=== PATIENT | male | born 1950 | race Caucasian/White ===

== ENCOUNTER 2019-05-26 14:31 | Observation (INO) | payer MEDICARE, OTHER, SELFPAY ==
[2019-05-08 08:48] VITALS: BMI 27.1
[2019-05-25] VITALS (11 sets, daily range): BP systolic 126–150; BP diastolic 78–89; PULSE 62–72; RESP 8–18; TEMP 36.2–37.3; O2SAT 96–99; BMI 25.6
--- NOTE | 2019-05-25 07:52 | DI.RAD.S_ITS ---
PROCEDURE: XR KNEE RT 1TO2V INDICATIONS: RIGHT POST OPERATIVE KNEE TECHNIQUE: 2 view(s) of the knee acquired. COMPARISON: [facility], , KNEE 3V RIGHT, 02/17/2016, 16:38. FINDINGS: Bones: Patient is status post right knee joint arthroplasty. Hardware components are in expected positions. Visualized bony structures are intact. Soft tissues: Overlying postoperative changes are noted. IMPRESSION: Satisfactory appearance of the right total knee arthroplasty. Dictated by: Bossman Sky M.D. on 05/25/2019 at 13:10 Approved by: Bossman Sky M.D. on 05/25/2019 at 13:11
[2019-05-25] MEDS: LACTATED RINGERS 1,000 ML 42 ML IV ×2 (09:00→11:31)
[2019-05-25] MEDS: CELECOXIB 200 MG CAPSULE PO (09:27)
[2019-05-25] MEDS: PREGABALIN 75 MG CAPSULE PO (09:27)
[2019-05-25] MEDS: ACETAMINOPHEN 325 MG TABLET 975 MG PO (09:27)
--- NOTE | 2019-05-25 10:08 | PM.PREOP ---
Pre-operative Note Interval Note History & Physical reviewed/Exam performed by Physician: Yes Changes to H&P: No
--- NOTE | 2019-05-25 10:25 | PM.OP.1 ---
Operative Date/Time/Diagnoses Date of procedure: 05/25/19 Time of procedure: 12:10 Pre-op diagnosis: Right knee osteoarthritis and gout Post-op diagnosis: same Procedure & Clinicians Procedure: Right total knee replacement Same procedure as scheduled: Yes Indications: The patient has had progressively worsening right knee pain with radiographic changes consistent with arthritis. He also has had prior severe attacks of gout. Non-operative management has failed and the patient has requested total knee replacement. The risks, benefits and alternatives to surgery were discussed with the patient prior to proceeding. Risks discussed included, but were not limited to, failure to relieve pain, stiffness, infection, nerve damage, deep venous thrombosis, pulmonary embolism, stroke, coma, heart attack, permanent paralysis and , as well as the potential need for eventual revision of the prosthetic. Surgeon: Dennis Gerard Resource Technician: Sacha Werner Click Yes if Unassisted: No Anesthesia Type: General and Local Operative Notes Findings: Severe medial and patellofemoral osteoarthritis with some evidence for crystal formation consistent with gout. Closure Type: primary Specimen(s): none sent Prosthetic devices, grafts, tissues, transplants, or devices: Implants used in this procedure were manufactured by the [employer] and included the BCS II Journey total knee replacement with a size 7 Oxinium femur, size 7 non porous tibial base plate, 9 mm cross-linked polyethylene tibial insert and a 35 mm oval Lucia II patella. Applied: implant(s) Estimated Blood Loss (mL): 50 Blood products transfused: none Tourniquet time (min): 58 Procedure in detail: The patient was seen in the pre-operative area, where the patient identified the right knee as the operative site and this was marked with my initials. The patient received pre-operative antibiotics, and was taken to the operating room and placed on the operative table in the supine position. After satisfactory anesthesia, a time stamp assembler out was performed. The right leg was encircled with a tourniquet about the proximal thigh, and the leg was prepared from the toes to the tourniquet with ChloroPrep in the usual fashion and draped through sterile drapes. The leg was elevated and exsanguinated with Eschmark bandage and the tourniquet inflated to 250 mmHg pressure. The knee was approached through an approximately 18 cm incision centered over the patella and carried into the knee through a medial parapatellar arthrotomy. The anterior osteophytes and soft tissues were removed. The rotational landmarks of [place]'s line and the transepicondylar axis were marked on the femur with electrocautery, and intramedullary guide holes for the femur and tibia were created. The distal femoral cut was made in 6 degrees of valgus using the intramedullary guide at the primary cut setting. The proximal tibial cut was then made using the intramedullary guide, taking 9 mm of bone off the less involved side. The extension gap was checked and the rotation of the femoral component confirmed with the gap balancing system. The anterior, posterior and chamfer cuts were then made. The posterior osteophytes and soft tissues were then removed. The posterior capsule was injected with part of a mixture of 60 ml 0.25% Marcaine mixed with 20 ml Exparel and 4 mg of morphine for post-operative pain control. The remainder of this mixture was injected into the capsule and subcutaneous tissues during cement curing. The tibia was prepared with the rotation set by an extra medullary guide. Trial tibial and femoral components were then placed and the intercondylar notch cut through the femoral trial. Range of motion was 0-140 degrees, with good stability throughout the range. The patella was then cut to accommodate the patellar prosthetic. There was no need for a lateral release. The trials were then removed, and the femoral hole plugged with a bone plug. The bone was prepared with pulsatile lavage, and dried with a sponge. Cement was applied and the final prosthetics placed. Excess cement was removed during and after cement curing. After confirming there was no extruded cement posteriorly, the final tibial insert was placed. The knee was copiously irrigated and the tourniquet deflated. Hemostasis was obtained. The capsule was closed with interrupted # 2 polyester suture. The subcutaneous layer was closed with 3-0 Vicryl, and the skin with a running 3-0 V-Lock suture and SteriStrips. An Aquacel Ag dressing was applied and the patient was taken to recovery having tolerated the procedure well. Complications: none Post-operative Condition: stable Disposition: PACU Plan for aftercare: The patient will be maintained on a standard total knee replacement protocol with weight bearing as tolerated. The patient will receive aspirin and sequential compression devices for DVT prophylaxis. The patient will be discharged home when safe for the home environment.
[2019-05-25] MEDS: CEFAZOLIN 2 GM/100 ML FROZ.PIGGY IV (10:33)
--- NOTE | 2019-05-25 10:41 | SUR.OPER ---
Supine on padded OR bed. Pillow under head, arms secured on padded armboards <90 degree abduction. Safety belt across torso. Non-operative leg secured with tape over blanket over lower leg. Operative leg secured in DeMayo/Corey positioner. Foam padded brace at thigh of operative leg.
[2019-05-25] MEDS: TRANEXAMIC ACID 1,000 MG VIAL 1000 MG INJ ×2 (10:52→12:01)
[2019-05-25] MEDS: BUPIVACAINE LIPOSOME 266 MG/20 ML VIAL INJ (11:04)
[2019-05-25] MEDS: BUPIVACAINE 0.25% W/ EPI 30 ML VIAL 60 ML INJ (11:05)
[2019-05-25] MEDS: MORPHINE 4 MG/ML INJ INJ (11:05)
--- NOTE | 2019-05-25 13:23 | SUR.PHASEI ---
Assumed care from zack mccain rn. pt sleeping, resp unlabored; skin warm and dry. scd's on, vs and cardiac rhythm monitored.
--- NOTE | 2019-05-25 13:37 | SUR.PHASEI ---
1983 informed that his room is ready. preparing to transfer. clothing bag, glasses, and backpack to room with the patient.
--- NOTE | 2019-05-25 13:52 | SUR.PHASEI ---
1341 to room 208, bed down and locked, call light within reach, scd's on. pt awake, talking appropriately, denied pain. no questions from staff or patient.
[2019-05-25] MEDS: LACTATED RINGERS 1,000 ML 125 ML IV (13:56)
[2019-05-25] MEDS: ACETAMINOPHEN 325 MG TABLET 650 MG PO ×2 (14:53→20:22)
[2019-05-25] MEDS: OXYCODONE IR 5 MG TABLET PO (15:28)
[2019-05-25] MEDS: IBUPROFEN 400 MG TABLET PO (15:28)
--- NOTE | 2019-05-25 17:19 | PT-IP ANOTE ---
Attempted to initiate PT evaluation ~1400 but pt not ready yet. Will see pt morning of 05/26.
[2019-05-25] MEDS: LITHIUM 300 MG IR CAPSULE PO ×2 (17:37→20:23)
[2019-05-25] MEDS: LATANOPROST 0.005% OPHTH 2.5 ML 1 DROPS EYE-BOTH (20:04)
[2019-05-25] MEDS: BRIMONIDINE 0.2% OPHTH 5 ML 1 DROPS EYE-LEFT (20:04)
[2019-05-25] MEDS: OXYCODONE IR 10 MG TABLET PO (20:21)
[2019-05-25] MEDS: TAMSULOSIN 0.4 MG CAPSULE PO (20:23)
[2019-05-25] MEDS: ROSUVASTATIN 10 MG TABLET 20 MG PO (20:23)
[2019-05-25] MEDS: DOCUSATE 100 MG CAPSULE PO (20:23)
[2019-05-25] MEDS: ASPIRIN EC 81 MG TABLET PO (20:23)
--- NOTE | 2019-05-26 00:46 | PC.NURSE ---
Addendum entered by Fanta Landrum R.N. 05/26/19 04:25: 30 minutes ago stated pain had improved to 4/10 but now states pain up to 7/10 so medicated with Flexeril. Describes pain still as dull but more constant. Addendum entered by Fanta Landrum R.N. 05/26/19 02:57: Patient states pain starting to get worse and is at 5/10; medicated with Oxycodone 10mg as requested. Original Note: Patient is alert and oriented. Breath sounds CTA with RA sat of 91-93%. HRR with BP of 141/85 which is consistent with previous readings. Denies nausea. BT present but denies flatus as yet. Voiding per urinal without dysuria. Aquacel dressing + xiomara wrap to right knee is CDI. States pain currently 1/10 at rest and 4/10 with movement but declines offer of pain medication; ice pack applied. Numbness in right leg is resolved and CMS is intact. Is not able to lift right LE off bed as yet. Is able to turn himself in bed. Gait not assessed as has not yet had PT. Wearing bilateral calf SCD's. Fall risk score is moderate; bed alarm is activated.
[2019-05-26 00:47] VITALS: BP 141/85; PULSE 81; RESP 16; TEMP 36.7; O2SAT 91
[2019-05-26] MEDS: OXYCODONE IR 10 MG TABLET PO ×5 (02:54→20:55)
[2019-05-26 04:15] VITALS: BP 149/95; PULSE 80; RESP 16; TEMP 37; O2SAT 98
[2019-05-26] MEDS: CYCLOBENZAPRINE 10 MG TABLET PO (04:22)
[2019-05-26 05:31] LABS: Hematocrit 38.7 % (41-53); Hemoglobin 12.3 g/dL (13.5-17.5)
--- NOTE | 2019-05-26 06:24 | PM.DS.1 ---
History of Present Illness History of Present Illness Date Patient Seen: 05/26/19 Time Patient Seen: 06:24 Chief complaint: [id number] Right Total Shoulder Arthroplasty Narrative: The history and physical is contained in the chart in a previously completed note. Please refer to that note for this information. Discharge Providers Provider Date of admission: 05/25/19 08:46 Discharge Date: 05/26/19 Primary care physician: Juhi Mitchell MD Consults: 05/25/19 13:49 Consult to Discharge Planning Routine Comment: Consult to Physical Therapy Evaluate & Treat Comment: Physician Instructions: postop TKA protocol Discharge provider: Dennis Gerard MD Summary Hospital Course Discharge Diagnosis: 1. 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 She underwent a left total shoulder replacement without complication. She was stable postoperatively and on the morning of postoperative day 1 it was felt she would be ready for discharge later in the day. Status at Discharge Cognitive/behavioral status at discharge: oriented Functional status at discharge: independent ambulation Overall status at discharge: patient is progressing back to baseline Time Spent with Patient Time spent: Less than 30 minutes Exam Vital Signs (past 8 hours): - 05/26/19 00:47 05/26/19 04:15 Temperature 98.0 F 98.6 F Pulse Rate 81 80 Respiratory Rate 16 16 Blood Pressure 141/85 H 149/95 H Pulse Oximetry 91 98 Oxygen Delivery Method Room Air Oxygen Flow Rate 0 Narrative Exam Narrative: Left shoulder wound is dressed with no drainage on the bandage. Light touch is intact in the radial, ulnar, median, muscular cutaneous and axillary nerve distributions. She can extend her thumb, abduct her thumb, abduct her fingers and can fire her biceps and deltoid. Objective Labs Result Diagrams: 05/26/19 05:20 Labs: Laboratory Results - last 24 hr 05/26/19 05:20 Hgb 12.3 L Hct 38.7 L Discharge Plan Discharge Plan Patient Disposition: Home Discharge orders & Medications Prescriptions: New acetaminophen 325 mg Tablet 650 mg PO TID 30 Days Qty: 180 RF: 0 aspirin 81 mg Tablet,Delayed Release (Dr/Ec) 81 mg PO BID 42 Days Qty: 84 RF: 0 oxycodone 5 mg Tablet 5 mg PO Q4HR Qty: 40 RF: 0 Continued lithium carbonate 150 mg capsule 300 mg PO DIRECTED Qty: 0 RF: 0 allopurinol 100 MG tablet 100 mg PO QDAY Qty: 30 RF: 0 triazolam 0.125 MG tablet 0.125 mg PO DAILY PRN (Reason: Anxiety) Qty: 0 RF: 0 cyclobenzaprine 10 MG tablet 10 mg PO TIDP PRN (Reason: Muscle Spasm) Qty: 0 RF: 0 latanoprost 0.005 % drops 1 drp EYE-BOTH HS Qty: 2.5 RF: 0 timolol maleate 0.5 % drops 1 drp EYE-BOTH QAM Qty: 5 RF: 0 rosuvastatin 20 mg Tablet 20 mg PO BEDTIME RF: 0 sildenafil 100 mg Tablet 100 mg PO DAILY PRN (Reason: Sexual Activity) RF: 0 brimonidine 0.2 % Drops 1 drp EYE-LEFT BID RF: 0 ibuprofen 200 mg Tablet 400 mg PO Q4H PRN (Reason: Pain) RF: 0 Sleep Aid (doxylamine) 25 mg Tablet 25 mg PO BEDTIME PRN (Reason: Sleep) RF: 0 tamsulosin 0.4 mg Capsule 0.4 mg PO BEDTIME RF: 0 paroxetine HCl 20 mg Tablet 20 mg PO DAILY RF: 0 diazepam 10 mg Tablet 10 mg PO DAILY RF: 0 Discontinued acetaminophen [Tylenol Extra Strength] 500 mg Tablet 1,000 mg PO Q4H PRN (Reason: Pain) RF: 0 Follow up/Referrals: Juhi Mitchell MD [Primary Care Provider] - Dennis Gerard MD [Physician] - 3-5 Days Discharge Health Status Multidrug resistant organism: No MDRO Diet/Activity/Treatments Diet: Diet as Tolerated and Regular Activity: You may bear weight on your right knee as tolerated. Cold/Heat Therapy: Apply ice to the right knee for 15 minutes every hour as needed for pain. Skin/Wound/Dressing Care Report to your healthcare provider any signs of infection, such as:: chills, fever, night sweats, increased pain, unusual drainage and unusual redness Dressing: Remove the Loyd wrap 3 days after surgery. Leave the deeper dressing in place. After removal of the Loyd wrap you may shower normally. Please call the office if the center strip of the deeper dressing becomes saturated with either water or blood. Visit Report/Discharge Packet Instructions: DI for Knee Replacement, DI for Prescription Opioid Use Stand Alone Forms: Surgery Discharge Discharge Data Primary Care Provider: Juhi Mitchell
--- NOTE | 2019-05-26 06:29 | P.DS_ITS ---
History of Present Illness History of Present Illness Date Patient Seen: 05/26/19 Time Patient Seen: 06:29 Chief complaint: [id number] Right Total Knee Arthroplasty Narrative: The history and physical is contained in the chart in a previously completed note. Please refer to that note for this information. Discharge Providers Provider Date of admission: 05/25/19 08:46 Discharge Date: 05/26/19 Primary care physician: Juhi Mitchell MD Consults: 05/25/19 13:49 Consult to Discharge Planning Routine Comment: Consult to Physical Therapy Evaluate & Treat Comment: Physician Instructions: postop TKA protocol Discharge provider: Dennis Gerard MD Summary Hospital Course Discharge Diagnosis: 1. Right knee osteoarthritis 2. Post hemorrhagic anemia Hospital Course: Patient was admitted the hospital and taken directly to the o perating room on May 25, 2019. He underwent a right total knee replacement without complication. On postoperative day 1 he is medically stable and is anxious to go home as long as he can pass physical therapy requirements today. Status at Discharge Cognitive/behavioral status at discharge: oriented Functional status at discharge: uses cane/walker Overall status at discharge: patient is progressing back to baseline Time Spent with Patient Time spent: Less than 30 minutes Exam Vital Signs (past 8 hours): - 05/26/19 00:47 05/26/19 04:15 Temperature 98.0 F 98.6 F Pulse Rate 81 80 Respiratory Rate 16 16 Blood Pressure 141/85 H 149/95 H Pulse Oximetry 91 98 Oxygen Delivery Method Room Air Oxygen Flow Rate 0 Narrative Exam Narrative: Right knee wound is dressed with no drainage on the bandage. Calf is soft. Light touch and motion are intact in the right lower extremity. Objective Labs Result Diagrams: 05/26/19 05:20 Labs: Laboratory Results - last 24 hr 05/26/19 05:20 Hgb 12.3 L Hct 38.7 L Discharge Plan Discharge Plan Patient Disposition: Home Discharge orders & Medications Prescriptions: New acetaminophen 325 mg Tablet 650 mg PO TID 30 Days Qty: 180 RF: 0 aspirin 81 mg Tablet,Delayed Release (Dr/Ec) 81 mg PO BID 42 Days Qty: 84 RF: 0 oxycodone 5 mg Tablet 5 mg PO Q4HR Qty: 40 RF: 0 Continued lithium carbonate 150 mg capsule 300 mg PO DIRECTED Qty: 0 RF: 0 allopurinol 100 MG tablet 100 mg PO QDAY Qty: 30 RF: 0 triazolam 0.125 MG tablet 0.125 mg PO DAILY PRN (Reason: Anxiety) Qty: 0 RF: 0 cyclobenzaprine 10 MG tablet 10 mg PO TIDP PRN (Reason: Muscle Spasm) Qty: 0 RF: 0 latanoprost 0.005 % drops 1 drp EYE-BOTH HS Qty: 2.5 RF: 0 timolol maleate 0.5 % drops 1 drp EYE-BOTH QAM Qty: 5 RF: 0 rosuvastatin 20 mg Tablet 20 mg PO BEDTIME RF: 0 sildenafil 100 mg Tablet 100 mg PO DAILY PRN (Reason: Sexual Activity) RF: 0 brimonidine 0.2 % Drops 1 drp EYE-LEFT BID RF: 0 ibuprofen 200 mg Tablet 400 mg PO Q4H PRN (Reason: Pain) RF: 0 Sleep Aid (doxylamine) 25 mg Tablet 25 mg PO BEDTIME PRN (Reason: Sleep) RF: 0 tamsulosin 0.4 mg Capsule 0.4 mg PO BEDTIME RF: 0 paroxetine HCl 20 mg Tablet 20 mg PO DAILY RF: 0 diazepam 10 mg Tablet 10 mg PO DAILY RF: 0 Discontinued acetaminophen [Tylenol Extra Strength] 500 mg Tablet 1,000 mg PO Q4H PRN (Reason: Pain) RF: 0 Follow up/Referrals: Juhi Mitchell MD [Primary Care Provider] - Dennis Gerard MD [Physician] - 3-5 Days Discharge Health Status Multidrug resistant organism: No MDRO Diet/Activity/Treatments Diet: Diet as Tolerated and Regular Activity: You may bear weight on your right knee as tolerated. Cold/Heat Therapy: Apply ice to the right knee for 15 minutes every hour as needed for pain. Skin/Wound/Dressing Care Report to your healthcare provider any signs of infection, such as:: chills, f ever, night sweats, increased pain, unusual drainage and unusual redness Dressing: Remove the Loyd wrap 3 days after surgery. Leave the deeper dressing in place. After removal of the Loyd wrap you may shower normally. Please call the office if the center strip of the deeper dressing becomes saturated with either water or blood. Visit Report/Discharge Packet Instructions: DI for Knee Replacement, DI for Prescription Opioid Use Stand Alone Forms: Surgery Discharge Discharge Data Primary Care Provider: Juhi Mitchell
--- NOTE | 2019-05-26 08:02 | CM.DANOTE ---
Addendum entered by Olive Ramirez LPN 05/26/19 14:34: Met now with Dai, at bedside. Pt lying in bed, snoring softly. She is updated re the admission status/SDC and lack of ability know to have pt go to snf setting. She notes great confusion re admission status specifics. ANIBAL Tsang if updated and agrees to follow up with her. He also confirms admission status as OBS: as of 05/26. Dai is process of looking at ferry schedule in prep for the d/c to home setting tomorrow. She is planning on the [address] to [place]. Priority Board will be needed, PLASTIC PANEL INSTALLER will assist tomorrow to fax this in to appropriate ferry contact. PT will see pt in morning for another session. Dai notes she does anticipate the d/c to home will be challenging but she also will be glad to get pt back on all his routine medications as he does not do very well when the medication schedule is interrupted or changed, especially the ones for his mental health problems. Dai is planning to see if the neighbor's son can help get him out of the car and into the house. DCP team to follow up tomorrow prn. P: at this point: home tomorrow: 1440 ferry. Addendum entered by Olive Ramirez LPN 05/26/19 11:54: Update: admission status: per UR ISABEL Tsang: confirmed: SDC (Outpt with Bed). Have spoken with PT Martha. Pt did well in first session. She has set up caregiver training with Dai for 1230. She notes pt will likely be ready for d/c to home setting tomorrow. Met with pt again. He agrees that going home seems to be a good plan at this point. He said their may be someone who can help him in addition to his but it's not set up yet. He says he thinks she will be able to get into the back seat of their car although it is clear from prior discussion that pt's will need someone to help her get him safely out of the car. PT will also work on stairs with pt and his . Will follow up this afternoon after the caregiver training. Addendum entered by Olive Ramirez LPN 05/26/19 08:53: Discussed surgical report with UR ISABEL Tsang...he reports he will follow up. He will also need to review for appropriate admission status: Admit status: no longer confirmed INPT: is IN REVIEW. Addendum entered by Olive Ramirez LPN 05/26/19 08:41: Spoke with pt's Dai (who is staying in a hotel in [place]). Per discussion with her and a deeper look at the documentation including DC summary # 3 and op report it is clear that the initial information on the face sheet is incorrect: Admitting reason is for TKA NOT TSA. Dai reports that her had a lesser knee procedure in past and went to [facility] for a month. She would like his name on the pending list but only if he has the Medicare qualifying stay. She also notes that she is concerned about how to get him home if he does have to d/c to that setting. My car is very small. We have practiced but not been successful getting him into it Discussed option of a pvt pay transport service...... Dai will be in later today and will meet again with her and pt at that time. [facility] Tyrese: states she thinks their are beds and will check further with her rehabilitation center manager. ([facility] was previously known as [facility]). Addendum entered by Olive Ramirez LPN 05/26/19 08:16: Met with pt and introduced self and role. Pt said he was aware that Dr. Gerard had a d/c order in place but that he told him that all would depend on how he did with PT. (ISABEL Munroe, caring for pt today, confirms same). Pt said he was aware that his thought he would need a snf rehab stay before home. Pt confirms his 's name is Dai [place]: [phone]. It is noted that pt and his life in [place] on [facility]. P: check in later today as more is known re d/c options. Original Note: Discharge Planning/Care Management DCP: assessment: case received, EMR reviewed. Pt is a 69 year old male who admitted yesterday for a planned R TSA. Payer: Medicare and [employer] Admission status: INPT: confirmed by UR ISABEL Tsang. A d/c order and d/c summary are noted from Dr. Gerard early this morning. PT has not yet worked with pt. A review of the pre-op plan that pt discussed with ISABEL KNIGHT on 05/08: see below template: states that pt's wants him to go to snf setting. Will check in with pt this morning and discuss with therapists once the eval has been completed. Advanced directive, confirm from FAMILY Start: 05/25/19 15:02 Freq: Q24H Status: Active Protocol: Document 05/25/19 16:00 LDV (Rec: 05/25/19 18:56 LDV [id number]) Advance Directive, confirm on record Time 16:00 Person contacted pt Copy received No CM Discharge Assessment Start: 05/26/19 08:00 Freq: Status: Active Protocol: Document 05/26/19 08:00 ITV (Rec: 05/26/19 08:01 ITV [id number]) Discharge Planning Assessment Advance Directives? Yes History Provided By Medical Record Prior Living Arrangements House Household Members spouse Document 05/26/19 08:01 ITV (Rec: 05/26/19 08:02 ITV [id number]) Discharge Planning Assessment Advance Directives? Yes History Provided By Medical Record Prior Living Arrangements House Household Members spouse Is patient alert and oriented? Yes Review Status In Process Pre-Anesthesia Assessment Start: 05/08/19 08:48 Freq: Status: Complete Protocol: Document 05/08/19 08:48 CAB (Rec: 05/08/19 09:51 CAB [id number]) Pre-Anesthesia Assessment Preferred Name Candelario Patient Information Reviewed Via Phone Assessment Assessment Completed With Patient Diagnostic Results BMP/CMP,CBC,EKG,Urinalysis Comment Outside labs/EKG scanned to record Primary Care Provider Juhi Mitchell Seen Specialist in Last 12 Months Yes Specialist Seen Oral surgeon,Orthopedist Primary Language Estonian Pneumatic Drum Sander Required No Height 182.88 cm Weight 90.718 kg Body Mass Index (BMI) 27.1 Hearing Ability Normal Visual Assist Glasses Dentition Type Teeth, Missing,Partial- Lower Barriers to Learning Memory Other Aids No Comment Does not wear lower partial Hx Anesthesia Reactions No Hx Family Anesthesia Reaction No Hx Malignant Hyperthermia No Hx Blood Transfusions No: Pt unsure Anesthesia Review Requested No Skinner Pelts Yes: wants DC to SNF alcohol intake former Alcohol Intake Frequency Other: Quit 04/2019 Smoking Status Never smoker Substance Use Type does not use Pain Present Pain Reported Musculoskeletal Symptoms Back Pain,Difficulty Walking, Joint Pain History of Falling (Recent or History of No ) Patient is completely paralyzed or No completely immobile Mental Status Oriented to own ability Comment Appears confused at times with assess Is patient on oxygen? No Does patient have KIRBY/SOB No Hx Sleep Apnea No Currently Taking a Beta Félix No Can You Climb a Flight of Stairs Without Yes SOB Hx Chest Pain No Hx SOB No Hx Syncope or Dizziness No Anti-Coagulant Therapy No Has a Director Of Slot Operations No Cardiac Testing No Hx Pacemaker/ICD No Pacemaker Rep Required? No Cardiac Clearance Received Not Applicable Diet Type At Home Regular dysphagia No Genitourinary Symptoms Dribbling Bladder Pattern Nocturia Urinary Catheter Present No Hx Urinary Self Catheterization No Diabetes No HgbA1C 5.5 Date 04/28/19 Hx Drug Resistant Organism No Presence of External or Internal Medical Yes: Hardware rt ankle Devices Have you traveled outside the [facility] in the last 30 days? Marital Status Lives With spouse Prior Living Arrangements House Number of Floors (Floors) Two Floors Support System Spouse Does the Patient Have Assistance After Yes Surgery Patient Discharge Plan Description Return Home,Longterm Facility/Rehab Comment Pt advised a few days length of stay per surgeon. wants DC to snf Feels Safe in Current Environment Yes Been Physically Hurt or Threatened By a No Person in Current Environment Do you have thoughts of harming yourself None or others? Are you currently considering suicide? No Do you have a plan to hurt yourself or No Plan others? Do You Have Any Spiritual Beliefs That No May Affect Your HC Choices? Do You Have Any Cultural Practices That No May Affect Your HC Choices? Who Can We Speak to About Patient's Care Family, friends Identifying Code for Release of Patient Declines to issue Information Health Care Proxy/Next of Kin Dai () Health Care Proxy or [phone] Emergency Contact Name Dai () Emergency Contact or [phone] Advance Directives? No Power of Cake Puncher Yes: Working on updating PAC Instructions Durable medical equipment, Medications to take/avoid, Nasal antibiotic,No ETOH/ petroleum product on skin DOS, NPO,Post-op transportation,Pre -surgical wash,Sturdy shoes/ comfortable clothes,Do not bring valuables and remove jewelry
[2019-05-26] MEDS: ACETAMINOPHEN 325 MG TABLET 650 MG PO ×3 (08:14→20:56)
[2019-05-26] MEDS: ASPIRIN EC 81 MG TABLET PO ×2 (08:14→20:55)
[2019-05-26] MEDS: IBUPROFEN 400 MG TABLET PO ×2 (08:15→20:57)
[2019-05-26] MEDS: DOCUSATE 100 MG CAPSULE PO ×2 (08:15→20:55)
[2019-05-26] MEDS: ALLOPURINOL 100 MG TABLET PO (08:16)
[2019-05-26] MEDS: LITHIUM 300 MG IR CAPSULE 600 MG PO (08:16)
[2019-05-26] MEDS: PARoxetine 20 MG TABLET PO (08:17)
[2019-05-26] MEDS: TIMOLOL 0.5% OPHTH 1 DROPS EYE-BOTH (08:18)
[2019-05-26] MEDS: SODIUM CHLORIDE 0.9% FLUSH 10 ML IV ×2 (08:18→20:57)
[2019-05-26] MEDS: BRIMONIDINE 0.2% OPHTH 5 ML 1 DROPS EYE-LEFT ×2 (08:19→20:56)
[2019-05-26 08:54] VITALS: BP 144/88; PULSE 91; RESP 17; TEMP 37.7; O2SAT 94
--- NOTE | 2019-05-26 09:35 | PC.NURSE ---
Addendum entered by Shaneka Gill R.N. 05/26/19 14:55: Called Dr. Trejo's cell at 1455, after 2X11 min on hold attempts with office answering service. Made aware that pt and his would like pt to stay one more night. Discharge order cancelled, pt will likely discharge home tomorrow. Addendum entered by Shaneka Gill R.N. 05/26/19 13:32: PM PT session, pt had up to 7/10 pain with movement, 1-2/10 with rest after settled back into bed with PT assist. Pt's present for PM PT session. Would prefer pt to stay one more night, has concerns for getting pt in/out of car, pain management, ferry ride. Pt's has lifting mobility restrictions as well. Original Note: Day Shift- Pt A&OX4, able to make needs known using call light. High fall risk precautions in place, bed alarm on, call light within reach. Pre-medicated with prn Oxycodone and Ibuprofen and scheduled Tylenol prio rto AM PT session. Pain 2/10 with rest. Pt OOB with PT ambulating in hallway, around 0920, settled into recliner chair at 0935 by PT. Spoke with Demi, pt's via phone at 0930 for update. Per PT pt will have caregiver training this afternoon and will call Demi to participate.
--- NOTE | 2019-05-26 10:35 | PT.IIE ---
Current Diagnoses Unilateral primary osteoarthritis, right knee (05/25/19) Personal history of other diseases of the musculoskeletal system and connective tissue (05/25/19) Surgery Performed Operation Date: 05/25/19 10:45 Actual Procedures p Total Knee Arthroplasty(Right) - Dennis Gerard MD Surgical History (Last Updated 05/08/19 @ 09:32 by Dora Gallo RN) History of ankle surgery (Acute) Hx of appendectomy (Acute) Hx of arthroscopy of right knee (Acute 03/03/16) Hx of oral surgery (Acute 05/05/19) Hx of thumb surgery (Acute ~05/2017) Medical History (Last Updated 05/25/19 @ 09:15 by Katja Deng RN) Anxiety (Acute) De Quervain's tenosynovitis (Acute) Depression (Acute) DJD (degenerative joint disease) (Acute) Herniated disc (Acute) HLD (hyperlipidemia) (Acute) Neuropathy (Acute) Occasional tremors (Acute) Septic arthritis (Acute ~03/2016) Tinnitus (Acute) Physical Therapy Inpatient Evaluation/Re-Eval M1 PT/OT-IP Prior Functional Status Start: 05/26/19 07:59 Freq: NEEDED Status: Active Protocol: Document 05/26/19 10:10 AW (Rec: 05/26/19 10:35 AW [id number]) Medical Review Prior Functional Status Medical History Reviewed Yes Diet/Fluid Consistency Regular Communication WFL. Pt with bipolar disorder and anxiety at baseline. Mobility and Gait Slow but independent without assistive device. Activities of Daily Living and IADL's Independent. Prior Functional Level (Other details) Pt had a gout flare up treated with I&D in 2015 involving the right knee. He was discharged to SNF following that procedure. Social History Household Members spouse Living Arrangements House Number of Floors (Floors) Two Floors Number of Stairs To Enter/Railing? 2 HUSSEIN without railing. There are 16 steps up to the second floor, but pt has set up the freelance data entry so that he can stay there until strong enough to manage the stairs. Home Environment Standard Height Toilet,Walk in Shower,Tub/Shower Home Equipment Front Wheel Walker,Straight Cane,Bedside Commode,Shower Seat without Backrest,Hand Held Shower Additional Social History Comment Pt lives with his , Dai, in [place]. Per phone conversation with Dai, she states she has cervical and lumbar stenosis which limit her ability to provide physical assist. She is concerned about her ability to get Candelario into her [place] since Candelario is tall and has had difficulty with this transfer in the past. M2 PT-IP Current Condition Start: 05/26/19 07:59 Freq: NEEDED Status: Active Protocol: Document 05/26/19 10:10 AW (Rec: 05/26/19 10:35 AW [id number]) Physical Therapy Current Condition Current Condition Evaluation Date 05/26/19 Treatment Diagnosis s/p R TKA Onset Date 05/25/19 Weight Bearing Status Weight Bearing Status Weight Bear as Tolerated M3 PT-IP Subjective Start: 05/26/19 07:59 Freq: NEEDED Status: Active Protocol: Document 05/26/19 10:10 AW (Rec: 05/26/19 10:35 AW [id number]) Subjective Physical Therapy Visit Type Type Initial Evaluation Visit Start Time 08:54 Visit Stop Time 09:30 Total Visit Minutes 36 Number of MEDICAL FIELD REPRESENTATIVE Visits 0 Physical Therapy Visit Comments Patient Comments Pt willing to mobilize with PT Patient Goals Pt concerned he may need SNF rehab but would like to be able to go home. Therapy Pain Assessment Pain When Pain Assessed During Mobility Pain Present Pain Present Pain Reported Location Right Knee Intensity 7 Scale Used 2/10 at rest; 7/10 with mobility Pain Management Techniques Apply Cold,Elevation,Re- positioning,Timing of Activity with Medications M4 PT-IP Mobility and Gait Start: 05/26/19 07:59 Freq: NEEDED Status: Active Protocol: Document 05/26/19 10:10 AW (Rec: 05/26/19 10:35 AW [id number]) PT-Bed Mobility Assessment Supine to Sit Supine to Sit Standby Assistance Scooting Scooting to Edge of Bed Standby Assistance PT-Transfer Assessment Sit to and From Stand Sit to and from Stand Contact Guard Assistance Equipment Transfer Assistive Device Gait Belt,Front Wheeled Walker Orthotic/Prosthetic Devices or Brace: No Transfers Transfer Destination Chair Transfer Technique pt ambulated with FWW Transfer Ability Level of Assist Contact Guard Assistance Comments Mobility Comments Pt used the L LE to lift the R LE out of bed SBA. Sit to stand and transfer to chair required verbal cues for sequencing and CGA. Pt denied nausea or lightheadedness with mobility. Gait Assessment Gait Gait Assistance Required: Standby Assistance,Contact Guard Assist Distance (Feet) 80 Able to Maintain Weight Bearing Status Yes During Gait Assistive Devices Assistive Device Gait Belt,Front Wheeled Walker Orthotic/Prosthetic Devices or Brace: No Gait Deviations General Gait Pattern Antalgic,Decreased Stride Length,Decreased Feet Clearance,Flexed Trunk,Step-to Gait Factors Limiting Gait Function Factors Limiting Gait Function Decreased Activity Tolerance, Decreased Strength,Limited Range of Motion,Pain Comments Gait Comments Pt ambulated 40 feet in the halls with FWW CGA and another 40 feet with FWW SBA. Gait was notable for short shuffling steps with minimal foot clearance, step-to patterning, and slow gait speed but pt demonstrated good safety with the FWW, keeping it an appropriate distance from his trunk and using it properly to off-weight the R LE as needed. Stair Climbing Assessment Evaluation Level of Assist On Stairs Contact Guard Assistance,1 Person Assistance Devices Stair Climbing Assistive Devices Left Railing,Right Railing Technique/Endurance Stair Climbing Direction Ascend and Descend Stair Climbing Technique Step to Step Number of Steps Climbed 3 Query Text: Stair Climbing Set # Repetitions (reps) 1 Comments Stair Climbing Comments Pt has no railings at home entry, but did not feel confident attempting stairs with EDGE TRIMMING MACHINE OPERATOR. He used bilateral rails to ascend/descend with CGA. PT-Balance Assessment Sitting Balance and Reactions Static Sitting Balance Ability Good Dynamic Sitting Balance Ability Good Standing Balance and Reactions Static Standing Balance Ability Good Dynamic Standing Balance Ability Good Device Used FWW M5 PT-IP Objective Assessments Start: 05/26/19 07:59 Freq: NEEDED Status: Active Protocol: Document 05/26/19 10:10 AW (Rec: 05/26/19 10:35 AW [id number]) Orientation Orientation/Cognition Level of Alertness Confusional State Orientation Name,Birthday,Day of Week, Place,Situation Safety Awareness Understands Safety Issues Memory Description Short Term Impaired Comments Pt repeated the story of his previous knee surgery 3 times, seemingly having forgotten each time that he already conveyed this information. He is oriented but presents as confused and drowsy. Gross Range of Motion Upper Extremity ROM Assessment Within Functional Limits Lower Extremity ROM Assessment Right Impaired Strength Upper Extremity Strength Assessment Within Functional Limits Lower Extremity Strength Assessment Right Impaired Coordination Assessment Gross Coordination Gross Coordination WNL Sensation Assessment Sensation Gross Sensation WNL M6 PT-IP Treatment Start: 05/26/19 07:59 Freq: NEEDED Status: Active Protocol: Document 05/26/19 10:10 AW (Rec: 05/26/19 10:35 AW [email or web address]) Physical Therapy Treatment Exercises Exercises Ankle Pumps,Quad Sets,Heel Slides,Passive Knee Extension Hang Education Education Provided Precautions,Weight Bearing Status,Post-Op Packet,Safety Other Treatments Other Treatment Performed Provided education on PT plan of care, post-op exercises, weightbearing status, and safe use of FWW. M7 PT-IP Assessment and Plan Start: 05/26/19 07:59 Freq: NEEDED Status: Active Protocol: Document 05/26/19 10:10 AW (Rec: 05/26/19 10:35 AW [email or web address]) PT Summary Assessment and Plan Potential Rehabilitation Potential Good Status of Condition at Evaluation Stable Summary Impairments Pain,ROM,Strength,Cognition, Transfers,Gait Assessment Summary Candelario is a 69 yo man with history of right knee I&D requirng SNF rehab. He was seen for PT evaluation on POD1 following R TKA. At baseline, he was independent in all regards but slow with mobility due to pain. On evaluation, pt presents as confused, drowsy, and with short-term memory deficits. He required SBA for bed mobility and CGA for ambulation with FWW and stairs. He did demonstrate good safety awareness with FWW but required cues for sequencing transfers and stairs. He requires further acute PT to address safe transfers, to progress ambulation, and to provide caregiver training which is arranged for this afternoon at 1230. Depending on progress, pt will likely be safe to discharge home with spouse assist and outpatient PT today or tomorrow. Will continue to assess. Goals Bed Mobility Goal Independent Transfer Goal Standby Assistance,Front Wheeled Walker Gait Goal Standby Assistance,Front Wheel Walker Gait Distance 150 Other Goals - up/down 2 steps with EDGE TRIMMING MACHINE OPERATOR/CGA and appropriate patterning Days to Meet Goals 2 Frequency of Treatment Frequency Of Treatment Twice a Day Treatment Plan Physical Therapy Treatment Plan Bed Mobility Training,Transfer Training,Gait Training, Therapeutic Exercise,Balance Retraining,Post Op Education, Discharge Planning,Hot or Cold Pack Other Recommendations and Next Treatment caregiver training, stairs Focus without railings depending on which entry pt plans to use Recommendations To Nursing Amount of Assist Needed 1 Person Assist Discharge Recommendations PT Discharge Recommendations Home with Assistance, Outpatient PT Other Discharge Recommendations Will continue to assess
--- NOTE | 2019-05-26 12:36 | PT.IPTN ---
Current Diagnoses Unilateral primary osteoarthritis, right knee (05/25/19) Personal history of other diseases of the musculoskeletal system and connective tissue (05/25/19) Surgery Performed Operation Date: 05/25/19 10:45 Actual Procedures p Total Knee Arthroplasty(Right) - Dennis Gerard MD Physical Therapy Treatment Note M2 PT-IP Current Condition Start: 05/26/19 07:59 Freq: NEEDED Status: Active Protocol: Document 05/26/19 10:10 AW (Rec: 05/26/19 10:35 AW [id number]) Physical Therapy Current Condition Current Condition Evaluation Date 05/26/19 Treatment Diagnosis s/p R TKA Onset Date 05/25/19 Weight Bearing Status Weight Bearing Status Weight Bear as Tolerated M3 PT-IP Subjective Start: 05/26/19 07:59 Freq: NEEDED Status: Active Protocol: Document 05/26/19 12:36 CLB (Rec: 05/26/19 13:53 CLB [id number]) Subjective Physical Therapy Visit Type Type Treatment Note Visit Start Time 12:36 Visit Stop Time 13:20 Total Visit Minutes 44 Notes present for CG training. Number of RAILROAD FIRER/FIREMAN Visits 1 Physical Therapy Visit Comments Patient Comments Pt willing to mobilize with PT Patient Goals Pt wants to go home Therapy Pain Assessment Pain When Pain Assessed During Mobility Pain Present Pain Present Pain Reported Location Right Knee Intensity 6 Scale Used 1/10 at rest; 6/10 with mobility Pain Management Techniques Apply Cold,Elevation,Re- positioning,Timing of Activity with Medications M4 PT-IP Mobility and Gait Start: 05/26/19 07:59 Freq: NEEDED Status: Active Protocol: Document 05/26/19 12:36 CLB (Rec: 05/26/19 13:53 CLB [id number]) PT-Bed Mobility Assessment Sit to Supine Sit to Supine Standby Assistance Scooting Scooting Up and Down in Bed Standby Assistance PT-Transfer Assessment Sit to and From Stand Sit to and from Stand Contact Guard Assistance,Use of Upper Extremities Equipment Transfer Assistive Device Gait Belt,Front Wheeled Walker Orthotic/Prosthetic Devices or Brace: No Transfers Transfer Destination Bed,Chair Transfer Technique pt ambulated with FWW Transfer Ability Level of Assist Contact Guard Assistance Comments Mobility Comments Pt used L LE to lift R LE onto window seat as well as into bed. Pt required Min A during sit-stand from chair but after ambulation pt sat on window bench to simulate getting into care and required CGA to stand from bench. Gait Assessment Gait Gait Assistance Required: Standby Assistance,Contact Guard Assist Distance (Feet) 120 Able to Maintain Weight Bearing Status Yes During Gait Assistive Devices Assistive Device Gait Belt,Front Wheeled Walker Orthotic/Prosthetic Devices or Brace: No Gait Deviations General Gait Pattern Antalgic,Decreased Stride Length,Decreased Feet Clearance,Flexed Trunk,Step-to Gait Factors Limiting Gait Function Factors Limiting Gait Function Decreased Activity Tolerance, Decreased Strength,Limited Range of Motion,Pain Comments Gait Comments Pt ambulated ~60ft to stairs, performed stair training and then ambulated back to room. Pt with slow steady step to gait pattern and good safety awareness. Stair Climbing Assessment Evaluation Level of Assist On Stairs Contact Guard Assistance,1 Person Assistance Devices Stair Climbing Assistive Devices Front Wheel Walker,Left Railing,Right Railing Technique/Endurance Stair Climbing Direction Ascend and Descend Stair Climbing Technique Step to Step Number of Steps Climbed 4 Stair Climbing Set # Repetitions (reps) 2 Comments Stair Climbing Comments Pt states pt can go into house through garage with one step and is able to use FWW. Pt able to climb one platform step with FWW and three standard step with rails. PT-Balance Assessment Sitting Balance and Reactions Static Sitting Balance Ability Good Dynamic Sitting Balance Ability Good Standing Balance and Reactions Static Standing Balance Ability Good Dynamic Standing Balance Ability Good Device Used FWW M5 PT-IP Objective Assessments Start: 05/26/19 07:59 Freq: NEEDED Status: Active Protocol: Document 05/26/19 10:10 AW (Rec: 05/26/19 10:35 AW [id number]) Orientation Orientation/Cognition Level of Alertness Confusional State Orientation Name,Birthday,Day of Week, Place,Situation Safety Awareness Understands Safety Issues Memory Description Short Term Impaired Comments Pt repeated the story of his previous knee surgery 3 times, seemingly having forgotten each time that he already conveyed this information. He is oriented but presents as confused and drowsy. Gross Range of Motion Upper Extremity ROM Assessment Within Functional Limits Lower Extremity ROM Assessment Right Impaired Strength Upper Extremity Strength Assessment Within Functional Limits Lower Extremity Strength Assessment Right Impaired Coordination Assessment Gross Coordination Gross Coordination WNL Sensation Assessment Sensation Gross Sensation WNL M6 PT-IP Treatment Start: 05/26/19 07:59 Freq: NEEDED Status: Active Protocol: Document 05/26/19 12:36 CLB (Rec: 05/26/19 13:53 CLB [id number]) Physical Therapy Treatment Exercises Exercises Quad Sets,Heel Slides,Straight Leg Raises,Short Arc Quads, Seated Knee Flexion/Extension Education Education Provided Precautions,Weight Bearing Status,Post-Op Packet,Safety M7 PT-IP Assessment and Plan Start: 05/26/19 07:59 Freq: NEEDED Status: Active Protocol: Document 05/26/19 12:36 CLB (Rec: 05/26/19 13:53 CLB [id number]) PT Summary Assessment and Plan Potential Rehabilitation Potential Good Status of Condition at Evaluation Stable Summary Impairments Pain,ROM,Strength,Cognition, Transfers,Gait Assessment Summary Pt is SBA-CGA for all mobility except getting up from low chair. Pt is able to use L LE to assist R LE into bed. Pt able to climb platform step with FWW/CGA as states he can go into home through garage. Pt able to increase ambulation to ~120ft using slow step-to gait pattern with steady gait and good safety awareness. Pt's is extremely concerned about getting pt into her car and having him in the car for the long ferry ride to [facility]. Pt would like to d/c home today but would prefer to have pt d/c tomorrow . Goals Bed Mobility Goal Independent Transfer Goal Standby Assistance,Front Wheeled Walker Gait Goal Standby Assistance,Front Wheel Walker Gait Distance 150 Other Goals - up/down 2 steps with FOUNDRY FINISHER/CGA and appropriate patterning Days to Meet Goals 2 Frequency of Treatment Frequency Of Treatment Twice a Day Treatment Plan Physical Therapy Treatment Plan Bed Mobility Training,Transfer Training,Gait Training, Therapeutic Exercise,Balance Retraining,Post Op Education, Discharge Planning,Hot or Cold Pack Other Recommendations and Next Treatment caregiver training, stairs Focus without railings depending on which entry pt plans to use, If pt goes through garage there is only one step into garage and pt can use FWW. Recommendations To Nursing Amount of Assist Needed 1 Person Assist Discharge Recommendations PT Discharge Recommendations Home with Assistance, Outpatient PT
[2019-05-26] MEDS: OXYCODONE IR 5 MG TABLET PO (15:32)
[2019-05-26 15:55] VITALS: BP 137/83; PULSE 84; RESP 17; TEMP 37.4; O2SAT 93
[2019-05-26 18:51] VITALS: BP 131/78; PULSE 86; RESP 18; TEMP 36.8; O2SAT 93
[2019-05-26] MEDS: TAMSULOSIN 0.4 MG CAPSULE PO (20:55)
[2019-05-26] MEDS: LITHIUM 300 MG IR CAPSULE PO (20:55)
[2019-05-26] MEDS: LATANOPROST 0.005% OPHTH 2.5 ML 1 DROPS EYE-BOTH (20:56)
[2019-05-26] MEDS: ROSUVASTATIN 10 MG TABLET 20 MG PO (20:56)
[2019-05-27] VITALS: BP 142/79; PULSE 81; RESP 16; TEMP 36.9; O2SAT 93
[2019-05-27] MEDS: OXYCODONE IR 10 MG TABLET PO ×2 (03:01→12:50)
[2019-05-27 05:00] VITALS: BP 152/92; PULSE 87; RESP 17; TEMP 36.8; O2SAT 96
[2019-05-27] MEDS: IBUPROFEN 400 MG TABLET PO ×2 (06:46→13:40)
[2019-05-27 07:40] VITALS: BP 134/89; PULSE 86; RESP 16; TEMP 37.1; O2SAT 93
[2019-05-27] MEDS: LITHIUM 300 MG IR CAPSULE 600 MG PO (08:11)
[2019-05-27] MEDS: DOCUSATE 100 MG CAPSULE PO (08:11)
[2019-05-27] MEDS: SODIUM CHLORIDE 0.9% FLUSH 10 ML IV (08:12)
[2019-05-27] MEDS: ACETAMINOPHEN 325 MG TABLET 650 MG PO (08:12)
[2019-05-27] MEDS: ASPIRIN EC 81 MG TABLET PO (08:12)
[2019-05-27] MEDS: OXYCODONE IR 5 MG TABLET PO (08:12)
[2019-05-27] MEDS: BRIMONIDINE 0.2% OPHTH 5 ML 1 DROPS EYE-LEFT (08:13)
[2019-05-27] MEDS: ALLOPURINOL 100 MG TABLET PO (08:13)
[2019-05-27] MEDS: TIMOLOL 0.5% OPHTH 1 DROPS EYE-BOTH (08:14)
--- NOTE | 2019-05-27 10:21 | PC.NURSE ---
Addendum entered by Jenny Bishop R.N. 05/27/19 14:23: DC - cleared by phys therapy, after lunch given 10mg po oxycodone and then prior to transport home given 400mg ibuprofen, SL dc'd, when spouse arrived, reviewed dc instructions, paperwork provided, including ferry priority board copy, belongings gathered, glasses, eye gtt, cell phone, per spouse she had locker room attendant, dressed and tsf to , hot wort settler escorted to car. Original Note: AM NOTE - pt is awake, anxious about dc today, spouse will be coming over on ferry and pt insists that we call I shouldn't have to be involved, pt does have cell phone and did speak to spouse earlier, when called at home, spouse not available, she did call back later and spoke to pt and we are arranging for [address] [place] , Dr. Valles in and pt will dc home, per pt, pain medications were filled prior to hospitalization, pain this am is 5-6 on scale 0/10, given 5mg po oxycodone and the scheduled tylenol with breakfast, discussed laxatives and narcotics, did agree to stool softener, declines miralax this am due to discharge later and states they do have several laxatives at home, aquacell w/xiomara wrap over cdi, hr reg 90 with murmur, later hot wort settler in and pt showered,.
[2019-05-27] MEDS: PARoxetine 20 MG TABLET PO (10:28)
--- NOTE | 2019-05-27 12:12 | PT.IPTN ---
Current Diagnoses Unilateral primary osteoarthritis, right knee (05/25/19) Personal history of other diseases of the musculoskeletal system and connective tissue (05/25/19) Surgery Performed Operation Date: 05/25/19 10:45 Actual Procedures p Total Knee Arthroplasty(Right) - Dennis Gerard MD Physical Therapy Treatment Note M2 PT-IP Current Condition Start: 05/26/19 07:59 Freq: NEEDED Status: Active Protocol: Document 05/26/19 10:10 AW (Rec: 05/26/19 10:35 AW [id number]) Physical Therapy Current Condition Current Condition Evaluation Date 05/26/19 Treatment Diagnosis s/p R TKA Onset Date 05/25/19 Weight Bearing Status Weight Bearing Status Weight Bear as Tolerated M3 PT-IP Subjective Start: 05/26/19 07:59 Freq: NEEDED Status: Active Protocol: Document 05/27/19 11:16 SP (Rec: 05/27/19 13:38 SP [id number]) Subjective Physical Therapy Visit Type Type Treatment Note Visit Start Time 11:16 Visit Stop Time 12:12 Total Visit Minutes 56 Number of DIGITAL COMMENTATOR Visits 2 Physical Therapy Visit Comments Patient Comments Pt willing to work with PT. Patient Goals Pt stated ready to go home. Therapy Pain Assessment Pain When Pain Assessed During Mobility Pain Present Pain Present Pain Reported Location Right Knee Intensity 4 Pain Management Techniques Apply Cold,Re-positioning, Timing of Activity with Medications M4 PT-IP Mobility and Gait Start: 05/26/19 07:59 Freq: NEEDED Status: Active Protocol: Document 05/27/19 11:16 SP (Rec: 05/27/19 13:38 SP [id number]) PT-Bed Mobility Assessment Supine to Sit Supine to Sit Standby Assistance Sit to Supine Sit to Supine Standby Assistance Scooting Scooting to Edge of Bed Standby Assistance PT-Transfer Assessment Sit to and From Stand Sit to and from Stand Standby Assistance,Use of Upper Extremities Equipment Transfer Assistive Device Gait Belt,Front Wheeled Walker Orthotic/Prosthetic Devices or Brace: No Transfers Transfer Destination Bed,Chair Transfer Technique pt ambulated with FWW Transfer Ability Level of Assist Standby Assistance,Use of Upper Extremities Comments Mobility Comments Pt was sitting at EOB with nurse in room when arrived. Pt willing to work with PT. Pt was able to complete sit to stand using BUE to push up from bed using FWW for support in standing, SBA. DIGITAL COMMENTATOR cued for awareness of R knee extension and even weight distribution BLE before mobilizing for safety. Pt was able to step pivot to chair and bench near window sBA with occasional cuing for keeping FWW with him while backing up, feeling bench behind knees before safely sitting. Pt was able complete supine <> sitting using gait belt around R foot (post instruction) for self mobilizing into/out of bed himself SBA, HOB flat to assimulate home. Pt discussed still unsure how will get in/ out of car. So demonstrated for him backing up to room's bench to assimulate gettinig into backseat of car and usign gait belt on RLE while scooting backwards into back seat of car using LUE and LLE to retro scoot, patient was ableto demonstrate instruction and felt comfortable will be successful. Pt was up in chair with call light and all needs in reach when left. Gait Assessment Gait Gait Assistance Required: Standby Assistance Distance (Feet) 212 Able to Maintain Weight Bearing Status Yes During Gait Assistive Devices Assistive Device Gait Belt,Front Wheeled Walker Orthotic/Prosthetic Devices or Brace: No Gait Deviations General Gait Pattern Antalgic,Decreased Stride Length,Decreased Feet Clearance,Flexed Trunk,Step-to Gait Factors Limiting Gait Function Factors Limiting Gait Function Decreased Activity Tolerance, Decreased Strength,Limited Range of Motion,Pain Comments Gait Comments Pt was able to increase distance during gait with slow safe pacing usign FWW SBA EOB to stairs and back with no rest break required. Cued for quality stance phases R knee flexion during swing phase and heel toe to assist work toward normal gait. Pt improved step to gait initially to step over step gait post education in stance phase quality. Stair Climbing Assessment Evaluation Level of Assist On Stairs Contact Guard Assistance,1 Person Assistance Devices Stair Climbing Assistive Devices Front Wheel Walker Technique/Endurance Stair Climbing Direction Ascend and Descend Stair Climbing Technique Step to Step Number of Steps Climbed 1 Stair Climbing Set # Repetitions (reps) 2 Comments Stair Climbing Comments Pt was able to complete 1 platform step mgt x2 reps using FWW CGA with good step to patterning, stable. No cues required, no LOB to assimulate entering house 1 step. PT-Balance Assessment Sitting Balance and Reactions Static Sitting Balance Ability Good Dynamic Sitting Balance Ability Good Standing Balance and Reactions Static Standing Balance Ability Good Dynamic Standing Balance Ability Good Device Used FWW M5 PT-IP Objective Assessments Start: 05/26/19 07:59 Freq: NEEDED Status: Active Protocol: Document 05/26/19 10:10 AW (Rec: 05/26/19 10:35 AW [id number]) Orientation Orientation/Cognition Level of Alertness Confusional State Orientation Name,Birthday,Day of Week, Place,Situation Safety Awareness Understands Safety Issues Memory Description Short Term Impaired Comments Pt repeated the story of his previous knee surgery 3 times, seemingly having forgotten each time that he already conveyed this information. He is oriented but presents as confused and drowsy. Gross Range of Motion Upper Extremity ROM Assessment Within Functional Limits Lower Extremity ROM Assessment Right Impaired Strength Upper Extremity Strength Assessment Within Functional Limits Lower Extremity Strength Assessment Right Impaired Coordination Assessment Gross Coordination Gross Coordination WNL Sensation Assessment Sensation Gross Sensation WNL M6 PT-IP Treatment Start: 05/26/19 07:59 Freq: NEEDED Status: Active Protocol: Document 05/27/19 11:16 SP (Rec: 05/27/19 13:38 SP [id number]) Physical Therapy Treatment Exercises Exercises Ankle Pumps,Gluteal Sets,Quad Sets,Heel Slides,Straight Leg Raises,Short Arc Quads,Seated Knee Flexion/Extension Education Education Provided Precautions,Weight Bearing Status,Post-Op Packet,Safety Other Treatments Other Treatment Performed Pt required increased time review HEP seated, supine for recall, added cuing notes on his handouts with reminders to get up and walk, do some exercises every hour to allow for progress ROM and improve circulation to prevent risk for DVT with verbal understanding. M7 PT-IP Assessment and Plan Start: 05/26/19 07:59 Freq: NEEDED Status: Active Protocol: Document 05/27/19 11:16 SP (Rec: 05/27/19 13:38 SP [id number]) PT Summary Assessment and Plan Potential Rehabilitation Potential Good Status of Condition at Evaluation Stable Summary Impairments Pain,ROM,Strength,Cognition, Transfers,Gait Assessment Summary Pt is SBA for all mobility. Pt is able to use L LE to assist R LE and use of gait belt on R foot to self mobility into/ out of bed. Pt able to climb platform step with FWW CGA states he can go into home through garage. Pt able to increase ambulation to ~212ft using slow step over step pattern with steady gait and good safety awareness. Pt reported and demonstrated confidence transfer into/out back seat car after assimulation in room using bench for ferry ride to [facility]. Recommend DC home with and outpatient PT when medically stable. Pt had call light seated in chair and all needs in reach when left. Goals Bed Mobility Goal Independent Transfer Goal Standby Assistance,Front Wheeled Walker Gait Goal Standby Assistance,Front Wheel Walker Gait Distance 150 Other Goals - up/down 2 steps with DISTRESSER/CGA and appropriate patterning Days to Meet Goals 2 Frequency of Treatment Frequency Of Treatment Twice a Day Treatment Plan Physical Therapy Treatment Plan Bed Mobility Training,Transfer Training,Gait Training, Therapeutic Exercise,Balance Retraining,Post Op Education, Discharge Planning,Hot or Cold Pack Other Recommendations and Next Treatment Pt's was unavailble Focus durign late am treatment for further caregiver training but was able to complete 1 step mgt usign FWW with therapist stable. Recommendations To Nursing Amount of Assist Needed Standby Assistance Discharge Recommendations PT Discharge Recommendations Home with Assistance, Outpatient PT
--- NOTE | 2019-05-27 12:38 | CM.DPC ---
DCP continued: EMR reviewed: CM met with patient at the bedside and patient plans on D/C home today with his to Saturday. Patient and would like to catch the [id number] ferry. INSTRUMENTATION MANAGER called and arranged for priority boarding on [place] to Saturday. No other D/c planning needs noted. CM department will follow until D/c incase any D/C planning need arise. Silvia Harp RN
== END 2019-05-27 14:00 | disposition home or self-care (01) ==
LOC: AC 05-27 11:47 → OR 05-28 08:56 → AC 05-28 09:02
PROVIDERS: Admitting Provider Orthopaedic Surgery; PCP Family Medicine Geriatric Medicine; Visit Provider Orthopaedic Surgery
PROC: 0SRC0JZ Replacement of Right Knee Joint with Synthetic Substitute, Open Approach (ICD-10-PCS; CPT 27447; principal; 2019-05-25 10:45)
DX: M17.11 Unilateral primary osteoarthritis, right knee (principal); M10.9 Gout, unspecified; D50.0 Iron deficiency anemia secondary to blood loss (chronic)
CPT/HCPCS: 27447; 36415; 73560; 85014; 85018; 97110; 97116; 97161; 97530; C1776; G0378; C9290; J0690; J2250; J2270; J2704; J3010

== ENCOUNTER → 2019-09-24 09:45 | Outpatient (CLI) | payer MEDICARE, OTHER, SELFPAY ==
[2019-05-25 13:50] VITALS: BMI 25.6
--- NOTE | 2019-09-24 | DI.US.S_ITS ---
PROCEDURE: US EXTREMITY NONVASC LOWER LT INDICATIONS: PAIN IN LEFT HIP AND THIGH TECHNIQUE: Real-time scanning was performed of the left groin, with image documentation. COMPARISON: None. FINDINGS: No mass or hernia is identified in the left groin. No enlarged internal lymph nodes. IMPRESSION: Normal exam. No findings to explain left hip pain. Dictated by: Kvng Maurice M.D. on 09/24/2019 at 13:51 Approved by: Kvng Maurice M.D. on 09/24/2019 at 13:52
== END ==
PROVIDERS: PCP Family Medicine Geriatric Medicine; Referring Provider Family Medicine; Visit Provider Family Medicine
DX: M79.652 Pain in left thigh (principal); M25.552 Pain in left hip
CPT/HCPCS: 76882

== ENCOUNTER → 2023-11-04 16:53 | Outpatient (CLI) | payer MEDICARE, OTHER, SELFPAY ==
[2019-05-25 13:50] VITALS: BMI 25.6
--- NOTE | 2023-11-04 16:55 | DI.MRI.S_ITS ---
PROCEDURE: MR LUMBAR SPINE WO CON INDICATIONS: Spinal stenosis TECHNIQUE: Noncontrast sagittal T1 spin echo and T2 fast echo, sagittal STIR, and T2 fast spin echo through the lumbar spine. In cases with scoliosis, additional coronal T2 fast spin echo may be performed. COMPARISON: [facility], CR, XR LUMBAR SPINE WITH OBLIQUES, 05/02/2023, 16:11. [facility], MR, L-SPINE WITHOUT CONTRAST, 10/01/2016, 10:08. FINDINGS: Image quality: Excellent. Alignment and Curvature: Moderate dextro curvature centered at L2-L3. Trace anterolisthesis of L5 on S1. Bone Marrow: Marrow is of normal overall signal. No acute vertebral body compression fractures. Spinal Cord: Conus medullaris terminates at the L1-L2 level. Visualized cord demonstrates normal signal and size. Paraspinous Soft Tissues: No paravertebral masses. T12-L1: No canal stenosis or foraminal stenosis. L1-L2: Interval increase in disc height loss, severe. Posterior disc post osteophyte. Mild facet hypertrophy. No significant canal stenosis. Mild right foraminal stenosis. L2-L3: Progressive severe disc height loss. Posterior disc post osteophyte. Facet and ligament hypertrophy. Borderline canal stenosis. No significant foraminal stenosis. L3-L4: Slight increase in severe disc height loss. Posterior disc post osteophyte. Facet hypertrophy. Epidural lipomatosis. Borderline canal stenosis. Mild bilateral foraminal stenosis. L4-L5: Disc bulge. Facet hypertrophy. No significant canal stenosis. Moderate right foraminal stenosis. L5-S1: Disc bulge. Somewhat prominent facet hypertrophy. Moderate to severe right foraminal narrowing with a mild degree of right foraminal L5 nerve root impingement. Moderate left foraminal narrowing with flattening deformity on the exiting left L5 nerve root. Foraminal narrowing is stable. IMPRESSION: 1. Diffuse underlying facet arthropathy as well as underlying moderate dextrocurvature. 2. Borderline canal stenosis at L2-L3 and L3-L4. 3. Multilevel foraminal narrowing as described above. Findings include moderate to severe right foraminal narrowing at L5-S1. 4. Multilevel progression of degenerative disc space loss. Dictated by: Yobany Valentine M.D. on 11/05/2023 at 8:01 Approved by: Yobany Vlaentine M.D. on 11/05/2023 at 8:08
== END ==
PROVIDERS: PCP Family Medicine; Referring Provider Orthopaedic Surgery; Visit Provider Orthopaedic Surgery
DX: M48.07 Spinal stenosis, lumbosacral region; M48.061 Spinal stenosis, lumbar region without neurogenic claudication; M47.816 Spondylosis without myelopathy or radiculopathy, lumbar region; M47.817 Spondylosis without myelopathy or radiculopathy, lumbosacral region
CPT/HCPCS: 72148

== ENCOUNTER 2024-05-12 17:05 | Inpatient (IN) | payer MEDICARE, OTHER, SELFPAY ==
[2019-05-25 13:50] VITALS: BMI 25.6
[2024-04-15 13:44] VITALS: BMI 24.4
[2024-05-12] VITALS (10 sets, daily range): BP systolic 128–158; BP diastolic 80–95; PULSE 67–78; RESP 10–18; TEMP 36.2–37.3; O2SAT 95–99; BMI 24.0
--- NOTE | 2024-05-12 | DI.RAD.S_ITS ---
PROCEDURE: XR HIP W PEL IF DONE RT 2V INDICATIONS: RIGHT FARIDA TECHNIQUE: 2 view(s) of the hip acquired. COMPARISON: None. FINDINGS: Intraoperative right hip arthroplasty. Hardware is intact with good anatomic alignment. Arthritic changes are present within the left hip. IMPRESSION: Intraoperative right hip arthroplasty. Dictated by: Ebony Fatima M.D. on 05/12/2024 at 16:01 Approved by: Ebony Fatima M.D. on 05/12/2024 at 16:02
--- NOTE | 2024-05-12 06:00 | DI.RAD.S_ITS ---
PROCEDURE: XR HIP W PEL IF DONE RT 2V INDICATIONS: FARIDA TECHNIQUE: 2 view(s) of the hip acquired. COMPARISON: [facility], CR, XR HIP W PEL IF DONE RT 2V, 05/12/2024, 14:53. FINDINGS: Bones: Patient is status post right hip arthroplasty, with hardware components in expected positions. The hip joint appears congruent. The visualized bony structures appear intact. Severe degenerative changes are present at the left hip including joint space narrowing, subchondral cystic change and osteophytosis. Soft tissues: Overlying postoperative changes are noted. No suspicious soft tissue densities. IMPRESSION: Expected post-operative appearance of a hip arthroplasty. Severe left hip osteoarthritis. Dictated by: Debra Solorio M.D. on 05/12/2024 at 16:46 Approved by: Debra Solorio M.D. on 05/12/2024 at 16:46
[2024-05-12] MEDS: ACETAMINOPHEN 325 MG TABLET 975 MG PO (12:28)
[2024-05-12] MEDS: CELECOXIB 200 MG CAPSULE PO (12:30)
[2024-05-12] MEDS: VANCOMYCIN 1,000 MG/200 ML PIGGYBACK 200 MG IV (12:42)
--- NOTE | 2024-05-12 13:06 | SUR.OPER ---
Lateral on padded OR bed. Gel axillary roll. Arms secured on padded armboard with pillow supporting top arm. Padded hip positioner braces x4 - anterior and posterior chest and pelvis. Additional gel pad used anterior pelvis. Gel pad under bottom leg from knee to foot and secured with tape over sheet.
--- NOTE | 2024-05-12 13:27 | P.HP_ITS ---
History of Present Illness History of Present Illness Date Patient Seen: 05/12/24 Time Patient Seen: 13:27 Chief complaint: Right FARIDA anterior *OPB* Narrative: He comes in today for right total hip arthroplasty. Since I saw him last he has had severe worsening of his right hip pain. He has known bilateral hip osteoarthritis. He has multiple medical problems and severely impaired mobility. Has a history of a total knee arthroplasty on the right. Has a histo ry of bipolar disorder. He also has impaired renal function. He has multiple joint involvement and severely limited mobility. He would like to proceed with a right total hip arthroplasty but we will need additional rehab and monitoring because of his multiple medical problems and significant orthopedic problems. I anticipate a several night hospital stay. COUNT INCLUDES THE [facility] Medical History Occasional tremors Tinnitus Depression Anxiety Neuropathy De Quervain's tenosynovitis DJD (degenerative joint disease) HLD (hyperlipidemia) Septic arthritis (~03/2016) Herniated disc Surgical History History of total right knee replacement (05/25/19) Hx of appendectomy Hx of oral surgery (05/05/19) Hx of thumb surgery (~05/2017) History of ankle surgery Hx of arthroscopy of right knee (03/03/16) Social History household members: spouse Smoking Status: Never smoker alcohol intake: current Meds Home Medications and Allergies Home Medications Medication Instructions Recorded Confirmed Type lithium carbonate 150 mg capsule 300 mg PO TID ##0 02/17/16 05/12/24 History allopurinol 100 mg tablet 300 mg PO QDAY #30 tabs 03/02/16 05/12/24 History cyclobenzaprine 10 mg tablet 10 mg PO TIDP PRN Muscle Spasm ##0 03/02/16 04/15/24 History timolol maleate 0.5 % eye drops 1 drp EYE-BOTH QAM #5 mL 03/06/16 05/12/24 History brimonidine 0.2 % eye drops 1 drp EYE-LEFT BID 05/08/19 05/12/24 History rosuvastatin 20 mg tablet 20 mg PO BEDTIME 05/08/19 05/12/24 History diazepam 10 mg tablet 10 mg PO DAILY 05/25/19 05/12/24 History acetaminophen 500 mg tablet 1,000 mg PO Q8H PRN knee pain 04/15/24 04/15/24 History (Tylenol Extra Strength) trazodone 50 mg tablet 25 mg PO ONCE PM PRN Sleep 04/15/24 05/12/24 History camphor 3.1 %-methyl salicylate 15 ea topical BID PRN Pain (Scale 05/12/24 History %-menthol 10 % topical gel Score 1-3) (Salonpas Deep Relieving) Allergies Allergy/AdvReac Type Severity Reaction Status Date / Time No Known Drug Allergies Allergy Verified 05/12/24 11:51 Review of Systems Review of Systems Narrative: No recent episodes of gout, increased pain after stopping anti-inflammatories due to a recent repeat impaired renal function, multiple medical problems requiring significant assistance Exam Vital Signs (past 8 hours): - 05/12/24 12:19 Temperature 99.1 F Pulse Rate 69 Respiratory Rate 18 Blood Pressure 142/88 H Pulse Oximetry 99 Narrative Exam Narrative: Using assistance for mobilization. Right greater than left hip pain. Pain in the low back with pain radiating into bilateral hips. Recent rash on the abdomen, alert and oriented HEENT is benign lungs are clear cor regular rate and rhythm moderate pain with hip flexion, abdomen rash on the anterior aspect of the abdomen, no significant swelling over the right thigh, some pain with maximum internal rotation, tenderness over the trochanter, calves soft distally Assessment & Plan Assessment and plan (1) Osteoarthritis, hip, bilateral: Status: Acute (2) Bipolar 1 disorder: Status: Acute (3) Gout: Status: Acute (4) Renal impairment: Status: Acute Plan Then recommended a right total hip arthroplasty from an anterior approach. He has bilateral disease he has severe impairment due to his hip as well as hip arthritis on the other side an ongoing significant symptoms. Has a history of bipolar disorder. He needs assistance at home and I have recommended hospital stay as he will need additional physical therapy potential monitoring of his renal function postoperatively. He would like a short stay in rehab if possible in order to regain mobility and be able to safely go home. He is being admitted for right total hip arthroplasty through an anterior approach. The procedure options risks benefits and complications were discussed in detail. Time-Based Coding :: [TOTAL MINUTES] spent with patient and on the chart (including review of chart, obtaining history, exam, reviewing outside data, placing orders, documenting exam and treatment plan, and counseling patient) on [DATE].
--- NOTE | 2024-05-12 13:38 | PM.OP.1 ---
Operative Date/Time/Diagnoses Date of procedure: 05/12/24 Time of procedure: 14:00 Pre-op diagnosis: right hip OA Post-op diagnosis: same Procedure & Clinicians Procedure: Right total hip arthroplasty anterior approach Same procedure as scheduled: Yes Indications: The patient has had progressively worsening right hip pain with radiographic changes consistent with arthritis. Non-operative management has failed and the patient has requested total hip replacement. The risks, benefits and alternatives to surgery were discussed with the patient prior to proceeding. Risks discussed included, but were not limited to, failure to relieve pain, leg length discrepancy, dislocation, stiffness, infection, nerve damage, deep venous thrombosis, pulmonary embolism, stroke, coma, heart attack, permanent paralysis and , as well as the potential need for eventual revision of the prosthetic. Surgeon: Carmen Harp Business Services Analyst: Eddie Medina Anesthesia Type: General Operative Notes Findings: Severe right hip OA, adequate bone, adequate stability Closure Type: primary Specimen(s): none sent Prosthetic devices, grafts, tissues, transplants, or devices: Harp and nephew R3, 54, neutral poly liner,one 6.5 mm screw, size 1 collared polar stem lateralized, 36 x +4 cobalt chrome head Estimated Blood Loss (mL): 250 Blood products transfused: none Procedure in detail: The patient was brought to the operating room. Patient was carefully positioned in the supine position. Time-out was performed and antibiotics were given. Anesthesia was induced. He was positioned in the on the table in order to allow hyperextension of the hip. The right lower extremity was prepped and draped in a standard sterile fashion. An anterior right hip incision was made 1 fingerbreadth lateral to the anterior superior iliac spine and extended distally towards the greater trochanter. Dissection was carried out through skin and subcutaneous tissues. Superficial hemostasis was achieved. The fascia over the tensor fascia shavonne was defined and incised with a knife. Two Allis clamps were used to grasp the fascia. Tensor fascia shavonne was retracted laterally. A gelpi retractor was placed. Dissection was carried out down along the neck. The circumflex vessels were carefully identified and cauterized with the Aqua Mantis. A PA was used during the procedure and was essential for intraoperative retraction and safe implantation of the components. There was good visualization of the femoral neck. A Cobra was placed superior to the neck and the gluteus fibers were carefully stripped from that superior aspect of the capsule. A 2nd retractor was placed along the inferior aspect of the neck. The rectus insertion along the capsule was partially released. A 3rd retractor that was then gently placed over the rim of the acetabulum under the rectus. Capsule was carefully incised and released from the intertrochanteric line circumferentially superior to the mid sagittal line and inferiorly to the mid sagittal line until the lesser trochanter was palpable. A tag stitch was placed both in the superior and inferior limb of the capsular insertion. Along the acetabulum capsule was also released up to the mid sagittal 12:00 position. A portion of the labrum was resected. A saw was used to perform an osteotomy at the level of the intertrochanteric line and the junction of the superior femoral neck leaving approximately 1 finger breath of residual inferior neck above the lesser trochanter. A 2nd cut was made along the femoral neck at the base of the head and a napkin ring of neck was removed. Corkscrew was placed in the femoral head and the head was removed without difficulty. Retractors were then repositioned around the acetabulum. Residual labrum was resected and additional osteophytes were removed. A reamer that was 4 mm below the templated size was placed by hand in the acetabulum and it was reamed to centralize the acetabulum. It was then reamed up to 2 under the templated size and fluoroscopy was brought in to confirm the position of the reaming and depth of reaming. I reamed 1 under the anticipated size. A trial cup was placed and noted that it was appropriately sized and fluoroscopy confirmed position and depth. The component was open and inserted without difficulty fluoroscopic imaging was used to confirm that the cup had been adequately seated and was well positioned. It was further stabilized with a single screw. Neutral poly liner was placed. The cup was tested and noted to be stable. Attention was then directed to the femur. The femur was gently hyperextended additional capsular release was performed as needed in order to allow adequate visualization of the proximal femur with elevation of the femur. Patient was placed in a hyperextended slightly adducted position with maximum external rotation. Box osteotome was used to check for any residual neck as well as sclerotic bone along the trochanter. [place] pepper was placed in the femur. Additional broaching was performed. Canal finder was used to determine the alignment of the canal and position. Size 1 broach was placed. The canal was then appropriately broached up to the templated size as long as there was adequate stability of the broach and serial advancement of the broach without excessive impingement. Specific attention was directed at avoiding varus attempting to direct the distal aspect of the broach more anteriorly and avoiding excessive anteversion. Trial reduction showed acceptable range of motion, good stability, no posterior impingement, episcopalian of leg length and appropriate lateral shuck. I also hyperflexed the hip and checked that there was no impingement anteriorly and there was good stability with flexion, adduction and internal rotation. Marcaine and Exparel 266 mg were injected. The stem was placed without difficulty. Repeat trial reduction and x-ray showed acceptable overall position, length, and no evidence of the femoral fracture. Final head was placed. Wound was meticulously irrigated with normal saline. The hip was reduced and additional Exparel and Marcaine were injected. The capsule was closed with interrupted nonabsorbable sutures. The fascia of the tensor was closed with interrupted and running Vicryl. No drain was placed. Any tensor fascia shavonne muscle that appeared to be contused or injured which was a minimal amount was carefully resected. Capsule around the tensor was injected with Exparel and Marcaine. The skin was closed with barbed stitches for the subcutaneous tissue and skin. We also used surgical glue. The wound was dressed sterilely. Brief Betadine soak was also used and was meticulously irrigated with normal saline. Patient was transferred to recovery room in satisfactory condition. Complications: none Post-operative Condition: stable Disposition: Acute Care Plan for aftercare: The patient will be maintained on a standard total hip replacement protocol with weight bearing as tolerated and anterior hip precautions. The patient will receive Aspirin and sequential compression devices for DVT prophylaxis. The patient will be discharged home when safe for the home environment.
[2024-05-12] MEDS: CEFAZOLIN 2 GM/100 ML PREMIX 100 ML IV ×2 (14:00→22:01)
[2024-05-12] MEDS: TRANEXAMIC ACID 1,000 MG VIAL 1000 MG INJ ×2 (14:02→16:14)
[2024-05-12] MEDS: BUPIVACAINE 0.25% (PF) 60 ML, EPINEPHrine 0.3 MG INJ (14:12)
[2024-05-12] MEDS: BUPIVACAINE LIPOSOME 266 MG/20 ML VIAL INJ (14:12)
[2024-05-12] MEDS: OXYCODONE IR 10 MG TABLET PO (17:47)
[2024-05-12] MEDS: LACTATED RINGERS 1,000 ML 100 ML IV (17:49)
--- NOTE | 2024-05-12 19:23 | PC.NURSE ---
Patient arrived from PACU at 1700. VSS, afebrile on RA. Slightly hypertensive. Reports pain 8/10, well controlled with PRN oxycodone 10 mg po. He tolerates 50 % of dinner, states he prefers liquid textures. Patient is oriented to room, admission assessment completed with and patient. Patient appears forgetful. Continuous monitoring. Due to void at 2300.
[2024-05-12] MEDS: ATORVASTATIN 20 MG TABLET 40 MG PO (20:35)
[2024-05-12] MEDS: LITHIUM 150 MG IR CAPSULE 300 MG PO (20:35)
[2024-05-12] MEDS: DOCUSATE 100 MG CAPSULE PO (20:35)
[2024-05-12] MEDS: BRIMONIDINE 0.2% OPHTH 5 ML 1 DROPS EYE-LEFT (20:35)
[2024-05-12] MEDS: ASPIRIN EC 81 MG TABLET PO (20:35)
[2024-05-12] MEDS: OXYCODONE IR 5 MG TABLET PO (22:04)
[2024-05-12 22:38] LABS: Blood Urea Nitrogen 57 mg/dL (9-20); Calcium 9.9 mg/dL (8.4-10.2); Carbon Dioxide 20 mmol/L (22-32); Chloride 113 mmol/L (98-107); Estimated Glomerular Filt Rate 24 mL/min (>60); Glucose 212 mg/dL (80-110); HEMOLYSIS < 15 (0-50); Potassium 4.4 mmol/L (3.4-5.1); Sodium 141 mmol/L (137-145)
[2024-05-13] VITALS: BP 131/77; PULSE 75; RESP 18; TEMP 36.2; O2SAT 96
[2024-05-13 01:39] LABS: Hematocrit 38.6 % (41-53); Hemoglobin 12.3 g/dL (13.5-17.5)
[2024-05-13] MEDS: OXYCODONE IR 5 MG TABLET PO ×4 (02:05→17:00)
[2024-05-13] MEDS: ACETAMINOPHEN 325 MG TABLET 650 MG PO ×2 (02:05→09:56)
[2024-05-13] MEDS: CYCLOBENZAPRINE 10 MG TABLET PO (02:06)
[2024-05-13] MEDS: TRAZODONE 50 MG TABLET 25 MG PO (04:43)
[2024-05-13] MEDS: CEFAZOLIN 2 GM/100 ML PREMIX 100 ML IV (06:14)
[2024-05-13] MEDS: OXYCODONE IR 10 MG TABLET PO ×2 (06:29→21:35)
[2024-05-13 08:00] VITALS: BP 126/87; PULSE 81; RESP 18; TEMP 36.3; O2SAT 98
--- NOTE | 2024-05-13 08:02 | PM.PNPO.1 ---
Subjective Subjective Interval history: Clay Palomino is a 74 year old male who is POD#1 s/p Right total hip arthroplasty anterior approach by Dr. Harp. Has a history of bipolar disorder. He also has impaired renal function. He lives at home with but feels that SNF would be the best d/c plan for himself at this time d/t his limited mobility even prior to sx. He reports he is doing well this morning, pain is mild at rest but increases w/ activity or movement. His biggest complaint is difficulty sleeping d/t multiple interruptions by people while resting. Denies fever, chills, chest pain, SOB, nausea, vomiting. Exam Vital Signs (past 8 hours): Oxygen Delivery Method Room Air Oxygen Flow Rate 0 Narrative Exam Narrative: Patient lying comfortably in bed during our interview today. No acute distress. 5/5 strength with DF, PF, EHL bilaterally. Gross sensation intact throughout bilateral lower extremities. Calves soft and non-tender bilaterally. SCDs are on and functioning. Brisk capillary refill, pulses intact. Post-surgical Aquacel dressing clean, dry and intact over the right anterior hip without drainage. Objective Labs 05/12/24 22:00 05/12/24 22:00 Labs: Laboratory Results - last 24 hr 05/12/24 22:00 Hgb 12.3 L Hct 38.6 L Sodium 141 Potassium 4.4 Chloride 113 H Carbon Dioxide 20 L BUN 57 H Creatinine 2.72 H Estimated GFR 24 L BUN/Creatinine Ratio 21.0 Glucose 212 H Calcium 9.9 PFSH Medical History Occasional tremors Tinnitus Depression Anxiety Neuropathy De Quervain's tenosynovitis DJD (degenerative joint disease) HLD (hyperlipidemia) Septic arthritis (~03/2016) Herniated disc Surgical History History of total right knee replacement (05/25/19) Hx of appendectomy Hx of oral surgery (05/05/19) Hx of thumb surgery (~05/2017) History of ankle surgery Hx of arthroscopy of right knee (03/03/16) Social History household members: spouse and significant other Smoking Status: Never smoker alcohol intake: current Assessment & Plan Post-op Postoperative Procedures: Procedures Operation Date: 05/12/24 13:45 Actual Procedure Side Surgeon p Total Hip Arthroplasty/Anterior Approach Right Carmen Harp MD Postoperative plan narrative: 1) Plan to discharge to SNF once approved by insurance- likely 05/15/24. 2) Continue multimodal pain management with ice to the hip for additional pain control. 3) ASA b.i.d. for DVT prophylaxis. 4) Start outpatient physical therapy to work on range of motion and mobility 5) Keep dressing intact, clean, dry until 2 week postop appointment. No soaking the incision site in pools or tubs. No topical ointments or creams to the incision site. 6) Follow up at [facility] orthopedics in 2 weeks for a postop appointment and wound check. All patient's questions were answered, they demonstrates understanding and are in agreement with the plan. Call our office if any questions or concerns arise.
[2024-05-13] MEDS: ASPIRIN EC 81 MG TABLET PO ×2 (09:01→21:35)
[2024-05-13] MEDS: diazePAM 5 MG TABLET 10 MG PO (09:01)
[2024-05-13] MEDS: DOCUSATE 100 MG CAPSULE PO ×2 (09:01→21:35)
[2024-05-13] MEDS: allopurinoL 100 MG TABLET 300 MG PO (09:02)
[2024-05-13] MEDS: LITHIUM 150 MG IR CAPSULE 300 MG PO ×3 (09:02→21:35)
[2024-05-13] MEDS: BRIMONIDINE 0.2% OPHTH 5 ML 1 DROPS EYE-LEFT ×2 (09:05→21:47)
[2024-05-13] MEDS: TIMOLOL 0.5% OPHTH 1 DROPS EYE-BOTH (09:07)
--- NOTE | 2024-05-13 10:14 | OT.IP.EVAL ---
Current Diagnoses Bipolar disorder, unspecified (05/12/24) Gout, unspecified (05/12/24) Bilateral primary osteoarthritis of hip (05/12/24) Unilateral primary osteoarthritis, right hip (05/12/24) Disorder of kidney and ureter, unspecified (05/12/24) Surgery Performed Operation Date: 05/12/24 13:45 Actual Procedures p Total Hip Arthroplasty/Anterior Approach(Right) - Carmen Harp MD Past Medical History (Last Reviewed 05/12/24 @ 13:30 by Carmen Harp MD) Anxiety De Quervain's tenosynovitis Depression DJD (degenerative joint disease) Herniated disc HLD (hyperlipidemia) Neuropathy Occasional tremors Septic arthritis (~03/2016) Tinnitus Surgical History (Last Reviewed 05/12/24 @ 13:30 by Carmen Harp MD) History of ankle surgery History of total right knee replacement (05/25/19) Hx of appendectomy Hx of arthroscopy of right knee (03/03/16) Hx of oral surgery (05/05/19) Hx of thumb surgery (~05/2017) Occupational Therapy Inpatient Evaluation/Re-Eval M1 PT/OT-IP Prior Functional Status Start: 05/13/24 08:31 Freq: NEEDED Status: Active Protocol: Document 05/13/24 10:15 [facility] (Rec: 05/13/24 10:29 [facility] [id number]) Medical Review Prior Functional Status Communication I Mobility and Gait Pt states used a SPC most of the time. Activities of Daily Living and IADL's Pt's having to assist with his socks and shoes. 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 Social History Household Members spouse Living Arrangements House Number of Floors (Floors) Two Floors Number of Stairs To Enter/Railing? 1 step from the side of the house and another step to the kitchen and flight of step to the bedroom and bathroom pt uses to shower. Home Environment Standard Height Toilet,High Toilet,Walk in Shower Home Equipment Front Wheel Walker,Straight Cane,Hand Held Shower,Grab Bars In Shower M2 OT-IP Current Condition Start: 05/13/24 08:31 Freq: Status: Active Protocol: Document 05/13/24 10:15 [facility] (Rec: 05/13/24 10:29 [facility] [id number]) Occupational Therapy Current Condition Current Condition Evaluation Date 05/13/24 Treatment Diagnosis S/P R FARIDA anterior approach Diagnosis Onset Date 05/12/24 Post Operative Precautions Other Precautions NO Right hip hyperextension and excessive external rotation M3 OT- IP Subjective and Pain Start: 05/13/24 08:31 Freq: Status: Active Protocol: Document 05/13/24 10:15 [facility] (Rec: 05/13/24 10:29 [facility] [id number]) OT- Subjective Occupational Therapy Visit Type Type Initial Evaluation Visit Start Time 09:20 Visit Stop Time 10:04 Occupational Therapy Visit Comments Patient Comments Pt agreed to get up. Patient/Caregiver Goals TO go to skilled rehab. OT Pain Assessment Pain When Pain Assessed During Mobility Pain Present Pain Present Pain Reported Location Right Hip Intensity 5 Scale Used Numeric (0 - 10) M4 OT- IP ADL's Start: 05/13/24 08:31 Freq: Status: Active Protocol: Document 05/13/24 10:15 [facility] (Rec: 05/13/24 10:29 [facility] [id number]) OT [id number] Comments OT Self-Feeding Comments Pt has lots of pocketing of food in his mouth, nursing notified. Educated pt to alternate between solids and liquids. Pt states history of dry mouth in which he takes pills for. OT ADL-Grooming General Evaluation Grooming Ability Standby Assistance Areas Needing Assistance Retrieving/Set-up of Grooming Items Comments OT Grooming Comments While seated. OT ADL-Oral Care General Eval Oral Care Ability Standby Assistance Comments Oral Care Comments Increased time to rinse and brush his mouth out due to excess food in his mouth that gets stuck in his teeth. OT ADL-Dressing General Eval Lower Body Dressing Ability Maximum Assistance Comments OT Dressing Comments Able to show pt LB dressing equipment in which can be helpful to the pt. OT ADL-Toileting General Evaluation Toileting Ability Total Assistance Areas Needing Assistance Empty Catheter or Colostomy Comments OT Toileting Comments Pt has an external catheter on at this time. OT ADL-Bathing Comments OT Bathing Comments Sponge bath more appropriate at this time due to decreased balance. M5 OT- IP IADL's Start: 05/13/24 08:31 Freq: Status: Active Protocol: Document 05/13/24 10:15 [facility] (Rec: 05/13/24 10:29 [facility] [id number]) OT-Instrumental Activities of Daily Living Home Safety Awareness Home Safety Comments Pt still groggy and a bit slow to think and respond to directions. Meal Preparation Meal Preparation Caregiver Provides Assist Corporate Communications Manager Corporate Communications Manager Caregiver Provides Assist M6 OT- IP Functional Cognition Start: 05/13/24 08:31 Freq: Status: Active Protocol: Document 05/13/24 10:15 [facility] (Rec: 05/13/24 10:29 [facility] [id number]) Cognitive Factors Limiting Selfcare Function Cognitive Ability Level of Alertness Alert,Confusional State Patient Orientation Name,Place,Situation Attention Span Ability Capable of Focused Attention, Unable to Sustain Attention Ability to Follow Commands Able to Follow One Step Commands with Increased Time, Able to Follow One Step Commands with Repetition Memory Description Short Term Impaired Safety Awareness Underestimates Need for Assistance Cognitive Comments Cognitive Assessment Comments Pt needing vc to safety awareness and FWW use. Pt needing concrete commands to follow and increased time to process. OT- Vision and Hearing OT- Hearing Assessment OT- Hearing Assessment WFL OT- Vision Assessment Visual Acuity Glasses All The Time Vision Assessment Comments Pt wears glasses for distance. M7 OT- IP Mobility and Balance Start: 05/13/24 08:31 Freq: Status: Active Protocol: Document 05/13/24 10:15 [facility] (Rec: 05/13/24 10:29 [facility] [id number]) OT- Bed Mobility Assessment Supine to Sit Supine to Sit Assist Maximum Assistance,1 Person Assistance Scooting Scooting to Edge of Bed Minimal Assistance OT-Transfer Assessment Sit to and From Stand Sit to and from Stand Moderate Assistance,2 Person Assistance Transfers Transfer Ability Moderate Assistance,Maximum Assistance,2 Person Assistance Technique Transfer Destination Bed,Chair Transfer Technique Stand Step Pivot Devices Transfer Assistive Devices Gait Belt,Front Wheeled Walker Comments Mobility Comments Pt MAXA x1 to get his trunk forwards and assist to get his RLE to the edge of the bed. Pt tends to lean posteriorly and to the right at this time while seated. CGA to balance while seated. BP 112/85 with HOB up. MAX AX 1 to stand to the FWW and heavily leans to the right and right knee buckling. MODA/MAXA x2 to stand with FWW and to help manage the FWW, keep the RLE from buckling and MAX vc for safety. CAll light given to pt and chair alarm placed on pt. OT- Balance Assessment Sitting Balance and Reactions Static Sitting Balance Ability Fair Dynamic Sitting Balance Ability Poor Standing Balance and Reactions Static Standing Balance Ability Poor Dynamic Standing Balance Ability Poor M8 OT- IP Objective Assessments Start: 05/13/24 08:31 Freq: Status: Active Protocol: Document 05/13/24 10:15 [facility] (Rec: 05/13/24 10:29 [facility] [id number]) OT Gross Range of Motion Upper Extremity Range of Motion ROM Impairments grossly WFL OT Strength Comments Strength Comments WFL for needs. M9 OT- IP Assessment and Plan Start: 05/13/24 08:31 Freq: Status: Active Protocol: Document 05/13/24 10:15 [facility] (Rec: 05/13/24 10:29 [facility] [id number]) OT Summary Assessment and Plan Potential Rehabilitation Potential Good Analytic Complexity at Evaluation Low Summary OT Impairments Pain,Strength,Balance, Functional Cognition, Functional Mobility,Grooming, Dressing,Toileting,Bathing, Toilet Transfers,Shower Transfers,Activity Tolerance Progress Towards Goals Slow Progress due to Pain,Slow Progress due to Medical Issues,Slow Progress due to Activity Tolerance,Slow Progress due to Cognition Assessment Summary Pt LOW complexity and main barriers are pain, slow to process and follow commands, now needing extensive two person assist for transfers. Pt will greatly benefit from skilled rehab when medically stable. To practice LB dressing equipment with pt tomorrow. Goals Dressing Goal Minimal Assistance,Primary Substance Abuse Counselor, Sock Aid Toileting Goal Independent Bathing Goal Standby Assistance Toilet Transfer Goal Independent Shower Transfer Goal Standby Assistance Days to Meet Goals 20 Frequency of Treatment Other frequency 5x/week Treatment Plan OT Treatment Plan ADL Training,Functional Mobility,Patient/Family Education,Discharge Planning Discharge Recommendations OT Discharge Recommendations SNF Rehab Transportation Needs at Discharge Wheelchair/Cabulance
--- NOTE | 2024-05-13 10:15 | PT.IIE ---
Current Diagnoses Bipolar disorder, unspecified (05/12/24) Gout, unspecified (05/12/24) Bilateral primary osteoarthritis of hip (05/12/24) Unilateral primary osteoarthritis, right hip (05/12/24) Disorder of kidney and ureter, unspecified (05/12/24) Surgery Performed Operation Date: 05/12/24 13:45 Actual Procedures p Total Hip Arthroplasty/Anterior Approach(Right) - Carmen Harp MD Surgical History (Last Reviewed 05/12/24 @ 13:30 by Carmen Harp MD) History of ankle surgery History of total right knee replacement (05/25/19) Hx of appendectomy Hx of arthroscopy of right knee (03/03/16) Hx of oral surgery (05/05/19) Hx of thumb surgery (~05/2017) Medical History (Last Reviewed 05/12/24 @ 13:30 by Carmen Harp MD) Anxiety De Quervain's tenosynovitis Depression DJD (degenerative joint disease) Herniated disc HLD (hyperlipidemia) Neuropathy Occasional tremors Septic arthritis (~03/2016) Tinnitus Physical Therapy Inpatient Evaluation/Re-Eval M1 PT/OT-IP Prior Functional Status Start: 05/13/24 12:22 Freq: NEEDED Status: Active Protocol: Document 05/13/24 10:15 AB (Rec: 05/13/24 12:40 AB [id number]) Medical Review Prior Functional Status Medical History Reviewed Yes Communication able to make needs known; has decrease memory and difficulty follow directions Mobility and Gait pt stated that he was modified independent with all mobilities and ambulation without AD but has been using a SPC for the last 2 weeks due to hip pain Activities of Daily Living and IADL's per OT note: Pt's having to asisst with his socks and shoes. Social History Household Members spouse Living Arrangements House Number of Floors (Floors) Two Floors Number of Stairs To Enter/Railing? pt plans to stay on the main level of the house but bathroom is on 2nd level of the house with 16 steps 1 step from the garage to get to main living area of the house Home Environment Standard Height Toilet,Walk in Shower Home Equipment Front Wheel Walker,Straight Cane,Bedside Commode,Shower Seat without Backrest,Hand Held Shower,Grab Bars In Shower M2 PT-IP Current Condition Start: 05/13/24 12:22 Freq: NEEDED Status: Active Protocol: Document 05/13/24 10:15 AB (Rec: 05/13/24 12:40 AB [id number]) Physical Therapy Current Condition Current Condition Evaluation Date 05/13/24 Treatment Diagnosis s/p R FARIDA anterior; difficulty in walking Onset Date 05/12/24 M3 PT-IP Subjective Start: 05/13/24 12:22 Freq: NEEDED Status: Active Protocol: Document 05/13/24 10:15 AB (Rec: 05/13/24 12:40 AB [id number]) Subjective Physical Therapy Visit Type Type Initial Evaluation Visit Start Time 10:15 Visit Stop Time 11:05 Number of STAFF SERVICES MANAGER Visits 0 Physical Therapy Visit Comments Patient Comments agreeable to do PT Therapy Pain Assessment Pain When Pain Assessed At Rest Pain Present Pain Present Pain Reported Location Right Hip Intensity 3 Scale Used Numeric (0 - 10) Pain Behaviors Guarding,Holding Area Pain Management Techniques Apply Cold,Distraction, Modification of Treatment,Re- positioning,Timing of Activity with Medications M4 PT-IP Mobility and Gait Start: 05/13/24 12:22 Freq: NEEDED Status: Active Protocol: Document 05/13/24 10:15 AB (Rec: 05/13/24 12:40 AB [id number]) PT-Bed Mobility Assessment Supine to Sit Supine to Sit Maximum Assistance,1 Person Assistance Sit to Supine Sit to Supine Standby Assistance PT-Transfer Assessment Sit to and From Stand Sit to and from Stand Maximum Assistance,1 Person Assistance,2 Person Assistance ,Use of Upper Extremities Equipment Transfer Assistive Device Gait Belt,Front Wheeled Walker Transfers Transfer Destination Bed,Chair Transfer Technique Stand Step Pivot Transfer Ability Level of Assist Maximum Assistance,1 Person Assistance,2 Person Assistance ,Use of Upper Extremities Comments Mobility Comments pt sitting on the chair and agreed to do PT. obtained PLOF and home set up. pt has difficulty answering questions and easily gets distracted. educated on anterior hip precautions. pt completed sit to stand from chair max A x 1 -2 and max cues. increase posterior LOB and with stooped posture and B knee flexion. instructed pt to sit back down . educated pt on posture, steadiness and how to use FWW for support. completed sit to stand again max A x 1-2 and max cues. step transfer to EOB max A x 1-2 and max cues. completed sit to supine max A for LE elevation to bed. completed supine to sit SBA. pt agreed to ambulate. completed sit to stand from EOB max A x 1-2 and max cues and ambulated ~ 8 ft using fWW max A x 1-2 and max cues and with chair follow. positioned pt on the chair. call light and table placed within reach. Gait Assessment Gait Gait Assistance Required: Maximum Assistance,1 Person Assist,2 Person Assist Distance (Feet) 8 Able to Maintain Weight Bearing Status Yes During Gait Assistive Devices Assistive Device Gait Belt,Front Wheeled Walker Orthotic/Prosthetic Devices or Brace: No Gait Deviations General Gait Pattern Antalgic,Decreased Stride Length,Decreased Feet Clearance Factors Limiting Gait Function Factors Limiting Gait Function Decreased Activity Tolerance, Decreased Strength,Difficulty Following Directions,Limited Range of Motion,Pain,Poor Balance,Poor Safety Awareness PT-Balance Assessment Sitting Balance and Reactions Static Sitting Balance Ability Good Dynamic Sitting Balance Ability Good Standing Balance and Reactions Static Standing Balance Ability Poor Dynamic Standing Balance Ability Poor Device Used FWW M5 PT-IP Objective Assessments Start: 05/13/24 12:22 Freq: NEEDED Status: Active Protocol: Document 05/13/24 10:15 AB (Rec: 05/13/24 12:40 AB [id number]) Orientation Orientation/Cognition Level of Alertness Alert Safety Awareness Decreased Safety Awareness Memory Description Short Term Impaired,Medical Radiation Dosimetrist Impaired Gross Range of Motion Lower Extremity ROM Assessment Within Functional Limits Strength Lower Extremity Strength Assessment Right Impaired Hip 3-/5 Knee 4-/5 Muscle Tone Muscle Tone WNL Yes M6 PT-IP Treatment Start: 05/13/24 12:22 Freq: NEEDED Status: Active Protocol: Document 05/13/24 10:15 AB (Rec: 05/13/24 12:40 AB [id number]) Physical Therapy Treatment Education Education Provided Precautions,Weight Bearing Status,Post-Op Packet,Safety M7 PT-IP Assessment and Plan Start: 05/13/24 12:22 Freq: NEEDED Status: Active Protocol: Document 05/13/24 10:15 AB (Rec: 05/13/24 12:40 AB [id number]) PT Summary Assessment and Plan Potential Rehabilitation Potential Fair Status of Condition at Evaluation Evolving Summary Impairments Pain,ROM,Strength,Balance, Coordination,Sensation,Tone, Cognition,Bed Mobility, Transfers,Gait,Activity Tolerance Assessment Summary pt is a 74 y/o M s/p R FARIDA anterior POD 1. pt has R anterior hip precautions and is WBAT. pt requiring max Ax 1-2 with mobility using FWW and max cues with all tasks. pt will require SNF rehab to improve overall strength and independence. Goals Bed Mobility Goal Standby Assistance Transfer Goal Standby Assistance,Front Wheeled Walker Gait Goal Standby Assistance,Front Wheel Walker Gait Distance 50 Other Goals improve bed mobiltiy, transfers, ambulation using FWW mod I ~ 200 ft up/down 1 step using FWW SBA Days to Meet Goals 10 Frequency of Treatment Frequency Of Treatment Twice a Day Treatment Plan Physical Therapy Treatment Plan Bed Mobility Training,Transfer Training,Gait Training, Therapeutic Exercise,Balance Retraining,Post Op Education, Discharge Planning,Hot or Cold Pack,Neuromuscular Re-ed, Coordination Retraining,Manual Therapy Precautions Anterior Hip Precautions No Hip Extension,No Hip External Rotation Weight Bearing Status Weight Bearing Status Weight Bear as Tolerated Allowed Weight Bearing Amount (enter % RLE WBAT or #) (%) Recommendations To Nursing Amount of Assist Needed 2 Person Assist Discharge Recommendations PT Discharge Recommendations SNF Rehab Transportation Needs at Discharge Wheelchair/Cabulance
--- NOTE | 2024-05-13 12:26 | CM.DANOTE ---
Initial DCP Assessment Visit Note Reviewed EMR and team rounds for pt's medical status and updates. Met with pt and spouse at bedside to introduce self and role, pt was found to be alert/oriented, sitting up in the recliner and eating his lunch. He was able to discuss the plan for SNF rehab at d/c, due to his very limited mobility at baseline and multiple comorbidities. Pt lives modified independently in his own home with spouse in Saturday. His plans to go back home until such time that he is discharged from rehab. Payor: Medicare Attending: Dr. Harp Pt is a 74 year-old M post-op day 1 from a R-total hip arthroplasty surgery. He has a hx of bilateral, worsening hip pain that radiates down his back and severely impacts his ability to perform daily ADL's, he depends on his spouse for most household and IADL needs. Per his preference, this [employer]FFECT[employer] SPECIALIST faxed a referral to [facility], they did confirm that they can likely take him after his 3-midnights, which would be this coming Saturday, 05/15. DCP will continue to monitor for any further evolving needs, and will also see pt through the transition to rehab. Discharge Planning/Care Management Advanced directive, confirm from FAMILY Start: 05/12/24 19:03 Freq: Q24H Status: Active Protocol: Document 05/12/24 19:03 MS (Rec: 05/12/24 21:47 MS [id number]) Advance Directive, confirm on record Time 21:46 Person contacted Patient Copy received No CM Discharge Assessment Start: 05/13/24 12:20 Freq: Status: Active Protocol: Document 05/13/24 12:21 DPL (Rec: 05/13/24 12:25 DPL [id number]) Discharge Planning Assessment Assigned Vegetable Sorter AMRITA Naylor Advance Directives? Yes Advance Directives on File No History Provided By Patient,Significant Other, Medical Record Has Patient been admitted in last 30 No days? Prior Living Arrangements House Household Members spouse,significant other Type of transporation used prior to Relies on Others admit Independent with ADL's No: modified independent Is patient alert and oriented? Yes Needs Assistance With Home Chores / Shopping Caregiver for Another No DME Already Rented / Owned Elevated Toilet Seat,FWW / Walker,Cane Patient/Family Preference Detention Facility Barriers to Discharge No Discharge Plan Detention Facility Community Services Physical Therapy,Occupational Therapy Transportation Arrangement Facility Referrals Initiated Detention If patient plan is SNF: Has PASSR been Yes completed? Medicare Choice List Provided Yes Medicare choice list reviewed on patient,family electronic tablet with SNF/HH Preference [facility] Has Agency SNF been contacted Yes Whiteboard Updated in Patient Room with Yes name and ext. # of Vegetable Sorter Review Status In Process Please Provide Date Initial DC 05/13/24 Assessment Was Performed Pre-Anesthesia Assessment Start: 04/15/24 13:44 Freq: Status: Active Protocol: Document 04/15/24 13:44 LB (Rec: 04/15/24 14:42 LB [id number]) Pre-Anesthesia Assessment PAC Comment 04/15/24 Phone assessment. Preferred Name [facility] Patient Information Reviewed Via Phone Assessment Assessment Completed With Patient,Spouse Diagnostic Results BMP/CMP,CBC,EKG,Urinalysis Comment 03/05/24 outside results. BUN 48, Cr 2.1 Primary Care Provider Joo Wilson Medical Clearance Received Yes Seen Specialist in Last 12 Months Yes Specialist Seen Orthopedist Primary Language Occitan Preferred Language Occitan Support Services Manager Required No Height 185.42 cm Weight 83.915 kg Body Mass Index (BMI) 24.4 Hearing Ability Normal Visual Assist Glasses Dentition Type Teeth, Natural Present,Dental Implants Barriers to Learning Memory Other Aids No Comment denies CVA. Hx Anesthesia Reactions Yes: felt like he was awake during colonoscopy and dental implants Hx Family Anesthesia Reaction No Hx Malignant Hyperthermia No Hx Blood Transfusions No Anesthesia Review Requested No Alligator Trapper Yes: wants DC to SNF alcohol intake current alcohol intake frequency a few times a week Smoking Status Never smoker Substance Use Type does not use Pain Present Pain Reported Comment Left hip. Musculoskeletal Symptoms Back Pain,Difficulty Walking, Joint Pain History of Falling (Recent or History of No ) Patient is completely paralyzed or No completely immobile Prosthesis or Orthotic Device Cane,Front Wheel Walker Mental Status Forgets limitations Comment Will bring walker. Is patient on oxygen? No Does patient have KIRBY/SOB No Hx Sleep Apnea No Currently Taking a Beta Félix No Can You Climb a Flight of Stairs Without Yes SOB Hx Chest Pain No Hx SOB No Hx Syncope or Dizziness No Anti-Coagulant Therapy No Has a Reeling Machine Operator No Cardiac Testing No Hx Pacemaker/ICD No Dysphagia No Bladder Pattern Frequency,Nocturia Hx Urinary Self Catheterization No Diabetes No HgbA1C 5.6 Date 03/05/24 Hx Drug Resistant Organism No Presence of External or Internal Medical Yes: Right tibia, right knee. Devices Have you had any close contact with No someone diagnosed with COVID-19? Are you experiencing any of these No symptoms symptoms? Comment Denies covid last 2 months. Marital Status Lives With spouse Current Living Arrangements House Number of Floors (Floors) Two Floors Number of Stairs To Enter/Railing? 3 stairs without railing to enter, stairs with railing to go to bedroom. Support System Spouse Does the Patient Have Assistance After No: has neck and back Surgery stenosis. Comment wants pt to go to SNF. Do You Have Any Spiritual Beliefs That No May Affect Your HC Choices? Do You Have Any Cultural Practices That No May Affect Your HC Choices? Emergency Contact Name Dai Guajardo - Emergency Contact or [phone] Advance Directives? Yes Advance Directives on File No Requested Patient Bring Advanced Yes Directives DOS Power of Blade Bender Furnace Tender Yes: Working on updating Power of Blade Bender Furnace Tender Name Dai Guajardo Power of Blade Bender Furnace Tender or [phone] PAC Instructions Assistance for 24 hours post- op,Durable medical equipment, Medications to take/avoid, Nasal antibiotic,No ETOH/ petroleum product on skin DOS, NPO,Pre-surgical wash,Sensory aids,Sturdy shoes/comfortable clothes,Do not bring valuables and remove jewelry
--- NOTE | 2024-05-13 12:35 | PT.IPTN ---
Current Diagnoses Bipolar disorder, unspecified (05/12/24) Gout, unspecified (05/12/24) Bilateral primary osteoarthritis of hip (05/12/24) Unilateral primary osteoarthritis, right hip (05/12/24) Disorder of kidney and ureter, unspecified (05/12/24) Surgery Performed Operation Date: 05/12/24 13:45 Actual Procedures p Total Hip Arthroplasty/Anterior Approach(Right) - Carmen Harp MD Physical Therapy Treatment Note M2 PT-IP Current Condition Start: 05/13/24 12:22 Freq: NEEDED Status: Active Protocol: Document 05/13/24 10:15 AB (Rec: 05/13/24 12:40 AB [id number]) Physical Therapy Current Condition Current Condition Evaluation Date 05/13/24 Treatment Diagnosis s/p R FARIDA anterior; difficulty in walking Onset Date 05/12/24 M3 PT-IP Subjective Start: 05/13/24 12:22 Freq: NEEDED Status: Active Protocol: Document 05/13/24 13:01 TS (Rec: 05/13/24 13:08 TS [id number]) Subjective Physical Therapy Visit Type Type Treatment Note Visit Start Time 12:35 Visit Stop Time 13:00 Number of CAUSTICS LOADER Visits 1 Physical Therapy Visit Comments Patient Comments Pt found resting in the chair, he would like to get back to bed, pt is agreeable to PT. Therapy Pain Assessment Pain When Pain Assessed At Rest Pain Present Pain Present Pain Reported M4 PT-IP Mobility and Gait Start: 05/13/24 12:22 Freq: NEEDED Status: Active Protocol: Document 05/13/24 13:01 TS (Rec: 05/13/24 13:08 TS [id number]) PT-Bed Mobility Assessment Sit to Supine Sit to Supine Moderate Assistance,1 Person Assistance PT-Transfer Assessment Sit to and From Stand Sit to and from Stand Maximum Assistance,1 Person Assistance,Use of Upper Extremities Equipment Transfer Assistive Device Gait Belt,Front Wheeled Walker Orthotic/Prosthetic Devices or Brace: No Transfers Transfer Destination Bed Transfer Technique Stand Step Pivot Transfer Ability Level of Assist Maximum Assistance,1 Person Assistance,Use of Upper Extremities Comments Mobility Comments Pt performs heel slides and ankle pumps prior to mobility. STS with FWW MaxA. Stand step pivot to the bed MaxA, pt has x1 posterior LOB. Stand to sit pt requires cues for reaching back with UEs. Sit to supine into bed ModA for RLE. Pt was left in bed, all needs met. Gait Assessment Gait Gait Assistance Required: Maximum Assistance,1 Person Assist Distance (Feet) 3 Able to Maintain Weight Bearing Status Yes During Gait Assistive Devices Assistive Device Gait Belt,Front Wheeled Walker Orthotic/Prosthetic Devices or Brace: No Gait Deviations General Gait Pattern Antalgic,Decreased Stride Length,Decreased Feet Clearance Factors Limiting Gait Function Factors Limiting Gait Function Decreased Activity Tolerance, Decreased Strength,Difficulty Following Directions,Limited Range of Motion,Pain,Poor Balance,Poor Safety Awareness PT-Balance Assessment Sitting Balance and Reactions Static Sitting Balance Ability Good Dynamic Sitting Balance Ability Good Standing Balance and Reactions Static Standing Balance Ability Poor Dynamic Standing Balance Ability Poor Device Used FWW M5 PT-IP Objective Assessments Start: 05/13/24 12:22 Freq: NEEDED Status: Active Protocol: Document 05/13/24 10:15 AB (Rec: 05/13/24 12:40 AB [id number]) Orientation Orientation/Cognition Level of Alertness Alert Safety Awareness Decreased Safety Awareness Memory Description Short Term Impaired,Assisted Impaired Gross Range of Motion Lower Extremity ROM Assessment Within Functional Limits Strength Lower Extremity Strength Assessment Right Impaired Hip 3-/5 Knee 4-/5 Muscle Tone Muscle Tone WNL Yes M6 PT-IP Treatment Start: 05/13/24 12:22 Freq: NEEDED Status: Active Protocol: Document 05/13/24 13:01 TS (Rec: 05/13/24 13:08 [id number]) Physical Therapy Treatment Education Education Provided Precautions,Weight Bearing Status,Post-Op Packet,Safety M7 PT-IP Assessment and Plan Start: 05/13/24 12:22 Freq: NEEDED Status: Active Protocol: Document 05/13/24 13:01 TS (Rec: 05/13/24 13:08 [id number]) PT Summary Assessment and Plan Potential Rehabilitation Potential Fair Summary Impairments Pain,ROM,Strength,Balance, Coordination,Sensation,Tone, Cognition,Bed Mobility, Transfers,Gait,Activity Tolerance Progress Towards Goals Slow Progress - Other Assessment Summary Pt is making slow progress with his mobility. He requires MaxA to stand from the chair. He performs transfer back to bed MaxA with use of FWW. Pt has x1 posterior LOB when stepping back towards bed. He lacks good safety awareness with his mobility. He follows instructions. PT continues to recommend SNF. Goals Bed Mobility Goal Standby Assistance Transfer Goal Standby Assistance,Front Wheeled Walker Gait Goal Standby Assistance,Front Wheel Walker Gait Distance 50 Other Goals improve bed mobiltiy, transfers, ambulation using FWW mod I ~ 200 ft up/down 1 step using FWW SBA Days to Meet Goals 10 Frequency of Treatment Frequency Of Treatment Twice a Day Treatment Plan Physical Therapy Treatment Plan Bed Mobility Training,Transfer Training,Gait Training, Therapeutic Exercise,Balance Retraining,Post Op Education, Discharge Planning,Hot or Cold Pack,Neuromuscular Re-ed, Coordination Retraining,Manual Therapy Precautions Anterior Hip Precautions No Hip Extension,No Hip External Rotation Weight Bearing Status Weight Bearing Status Weight Bear as Tolerated Allowed Weight Bearing Amount (enter % RLE WBAT or #) (%) Recommendations To Nursing Amount of Assist Needed 2 Person Assist Discharge Recommendations PT Discharge Recommendations SNF Rehab Transportation Needs at Discharge Wheelchair/Cabulance
[2024-05-13 20:15] VITALS: BP 123/87; PULSE 80; RESP 18; TEMP 36.8; O2SAT 96
[2024-05-13] MEDS: TRAZODONE 50 MG TABLET PO (21:35)
[2024-05-13] MEDS: ATORVASTATIN 20 MG TABLET 40 MG PO (21:35)
[2024-05-14] MEDS: CYCLOBENZAPRINE 10 MG TABLET PO (02:39)
[2024-05-14] MEDS: OXYCODONE IR 5 MG TABLET PO ×2 (02:39→09:39)
[2024-05-14] MEDS: ACETAMINOPHEN 325 MG TABLET 650 MG PO ×2 (02:39→20:11)
--- NOTE | 2024-05-14 07:57 | P.PN_ITS ---
Subjective Subjective Interval history: Clay Palomino is a 74 year old male who is POD#2 s/p Right total hip arthroplasty anterior approach by Dr. Harp. Has a history of bipolar disorder. He also has impaired renal function. He lives at home with but feels that SNF would be the best d/c plan for himself at this time d/t his limited mobility even prior to sx. He reports he is doing well this morning, pain is mild at rest but increases w/ activity or movement. His biggest complaint is difficulty sleeping d/t multiple interruptions by people while resting. Denies fever, chills, chest pain, SOB, nausea, vomiting. Exam Vital Signs (past 8 hours): Oxygen Delivery Method Room Air Oxygen Flow Rate 0 Narrative Exam Narrative: Patient lying comfortably in bed during our interview today. No acute distress. 5/5 strength with DF, PF, EHL bilaterally. Gross sensation intact throughout bilateral lower extremities. Calves soft and non-tender bilaterally. SCDs are on and functioning. Brisk capillary refill, pulses intact. Post-surgical Aquacel dressing clean, dry and intact over the right anterior hip without drainage. Objective Labs 05/12/24 22:00 05/12/24 22:00 REPLACED BY [facility] Medical History Occasional tremors Tinnitus Depression Anxiety Neuropathy De Quervain's tenosynovitis DJD (degenerative joint disease) HLD (hyperlipidemia) Septic arthritis (~03/2016) Herniated disc Surgical History History of total right knee replacement (05/25/19) Hx of appendectomy Hx of oral surgery (05/05/19) Hx of thumb surgery (~05/2017) History of ankle surgery Hx of arthroscopy of right knee (03/03/16) Social History household members: spouse and significant other Smoking Status: Never smoker alcohol intake: current Assessment & Plan Post-op Postoperative Procedures: Procedures Operation Date: 05/12/24 13:45 Actual Procedure Side Surgeon p Total Hip Arthroplasty/Anterior Approach Right Carmen Harp MD Postoperative plan narrative: 1) Plan to discharge to SNF once approved by insurance- likely 05/15/24. 2) Continue multimodal pain management with ice to the hip for additional pain control. 3) ASA b.i.d. for DVT prophylaxis. 4) Start outpatient physical therapy to work on range of motion and mobility 5) Keep dressing intact, clean, dry until 2 week postop appointment. No soaking the incision site in pools or tubs. No topical ointments or creams to the incision site. 6) Follow up at [facility] in 2 weeks for a postop appointment and wound check. All patient's questions were answered, they demonstrates understanding and are in agreement with the plan. Call our office if any questions or concerns arise.
[2024-05-14 08:00] VITALS: BP 132/82; PULSE 85; RESP 18; TEMP 36.8; O2SAT 97
--- NOTE | 2024-05-14 09:00 | PT.IPTN ---
Current Diagnoses Bipolar disorder, unspecified (05/12/24) Gout, unspecified (05/12/24) Bilateral primary osteoarthritis of hip (05/12/24) Unilateral primary osteoarthritis, right hip (05/12/24) Disorder of kidney and ureter, unspecified (05/12/24) Surgery Performed Operation Date: 05/12/24 13:45 Actual Procedures p Total Hip Arthroplasty/Anterior Approach(Right) - Carmen Harp MD Physical Therapy Treatment Note M2 PT-IP Current Condition Start: 05/13/24 12:22 Freq: NEEDED Status: Active Protocol: Document 05/13/24 10:15 AB (Rec: 05/13/24 12:40 AB [id number]) Physical Therapy Current Condition Current Condition Evaluation Date 05/13/24 Treatment Diagnosis s/p R FARIDA anterior; difficulty in walking Onset Date 05/12/24 M3 PT-IP Subjective Start: 05/13/24 12:22 Freq: NEEDED Status: Active Protocol: Document 05/14/24 09:32 TS (Rec: 05/14/24 09:45 TS [id number]) Subjective Physical Therapy Visit Type Type Treatment Note Visit Start Time 09:00 Visit Stop Time 09:30 Physical Therapy Visit Comments Patient Comments Pt found resting in bed, he is agreeable to PT. Therapy Pain Assessment Pain When Pain Assessed At Rest Pain Present Pain Present Pain Reported M4 PT-IP Mobility and Gait Start: 05/13/24 12:22 Freq: NEEDED Status: Active Protocol: Document 05/14/24 09:32 TS (Rec: 05/14/24 09:45 TS [id number]) PT-Bed Mobility Assessment Supine to Sit Supine to Sit Moderate Assistance,1 Person Assistance Scooting Scooting to Edge of Bed Standby Assistance PT-Transfer Assessment Sit to and From Stand Sit to and from Stand Maximum Assistance,1 Person Assistance,Use of Upper Extremities Equipment Transfer Assistive Device Gait Belt,Front Wheeled Walker Orthotic/Prosthetic Devices or Brace: No Transfers Transfer Destination Chair Transfer Technique Stand Step Pivot Transfer Ability Level of Assist Maximum Assistance,1 Person Assistance,Use of Upper Extremities Comments Mobility Comments Supine to sit ModA with REPAIR SPECIALIST for uprighting trunk. STS with FWW MaxA x1, pt has a heavy posterior lean. Stand step pivot to commode MaxA x1. STS from the commode MaxA. He ambulates ~15' in the room ModA with FWW and slow stpe to gait. Pt was left in the chair, all needs met. Gait Assessment Gait Gait Assistance Required: Moderate Assistance,1 Person Assist Distance (Feet) 15 Able to Maintain Weight Bearing Status Yes During Gait Assistive Devices Assistive Device Gait Belt,Front Wheeled Walker Orthotic/Prosthetic Devices or Brace: No Gait Deviations General Gait Pattern Antalgic,Decreased Stride Length,Decreased Feet Clearance Factors Limiting Gait Function Factors Limiting Gait Function Decreased Activity Tolerance, Decreased Strength,Difficulty Following Directions,Limited Range of Motion,Pain,Poor Balance,Poor Safety Awareness PT-Balance Assessment Sitting Balance and Reactions Static Sitting Balance Ability Good Dynamic Sitting Balance Ability Good Standing Balance and Reactions Static Standing Balance Ability Poor Dynamic Standing Balance Ability Poor Device Used FWW M5 PT-IP Objective Assessments Start: 05/13/24 12:22 Freq: NEEDED Status: Active Protocol: Document 05/13/24 10:15 AB (Rec: 05/13/24 12:40 AB [id number]) Orientation Orientation/Cognition Level of Alertness Alert Safety Awareness Decreased Safety Awareness Memory Description Short Term Impaired,Correction Impaired Gross Range of Motion Lower Extremity ROM Assessment Within Functional Limits Strength Lower Extremity Strength Assessment Right Impaired Hip 3-/5 Knee 4-/5 Muscle Tone Muscle Tone WNL Yes M6 PT-IP Treatment Start: 05/13/24 12:22 Freq: NEEDED Status: Active Protocol: Document 05/14/24 09:32 TS (Rec: 05/14/24 09:45 TS [id number]) Physical Therapy Treatment Education Education Provided Precautions,Weight Bearing Status,Post-Op Packet,Safety M7 PT-IP Assessment and Plan Start: 05/13/24 12:22 Freq: NEEDED Status: Active Protocol: Document 05/14/24 09:32 TS (Rec: 05/14/24 09:45 TS [id number]) PT Summary Assessment and Plan Potential Rehabilitation Potential Fair Summary Impairments Pain,ROM,Strength,Balance, Coordination,Sensation,Tone, Cognition,Bed Mobility, Transfers,Gait,Activity Tolerance Progress Towards Goals Slow Progress - Other Assessment Summary Pt made some progress with his mobility this session but continues to be limited. He requires MaxA for STS with FWW . He progressed his gait to ~ 15' with a slow step to gait. Pt lacks good safety awareness with his mobility. PT continues to recommend SNF. Goals Bed Mobility Goal Standby Assistance Transfer Goal Standby Assistance,Front Wheeled Walker Gait Goal Standby Assistance,Front Wheel Walker Gait Distance 50 Other Goals improve bed mobiltiy, transfers, ambulation using FWW mod I ~ 200 ft up/down 1 step using FWW SBA Days to Meet Goals 10 Frequency of Treatment Frequency Of Treatment Twice a Day Treatment Plan Physical Therapy Treatment Plan Bed Mobility Training,Transfer Training,Gait Training, Therapeutic Exercise,Balance Retraining,Post Op Education, Discharge Planning,Hot or Cold Pack,Neuromuscular Re-ed, Coordination Retraining,Manual Therapy Precautions Anterior Hip Precautions No Hip Extension,No Hip External Rotation Weight Bearing Status Weight Bearing Status Weight Bear as Tolerated Allowed Weight Bearing Amount (enter % RLE WBAT or #) (%) Recommendations To Nursing Amount of Assist Needed 1 Person Assist Discharge Recommendations PT Discharge Recommendations SNF Rehab Transportation Needs at Discharge Wheelchair/Cabulance
[2024-05-14] MEDS: TIMOLOL 0.5% OPHTH 1 DROPS EYE-BOTH (09:37)
[2024-05-14] MEDS: polyethylene glycoL 3350 17 GM POWD.PACK PO (09:37)
[2024-05-14] MEDS: BRIMONIDINE 0.2% OPHTH 5 ML 1 DROPS EYE-LEFT ×2 (09:37→20:15)
[2024-05-14] MEDS: diazePAM 5 MG TABLET 10 MG PO (09:38)
[2024-05-14] MEDS: allopurinoL 100 MG TABLET 150 MG PO (09:38)
[2024-05-14] MEDS: LITHIUM 150 MG IR CAPSULE 300 MG PO ×3 (09:38→20:11)
[2024-05-14] MEDS: DOCUSATE 100 MG CAPSULE PO ×2 (09:38→20:11)
[2024-05-14] MEDS: ASPIRIN EC 81 MG TABLET PO ×2 (09:38→20:11)
--- NOTE | 2024-05-14 10:11 | PM.DS.1 ---
History of Present Illness History of Present Illness Chief complaint: Right FARIDA anterior *OPB* Narrative: Clay Palomino is a 74 year old male who is POD#2 s/p Right total hip arthroplasty anterior approach by Dr. Harp. Has a history of bipolar disorder. He also has impaired renal function. He lives at home with but feels that SNF would be the best d/c plan for himself at this time d/t his limited mobility even prior to sx. He reports he is doing well this morning, pain is mild at rest but increases w/ activity or movement. His biggest complaint is difficulty getting up to pee but reports he has been able to urinate in the bedside urinal without issue. Denies fever, chills, chest pain, SOB, nausea, vomiting. Operative Date/Time/Diagnoses Date of procedure: 05/12/24 Time of procedure: 14:00 Pre-op diagnosis: right hip OA Post-op diagnosis: same Procedure & Clinicians Procedure: Right total hip arthroplasty anterior approach Same procedure as scheduled: Yes Indications: The patient has had progressively worsening right hip pain with radiographic changes consistent with arthritis. Non-operative management has failed and the patient has requested total hip replacement. The risks, benefits and alternatives to surgery were discussed with the patient prior to proceeding. Risks discussed included, but were not limited to, failure to relieve pain, leg length discrepancy, dislocation, stiffness, infection, nerve damage, deep venous thrombosis, pulmonary embolism, stroke, coma, heart attack, permanent paralysis and , as well as the potential need for eventual revision of the prosthetic. Surgeon: Carmen Harp Integrated Program Teacher: Eddie Medina Anesthesia Type: General Discharge Providers Provider Date of admission: 05/12/24 17:05 Primary care physician: Joo Wilson DO Consults: 05/12/24 06:00 Consult to Anesthesiology Routine Comment: Consulting Provider: Anesthesiologist Reason for consultation: Regional block for post operative pain control 05/12/24 12:50 Consult to READING INTERVENTIONIST - Research Program Manager Routine Comment: Research Program Manager Consult needed for:: No caregiver at home Comment: Patient and spouse would like patient to go to SNF after surgery 05/12/24 17:05 Consult to Discharge Planning Routine Comment: Consult to Occupational Therapy Evaluate & Treat Comment: Physician Instructions: Evaluate and treat Consult to Physical Therapy Evaluate & Treat Comment: Physician Instructions: post op FARIDA protocol Discharge provider: Manda Fatima PA-C Exam Vital Signs (past 8 hours): - 05/14/24 08:00 Temperature 98.3 F Pulse Rate 85 Respiratory Rate 18 Blood Pressure 132/82 Pulse Oximetry 97 Oxygen Flow Rate 0 Oxygen Delivery Method Room Air Oxygen Flow Rate 0 Objective Labs 05/12/24 22:00 05/12/24 22:00 [facility] Medical History Occasional tremors Tinnitus Depression Anxiety Neuropathy De Quervain's tenosynovitis DJD (degenerative joint disease) HLD (hyperlipidemia) Septic arthritis (~03/2016) Herniated disc Surgical History History of total right knee replacement (05/25/19) Hx of appendectomy Hx of oral surgery (05/05/19) Hx of thumb surgery (~05/2017) History of ankle surgery Hx of arthroscopy of right knee (03/03/16) Social History household members: spouse and significant other Smoking Status: Never smoker alcohol intake: current Discharge Plan Discharge Plan Patient Disposition: SNF Discharge orders & Medications Prescriptions: New aspirin 81 mg Tablet,Delayed Release (Dr/Ec) 81 mg PO BID Qty: 90 0RF docusate sodium 100 mg Capsule 100 mg PO BID Qty: 30 0RF ondansetron 4 mg Tablet,Disintegrating 4 mg PO Q4-8H PRN (Reason: Nausea) Qty: 10 0RF oxycodone 5 mg Tablet 5 mg PO Q4-6H PRN (Reason: Pain, Moderate (4-6)) Qty: 30 0RF Continued lithium carbonate 150 mg capsule 300 mg PO TID Qty: 0 allopurinol 100 MG tablet 300 mg PO QDAY Qty: 30 cyclobenzaprine 10 MG tablet 10 mg PO TIDP PRN (Reason: Muscle Spasm) Qty: 0 Patient Comments: states that he takes one every 3 days timolol maleate 0.5 % drops 1 drp EYE-BOTH QAM Qty: 5 rosuvastatin 20 mg Tablet 20 mg PO BEDTIME brimonidine 0.2 % Drops 1 drp EYE-LEFT BID diazepam 10 mg Tablet 10 mg PO DAILY Patient Comments: States that he takes it a couple times/month trazodone 50 mg tablet 25 mg PO ONCE PM PRN (Reason: Sleep) acetaminophen [Tylenol Extra Strength] 500 mg Tablet 1,000 mg PO Q8H PRN (Reason: knee pain) Salonpas Deep Relieving 3.1-15-10 % Gel 1 ea TOPICAL BID PRN (Reason: Pain (Scale Score 1-3)) Follow up/Referrals: Joo Wilson DO [Primary Care Provider] - Carmen Harp MD [Physician] - (Follow up at [facility] as scheduled in 2 weeks. ) Diet/Activity/Treatments Diet: Diet as Tolerated Activity: Weight bearing as tolerated, maintain anterior hip precautions. Cold/Heat Therapy: Ice to the hip for additional pain control. Skin/Wound/Dressing Care Report to your healthcare provider any signs of infection, such as:: chills, fever, night sweats, unusual drainage and unusual redness Special Rehabilitation Services Reason for rehabilitation: Post-operative therapy Rehab type: Physical therapy Visit Report/Discharge Packet Instructions: DI for Hip Replacement, DI for Prescription Opioid Use Stand Alone Forms: Patient Portal/API Discharge Data Primary Care Provider: Joo Wilson
--- NOTE | 2024-05-14 11:11 | P.PN_ITS ---
Subjective Subjective Interval history: Clay Palomino is a 74 year old male who is POD#2 s/p Right total hip arthroplasty anterior approach by Dr. Harp. Has a history of bipolar disorder. He also has impaired renal function. He lives at home with but feels that SNF would be the best d/c plan for himself at this time d/t his limited mobility even prior to sx. He reports he is doing well this morning, pain is mild at rest but increases w/ activity or movement. His biggest complaint is difficulty getting up to pee but reports he has been able to urinate in the bedside urinal without issue. Denies fever, chills, chest pain, SOB, nausea, vomiting. Operative Date/Time/Diagnoses Date of procedure: 05/12/24 Time of procedure: 14:00 Pre-op diagnosis: right hip OA Post-op diagnosis: same Procedure & Clinicians Procedure: Right total hip arthroplasty anterior approach Same procedure as scheduled: Yes Indications: The patient has had progressively worsening right hip pain with radiographic changes consistent with arthritis. Non-operative management has failed and the patient has requested total hip replacement. The risks, benefits and alternatives to surgery were discussed with the patient prior to proceeding. Risks discussed included, but were not limited to, failure to relieve pain, leg length discrepancy, dislocation, stiffness, infection, nerve damage, deep venous thrombosis, pulmonary embolism, stroke, coma, heart attack, permanent paralysis and , as well as the potential need for eventual revision of the prosthetic. Surgeon: Carmen Harp Wet Wheeler: Eddie Medina Anesthesia Type: General Exam Vital Signs (past 8 hours): - 05/14/24 08:00 Temperature 98.3 F Pulse Rate 85 Respiratory Rate 18 Blood Pressure 132/82 Pulse Oximetry 97 Oxygen Flow Rate 0 Oxygen Delivery Method Room Air Oxygen Flow Rate 0 Narrative Exam Narrative: Patient sitting comfortably in bedside chair during our interview today. No acute distress. 5/5 strength with DF, PF, EHL bilaterally. Gross sensation intact throughout bilateral lower extremities. Calves soft and non-tender bilaterally. SCDs are on and functioning. Brisk capillary refill, pulses intact. Post-surgical Aquacel dressing clean, dry and intact over the right anterior hip without drainage. Objective Labs 05/12/24 22:00 05/12/24 22:00 [facility] Medical History Occasional tremors Tinnitus Depression Anxiety Neuropathy De Quervain's tenosynovitis DJD (degenerative joint disease) HLD (hyperlipidemia) Septic arthritis (~03/2016) Herniated disc Surgical History History of total right knee replacement (05/25/19) Hx of appendectomy Hx of oral surgery (05/05/19) Hx of thumb surgery (~05/2017) History of ankle surgery Hx of arthroscopy of right knee (03/03/16) Social History household members: spouse and significant other Smoking Status: Never smoker alcohol intake: current Assessment & Plan Post-op Postoperative Procedures: Procedures Operation Date: 05/12/24 13:45 Actual Procedure Side Surgeon p Total Hip Arthroplasty/Anterior Approach Right Carmen Harp MD Postoperative plan narrative: 1) Plan to discharge to SNF once approved by insurance- likely 05/15/24. 2) Continue multimodal pain management with ice to the hip for additional pain control. 3) ASA b.i.d. for DVT prophylaxis. 4) Start outpatient physical therapy to work on range of motion and mobility 5) Keep dressing intact, clean, dry until 2 week postop appointment. No soaking the incision site in pools or tubs. No topical ointments or creams to the incision site. 6) Follow up at [facility] in 2 weeks for a postop appointment and wound check. All patient's questions were answered, they demonstrates understanding and are in agreement with the plan. Call our office if any questions or concerns arise.
--- NOTE | 2024-05-14 12:03 | OT.IP.TRT ---
Current Diagnoses Bipolar disorder, unspecified (05/12/24) Gout, unspecified (05/12/24) Bilateral primary osteoarthritis of hip (05/12/24) Unilateral primary osteoarthritis, right hip (05/12/24) Disorder of kidney and ureter, unspecified (05/12/24) Surgery Performed Operation Date: 05/12/24 13:45 Actual Procedures p Total Hip Arthroplasty/Anterior Approach(Right) - Carmen Harp MD Occupational Therapy Treatment Note M2 OT-IP Current Condition Start: 05/13/24 08:31 Freq: Status: Active Protocol: Document 05/13/24 10:15 [facility] (Rec: 05/13/24 10:29 [facility] [id number]) Occupational Therapy Current Condition Current Condition Evaluation Date 05/13/24 Treatment Diagnosis S/P R FARIDA anterior approach Diagnosis Onset Date 05/12/24 Post Operative Precautions Other Precautions NO hyperextension and excessive external rotation M3 OT- IP Subjective and Pain Start: 05/13/24 08:31 Freq: Status: Active Protocol: Document 05/14/24 12:10 [facility] (Rec: 05/14/24 12:18 [facility] [id number]) OT- Subjective Occupational Therapy Visit Type Type Treatment Note Visit Start Time 11:14 Visit Stop Time 12:03 Occupational Therapy Visit Comments Patient Comments Pt agreed to get up for oral care needs. Patient/Caregiver Goals TO get better. OT Pain Assessment Pain When Pain Assessed During Mobility Pain Present Pain Present Pain Reported Location Right Hip Pain Behaviors Facial Grimacing,Holding Area M4 OT- IP ADL's Start: 05/13/24 08:31 Freq: Status: Active Protocol: Document 05/14/24 12:10 [facility] (Rec: 05/14/24 12:18 [facility] [id number]) OT [id number] Comments OT Self-Feeding Comments Pt still having some residual food particles from breakfast when brushing his teeth but much better from yesterday. OT ADL-Grooming General Evaluation Grooming Ability Standby Assistance Areas Needing Assistance Retrieving/Set-up of Grooming Items Comments OT Grooming Comments While seated. OT ADL-Oral Care General Eval Oral Care Ability Standby Assistance OT ADL-Dressing General Eval Lower Body Dressing Ability Maximum Assistance Areas Needing Assistance Underpants/Brief,Socks OT ADL-Toileting General Evaluation Toileting Ability Maximum Assistance Areas Needing Assistance Manage Clothing Comments OT Toileting Comments Pt able to use the urinal with assist for set-up and to hold the urinal in place while pt sitting on the edge of the recliner due to urgency,MAX AX 2 to stand to FWW so able to assist to pull his brief up over his hips. OT ADL-Bathing Comments OT Bathing Comments Sponge bath more appropriate at this time. M5 OT- IP IADL's Start: 05/13/24 08:31 Freq: Status: Active Protocol: Document 05/13/24 10:15 [facility] (Rec: 05/13/24 10:29 [facility] [id number]) OT-Instrumental Activities of Daily Living Home Safety Awareness Home Safety Comments Pt still groggy and a bit slow to think and respond to directions. Meal Preparation Meal Preparation Caregiver Provides Assist Lobsterman Lobsterman Caregiver Provides Assist M6 OT- IP Functional Cognition Start: 05/13/24 08:31 Freq: Status: Active Protocol: Document 05/14/24 12:10 [facility] (Rec: 05/14/24 12:18 [facility] [id number]) Cognitive Factors Limiting Selfcare Function Cognitive Ability Level of Alertness Drowsy Attention Span Ability Capable of Focused Attention, Unable to Sustain Attention Ability to Follow Commands Able to Follow One Step Commands with Increased Time, Able to Follow One Step Commands with Repetition Cognitive Comments Cognitive Assessment Comments Pt very drowsy and having difficulty to follow commands and needing simple concrete cues, to follow. M7 OT- IP Mobility and Balance Start: 05/13/24 08:31 Freq: Status: Active Protocol: Document 05/14/24 12:10 [facility] (Rec: 05/14/24 12:18 [facility] [id number]) OT-Transfer Assessment Sit to and From Stand Sit to and from Stand Moderate Assistance,Maximum Assistance,1 Person Assistance ,2 Person Assistance Comments Mobility Comments MAX AX 1 to stand and then MAX AX 2 to stand to the FWW while trying to pull up his brief. Pt very unsteady on his feet today and very drowsy. OT- Balance Assessment Sitting Balance and Reactions Static Sitting Balance Ability Fair Dynamic Sitting Balance Ability Poor Standing Balance and Reactions Static Standing Balance Ability Poor Dynamic Standing Balance Ability Poor M8 OT- IP Objective Assessments Start: 05/13/24 08:31 Freq: Status: Active Protocol: Document 05/13/24 10:15 [facility] (Rec: 05/13/24 10:29 [facility] [id number]) OT Gross Range of Motion Upper Extremity Range of Motion ROM Impairments grossly WFL OT Strength Comments Strength Comments WFL for needs. M9 OT- IP Assessment and Plan Start: 05/13/24 08:31 Freq: Status: Active Protocol: Document 05/14/24 12:10 [facility] (Rec: 05/14/24 12:18 [facility] [id number]) OT Summary Assessment and Plan Potential Rehabilitation Potential Good Analytic Complexity at Evaluation Low Summary OT Impairments Pain,Strength,Balance, Functional Cognition, Functional Mobility,Grooming, Dressing,Toileting,Bathing, Toilet Transfers,Shower Transfers,Activity Tolerance Progress Towards Goals Slow Progress due to Pain,Slow Progress due to Medical Issues,Slow Progress due to Activity Tolerance,Slow Progress due to Cognition Assessment Summary Pt very drowsy and still needing MOD/MAX AX 2 to stand to the FWW at this time. Pt looking to go to skilled rehab when medically stable. Goals Dressing Goal Minimal Assistance,Acid Cleaner, Sock Aid Toileting Goal Independent Bathing Goal Standby Assistance Toilet Transfer Goal Independent Shower Transfer Goal Standby Assistance Days to Meet Goals 25 Frequency of Treatment Other frequency 5x/week Treatment Plan OT Treatment Plan ADL Training,Functional Mobility,Patient/Family Education,Discharge Planning Discharge Recommendations OT Discharge Recommendations SNF Rehab Transportation Needs at Discharge Wheelchair/Cabulance
--- NOTE | 2024-05-14 14:43 | PT.IPTN ---
Current Diagnoses Bipolar disorder, unspecified (05/12/24) Gout, unspecified (05/12/24) Bilateral primary osteoarthritis of hip (05/12/24) Unilateral primary osteoarthritis, right hip (05/12/24) Disorder of kidney and ureter, unspecified (05/12/24) Surgery Performed Operation Date: 05/12/24 13:45 Actual Procedures p Total Hip Arthroplasty/Anterior Approach(Right) - Carmen Harp MD Physical Therapy Treatment Note M2 PT-IP Current Condition Start: 05/13/24 12:22 Freq: NEEDED Status: Active Protocol: Document 05/13/24 10:15 AB (Rec: 05/13/24 12:40 AB [id number]) Physical Therapy Current Condition Current Condition Evaluation Date 05/13/24 Treatment Diagnosis s/p R FARIDA anterior; difficulty in walking Onset Date 05/12/24 M3 PT-IP Subjective Start: 05/13/24 12:22 Freq: NEEDED Status: Active Protocol: Document 05/14/24 15:07 TS (Rec: 05/14/24 15:21 TS [id number]) Subjective Physical Therapy Visit Type Type Treatment Note Visit Start Time 14:43 Visit Stop Time 15:06 Number of SEWING MACHINE OPERATOR ZIPPER Visits 3 Physical Therapy Visit Comments Patient Comments Pt found resting in the chair, he would like to get back to bed, pt is agreeable to PT. Therapy Pain Assessment Pain When Pain Assessed At Rest Pain Present Pain Present Pain Reported M4 PT-IP Mobility and Gait Start: 05/13/24 12:22 Freq: NEEDED Status: Active Protocol: Document 05/14/24 15:07 TS (Rec: 05/14/24 15:21 TS [id number]) PT-Bed Mobility Assessment Sit to Supine Sit to Supine Moderate Assistance,1 Person Assistance PT-Transfer Assessment Sit to and From Stand Sit to and from Stand Maximum Assistance,1 Person Assistance Equipment Transfer Assistive Device Gait Belt,Front Wheeled Walker Orthotic/Prosthetic Devices or Brace: No Transfers Transfer Destination Bed Transfer Technique Stand Step Pivot Transfer Ability Level of Assist Maximum Assistance,1 Person Assistance,Use of Upper Extremities Comments Mobility Comments STS with FWW MaxA, pt is very drowsy and requires cues for sequencing. Stand step pivot to the bed MaxA with cues for sidesteps and FWW management. Sit to supine into bed ModA for RLE. Pt was left in bed, all needs met, nursing notified. Gait Assessment Assistive Devices Assistive Device Gait Belt,Front Wheeled Walker Orthotic/Prosthetic Devices or Brace: No Gait Deviations General Gait Pattern Antalgic,Decreased Stride Length,Decreased Feet Clearance Factors Limiting Gait Function Factors Limiting Gait Function Decreased Activity Tolerance, Decreased Strength,Difficulty Following Directions,Limited Range of Motion,Pain,Poor Balance,Poor Safety Awareness PT-Balance Assessment Sitting Balance and Reactions Static Sitting Balance Ability Good Dynamic Sitting Balance Ability Fair Standing Balance and Reactions Static Standing Balance Ability Poor Dynamic Standing Balance Ability Poor Device Used FWW M5 PT-IP Objective Assessments Start: 05/13/24 12:22 Freq: NEEDED Status: Active Protocol: Document 05/13/24 10:15 AB (Rec: 05/13/24 12:40 AB [id number]) Orientation Orientation/Cognition Level of Alertness Alert Safety Awareness Decreased Safety Awareness Memory Description Short Term Impaired,Refrigeration Plant Cork Insulator Impaired Gross Range of Motion Lower Extremity ROM Assessment Within Functional Limits Strength Lower Extremity Strength Assessment Right Impaired Hip 3-/5 Knee 4-/5 Muscle Tone Muscle Tone WNL Yes M6 PT-IP Treatment Start: 05/13/24 12:22 Freq: NEEDED Status: Active Protocol: Document 05/14/24 15:07 TS (Rec: 05/14/24 15:21 TS [id number]) Physical Therapy Treatment Education Education Provided Precautions,Weight Bearing Status,Post-Op Packet,Safety M7 PT-IP Assessment and Plan Start: 05/13/24 12:22 Freq: NEEDED Status: Active Protocol: Document 05/14/24 15:07 TS (Rec: 05/14/24 15:21 TS [id number]) PT Summary Assessment and Plan Potential Rehabilitation Potential Fair Summary Impairments Pain,ROM,Strength,Balance, Coordination,Sensation,Tone, Cognition,Bed Mobility, Transfers,Gait,Activity Tolerance Progress Towards Goals Slow Progress - Other Assessment Summary Candelario continues to make slow progress with his mobility. He continues to require MaxA for STS and for ambulation/ transfers. Pt was very drowsy and did not progress gait this session. PT is recommending SNF. Goals Bed Mobility Goal Standby Assistance Transfer Goal Standby Assistance,Front Wheeled Walker Gait Goal Standby Assistance,Front Wheel Walker Gait Distance 50 Other Goals improve bed mobiltiy, transfers, ambulation using FWW mod I ~ 200 ft up/down 1 step using FWW SBA Days to Meet Goals 10 Frequency of Treatment Frequency Of Treatment Twice a Day Treatment Plan Physical Therapy Treatment Plan Bed Mobility Training,Transfer Training,Gait Training, Therapeutic Exercise,Balance Retraining,Post Op Education, Discharge Planning,Hot or Cold Pack,Neuromuscular Re-ed, Coordination Retraining,Manual Therapy Precautions Anterior Hip Precautions No Hip Extension,No Hip External Rotation Weight Bearing Status Weight Bearing Status Weight Bear as Tolerated Allowed Weight Bearing Amount (enter % RLE WBAT or #) (%) Recommendations To Nursing Amount of Assist Needed 1 Person Assist Discharge Recommendations PT Discharge Recommendations SNF Rehab Transportation Needs at Discharge Wheelchair/Cabulance
--- NOTE | 2024-05-14 18:55 | PC.NURSE ---
shift note: pt a&o but very sleepy, vss stable. Charge nurse found home sleep aids on bedside table - sent to pharmacy. pt requests to stand to urinate with urinal at bedside and does not want use a condom cath or urinal in bed. 2 assist with fww for transfers and ambulation. would like the PA to consult with speech therapy and automotive parts manager regarding weight loss and lack of appetite- she is concerned that he is having swallowing difficulties. Call light and personal belongings in reach, bed alarm on. care continued.
[2024-05-14] MEDS: ATORVASTATIN 20 MG TABLET 40 MG PO (20:11)
[2024-05-14] MEDS: TRAZODONE 50 MG TABLET PO (20:11)
[2024-05-14 20:35] VITALS: BP 108/78; PULSE 101; RESP 18; TEMP 37; O2SAT 96
[2024-05-15] MEDS: CYCLOBENZAPRINE 10 MG TABLET PO (03:51)
--- NOTE | 2024-05-15 07:38 | CM.DPC ---
DCP Cont. Reviewed EMR. Plan [facility] for [facility] 11-12:00[facility]. PASSAR and clinicals will be faxed prior. No further DCP needs indicated at this time.
--- NOTE | 2024-05-15 07:39 | PM.DS.1 ---
History of Present Illness History of Present Illness Date Patient Seen: 05/15/24 Time Patient Seen: 07:39 Chief complaint: Right FARIDA anterior *OPB* Narrative: Operative Date/Time/Diagnoses Date of procedure: 05/12/24 Time of procedure: 14:00 Pre-op diagnosis: right hip OA Post-op diagnosis: same Procedure & Clinicians Procedure: Right total hip arthroplasty anterior approach Same procedure as scheduled: Yes Indications: The patient has had progressively worsening right hip pain with radiographic changes consistent with arthritis. Non-operative management has failed and the patient has requested total hip replacement. The risks, benefits and alternatives to surgery were discussed with the patient prior to proceeding. Risks discussed included, but were not limited to, failure to relieve pain, leg length discrepancy, dislocation, stiffness, infection, nerve damage, deep venous thrombosis, pulmonary embolism, stroke, coma, heart attack, permanent paralysis and , as well as the potential need for eventual revision of the prosthetic. Surgeon: Carmen Harp Medical Research Assistant: Eddie Medina Anesthesia Type: General Operative Notes Findings: Severe right hip OA, adequate bone, adequate stability Closure Type: primary Specimen(s): none sent Prosthetic devices, grafts, tissues, transplants, or devices: Harp and nephew R3, 54, neutral poly liner,one 6.5 mm screw, size 1 collared polar stem lateralized, 36 x +4 cobalt chrome head Estimated Blood Loss (mL): 250 Blood products transfused: none Discharge Providers Provider Date of admission: 05/12/24 17:05 Discharge Date: 05/15/24 Primary care physician: Joo Wilson DO Consults: 05/12/24 06:00 Consult to Anesthesiology Routine Comment: Consulting Provider: Anesthesiologist Reason for consultation: Regional block for post operative pain control 05/12/24 12:50 Consult to REPAIRER SWITCHGEAR - Electrocardiograph Operator Routine Comment: Electrocardiograph Operator Consult needed for:: No caregiver at home Comment: Patient and spouse would like patient to go to SNF after surgery 05/12/24 17:05 Consult to Discharge Planning Routine Comment: Consult to Occupational Therapy Evaluate & Treat Comment: Physician Instructions: Evaluate and treat Consult to Physical Therapy Evaluate & Treat Comment: Physician Instructions: post op FARIDA protocol Discharge provider: Zandra Anderson PA-C Summary Hospital Course Discharge Diagnosis: Right hip osteoarthritis, ,s/p right total hip arthroplasty Hospital Course: Mr Garcia's hospital course was unremarkable. He was evaluated by PT throughout his stay and they recommended further rehab at a SNF prior to going home. On the morning of POD# 3, he was feeling well. He was eating and voiding without difficulty and his pain was well-controlled with oral medications. His only complaint was inability to sleep because he kept drinking liquids and then had to urinate throughout the night. Exam Vital Signs (past 8 hours): Oxygen Delivery Method Room Air Oxygen Flow Rate 0 Narrative Exam Narrative: 4/5 strength in hip flexors, quadriceps, hamstrings; 5/5 PF, DF, EHL on right. Sensation to light touch intact throughout RLE, calf soft and compressible. Aquacel dressing CDI. Objective Labs 05/12/24 22:00 05/12/24 22:00 PFSH Medical History Occasional tremors Tinnitus Depression Anxiety Neuropathy De Quervain's tenosynovitis DJD (degenerative joint disease) HLD (hyperlipidemia) Septic arthritis (~03/2016) Herniated disc Surgical History History of total right knee replacement (05/25/19) Hx of appendectomy Hx of oral surgery (05/05/19) Hx of thumb surgery (~05/2017) History of ankle surgery Hx of arthroscopy of right knee (03/03/16) Social History household members: spouse and significant other Smoking Status: Never smoker alcohol intake: current Discharge Assessment & Plan Assessment and Plan Assessment: Right hip osteoarthritis, ,s/p right total hip arthroplasty Plan of Treatment: D/c to SNF, multimodal pain control, ASA 81mg BID x 6 weekf for VTE prophylaxis, f/u in office in 2 weeks as scheduled. Discharge Plan Discharge Plan Patient Disposition: SNF Transfer to: [facility] Discharge orders & Medications Prescriptions: New aspirin 81 mg Tablet,Delayed Release (Dr/Ec) 81 mg PO BID Qty: 90 0RF docusate sodium 100 mg Capsule 100 mg PO BID Qty: 30 0RF ondansetron 4 mg Tablet,Disintegrating 4 mg PO Q4-8H PRN (Reason: Nausea) Qty: 10 0RF oxycodone 5 mg Tablet 5 mg PO Q4-6H PRN (Reason: Pain, Moderate (4-6)) Qty: 30 0RF trazodone 50 mg tablet 50 mg PO BEDTIME PRN (Reason: insomnia) Qty: 14 0RF Continued lithium carbonate 150 mg capsule 300 mg PO TID Qty: 0 allopurinol 100 MG tablet 300 mg PO QDAY Qty: 30 cyclobenzaprine 10 MG tablet 10 mg PO TIDP PRN (Reason: Muscle Spasm) Qty: 0 Patient Comments: states that he takes one every 3 days timolol maleate 0.5 % drops 1 drp EYE-BOTH QAM Qty: 5 rosuvastatin 20 mg Tablet 20 mg PO BEDTIME brimonidine 0.2 % Drops 1 drp EYE-LEFT BID diazepam 10 mg Tablet 10 mg PO DAILY Patient Comments: States that he takes it a couple times/month trazodone 50 mg tablet 25 mg PO ONCE PM PRN (Reason: Sleep) acetaminophen [Tylenol Extra Strength] 500 mg Tablet 1,000 mg PO Q8H PRN (Reason: knee pain) Salonpas Deep Relieving 3.1-15-10 % Gel 1 ea TOPICAL BID PRN (Reason: Pain (Scale Score 1-3)) Follow up/Referrals: Joo Wilson DO [Primary Care Provider] - Carmen Harp MD [Physician] - (Follow up at [facility] as scheduled in 2 weeks. ) Diet/Activity/Treatments Diet: Diet as Tolerated Activity: Weight bearing as tolerated, maintain anterior hip precautions. Cold/Heat Therapy: Ice to the hip for additional pain control. Skin/Wound/Dressing Care Report to your healthcare provider any signs of infection, such as:: chills, fever, night sweats, unusual drainage and unusual redness Dressing: May shower. Leave dressing in place until follow up in office. No bathing or otherwise soaking incision. Do not apply any creams, lotions, or ointments to incision. Call the office if the dressing becomes saturated inside. [facility] Reason for rehabilitation: Post-operative therapy Rehab type: Physical therapy and Occupational therapy Visit Report/Discharge Packet Instructions: DI for Hip Replacement, DI for Prescription Opioid Use Stand Alone Forms: Patient Portal/API, Surgery Discharge Discharge Data Primary Care Provider: Joo Wilson
[2024-05-15 08:00] VITALS: BP 127/84; PULSE 84; RESP 18; TEMP 36.7; O2SAT 99
[2024-05-15] MEDS: diazePAM 5 MG TABLET 10 MG PO (08:28)
[2024-05-15] MEDS: ASPIRIN EC 81 MG TABLET PO (08:28)
[2024-05-15] MEDS: ACETAMINOPHEN 325 MG TABLET 650 MG PO (08:28)
[2024-05-15] MEDS: polyethylene glycoL 3350 17 GM POWD.PACK PO (08:28)
[2024-05-15] MEDS: LITHIUM 150 MG IR CAPSULE 300 MG PO (08:28)
[2024-05-15] MEDS: DOCUSATE 100 MG CAPSULE PO (08:28)
[2024-05-15] MEDS: allopurinoL 100 MG TABLET 150 MG PO (08:28)
[2024-05-15] MEDS: BRIMONIDINE 0.2% OPHTH 5 ML 1 DROPS EYE-LEFT (08:29)
[2024-05-15] MEDS: TIMOLOL 0.5% OPHTH 1 DROPS EYE-BOTH (08:29)
--- NOTE | 2024-05-15 09:10 | PT.IPTN ---
Current Diagnoses Bipolar disorder, unspecified (05/12/24) Gout, unspecified (05/12/24) Bilateral primary osteoarthritis of hip (05/12/24) Unilateral primary osteoarthritis, right hip (05/12/24) Disorder of kidney and ureter, unspecified (05/12/24) Surgery Performed Operation Date: 05/12/24 13:45 Actual Procedures p Total Hip Arthroplasty/Anterior Approach(Right) - Carmen Harp MD Physical Therapy Treatment Note M2 PT-IP Current Condition Start: 05/13/24 12:22 Freq: NEEDED Status: Active Protocol: Document 05/13/24 10:15 AB (Rec: 05/13/24 12:40 AB [id number]) Physical Therapy Current Condition Current Condition Evaluation Date 05/13/24 Treatment Diagnosis s/p R FARIDA anterior; difficulty in walking Onset Date 05/12/24 M3 PT-IP Subjective Start: 05/13/24 12:22 Freq: NEEDED Status: Active Protocol: Document 05/15/24 10:02 TS (Rec: 05/15/24 10:10 TS [id number]) Subjective Physical Therapy Visit Type Type Treatment Note Visit Start Time 09:10 Visit Stop Time 09:40 Number of TAR DISTRIBUTOR OPERATOR Visits 4 Physical Therapy Visit Comments Patient Comments Pt found resting in the chair, reports he hasn't been sleeping, he is agreeable to PT. Therapy Pain Assessment Pain When Pain Assessed At Rest Pain Present Pain Present Pain Reported M4 PT-IP Mobility and Gait Start: 05/13/24 12:22 Freq: NEEDED Status: Active Protocol: Document 05/15/24 10:02 TS (Rec: 05/15/24 10:10 TS [id number]) PT-Transfer Assessment Sit to and From Stand Sit to and from Stand Maximum Assistance,1 Person Assistance Equipment Transfer Assistive Device Gait Belt,Front Wheeled Walker Orthotic/Prosthetic Devices or Brace: No Comments Mobility Comments STS with FWW MaxA, pt requires cues fo rpushign from arms of chair. He ambulates with a sow step to gait ~10' ModA- MaxA x2 with FWW. Pt sat in shower chair, left with OT in the room. Gait Assessment Gait Gait Assistance Required: Moderate Assistance,Maximum Assistance,1 Person Assist Distance (Feet) 10 Able to Maintain Weight Bearing Status Yes During Gait Assistive Devices Assistive Device Gait Belt,Front Wheeled Walker Orthotic/Prosthetic Devices or Brace: No Gait Deviations General Gait Pattern Antalgic,Decreased Stride Length,Decreased Feet Clearance Factors Limiting Gait Function Factors Limiting Gait Function Decreased Activity Tolerance, Decreased Strength,Difficulty Following Directions,Limited Range of Motion,Pain,Poor Balance,Poor Safety Awareness PT-Balance Assessment Sitting Balance and Reactions Static Sitting Balance Ability Good Dynamic Sitting Balance Ability Fair Standing Balance and Reactions Static Standing Balance Ability Poor Dynamic Standing Balance Ability Poor Device Used FWW M5 PT-IP Objective Assessments Start: 05/13/24 12:22 Freq: NEEDED Status: Active Protocol: Document 05/13/24 10:15 AB (Rec: 05/13/24 12:40 AB [id number]) Orientation Orientation/Cognition Level of Alertness Alert Safety Awareness Decreased Safety Awareness Memory Description Short Term Impaired,Alf Impaired Gross Range of Motion Lower Extremity ROM Assessment Within Functional Limits Strength Lower Extremity Strength Assessment Right Impaired Hip 3-/5 Knee 4-/5 Muscle Tone Muscle Tone WNL Yes M6 PT-IP Treatment Start: 05/13/24 12:22 Freq: NEEDED Status: Active Protocol: Document 05/15/24 10:02 TS (Rec: 05/15/24 10:10 TS [id number]) Physical Therapy Treatment Education Education Provided Precautions,Weight Bearing Status,Post-Op Packet,Safety M7 PT-IP Assessment and Plan Start: 05/13/24 12:22 Freq: NEEDED Status: Active Protocol: Document 05/15/24 10:02 TS (Rec: 05/15/24 10:10 TS [id number]) PT Summary Assessment and Plan Potential Rehabilitation Potential Fair Summary Impairments Pain,ROM,Strength,Balance, Coordination,Sensation,Tone, Cognition,Bed Mobility, Transfers,Gait,Activity Tolerance Progress Towards Goals Slow Progress - Other Assessment Summary Candelario is making slow progress with his mobility. He requires MaxA x1 for STS from the hcair. He ambulates with a slow step to gait requiring ModA-MaxA for gait. PT is recommending SNF at this time. Goals Bed Mobility Goal Standby Assistance Transfer Goal Standby Assistance,Front Wheeled Walker Gait Goal Standby Assistance,Front Wheel Walker Gait Distance 50 Other Goals improve bed mobiltiy, transfers, ambulation using FWW mod I ~ 200 ft up/down 1 step using FWW SBA Days to Meet Goals 10 Frequency of Treatment Frequency Of Treatment Twice a Day Treatment Plan Physical Therapy Treatment Plan Bed Mobility Training,Transfer Training,Gait Training, Therapeutic Exercise,Balance Retraining,Post Op Education, Discharge Planning,Hot or Cold Pack,Neuromuscular Re-ed, Coordination Retraining,Manual Therapy Precautions Anterior Hip Precautions No Hip Extension,No Hip External Rotation Weight Bearing Status Weight Bearing Status Weight Bear as Tolerated Allowed Weight Bearing Amount (enter % RLE WBAT or #) (%) Recommendations To Nursing Amount of Assist Needed 1 Person Assist Discharge Recommendations PT Discharge Recommendations SNF Rehab Transportation Needs at Discharge Wheelchair/Cabulance
--- NOTE | 2024-05-15 10:04 | OT.IP.TRT ---
Current Diagnoses Bipolar disorder, unspecified (05/12/24) Gout, unspecified (05/12/24) Bilateral primary osteoarthritis of hip (05/12/24) Unilateral primary osteoarthritis, right hip (05/12/24) Disorder of kidney and ureter, unspecified (05/12/24) Surgery Performed Operation Date: 05/12/24 13:45 Actual Procedures p Total Hip Arthroplasty/Anterior Approach(Right) - Carmen Harp MD Occupational Therapy Treatment Note M2 OT-IP Current Condition Start: 05/13/24 08:31 Freq: Status: Active Protocol: Document 05/13/24 10:15 [facility] (Rec: 05/13/24 10:29 [facility] [id number]) Occupational Therapy Current Condition Current Condition Evaluation Date 05/13/24 Treatment Diagnosis S/P R FARIDA anterior approach Diagnosis Onset Date 05/12/24 Post Operative Precautions Other Precautions NO hyperextional and excessive external rotation M3 OT- IP Subjective and Pain Start: 05/13/24 08:31 Freq: Status: Active Protocol: Document 05/15/24 10:10 [facility] (Rec: 05/15/24 10:18 [facility] [id number]) OT- Subjective Occupational Therapy Visit Type Type Treatment Note Visit Start Time 09:10 Visit Stop Time 10:04 Occupational Therapy Visit Comments Patient Comments Pt agreed to shower after encouragement. Patient/Caregiver Goals To get better. OT Pain Assessment Pain When Pain Assessed At Rest Pain Present Pain Present Pain Reported Location Right Hip Pain Behaviors Facial Grimacing,Holding Area, Wincing M4 OT- IP ADL's Start: 05/13/24 08:31 Freq: Status: Active Protocol: Document 05/15/24 10:10 [facility] (Rec: 05/15/24 10:18 [facility] [id number]) OT ADL-Grooming General Evaluation Grooming Ability Minimal Assistance Areas Needing Assistance Combing/Brushing Hair Comments OT Grooming Comments Pt very groggy and needing assist to brush his hair today . OT ADL-Oral Care Comments Oral Care Comments Not performed. OT ADL-Dressing General Eval Upper Body Dressing Ability Moderate Assistance Lower Body Dressing Ability Maximum Assistance Areas Needing Assistance Underpants/Brief,Socks OT ADL-Toileting Comments OT Toileting Comments Not performed. OT ADL-Bathing Bathing Type Bathing Type Shower General Evaluation Bathing Ability Maximal Assistance Areas Needing Assistance Wash/Dry Upper Body,Wash/Dry Back,Wash/Dry Perineal Area, Wash/Dry Lower Extremities Comments OT Bathing Comments Pt able to assist minimally with the shower. Just able to wash his face and needing assist for all other needs today. M5 OT- IP IADL's Start: 05/13/24 08:31 Freq: Status: Active Protocol: Document 05/13/24 10:15 [facility] (Rec: 05/13/24 10:29 [facility] [id number]) OT-Instrumental Activities of Daily Living Home Safety Awareness Home Safety Comments Pt still groggy and a bit slow to think and respond to directions. Meal Preparation Meal Preparation Caregiver Provides Assist Med Dir Med Dir Caregiver Provides Assist M6 OT- IP Functional Cognition Start: 05/13/24 08:31 Freq: Status: Active Protocol: Document 05/15/24 10:10 [facility] (Rec: 05/15/24 10:18 [facility] [id number]) Cognitive Factors Limiting Selfcare Function Cognitive Ability Level of Alertness Drowsy Attention Span Ability Capable of Focused Attention, Unable to Sustain Attention Ability to Follow Commands Able to Follow One Step Commands with Increased Time, Able to Follow One Step Commands with Repetition Cognitive Comments Cognitive Assessment Comments Pt very groggy and needing step by steps to follow, vc , tactile cues and physical assist for ADL and mobility needs. M7 OT- IP Mobility and Balance Start: 05/13/24 08:31 Freq: Status: Active Protocol: Document 05/15/24 10:10 [facility] (Rec: 05/15/24 10:18 [facility] [id number]) OT-Transfer Assessment Sit to and From Stand Sit to and from Stand Maximum Assistance,2 Person Assistance Transfers Transfer Ability Moderate Assistance,Maximum Assistance,2 Person Assistance Technique Transfer Destination Chair,Shower Stall Devices Transfer Assistive Devices Gait Belt,Front Wheeled Walker Comments Mobility Comments MODA X2 to get to the shower chair , assist for balance, weight shifting, and FWW guidance. MAX AX 2 from rolling shower chair to the recliner. Chair alarm attached to his gown. OT- Balance Assessment Sitting Balance and Reactions Static Sitting Balance Ability Poor Dynamic Sitting Balance Ability Poor Standing Balance and Reactions Static Standing Balance Ability Poor Dynamic Standing Balance Ability Poor M8 OT- IP Objective Assessments Start: 05/13/24 08:31 Freq: Status: Active Protocol: Document 05/13/24 10:15 [facility] (Rec: 05/13/24 10:29 [facility] [id number]) OT Gross Range of Motion Upper Extremity Range of Motion ROM Impairments grossly WFL OT Strength Comments Strength Comments WFL for needs. M9 OT- IP Assessment and Plan Start: 05/13/24 08:31 Freq: Status: Active Protocol: Document 05/15/24 10:10 [facility] (Rec: 05/15/24 10:18 [facility] [id number]) OT Summary Assessment and Plan Potential Rehabilitation Potential Good Analytic Complexity at Evaluation Low Summary OT Impairments Pain,Strength,Balance, Functional Cognition, Functional Mobility,Grooming, Dressing,Toileting,Bathing, Toilet Transfers,Shower Transfers,Activity Tolerance Progress Towards Goals Slow Progress due to Pain,Slow Progress due to Medical Issues,Slow Progress due to Activity Tolerance,Slow Progress due to Cognition Assessment Summary Pt able to participate in transfers and shower today with two person assist. Pt to go to skilled rehab today. Goals Dressing Goal Minimal Assistance,Disabilities Caregiver, Sock Aid Toileting Goal Independent Bathing Goal Standby Assistance Toilet Transfer Goal Independent Shower Transfer Goal Standby Assistance Days to Meet Goals 30 Frequency of Treatment Other frequency 5x/week Treatment Plan OT Treatment Plan ADL Training,Functional Mobility,Patient/Family Education,Discharge Planning Discharge Recommendations OT Discharge Recommendations SNF Rehab Transportation Needs at Discharge Wheelchair/Cabulance
== END 2024-05-15 13:06 | DRG 470 ==
LOC: OR 05-13 12:22 → AC 05-13 12:22
PROVIDERS: Admitting Provider Orthopaedic Surgery; PCP Family Medicine; Referring Provider Orthopaedic Surgery; Visit Provider Orthopaedic Surgery
PROC: 0SR90JA Replacement of Right Hip Joint with Synthetic Substitute, Uncemented, Open Approach (ICD-10-PCS; CPT 27130; principal; 2024-05-12 13:45)
DX: M16.11 Unilateral primary osteoarthritis, right hip (principal); F31.9 Bipolar disorder, unspecified; M10.9 Gout, unspecified; E78.5 Hyperlipidemia, unspecified; F41.9 Anxiety disorder, unspecified; G62.9 Polyneuropathy, unspecified; N18.9 Chronic kidney disease, unspecified; Z74.09 Other reduced mobility
CPT/HCPCS: 73502; 76000; 80048; 85014; 85018; 97162; 97165; 97530; 97535; C1776; C9290; J0171; J0330; J0690; J1100; J1171; J2250; J2405; J2704; J3010

== ENCOUNTER 2024-05-31 08:00 | Emergency (ER) | payer MEDICARE, OTHER, SELFPAY ==
[2024-05-12 18:58] VITALS: BMI 24.0
[2024-05-31] VITALS (7 sets, daily range): BP systolic 143–144; BP diastolic 76–82; PULSE 66–73; RESP 15–16; TEMP 36.9; O2SAT 99; BMI 25.0
--- NOTE | 2024-05-31 08:05 | DI.RAD.S_ITS ---
PROCEDURE: XR HIP W PEL IF DONE RT 2V INDICATIONS: fall post surgery TECHNIQUE: 3 views of the hip were acquired. COMPARISON: [facility], CR, XR HIP W PEL IF DONE RT 2V, 05/12/2024, 16:25. [facility], CR, XR HIP W PEL IF DONE RT 2V, 05/12/2024, 14:53. FINDINGS: Bones: Right hip arthroplasty. Severe left hip degenerative changes. There is no acute displaced fracture or dislocation. Soft tissues: Linear densities are seen adjacent to the proximal femoral shaft. Exact location is indeterminate. IMPRESSION: Right hip arthroplasty. No acute displaced fracture or dislocation. If there is high concern for occult injury, consider repeat radiography or cross-sectional imaging. Dictated by: Sharan Bernard M.D. on 05/31/2024 at 8:18 Approved by: Sharan Bernard M.D. on 05/31/2024 at 8:19
--- NOTE | 2024-05-31 08:05 | ED_ITS ---
HPI - Fall General Chief Complaint: Fall Stated Complaint: hit head on thinners Time Seen by Provider: 05/31/24 08:05 History of Present Illness HPI Narrative: Patient is a 74-year-old male history of bipolar, osteoarthritis with right total hip on 05/12/2024 at long-term care facility currently taking aspirin 81 mg presents today it slipped out of bed. Patient was slow to respond but does seem to remember. He says he just slipped out of bed he has no evidence of head trauma denies hitting his head no weakness nausea or vomiting. He has no neck pain. He has some postoperative pain in his right hip it is difficult to lift but that seems to be ongoing. He really denies any other complaints. Related Data Home Medications Medication Instructions Recorded Confirmed lithium carbonate 150 mg capsule 300 mg PO TID ##0 02/17/16 05/12/24 allopurinol 100 mg tablet 300 mg PO QDAY #30 tabs 03/02/16 05/12/24 cyclobenzaprine 10 mg tablet 10 mg PO TIDP PRN Muscle Spasm ##0 03/02/16 04/15/24 timolol maleate 0.5 % eye drops 1 drp EYE-BOTH QAM #5 mL 03/06/16 05/12/24 brimonidine 0.2 % eye drops 1 drp EYE-LEFT BID 05/08/19 05/12/24 rosuvastatin 20 mg tablet 20 mg PO BEDTIME 05/08/19 05/12/24 diazepam 10 mg tablet 10 mg PO DAILY 05/25/19 05/12/24 acetaminophen 500 mg tablet 1,000 mg PO Q8H PRN knee pain 04/15/24 04/15/24 (Tylenol Extra Strength) trazodone 50 mg tablet 25 mg PO ONCE PM PRN Sleep 04/15/24 05/12/24 camphor 3.1 %-methyl salicylate 15 1 ea topical BID PRN Pain (Scale 05/12/24 05/13/24 %-menthol 10 % topical gel Score 1-3) (Salonpas Deep Relieving) Previous Rx's Medication Instructions Recorded aspirin 81 mg tablet,delayed 81 mg PO BID #90 tabs 05/14/24 release docusate sodium 100 mg capsule 100 mg PO BID #30 caps 05/14/24 ondansetron 4 mg disintegrating 4 mg PO Q4-8H PRN Nausea #10 tabs 05/14/24 tablet oxycodone 5 mg tablet 5 mg PO Q4-6H PRN Pain, Moderate 05/14/24 (4-6) #30 tabs trazodone 50 mg tablet 50 mg PO BEDTIME PRN insomnia #14 05/15/24 tabs Allergies Allergy/AdvReac Type Severity Reaction Status Date / Time No Known Drug Allergies Allergy Verified 05/12/24 11:51 Patient History Medical History Occasional tremors Tinnitus Depression Anxiety Neuropathy De Quervain's tenosynovitis DJD (degenerative joint disease) HLD (hyperlipidemia) Septic arthritis (~03/2016) Herniated disc Surgical History History of total right knee replacement (05/25/19) Hx of appendectomy Hx of oral surgery (05/05/19) Hx of thumb surgery (~05/2017) History of ankle surgery Hx of arthroscopy of right knee (03/03/16) Social History household members: spouse and significant other Smoking Status: Never smoker alcohol intake: current Smoking Status: Never smoker alcohol intake frequency: a few times a week Exam Initial Vital Signs Initial Vital Signs: Vital Signs Pulse Rate 69 05/31/24 08:05 Pulse Oximetry 99 05/31/24 08:05 GENERAL: Alert 74-year-old male and in no acute distress. HEENT: Head atraumatic,EOMI, pupils reactive, face symmetric, moist mucous membranes CARDIOVASCULAR: Regular rate and rhythm without murmurs, rubs or gallops. RESPIRATORY: Breath sounds equal bilaterally, no wheezes rales or rhonchi. ABDOMEN: Soft, nontender. Normoactive bowel sounds all 4 quadrants. No guarding or rebound. EXTREMITIES: Normal range of motion, no clubbing or edema. Neurovascularly intact Right hip dressing in place distal pedal pulse intact he does have decreased hip flexion but legs are equal in length NEUROLOGICAL: Alert and oriented x4. Moving all extremities SKIN: Warm, dry, no laceration, no petechiae, no rashes or lesions. Course Orders Ordered: ED Orders 05/31/24 10:43 BMP [Basic Metabolic Panel] Stat Goodrich Stat Vital Signs Vital signs: Vital Signs - 8 hr 05/31/24 11:42 Blood Pressure 144/80 H MDM - Fall Lab Data 05/31/24 10:43 Labs: Lab Results 05/31/24 Range/Units 10:43 Sodium 145 (137-145) mmol/L Potassium 3.9 (3.4-5.1) mmol/L Chloride 116 H (98-107) mmol/L Carbon Dioxide 24 (22-32) mmol/L BUN 28 H (9-20) mg/dL Creatinine 2.64 H (0.66-1.25) mg/dL Estimated GFR 25 L (>60) mL/min BUN/Creatinine Ratio 10.6 (6-22) Glucose 111 H (80-110) mg/dL Calcium 12.3 H (8.4-10.2) mg/dL Goodrich 1.2 (0.6-1.2) mmol/L Imaging Data Extremity x-ray #1: Radiologist's Impression: PROCEDURE: XR HIP W PEL IF DONE RT 2V INDICATIONS: fall post surgery TECHNIQUE: 3 views of the hip were acquired. COMPARISON: [facility], CR, XR HIP W PEL IF DONE RT 2V, 05/12/2024, 16:25. [facility], CR, XR HIP W PEL IF DONE RT 2V, 05/12/2024, 14:53. FINDINGS: Bones: Right hip arthroplasty. Severe left hip degenerative changes. There is no acute displaced fracture or dislocation. Soft tissues: Linear densities are seen adjacent to the proximal femoral shaft. Exact location is indeterminate. IMPRESSION: Right hip arthroplasty. No acute displaced fracture or dislocation. If there is high concern for occult injury, consider repeat radiography or cross-sectional imaging. Dictated by: Sharan Bernard M.D. on 05/31/2024 at 8:18 [facility] Narrative Medical decision making narrative: Patient 74-year-old male presenting today with slipped out of bed. There is no evidence of head trauma he does take 81 mg aspirin post total hip replacement. But he is awake alert oriented. I see no need for head CT. Hip x-ray was done due to increased pain however it is negative for fracture abnormality. He has not needing anything for pain he really has no complaints. Patient's spoke at length with nurse was concerned that he was a little confused he has been on lithium but concerned that maybe the dose recently changed she has requesting a lithium level be checked. Patient is awake alert. He is slow to respond but is appropriate Goodrich level is 1.2 which is appropriate He is chronic kidney disease his creatinine is 2.64 it was previously 2.72 on 05/12/2024 no blood work between 2015 and 2023. At this time he was not lithium toxic, kidney function is stable, no evidence of severe trauma, no injury to hip, no indication for admission Discharge Plan Departure Patient Disposition: Home Clinical Impression: Fall Instructions: How to Prevent Falls Activity Restrictions/Additional Instructions: *You have been diagnosed with fall *What to do: *Continue to take medications as directed Take medication as needed *Follow up with your primary care provider in 2-3 days or call [phone] *Return to ER if you should have any new, worsening or concerning symptoms Prescriptions: No Action lithium carbonate 150 mg capsule 300 mg PO TID Qty: 0 allopurinol 100 MG tablet 300 mg PO QDAY Qty: 30 cyclobenzaprine 10 MG tablet 10 mg PO TIDP PRN (Reason: Muscle Spasm) Qty: 0 Patient Comments: states that he takes one every 3 days timolol maleate 0.5 % drops 1 drp EYE-BOTH QAM Qty: 5 rosuvastatin 20 mg Tablet 20 mg PO BEDTIME brimonidine 0.2 % Drops 1 drp EYE-LEFT BID diazepam 10 mg Tablet 10 mg PO DAILY Patient Comments: States that he takes it a couple times/month trazodone 50 mg tablet 25 mg PO ONCE PM PRN (Reason: Sleep) acetaminophen [Tylenol Extra Strength] 500 mg Tablet 1,000 mg PO Q8H PRN (Reason: knee pain) Salonpas Deep Relieving 3.1-15-10 % Gel 1 ea TOPICAL BID PRN (Reason: Pain (Scale Score 1-3)) aspirin 81 mg Tablet,Delayed Release (Dr/Ec) 81 mg PO BID Qty: 90 0RF docusate sodium 100 mg Capsule 100 mg PO BID Qty: 30 0RF ondansetron 4 mg Tablet,Disintegrating 4 mg PO Q4-8H PRN (Reason: Nausea) Qty: 10 0RF oxycodone 5 mg Tablet 5 mg PO Q4-6H PRN (Reason: Pain, Moderate (4-6)) Qty: 30 0RF trazodone 50 mg tablet 50 mg PO BEDTIME PRN (Reason: insomnia) Qty: 14 0RF Referrals: Joo Wilson DO [Primary Care Provider] - Stand Alone Forms: Patient Portal/API/Survey
[2024-05-31 11:01] LABS: Lithium 1.2 mmol/L (0.6-1.2)
[2024-05-31 11:03] LABS: BUN Creatinine Ratio 10.6 (6-22); Blood Urea Nitrogen 28 mg/dL (9-20); Calcium 12.3 mg/dL (8.4-10.2); Carbon Dioxide 24 mmol/L (22-32); Chloride 116 mmol/L (98-107); Estimated Glomerular Filt Rate 25 mL/min (>60); Glucose 111 mg/dL (80-110); HEMOLYSIS < 15 (0-50); Potassium 3.9 mmol/L (3.4-5.1); Sodium 145 mmol/L (137-145)
== END 2024-05-31 11:42 | disposition home or self-care (01) ==
PROVIDERS: Emergency Provider Emergency Medicine; PCP Family Medicine
DX: M25.551 Pain in right hip (principal); R41.0 Disorientation, unspecified; W06.XXXA Fall from bed, initial encounter; Z96.641 Presence of right artificial hip joint
CPT/HCPCS: 36415; 73502; 80048; 80178; 99283; 99284

== ENCOUNTER 2024-06-06 13:26 | Inpatient (IN) | payer MEDICARE, OTHER, SELFPAY ==
[2024-05-12 18:58] VITALS: BMI 24.0
--- NOTE | 2024-06-06 15:25 | PM.HP.1 ---
History of Present Illness History of Present Illness Chief complaint: AMS,MARTY Narrative: The patient is a 74-year-old male with history of bipolar who was discharged from the hospital after a hip replacement on May 15. The patient was then at [facility]. He had difficulties over there with altered mental status and intermittent erratic behavior. Ultimately he discharged home several days ago to Saturday. His discovered he was in a diaper there and had a very different mental baseline then before his surgery. She found that he would impulsive in erratic behaviors and altered sleep cycles and would get up and down frequently. He also had some difficulty eating on his own and was not clearly hydrating. She awoke this morning and found him lying on the floor and called the ambulance. He was brought to the emergency department on Saturday and there underwent evaluation revealing MARTY, volume depletion, and hypercalcemia. CT scans were obtained of the head, spine, chest, abdomen, and pelvis were all unremarkable for acute changes. He was transferred here for further evaluation. He was take lithium chronically. He denies missing medications but it was somewhat unkempt and disoriented mentally. He can really provide no further coherent history and all of the history above is obtained from his by telephone. [facility] Medical History Occasional tremors Tinnitus Depression Anxiety Neuropathy De Quervain's tenosynovitis DJD (degenerative joint disease) HLD (hyperlipidemia) Septic arthritis (~03/2016) Herniated disc Surgical History History of total right knee replacement (05/25/19) Hx of appendectomy Hx of oral surgery (05/05/19) Hx of thumb surgery (~05/2017) History of ankle surgery Hx of arthroscopy of right knee (03/03/16) Social History household members: spouse and significant other Smoking Status: Never smoker alcohol intake: current Meds Home Medications and Allergies Home Medications Medication Instructions Recorded Confirmed Type lithium carbonate 150 mg capsule 300 mg PO TID ##0 02/17/16 05/12/24 History allopurinol 100 mg tablet 300 mg PO QDAY #30 tabs 03/02/16 06/06/24 History cyclobenzaprine 10 mg tablet 10 mg PO TIDP PRN Muscle Spasm ##0 03/02/16 04/15/24 History timolol maleate 0.5 % eye drops 1 drp EYE-BOTH QAM #5 mL 03/06/16 05/12/24 History brimonidine 0.2 % eye drops 1 drp EYE-LEFT BID 05/08/19 05/12/24 History rosuvastatin 20 mg tablet 20 mg PO BEDTIME 05/08/19 05/12/24 History diazepam 10 mg tablet 10 mg PO DAILY 05/25/19 05/12/24 History acetaminophen 500 mg tablet 1,000 mg PO Q8H PRN knee pain 04/15/24 06/06/24 History (Tylenol Extra Strength) trazodone 50 mg tablet 25 mg PO ONCE PM PRN Sleep 04/15/24 05/12/24 History camphor 3.1 %-methyl salicylate 15 1 ea topical BID PRN Pain (Scale 05/12/24 05/13/24 History %-menthol 10 % topical gel Score 1-3) (Salonpas Deep Relieving) aspirin 81 mg tablet,delayed 81 mg PO BID #90 tabs 05/14/24 Rx release docusate sodium 100 mg capsule 100 mg PO BID #30 caps 05/14/24 Rx ondansetron 4 mg disintegrating 4 mg PO Q4-8H PRN Nausea #10 tabs 05/14/24 Rx tablet oxycodone 5 mg tablet 5 mg PO Q4-6H PRN Pain, Moderate 05/14/24 Rx (4-6) #30 tabs trazodone 50 mg tablet 50 mg PO BEDTIME PRN insomnia #14 05/15/24 Rx tabs Allergies Allergy/AdvReac Type Severity Reaction Status Date / Time No Known Drug Allergies Allergy Verified 05/12/24 11:51 Review of Systems Review of Systems Narrative: Review of systems not really obtainable due to his encephalopathy. Exam Narrative Exam Narrative: NAD, alert and oriented, fluent speech, the patient does seem somewhat paranoid and makes some nonsensical statements. He also mumbles at times. He appears to be somewhat anxious. He also appears to be somewhat unkempt. Normocephalic skull, EOMI, anicteric sclera, symmetric pupils. Oropharynx unremarkable, no droop. Neck supple, midline trachea, no adenopathy. Lungs clear, normal rate and effort. Heart regular, no murmur gallop or rub. Abdomen is soft, non distended and non tender. Extremities are free of edema. Skin is free of rash or lesions. Joints are not swollen or deformed. Judgment appears to be abnormal. The hip surgical site on the right has a normal wound. There was no evidence of dehiscence or infection. Objective Imaging Multiple images at outside hospital:: Radiologist's impression: He was given verbal report of a griggs scan at [facility]. This included a negative CT of the brain, neck, and spine as well as the chest, abdomen, and pelvis. Labs 06/06/24 15:54 06/06/24 15:54 Assessment & Plan Assessment & Plan narrative: 1. Acute metabolic encephalopathy, present on admission and active. 2. Volume depletion and acute kidney injury, present on admission and active. 3. Hypercalcemia likely related to volume depletion, present on admission and active. 4. Bipolar with a history of lithium use, present on admission and active. Plan: -we will hold lithium at this point given MARTY and volume replete and closely monitor renal function. -we will also monitor calcium with peer volume repletion with normal saline at 1:25 a.m. an hour. If this fails to improve in a reasonable timeframe we will add calcitonin. -we will reinstitute his usual bipolar medications as able based on renal function. -we will attempt MRI of the brain in the next 24-48 hours depending on his ability to comply to rule out stroke. I did speak with his on the phone who gave most of the history above. Full code. is his proxy decision maker. Anticipate a 2 midnight hospital stay, the supports inpatient status. This is for treatment of MARTY, severe hypercalcemia, and metabolic encephalopathy. Time-Based Coding :: 35 min spent with patient and on the chart (including review of chart, obtaining history, exam, reviewing outside data, placing orders, documenting exam and treatment plan, and counseling patient) on [DATE]. Quality MIPS - Admit I confirm the patient?s Advance Care Plan is present, Code status is documented, Surrogate decision maker is in patient?s record [If Yes, STOP here]: Yes MIPS - Meds 'Current medications' to include all prescriptions, [id number] products, herbals, cannabis/cannabidiol products, and vitamin/mineral/dietary (nutritional) supplements. I have utilized all available resources to obtain, update, or review the patient?s current medications. [If Yes, STOP here]: Yes
[2024-06-06 15:50] VITALS: BMI 50.9
[2024-06-06 15:56] VITALS: BP 138/76; PULSE 86; RESP 20; TEMP 36.6; O2SAT 95
[2024-06-06 16:00] LABS: Hematocrit 37.6 % (41-53); Hemoglobin 11.6 g/dL (13.5-17.5); Mean Corpuscular HGB Conc 30.9 % (30-36); Mean Corpuscular Hemoglobin 24.4 PG (26-34); Mean Corpuscular Volume 78.9 fL (80-100); Platelet Count 289 X10^3/uL (150-400); Red Blood Cell Count 4.76 X10^6/uL (4.5-5.9); Red Cell Distribution Width 14.8 % (11.6-14.8); White Blood Cell Count 13.6 X10^3/uL (4.5-11.0)
[2024-06-06] MEDS: SODIUM CHLORIDE 0.9% 1,000 ML 125 ML IV (16:11)
[2024-06-06 16:12] LABS: Alanine Aminotransferase 19 IU/L (<50); Albumin 3.6 g/dL (3.5-5.0); Albumin Globulin Ratio 1.2 (1.0-2.8); Alkaline Phosphatase 173 U/L (38-126); Aspartate Aminotransferase 26 IU/L (17-59); BUN Creatinine Ratio 15.5 (6-22); Bilirubin Total 0.5 mg/dL (0.2-1.3); Blood Urea Nitrogen 49 mg/dL (9-20); Calcium 12.2 mg/dL (8.4-10.2); Carbon Dioxide 22 mmol/L (22-32); Chloride 121 mmol/L (98-107); Estimated Glomerular Filt Rate 20 mL/min (>60); Glucose 119 mg/dL (80-110); HEMOLYSIS < 15 (0-50); Potassium 4.4 mmol/L (3.4-5.1); Sodium 150 mmol/L (137-145); Total Protein 6.6 g/dL (6.3-8.2)
[2024-06-06 19:56] VITALS: BP 139/73; PULSE 86; RESP 19; TEMP 36.4; O2SAT 92
[2024-06-06] MEDS: OXYCODONE IR 5 MG TABLET PO (21:35)
[2024-06-06] MEDS: HEPARIN 5,000 UNIT/ML VIAL 5000 UNIT SUBCUT (21:36)
[2024-06-06] MEDS: SODIUM CHLORIDE 0.9% FLUSH 10 ML IV (21:36)
[2024-06-06 23:00] VITALS: BP 130/81; PULSE 72; RESP 18; TEMP 36.1; O2SAT 99
[2024-06-07] VITALS: PULSE 77; RESP 16
[2024-06-07] MEDS: SODIUM CHLORIDE 0.9% 1,000 ML 125 ML IV (00:10)
[2024-06-07 03:00] VITALS: BP 136/74; PULSE 75; RESP 19; TEMP 36.3; O2SAT 94
[2024-06-07] MEDS: OLANZapine 10 MG VIAL IM (06:29)
[2024-06-07 07:08] LABS: Add Manual Diff / Slide Review NO; Basophils Absolute Auto 100 /uL (0-100); Basophils Percent Auto 0.8 % (0-2); Eosinophils Absolute Auto 300 /uL (0-450); Eosinophils Percent Auto 2.9 % (2-4); Hematocrit 33.3 % (41-53); Hemoglobin 10.6 g/dL (13.5-17.5); Lymphocytes Absolute Auto 900 /uL (1100-4500); Lymphocytes Percent Auto 10.7 % (25-40); Mean Corpuscular HGB Conc 31.9 % (30-36); Mean Corpuscular Hemoglobin 25.2 PG (26-34); Mean Corpuscular Volume 79.1 fL (80-100); Monocytes Absolute Auto 600 /uL (0-900); Monocytes Percent Auto 6.8 % (3-14); Neutrophils Absolute Auto 6900 /uL (1500-7000); Neutrophils Percent Auto 78.8 % (50-75); Platelet Count 227 X10^3/uL (150-400); Red Blood Cell Count 4.21 X10^6/uL (4.5-5.9); Red Cell Distribution Width 15.1 % (11.6-14.8); White Blood Cell Count 8.8 X10^3/uL (4.5-11.0)
[2024-06-07 07:19] LABS: Alanine Aminotransferase 18 IU/L (<50); Albumin 3.2 g/dL (3.5-5.0); Albumin Globulin Ratio 1.1 (1.0-2.8); Alkaline Phosphatase 158 U/L (38-126); Aspartate Aminotransferase 25 IU/L (17-59); BUN Creatinine Ratio 14.8 (6-22); Bilirubin Total 0.6 mg/dL (0.2-1.3); Blood Urea Nitrogen 43 mg/dL (9-20); Calcium 11.7 mg/dL (8.4-10.2); Carbon Dioxide 20 mmol/L (22-32); Estimated Glomerular Filt Rate 22 mL/min (>60); Globulin 2.9 g/dL (1.7-4.1); Glucose 104 mg/dL (80-110); HEMOLYSIS < 15 (0-50); Potassium 4.1 mmol/L (3.4-5.1); Sodium 154 mmol/L (137-145); Total Protein 6.1 g/dL (6.3-8.2)
[2024-06-07 07:22] LABS: Chloride 129 mmol/L (98-107)
--- NOTE | 2024-06-07 07:45 | PM.PN.1 ---
Subjective Subjective Interval history: Hospital course: The patient recently underwent a right hip replacement and had a assisted facility stay. He returned home about 2 days ago to [place]. Once there he was found to have altered mental status, impulsive behavior, gait instability, and poor oral intake. Ultimately he was found in the floor by his . He was admitted for acute kidney injury with a creatinine of 3.2 as well as altered mental status and debilitation. He does have history of erratic behavior related to his bipolar and does take chronic lithium. He goes by the name Candelario. His sodium is up to 154 today. Subjective: He was quite confused today. He was cooperative. He thinks it is 1925. He was lying in bed with all of his covers off. He was moving arms and legs spontaneously he was no facial droop. Exam Vital Signs (past 8 hours): - 06/07/24 03:00 Temperature 97.3 F L Pulse Rate 75 Respiratory Rate 19 Blood Pressure 136/74 Pulse Oximetry 94 Oxygen Flow Rate 0 Narrative Exam Narrative: NAD, alert and oriented. Fluent speech. Lungs are clear, normal rate and effort. Heart is regular, no murmur gallop or rub. Abdomen is soft, non distended. Extremities are free of edema. Objective Imaging Multiple studies at [facility]:: Radiologist's impression: This included a negative CT of the brain, neck, and spine as well as the chest, abdomen, and pelvis. Labs 06/07/24 07:00 06/07/24 07:00 Labs: Laboratory Results - last 24 hr 06/06/24 06/07/24 15:54 07:00 WBC 13.6 H 8.8 RBC 4.76 4.21 L Hgb 11.6 L 10.6 L Hct 37.6 L 33.3 L MCV 78.9 L 79.1 L MCH 24.4 L 25.2 L MCHC 30.9 31.9 RDW 14.8 15.1 H Plt Count 289 227 Neut % (Auto) 78.8 H Lymph % (Auto) 10.7 L [place] % (Auto) 6.8 Eos % (Auto) 2.9 Baso % (Auto) 0.8 Neut # (Auto) 6900 Lymph # (Auto) 900 L [place] # (Auto) 600 Eos # (Auto) 300 Baso # (Auto) 100 Sodium 150 H 154 H Potassium 4.4 4.1 Chloride 121 H 129 H* Carbon Dioxide 22 20 L BUN 49 H 43 H Creatinine 3.16 H 2.91 H Estimated GFR 20 L 22 L BUN/Creatinine Ratio 15.5 14.8 Glucose 119 H 104 Calcium 12.2 H 11.7 H Total Bilirubin 0.5 0.6 AST 26 25 ALT 19 18 Alkaline Phosphatase 173 H 158 H Total Protein 6.6 6.1 L Albumin 3.6 3.2 L Globulin 3.0 2.9 Albumin/Globulin Ratio 1.2 1.1 [facility] Medical History Occasional tremors Tinnitus Depression Anxiety Neuropathy De Quervain's tenosynovitis DJD (degenerative joint disease) HLD (hyperlipidemia) Septic arthritis (~03/2016) Herniated disc Surgical History History of total right knee replacement (05/25/19) Hx of appendectomy Hx of oral surgery (05/05/19) Hx of thumb surgery (~05/2017) History of ankle surgery Hx of arthroscopy of right knee (03/03/16) Social History household members: spouse and significant other Smoking Status: Never smoker alcohol intake: current Assessment & Plan Assessment & Plan narrative: 1. Acute metabolic encephalopathy, present on admission and active. 2. Volume depletion and acute kidney injury, present on admission and active. 3. Severe Hypernatremia, present on admission and active. 4. Hypercalcemia likely related to volume depletion, present on admission and improving. 5. Bipolar with a history of lithium use, present on admission and active. Plan: -switch fluids to D5W at 100 and monitor sodium as well as renal function and calcium. -monitor mental status. -hold chronic medications until MARTY improves. -MRI brain to rule out interval stroke. I did speak with his on the phone who gave most of the history above. Full code. is his proxy decision maker. Anticipate a 2 midnight hospital stay, the supports inpatient status. This is for treatment of MARTY, severe hypercalcemia, and metabolic encephalopathy. MAUREEN: 06/10 to SNF if he improves clinically. Time-Based Coding :: [TOTAL MINUTES] spent with patient and on the chart (including review of chart, obtaining history, exam, reviewing outside data, placing orders, documenting exam and treatment plan, and counseling patient) on [DATE].
[2024-06-07 08:00] VITALS: BP 146/88; PULSE 94; RESP 19; TEMP 36; O2SAT 96
[2024-06-07] MEDS: HEPARIN 5,000 UNIT/ML VIAL 5000 UNIT SUBCUT (08:00)
[2024-06-07] MEDS: SODIUM CHLORIDE 0.9% FLUSH 10 ML IV ×2 (08:01→20:21)
[2024-06-07] MEDS: DEXTROSE 5% WATER 1,000 ML 100 ML IV (08:04)
--- NOTE | 2024-06-07 10:32 | PT-IP ANOTE ---
PT consult received. PT reviewed chart and mobility order increased to up ad awa. PT checks on pt who is sleeping soundly and does not awaken to voice or nsg palpating wrist. Per nsg, pt received medication that may have made him lethargic at this time. Con't PT efforts next date and pt can get OOB with nsg to tolerance. Per chart notes, he was WBAT and had anterior hip precautions after right hip placement.
--- NOTE | 2024-06-07 11:09 | DI.MRI.S_ITS ---
PROCEDURE: MR HEAD/BRAIN WO CON INDICATIONS: encephalopathy TECHNIQUE: Noncontrast axial T1 spin echo, axial T2 fast spin echo, sagittal and axial FLAIR, coronal T2 fast spin echo, axial gradient echo, axial diffusion and ADC through the brain. COMPARISON: None. FINDINGS: Image quality: Moderately motion degraded CSF spaces: Basal cisterns are patent. Lateral ventricles are symmetric. Volume: Volume loss. Periventricular white matter signal abnormality most commonly seen with small vessel disease. These findings are moderate Brain: Diffusion-weighted images without diffusion restriction to suggest infarct. No large hematoma on gradient images. No confluent area parenchymal edema within the motion degraded FLAIR images. Craniofacial structures: No gross abnormality on these motion degraded images. IMPRESSION: No confluent area of parenchymal edema, infarct, or acute hematoma. Moderate motion artifact. Dictated by: Sharan Bernard M.D. on 06/07/2024 at 12:58 Approved by: Sharan Bernard M.D. on 06/07/2024 at 12:59
[2024-06-07] MEDS: HALOPERIDOL 5 MG/ML VIAL IV (11:49)
[2024-06-07] MEDS: OXYCODONE IR 5 MG TABLET PO (11:53)
[2024-06-07] MEDS: LORazepam 2 MG/ML INJ 0.5 MG IV ×2 (12:55→20:20)
[2024-06-07 16:19] LABS: BUN Creatinine Ratio 13.7 (6-22); Blood Urea Nitrogen 41 mg/dL (9-20); Calcium 12.6 mg/dL (8.4-10.2); Carbon Dioxide 22 mmol/L (22-32); Estimated Glomerular Filt Rate 21 mL/min (>60); Glucose 120 mg/dL (80-110); HEMOLYSIS < 15 (0-50); Potassium 3.8 mmol/L (3.4-5.1); Sodium 155 mmol/L (137-145)
[2024-06-07 16:27] LABS: Chloride 127 mmol/L (98-107)
[2024-06-07 18:00] VITALS: BP 142/96; PULSE 83; RESP 19; TEMP 36.1; O2SAT 94
[2024-06-07] MEDS: DEXTROSE 5% WATER 1,000 ML 150 ML IV (18:32)
[2024-06-07 19:11] LABS: Lithium 0.8 mmol/L (0.6-1.2)
--- NOTE | 2024-06-07 20:40 | PC.NURSE ---
Pt trying to get OOB to void, pt is confused. After ambulating with FWW to bathroom and back to bed pt became agitated. Grabbing, kicking staff, did not want to return to bed. Pt is a fall risk, unsteady. Notified Dr Rai, Ativan 0.5 IV given x1. Pt now back in bed, bed alarm activated.
[2024-06-07 23:19] LABS: BUN Creatinine Ratio 13.6 (6-22); Blood Urea Nitrogen 39 mg/dL (9-20); Carbon Dioxide 21 mmol/L (22-32); Estimated Glomerular Filt Rate 23 mL/min (>60); Glucose 127 mg/dL (80-110); HEMOLYSIS < 15 (0-50); Potassium 4.2 mmol/L (3.4-5.1); Sodium 153 mmol/L (137-145)
[2024-06-07 23:33] LABS: Chloride 128 mmol/L (98-107)
[2024-06-07 23:34] LABS: Calcium 12.8 mg/dL (8.4-10.2)
[2024-06-08] MEDS: DEXTROSE 5% WATER 1,000 ML 150 ML IV ×2 (00:44→10:30)
[2024-06-08 04:30] VITALS: BP 136/73; PULSE 73; RESP 19; TEMP 36.1; O2SAT 98
[2024-06-08] MEDS: OLANZapine 10 MG VIAL IM (05:03)
[2024-06-08] MEDS: LORazepam 2 MG/ML INJ 1 MG IM (06:17)
[2024-06-08 07:06] LABS: Add Manual Diff / Slide Review NO; Basophils Absolute Auto 0 /uL (0-100); Basophils Percent Auto 0.5 % (0-2); Eosinophils Absolute Auto 400 /uL (0-450); Eosinophils Percent Auto 4.9 % (2-4); Hematocrit 35.1 % (41-53); Hemoglobin 11.2 g/dL (13.5-17.5); Lymphocytes Absolute Auto 900 /uL (1100-4500); Lymphocytes Percent Auto 11.6 % (25-40); Mean Corpuscular HGB Conc 31.9 % (30-36); Mean Corpuscular Volume 78.2 fL (80-100); Monocytes Absolute Auto 600 /uL (0-900); Neutrophils Absolute Auto 6100 /uL (1500-7000); Platelet Count 240 X10^3/uL (150-400); Red Blood Cell Count 4.48 X10^6/uL (4.5-5.9); Red Cell Distribution Width 15.1 % (11.6-14.8)
[2024-06-08 07:33] LABS: Alanine Aminotransferase 21 IU/L (<50); Albumin 3.5 g/dL (3.5-5.0); Albumin Globulin Ratio 1.1 (1.0-2.8); Alkaline Phosphatase 170 U/L (38-126); Aspartate Aminotransferase 30 IU/L (17-59); BUN Creatinine Ratio 12.4 (6-22); Bilirubin Total 0.6 mg/dL (0.2-1.3); Blood Urea Nitrogen 35 mg/dL (9-20); Carbon Dioxide 21 mmol/L (22-32); Estimated Glomerular Filt Rate 23 mL/min (>60); Globulin 3.1 g/dL (1.7-4.1); Glucose 108 mg/dL (80-110); HEMOLYSIS < 15 (0-50); Potassium 3.9 mmol/L (3.4-5.1); Sodium 156 mmol/L (137-145); Total Protein 6.6 g/dL (6.3-8.2)
[2024-06-08 07:36] LABS: Chloride 130 mmol/L (98-107)
--- NOTE | 2024-06-08 07:53 | DI.US.S_ITS ---
PROCEDURE: US RENAL COMPLETE INDICATIONS: MARTY TECHNIQUE: Real-time scanning was performed of the kidneys and bladder, with image documentation. COMPARISON: None. FINDINGS: Kidneys: Kidneys are normal in size. Right kidney measures approximately 8.1 cm long; left kidney is not seen. Right renal cortex 2.5 cm. Bladder: Pre-void bladder volume is 654 mL. Patient unable to void. Ureteral jets are not seen. IMPRESSION: Limited exam due to acoustic windows. No right hydronephrosis is seen. Left kidney is not seen. Bladder volume 654 cc. If concern for obstruction recommend CT KUB. Dictated by: Bossman Sky M.D. on 06/08/2024 at 13:21 Approved by: Bossman Sky M.D. on 06/08/2024 at 13:25
[2024-06-08 08:00] VITALS: BP 147/93; PULSE 74; RESP 19; TEMP 36.1; O2SAT 98
--- NOTE | 2024-06-08 10:37 | OT.IPNOTE ---
OT eval and treat order received and chart reviewed. Discussed case with nursing and per nursing, pt is not yet ready to participate effectively with therapies, unable to follow commands, lethargic, impulsive. Notified CM of hold for today. Will continue to follow.
--- NOTE | 2024-06-08 10:48 | PT-IP ANOTE ---
PT reviews chart and notes OT note. Will hold PT and initiate next date.
[2024-06-08 13:34] LABS: Blood Urea Nitrogen 33 mg/dL (9-20); Carbon Dioxide 22 mmol/L (22-32); Estimated Glomerular Filt Rate 24 mL/min (>60); Glucose 121 mg/dL (80-110); HEMOLYSIS < 15 (0-50); Sodium 156 mmol/L (137-145)
[2024-06-08 13:36] LABS: Calcium 13.2 mg/dL (8.4-10.2); Chloride 128 mmol/L (98-107)
--- NOTE | 2024-06-08 14:01 | CM.DANOTE ---
DCP Assessment note pt is a 74yo M here with AMS/MARTY/hypernatremia/hypercalcemia. PMH Of Bipolar Type 1. PCP Joo Wilson Payer Medicare and [employer]. TURPENTINE DISTILLER reviewed EMR. pt had right hip replacement with Dr. Harp 05/12/24 and was discharged to [facility] 05/15/24 due to post op limited mobility. Per chart, pt was discharged home and was home for a few days with spouse until he became more confused/agitated/intermittent erratic behavior. per chart, he lives at home with his spouse Dai in [place], limited mobility at baseline, gets assistance from spouse for many ADLs/IADLs. Per previous OT/PT notes, he was groggy and sleepy when working with therapies throughout admission. home med of lithium for his bipolar 1. Per hospitalist in morning rounds, etiology for his AMS/MARTY/hypernatremia/hypercalcemia unknown.. considering psych consult to assist with lithium management. potential transfer out due to medically complex Renal failure with electrolyte abnormalities. Per Meghana at , could take pt back as long as pt has new diagnosis. PT/OT holding for today due to confusion. Per RN, pt remains confused throughout the day so far. not oriented appropriately for DCP conversation. TURPENTINE DISTILLER had lengthy conversation with spouse, Dai. Dai recently fractured shoulder and is unable to assist him at home but agreed to take him home from [facility] because he wanted to come home. reports that after getting home from he was incontinent of urine and wouldn't eat. home trazadone was not working for get him to sleep. per Dai, if pt stops taking his lithium he gets confused. Dai says that her preference at ia is for pt to return to SNF. preferences either 1) [facility] due to medicare star rating or 2) return to [facility]. Dai hopes to be kept updated with news as medical POC continues to develop. P: if pt does not transfer to higher level of care, SNF referrals need to be placed when pt able to participate in PT/OT evals/mentation clears. PASRR needed. CM team will continue to follow closely AMRITA Lowry Discharge Planning/Care Management CM Discharge Assessment Start: 06/08/24 13:59 Freq: Status: Active Protocol: Document 06/08/24 13:59 SL (Rec: 06/08/24 14:01 [id number]) Discharge Planning Assessment Assigned Asset Protection Representative AMRITA Fernandez DPOA/Assigned Designee Name Dai spouse Contact Information [phone] Advance Directives? Yes Advance Directives on File No History Provided By Patient,Significant Other, Medical Record Prior Living Arrangements House Household Members spouse,significant other Type of transporation used prior to Relies on Others admit Independent with ADL's No Is patient alert and oriented? No Needs Assistance With Home Chores / Shopping DME Already Rented / Owned Elevated Toilet Seat,FWW / Walker,Cane Patient/Family Preference Long-Term Facility Discharge Plan Long-Term Facility Transportation Arrangement Facility Referrals Initiated Long-Term SNF/HH Preference either 1) [facility] or 2) return to [facility] Review Status In Process Please Provide Date Initial DC 06/08/24 Assessment Was Performed Next Review Type Continued Stay Review
[2024-06-08] MEDS: ZOLEDRONIC ACID 4 MG in SODIUM CHLORIDE 0.9% 100 ML 315 MG IV (14:12)
[2024-06-08] MEDS: LORazepam 2 MG/ML INJ 1 MG IV ×2 (14:30→20:45)
[2024-06-08 16:00] VITALS: BP 145/88; PULSE 74; RESP 19; TEMP 35.9; O2SAT 100
[2024-06-08] MEDS: DEXTROSE 5% WATER 1,000 ML 200 ML IV ×2 (17:05→23:33)
--- NOTE | 2024-06-08 19:24 | P.PN_ITS ---
Subjective Subjective Interval history: Hospital course: The patient recently underwent a right hip replacement and had a [facility] facility stay. He returned home about 2 days ago to [place]. Once there he was found to have altered mental status, impulsive behavior, gait instability, and poor oral intake. Ultimately he was found in the floor by his . He was admitted for acute kidney injury with a creatinine of 3.2 as well as altered mental status and debilitation. He does have history of erratic behavior related to his bipolar and does take chronic lithium. He goes by the name Candelario. Subjective: patient is too encephalopathic today, was given ativan for agitation after pulling out his IV today. His sodium continues to trend up as has his calcium. This is quite a complex patient. It is not entirely clear the underlying cause of his renal failure, but creatinine has been fairly elevated since his recent orthopedic surgery. His electrolyte abnormalities are, however, worse. Typically hypercalcemia is managed with normal saline, however he also is hypernatremic so have chosed to primarily give D5W at this time. His sodium is improving slowly, Cr is stable as well without much change around 2.7-2.8. Renal ultrasound was limited due to his mentation today, but no overy hydronephrosis however he was retaining urine today, ordered for q8 bladder scan with in and out catheter (given agitation and pulling out lines) for bladder scan >400. He was also ordered for calcitonin and zometa today given worsening hypercalcemia. I ordered a UA today for further evaluation, along with a PTH (which is a send out lab here), Vit D level. His lithium level was 1.2 on admit and 0.8 on repeat. Exam Vital Signs (past 8 hours): - 06/08/24 16:00 Temperature 96.7 F L Pulse Rate 74 Respiratory Rate 19 Blood Pressure 145/88 H Pulse Oximetry 100 Oxygen Flow Rate 0 Oxygen Delivery Method Room Air Oxygen Flow Rate 0 Narrative Exam Narrative: sedated due to ativan required for IV replacement. ill appearing no edema b/l LE Objective Labs 06/08/24 07:00 06/08/24 19:28 Labs: Laboratory Results - last 24 hr 06/07/24 06/07/24 06/08/24 16:00 23:00 07:00 WBC 8.0 RBC 4.48 L Hgb 11.2 L Hct 35.1 L MCV 78.2 L MCH 25.0 L MCHC 31.9 RDW 15.1 H Plt Count 240 Neut % (Auto) 76.0 H Lymph % (Auto) 11.6 L [place] % (Auto) 7.0 Eos % (Auto) 4.9 H Baso % (Auto) 0.5 Neut # (Auto) 6100 Lymph # (Auto) 900 L [place] # (Auto) 600 Eos # (Auto) 400 Baso # (Auto) 0 Sodium 153 H 156 H Potassium 4.2 3.9 Chloride 128 H* 130 H* Carbon Dioxide 21 L 21 L BUN 39 H 35 H Creatinine 2.86 H 2.83 H Estimated GFR 23 L 23 L BUN/Creatinine Ratio 13.6 12.4 Glucose 127 H 108 Calcium 12.8 H* 13.0 H* Total Bilirubin 0.6 AST 30 ALT 21 Alkaline Phosphatase 170 H Total Protein 6.6 Albumin 3.5 Globulin 3.1 Albumin/Globulin Ratio 1.1 25-OH Vitamin D Total [place] 0.8 06/08/24 06/08/24 08:21 13:00 WBC RBC Hgb Hct MCV MCH MCHC RDW Plt Count Neut % (Auto) Lymph % (Auto) [place] % (Auto) Eos % (Auto) Baso % (Auto) Neut # (Auto) Lymph # (Auto) [place] # (Auto) Eos # (Auto) Baso # (Auto) Sodium 156 H Potassium 4.0 Chloride 128 H* Carbon Dioxide 22 BUN 33 H Creatinine 2.75 H Estimated GFR 24 L BUN/Creatinine Ratio 12.0 Glucose 121 H Calcium 13.2 H* Total Bilirubin AST ALT Alkaline Phosphatase Total Protein Albumin Globulin Albumin/Globulin Ratio 25-OH Vitamin D Total 31.0 [place] [facility] Medical History Occasional tremors Tinnitus Depression Anxiety Neuropathy De Quervain's tenosynovitis DJD (degenerative joint disease) HLD (hyperlipidemia) Septic arthritis (~03/2016) Herniated disc Surgical History History of total right knee replacement (05/25/19) Hx of appendectomy Hx of oral surgery (05/05/19) Hx of thumb surgery (~05/2017) History of ankle surgery Hx of arthroscopy of right knee (03/03/16) Social History household members: spouse and significant other Smoking Status: Never smoker alcohol intake: current Assessment & Plan Assessment & Plan narrative: 1. Acute metabolic encephalopathy, present on admission and active. 2. Volume depletion and acute kidney injury, present on admission and active. 3. Severe Hypernatremia, present on admission and active. 4. Hypercalcemia, present on admission 5. Bipolar with a history of lithium use, present on admission and active. Plan: -Increased D5w with worsening hypernatremia, now slowly improving. -continue calcitonin x4 doses, zometa x1 dose given today. -PTH ordered today, Vit D levels 31. [place] level was 1.2 on admit and 0.8 on repeat. Continue to hold lithium. -consider discussion with nephrology and / or transfer depending on trend with electrolytes. If not able to correct may need transfer. -hold chronic medications until MARTY improves. -MRI brain to rule out interval stroke was negative -will discuss with psychiatrist tomorrow for possible plans moving forward with regards to his bipolar disorder and thoughts on if this could be related to recent MARTY and lithium us at all. -agitation well controlled with ativan. Full code. is his proxy decision maker. Anticipate a 2 midnight hospital stay, the supports inpatient status. This is for treatment of AMRTY, severe hypercalcemia, and metabolic encephalopathy. MAUREEN: Likely multiple more days in the hospital, possible transfer, likely SNF however depends on cognition and bipolar. Time-Based Coding :: [TOTAL MINUTES] spent with patient and on the chart (including review of chart, obtaining history, exam, reviewing outside data, placing orders, documenting exam and treatment plan, and counseling patient) on [DATE].
[2024-06-08 19:30] VITALS: BP 167/90; PULSE 69; RESP 17; TEMP 36.3; O2SAT 99
[2024-06-08 19:51] LABS: BUN Creatinine Ratio 10.8 (6-22); Blood Urea Nitrogen 30 mg/dL (9-20); Carbon Dioxide 21 mmol/L (22-32); Estimated Glomerular Filt Rate 23 mL/min (>60); Glucose 133 mg/dL (80-110); HEMOLYSIS < 15 (0-50); Potassium 3.8 mmol/L (3.4-5.1); Sodium 154 mmol/L (137-145)
[2024-06-08 20:04] LABS: Calcium 12.9 mg/dL (8.4-10.2); Chloride 128 mmol/L (98-107)
[2024-06-08] MEDS: SODIUM CHLORIDE 0.9% FLUSH 10 ML IV (22:30)
[2024-06-08 22:49] LABS: Appearance Urine UA CLEAR; Bilirubin Urine UA NEGATIVE (NEGATIVE); Color Urine UA YELLOW; Glucose Urine UA NEGATIVE (Negative); Ketones Urine UA NEGATIVE (NEGATIVE); Leukocyte Esterase Urine UA NEGATIVE (NEGATIVE); Nitrite Urine UA NEGATIVE (Negative); Occult Blood Urine UA TRACE-INTACT (Negative); Protein Urine UA 1+ (Negative); Specific Gravity Urine UA <=1.005 (1.000-1.035); Urobilinogen Urine UA 0.2 E.U./dL (0.2); pH Urine UA 6.5 (4.5-8.0)
[2024-06-08 23:26] LABS: Bacteria Urine Occasional (0-1); Hyaline Casts Urine 0-1/LPF; RBC Urine 1-5/HPF (0-5/HPF); Squamous Epithelial Cell Urine 0-1 /HPF (0-5/HPF); Transitional Epi Cells Urine 0-1/HPF (0-5/HPF); Urine Volume 10mL (spun)
[2024-06-08 23:27] LABS: Culture Indicated Urine Cult Not Indicated; WBC Urine 0-1/HPF (0-5/HPF)
[2024-06-08] MEDS: CALCITONIN,SALMON 400 UNITS/2 ML MDV 300 UNITS SUBCUT (23:37)
[2024-06-09] VITALS: BP 167/97; PULSE 77; RESP 18; TEMP 36.1; O2SAT 91
[2024-06-09 04:00] VITALS: BP 136/82; PULSE 76; RESP 21; TEMP 36.4; O2SAT 98
[2024-06-09] MEDS: LORazepam 2 MG/ML INJ 1 MG IV (04:04)
[2024-06-09 04:57] LABS: Add Manual Diff / Slide Review NO; Basophils Absolute Auto 0 /uL (0-100); Basophils Percent Auto 0.5 % (0-2); Eosinophils Absolute Auto 400 /uL (0-450); Eosinophils Percent Auto 4.2 % (2-4); Hematocrit 38.5 % (41-53); Hemoglobin 12.4 g/dL (13.5-17.5); Lymphocytes Absolute Auto 900 /uL (1100-4500); Lymphocytes Percent Auto 8.7 % (25-40); Mean Corpuscular HGB Conc 32.3 % (30-36); Mean Corpuscular Volume 77.6 fL (80-100); Monocytes Absolute Auto 800 /uL (0-900); Monocytes Percent Auto 7.7 % (3-14); Neutrophils Absolute Auto 7900 /uL (1500-7000); Neutrophils Percent Auto 78.9 % (50-75); Platelet Count 251 X10^3/uL (150-400); Red Blood Cell Count 4.96 X10^6/uL (4.5-5.9); Red Cell Distribution Width 15.1 % (11.6-14.8); White Blood Cell Count 9.9 X10^3/uL (4.5-11.0)
[2024-06-09] MEDS: DEXTROSE 5% WATER 1,000 ML 200 ML IV ×4 (04:59→20:30)
[2024-06-09 05:26] LABS: Alanine Aminotransferase 27 IU/L (<50); Albumin 3.7 g/dL (3.5-5.0); Albumin Globulin Ratio 1.2 (1.0-2.8); Alkaline Phosphatase 180 U/L (38-126); Aspartate Aminotransferase 36 IU/L (17-59); BUN Creatinine Ratio 9.9 (6-22); Bilirubin Total 0.5 mg/dL (0.2-1.3); Blood Urea Nitrogen 27 mg/dL (9-20); Calcium 12.4 mg/dL (8.4-10.2); Carbon Dioxide 21 mmol/L (22-32); Estimated Glomerular Filt Rate 24 mL/min (>60); Globulin 3.2 g/dL (1.7-4.1); Glucose 152 mg/dL (80-110); HEMOLYSIS < 15 (0-50); Potassium 3.8 mmol/L (3.4-5.1); Sodium 153 mmol/L (137-145); Total Protein 6.9 g/dL (6.3-8.2)
[2024-06-09 05:35] LABS: Chloride 127 mmol/L (98-107)
--- NOTE | 2024-06-09 08:06 | PC.NURSE ---
machinist 2nd shift: Patient is responsive to voice, although is extremely confused. Does not answer questions or follow directions. Patient is impulsive and consistently pulling at tele monitor and IV lines, hand mitts placed for patient safety. Attempts to get OOB although is weak. VSS, SpO2 in high 90's on RA. Condom cath in place draining light, clear urine. IVF infusing as ordered. Cont tele in place. Requires 2-3 PA when providing care d/t patient agitation. R hip incision drsg is CDI. Waffle cushion in place, turning as tolerated. Notified MD Rai of critical lab values. Plan of care ongoing.
[2024-06-09] MEDS: HEPARIN 5,000 UNIT/ML VIAL 5000 UNIT SUBCUT ×2 (08:24→21:23)
[2024-06-09 08:40] VITALS: BP 147/81; PULSE 75; RESP 16; TEMP 36; O2SAT 98
--- NOTE | 2024-06-09 10:16 | OT.IPNOTE ---
Per nursing hold therapy eval, to check on pt tomorrow to see if pt more medically stable.
--- NOTE | 2024-06-09 10:50 | PT-IP ANOTE ---
Pt continues to be not medically stable to do PT. PT on hold for ~ 3 days now and will d/c PT order. Hospitalist informed. will await new order when pt is medically stable to participate.
[2024-06-09] MEDS: CALCITONIN,SALMON 400 UNITS/2 ML MDV 300 UNITS SUBCUT (11:42)
[2024-06-09 12:00] VITALS: BP 143/90; PULSE 89; RESP 16; TEMP 36.2; O2SAT 95
--- NOTE | 2024-06-09 12:13 | CM.DPNOTE ---
DCP note CATALOGUE CLERK reviewed EMR. Per RN report, pt remains confused overnight. needed mitts. lab work has improved (calcium/sodium) but pt not WNL yet. pt was agitated overnight, see RN notes for more. PT/OT orders cancelled until more medically appropriate to participate. Per hospitalist in morning rounds, cause of confusion/lab work abnormalities remains unknown. could benefit from a kidney biopsy for his renal disease? Medical POC continues to develop. if pt does not transfer to higher level of care, SNF referrals need to be placed (spouse first choice [facility] in [place] vs 2) choice return to [facility]) when pt able to participate in PT/OT evals/mentation improves. CM team will coordinate with spouse Dai as needed. PASRR needed. CM team will continue to follow closely AMRITA Lowry
[2024-06-09 16:00] VITALS: BP 144/90; PULSE 77; RESP 18; TEMP 36.3; O2SAT 100
--- NOTE | 2024-06-09 16:17 | P.PN_ITS ---
Subjective Subjective Interval history: Hospital course: The patient recently underwent a right hip replacement and had a half-way facility stay. He returned home about 2 days ago to [place]. Once there he was found to have altered mental status, impulsive behavior, gait instability, and poor oral intake. Ultimately he was found in the floor by his . He was admitted for acute kidney injury with a creatinine of 3.2 as well as altered mental status and debilitation. He does have history of erratic behavior related to his bipolar and does take chronic lithium. He goes by the name Candelario. Subjective: patient is too encephalopathic today again. Sodium and calcium are slowly improving today. Attempting to get PCP records regarding his renal function. Patient's spouse did not know why his Cr was bad, he did not have a neuropsychiatrist. Exam Vital Signs (past 8 hours): - 06/09/24 08:40 06/09/24 12:00 06/09/24 16:00 Temperature 96.8 F L 97.1 F L 97.3 F L Pulse Rate 75 89 77 Respiratory Rate 16 16 18 Blood Pressure 147/81 H 143/90 H 144/90 H Pulse Oximetry 98 95 100 Oxygen Flow Rate 0 0 0 Oxygen Delivery Method Room Air Oxygen Flow Rate 0 Narrative Exam Narrative: still confused in hand mittens ill appearing no edema b/l LE Objective Labs 06/09/24 04:20 06/09/24 04:20 Labs: Laboratory Results - last 24 hr 06/08/24 06/08/24 06/09/24 19:28 22:39 04:20 WBC 9.9 RBC 4.96 Hgb 12.4 L Hct 38.5 L MCV 77.6 L MCH 25.0 L MCHC 32.3 RDW 15.1 H Plt Count 251 Neut % (Auto) 78.9 H Lymph % (Auto) 8.7 L [place] % (Auto) 7.7 Eos % (Auto) 4.2 H Baso % (Auto) 0.5 Neut # (Auto) 7900 H Lymph # (Auto) 900 L [place] # (Auto) 800 Eos # (Auto) 400 Baso # (Auto) 0 Sodium 154 H 153 H Potassium 3.8 3.8 Chloride 128 H* 127 H* Carbon Dioxide 21 L 21 L BUN 30 H 27 H Creatinine 2.78 H 2.73 H Estimated GFR 23 L 24 L BUN/Creatinine Ratio 10.8 9.9 Glucose 133 H 152 H Calcium 12.9 H* 12.4 H Total Bilirubin 0.5 AST 36 ALT 27 Alkaline Phosphatase 180 H Total Protein 6.9 Albumin 3.7 Globulin 3.2 Albumin/Globulin Ratio 1.2 Urine Color Yellow Urine Appearance Clear Urine pH 6.5 Ur Specific [place] <=1.005 Urine Protein 1+ H Urine Glucose (UA) Negative Urine Ketones Negative Urine Occult Blood Trace-intact Urine Nitrate Negative Urine Bilirubin Negative Urine Urobilinogen 0.2 Ur Leukocyte Esterase Negative Urine RBC 1-5/hpf Urine WBC 0-1/hpf Ur Squamous Epith Cells 0-1 /hpf Ur Transition Epith Cell 0-1/hpf Urine Bacteria Occasional (0-1) Hyaline Casts 0-1/lpf Ur Culture Indicated? Cult not indicated Vol Urine Centrifuged 10ml (spun) COUNT INCLUDES THE [facility] Medical History Occasional tremors Tinnitus Depression Anxiety Neuropathy De Quervain's tenosynovitis DJD (degenerative joint disease) HLD (hyperlipidemia) Septic arthritis (~03/2016) Herniated disc Surgical History History of total right knee replacement (05/25/19) Hx of appendectomy Hx of oral surgery (05/05/19) Hx of thumb surgery (~05/2017) History of ankle surgery Hx of arthroscopy of right knee (03/03/16) Social History household members: spouse and significant other Smoking Status: Never smoker alcohol intake: current Assessment & Plan Assessment & Plan narrative: 1. Acute metabolic encephalopathy, present on admission and active. 2. Volume depletion and acute kidney injury, present on admission and active. 3. Severe Hypernatremia, present on admission and active. 4. Hypercalcemia, present on admission 5. Bipolar with a history of lithium use, present on admission and active. Plan: -Increased D5w with worsening hypernatremia, now slowly improving. -continue calcitonin x4 doses, zometa x1 dose given /. -PTH ordered today, Vit D levels 31. [place] level was 1.2 on admit and 0.8 on repeat. Continue to hold lithium. -consider discussion with nephrology and / or transfer depending on trend with electrolytes. If not able to correct may need transfer. -hold chronic medications until MARTY improves. -MRI brain to rule out interval stroke was negative -will discuss with psychiatrist for possible plans moving forward with regards to his bipolar disorder and thoughts on if this could be related to recent MARTY and lithium us at all. -agitation well controlled with ativan. Full code. is his proxy decision maker. Anticipate a 2 midnight hospital stay, the supports inpatient status. This is for treatment of MARTY, severe hypercalcemia, and metabolic encephalopathy. MAUREEN: Likely multiple more days in the hospital, possible transfer, likely SNF however depends on cognition and bipolar. Time-Based Coding :: [TOTAL MINUTES] spent with patient and on the chart (including review of chart, obtaining history, exam, reviewing outside data, placing orders, documenting exam and treatment plan, and counseling patient) on [DATE].
[2024-06-09 20:00] VITALS: BP 130/90; PULSE 109; RESP 20; TEMP 36.6; O2SAT 99
[2024-06-10] VITALS: BP 120/96; PULSE 106; RESP 21; TEMP 36.6; O2SAT 96
[2024-06-10] MEDS: CALCITONIN,SALMON 400 UNITS/2 ML MDV 300 UNITS SUBCUT (01:00)
[2024-06-10] MEDS: DEXTROSE 5% WATER 1,000 ML 200 ML IV ×2 (02:47→08:34)
[2024-06-10 04:00] VITALS: BP 122/88; PULSE 107; RESP 22; TEMP 36.6; O2SAT 96
[2024-06-10 05:53] LABS: Add Manual Diff / Slide Review NO; Basophils Absolute Auto 100 /uL (0-100); Basophils Percent Auto 0.6 % (0-2); Eosinophils Absolute Auto 200 /uL (0-450); Eosinophils Percent Auto 1.8 % (2-4); Hemoglobin 13.8 g/dL (13.5-17.5); Lymphocytes Absolute Auto 800 /uL (1100-4500); Lymphocytes Percent Auto 6.2 % (25-40); Mean Corpuscular HGB Conc 32.1 % (30-36); Mean Corpuscular Hemoglobin 25.1 PG (26-34); Mean Corpuscular Volume 77.9 fL (80-100); Monocytes Absolute Auto 900 /uL (0-900); Monocytes Percent Auto 6.5 % (3-14); Neutrophils Absolute Auto 11300 /uL (1500-7000); Neutrophils Percent Auto 84.9 % (50-75); Platelet Count 261 X10^3/uL (150-400); Red Blood Cell Count 5.52 X10^6/uL (4.5-5.9); Red Cell Distribution Width 15.6 % (11.6-14.8); White Blood Cell Count 13.3 X10^3/uL (4.5-11.0)
[2024-06-10 06:03] LABS: Alanine Aminotransferase 32 IU/L (<50); Albumin Globulin Ratio 1.2 (1.0-2.8); Alkaline Phosphatase 182 U/L (38-126); Aspartate Aminotransferase 36 IU/L (17-59); BUN Creatinine Ratio 9.3 (6-22); Bilirubin Total 0.7 mg/dL (0.2-1.3); Blood Urea Nitrogen 24 mg/dL (9-20); Calcium 10.9 mg/dL (8.4-10.2); Carbon Dioxide 20 mmol/L (22-32); Chloride 121 mmol/L (98-107); Estimated Glomerular Filt Rate 26 mL/min (>60); Globulin 3.4 g/dL (1.7-4.1); Glucose 160 mg/dL (80-110); HEMOLYSIS 19 (0-50); Potassium 3.9 mmol/L (3.4-5.1); Sodium 148 mmol/L (137-145); Total Protein 7.4 g/dL (6.3-8.2)
[2024-06-10 08:00] VITALS: BP 106/88; PULSE 107; RESP 18; TEMP 35.9; O2SAT 96
--- NOTE | 2024-06-10 08:32 | OT.IPNOTE ---
Pt not medically appropriate at this time and to discharge OT eval orders.
[2024-06-10] MEDS: HEPARIN 5,000 UNIT/ML VIAL 5000 UNIT SUBCUT ×2 (08:34→21:19)
[2024-06-10] MEDS: OLANZapine 10 MG VIAL 2.5 MG IM (09:16)
[2024-06-10] MEDS: HYDROMORPHONE 2 MG INJ IV (09:24)
--- NOTE | 2024-06-10 11:57 | SLP.IPNOTE ---
Chart reviewed and RN consulted. Pt failed nursing swallow screen and has been NPO since yesterday. Pt has recently received pain medications and has been fast asleep this morning. He did not arouse to [facility] attempt. Will follow-up in afternoon or tomorrow as schedule allows.
[2024-06-10 12:00] VITALS: BP 96/80; PULSE 101; RESP 14; TEMP 36.2; O2SAT 95
--- NOTE | 2024-06-10 13:44 | SLP.IPNOTE ---
Evaluation re-attempted in the afternoon. Per RN, pt has continued to sleep throughout the day and not waking. MEASUREMENT TECHNICIAN unable to arouse pt from sleep. Plan to re-assess alertness level tomorrow and discharge orders if pt unable to wake up as MEASUREMENT TECHNICIAN services would not be appropriate.
[2024-06-10] MEDS: DEXTROSE 5%-0.45% NS 1,000 ML 100 ML IV (15:15)
--- NOTE | 2024-06-10 15:19 | CM.DPNOTE ---
DCP Cont Reviewed chart. Patient discussed in multidisciplinary rounds. According to Dr Vallejo, continued medical management and work up needed. No transfer attempt at this time. [place] is currently on hold, Dr Velarde, psychiatrist, being consulted. Discharge plan remains in process. According to notes; spouse has a SNF preference of 1.) [facility] in [place] and 2.) [facility]. Referrals will be appropriate once medical plan of care is better known. CM team following clinical course closely. Need for discharge coordination anticipated. FAREED
[2024-06-10 16:00] VITALS: BP 106/55; PULSE 112; RESP 16; TEMP 36.4; O2SAT 97
--- NOTE | 2024-06-10 17:13 | P.PN_ITS ---
Subjective Subjective Interval history: Hospital course: The patient recently underwent a right hip replacement and [facility]. He returned home about 2 days ago to [place]. Once there he was found to have altered mental status, impulsive behavior, gait instability, and poor oral intake. Ultimately he was found in the floor by his . He was admitted for acute kidney injury with a creatinine of 3.2 as well as altered mental status and debilitation. He does have history of erratic behavior related to his bipolar and does take chronic lithium. He goes by the name Candelario. Subjective: patient is too encephalopathic today again. Sodium and calcium are slowly improving today. There is no additional information about his renal function, other than previous admission to [facility] where baseline Cr was noted at that time to be 1.8. It is not clear what his renal dysfunction was from at that time. He was more alert this morning but complained of severe hip pain and was given IV dilaudid and has slept much of the day today. Discussed with Dr. Velarde regarding psychiatry medications. Exam Vital Signs (past 8 hours): - 06/10/24 12:00 06/10/24 16:00 Temperature 97.1 F L 97.6 F Pulse Rate 101 H 112 H Respiratory Rate 14 16 Blood Pressure 96/80 106/55 L Pulse Oximetry 95 97 Oxygen Flow Rate 0 0 Oxygen Delivery Method Room Air Oxygen Flow Rate 0 Narrative Exam Narrative: no acute distress, snoring RRR no m/r/g CTA b/l lungs no edema b/l LE Objective Labs 06/10/24 05:00 06/10/24 05:00 Labs: Laboratory Results - last 24 hr 06/10/24 05:00 WBC 13.3 H RBC 5.52 Hgb 13.8 Hct 43.0 MCV 77.9 L MCH 25.1 L MCHC 32.1 RDW 15.6 H Plt Count 261 Neut % (Auto) 84.9 H Lymph % (Auto) 6.2 L [place] % (Auto) 6.5 Eos % (Auto) 1.8 L Baso % (Auto) 0.6 Neut # (Auto) 71627 H Lymph # (Auto) 800 L [place] # (Auto) 900 Eos # (Auto) 200 Baso # (Auto) 100 Sodium 148 H Potassium 3.9 Chloride 121 H Carbon Dioxide 20 L BUN 24 H Creatinine 2.57 H Estimated GFR 26 L BUN/Creatinine Ratio 9.3 Glucose 160 H Calcium 10.9 H Total Bilirubin 0.7 AST 36 ALT 32 Alkaline Phosphatase 182 H Total Protein 7.4 Albumin 4.0 Globulin 3.4 Albumin/Globulin Ratio 1.2 PFSH Medical History Occasional tremors Tinnitus Depression Anxiety Neuropathy De Quervain's tenosynovitis DJD (degenerative joint disease) HLD (hyperlipidemia) Septic arthritis (~03/2016) Herniated disc Surgical History History of total right knee replacement (05/25/19) Hx of appendectomy Hx of oral surgery (05/05/19) Hx of thumb surgery (~05/2017) History of ankle surgery Hx of arthroscopy of right knee (03/03/16) Social History household members: spouse and significant other Smoking Status: Never smoker alcohol intake: current Assessment & Plan Assessment & Plan narrative: 1. Acute metabolic encephalopathy, present on admission and active. 2. Volume depletion and acute kidney injury, present on admission and active. 3. Severe Hypernatremia, present on admission and active. 4. Hypercalcemia, present on admission 5. Bipolar with a history of lithium use, present on admission and active. Plan: -Now out of d5W in the hospital per pharmacy and nursing staff, with Na now improved to 148 will change to d5 1/2 NS fluids today. -continue calcitonin x4 doses, zometa x1 dose given 1/6. Calcium now down to 10.9 -PTH ordered and still pending. Though lithium can interfere and increase PTH levels. Vit D levels 31. [place] level was 1.2 on admit and 0.8 on repeat. Continue to hold lithium, psychiatry recommended stopping altogether. -consider discussion with nephrology and / or transfer depending on trend with electrolytes. If not able to correct furhter may need transfer for nephrology consultation. -hold chronic medications until MARTY improves. -MRI brain to rule out interval stroke was negative -Discussed with psychiatrist Dr. Velarde available here at [facility]. with his renal dysfunction he recommended stopping lithium. Until more alert recommended olanzapine 5 mg at bedtime and 2.5 mg daily for treatment of underlying bipolar disorder. If encephalopathy improving, will need updated recommendations for antipsychotics. -agitation well controlled with ativan but try to limit as much as possible with the above antipsychotics. -cr is continuing to improve today down to 2.57, with review of outside documentation previous baseline reported to be 1.8, though not entirely clear. Full code. is his proxy decision maker. Anticipate a 2 midnight hospital stay, the supports inpatient status. This is for treatment of MARTY, severe hypercalcemia, and metabolic encephalopathy. MAUREEN: Likely multiple more days in the hospital, possible transfer, likely SNF however depends on cognition and bipolar disorder Discussed with available psychiatrist as noted above. Patient does not have an outpatient psychiatrist. Time-Based Coding :: [TOTAL MINUTES] spent with patient and on the chart (including review of chart, obtaining history, exam, reviewing outside data, placing orders, documenting exam and treatment plan, and counseling patient) on [DATE].
[2024-06-10 20:00] VITALS: BP 127/71; PULSE 77; RESP 18; TEMP 37.1; O2SAT 99
[2024-06-10] MEDS: HYDROMORPHONE 2 MG INJ 1 MG IV (21:16)
[2024-06-10] MEDS: SODIUM CHLORIDE 0.9% FLUSH 10 ML IV (21:18)
[2024-06-10] MEDS: OLANZapine 10 MG VIAL 5 MG IM (21:18)
[2024-06-11] VITALS: BP 108/69; PULSE 106; RESP 16; TEMP 36.8; O2SAT 96
[2024-06-11] MEDS: DEXTROSE 5%-0.45% NS 1,000 ML 100 ML IV ×3 (00:36→18:42)
[2024-06-11 01:38] LABS: Calcium 12.2 mg/dL (8.6-10.2); Parathyroid Hormone, Intact 137 pg/mL (15-65)
[2024-06-11 04:00] VITALS: BP 107/72; RESP 17; TEMP 36.4; O2SAT 99
[2024-06-11 06:06] LABS: Add Manual Diff / Slide Review NO; Basophils Absolute Auto 0 /uL (0-100); Basophils Percent Auto 0.4 % (0-2); Eosinophils Absolute Auto 200 /uL (0-450); Eosinophils Percent Auto 1.4 % (2-4); Hematocrit 39.1 % (41-53); Hemoglobin 12.4 g/dL (13.5-17.5); Lymphocytes Absolute Auto 1000 /uL (1100-4500); Lymphocytes Percent Auto 8.1 % (25-40); Mean Corpuscular HGB Conc 31.8 % (30-36); Mean Corpuscular Hemoglobin 25.1 PG (26-34); Mean Corpuscular Volume 78.9 fL (80-100); Monocytes Absolute Auto 1100 /uL (0-900); Monocytes Percent Auto 8.5 % (3-14); Neutrophils Absolute Auto 10500 /uL (1500-7000); Neutrophils Percent Auto 81.6 % (50-75); Platelet Count 197 X10^3/uL (150-400); Red Blood Cell Count 4.95 X10^6/uL (4.5-5.9); Red Cell Distribution Width 15.6 % (11.6-14.8); White Blood Cell Count 12.9 X10^3/uL (4.5-11.0)
[2024-06-11 06:23] LABS: BUN Creatinine Ratio 12.5 (6-22); Blood Urea Nitrogen 37 mg/dL (9-20); Calcium 9.2 mg/dL (8.4-10.2); Carbon Dioxide 17 mmol/L (22-32); Chloride 121 mmol/L (98-107); Estimated Glomerular Filt Rate 22 mL/min (>60); Glucose 129 mg/dL (80-110); Sodium 143 mmol/L (137-145)
[2024-06-11 06:35] LABS: HEMOLYSIS 89 (0-50); Potassium 4.7 mmol/L (3.4-5.1)
[2024-06-11 08:00] VITALS: BP 123/81; PULSE 107; RESP 24; TEMP 35.9; O2SAT 97
[2024-06-11] MEDS: HEPARIN 5,000 UNIT/ML VIAL 5000 UNIT SUBCUT ×2 (09:16→20:42)
[2024-06-11] MEDS: OLANZapine 10 MG VIAL 2.5 MG IM (09:16)
[2024-06-11] MEDS: SODIUM CHLORIDE 0.9% FLUSH 10 ML IV (09:16)
[2024-06-11] MEDS: HYDROMORPHONE 1 MG INJ IV ×2 (09:32→16:36)
[2024-06-11] MEDS: LORazepam 2 MG/ML INJ 1 MG IV (10:01)
--- NOTE | 2024-06-11 10:34 | DIET.CONS ---
Dietary Consultation Note Admission Date: 06/06/2024 13:26 Assessment: 74 y M admitted for AMS/MARTY/hypernatremia/hypercalcemia. RD screened for LOS. Per hospitalist in rounds this morning- pt up and talking and ST will re-eval pt today and hopeful to get pt on diet order. Day 5 of inadequate oral intakes. Pt NPO day 2, but <25% recorded PO intakes when on diet order from 06/06-06/10. Was getting d5W. Ht: 185.42 cm Wt: 175.2 kg (likely inaccurate weight that was written in lb instead of kg- weight likely 79.5 kg - spoke to RN who agreed pt did not appear to be this weight and changed) BMI: 23.1 (adjusted with actual weight 79.5 kg) UBW: 82.554 kg on 05/12/24 Last BM: () MNA: 13 Viet Score: 15 Diet: 06/10/24 10:19 NPO Diet Diet Modifications: failed nurse swallow screen NPO Type: NPO except for Ice Chips Nutrition Percent Meal Consumed pt is npo 06/10/24 18:00 Labs: RBC 4.95 X10^6/uL (4.5-5.9) 06/11/24 05:54 Hgb 12.4 g/dL (13.5-17.5) L 06/11/24 05:54 Hct 39.1 % (41-53) L 06/11/24 05:54 Creatinine 2.97 mg/dL (0.66-1.25) H 06/11/24 05:54 Nutrition Diagnosis: Inadequate oral intakes r/t altered mental status aeb pt NPO per ST currently Interventions: 1. Will continue to follow -per rounds ST will re-eval today EER: 2000 kcals (25 kcals/kg per BMI) 80 g protein (1g/kg per age) Monitoring/Evaluations: diet order per ST Electronically Signed by: Gisela Blair 06/11/24 10:34 Clinical Dietitian [address] [id number]
[2024-06-11 12:00] VITALS: PULSE 111; RESP 20; O2SAT 97
--- NOTE | 2024-06-11 13:54 | P.PN_ITS ---
Subjective Subjective Interval history: Hospital course: The patient recently underwent a right hip replacement and had a [facility] stay. He returned home about 2 days ago to [place]. Once there he was found to have altered mental status, impulsive behavior, gait instability, and poor oral intake. Ultimately he was found in the floor by his . He was admitted for acute kidney injury with a creatinine of 3.2 as well as altered mental status and debilitation. He does have history of erratic behavior related to his bipolar and does take chronic lithium. He goes by the name Candelario. Subjective: patient is too encephalopathic today again and failed swallow evaluation. Sodium and calcium are slowly improving today. Cr bumped to 2.97. There is no additional information about his renal function, other than previous admission to [facility] where baseline Cr was noted at that time to be 1.8. It is not clear what his renal dysfunction was from at that time. He was more alert this morning, oriented to name and answering questions, however answers were tangential and occasionally not making sense. Exam Vital Signs (past 8 hours): - 06/11/24 08:00 06/11/24 12:00 Temperature 96.7 F L Pulse Rate 107 H 111 H Respiratory Rate 24 20 Blood Pressure 123/81 Pulse Oximetry 97 97 Oxygen Flow Rate 0 0 Oxygen Delivery Method Room Air Oxygen Flow Rate 0 Narrative Exam Narrative: no acute distress, snoring RRR no m/r/g CTA b/l lungs no edema b/l LE Objective Labs 06/11/24 05:54 06/11/24 05:54 Labs: Laboratory Results - last 24 hr 06/08/24 06/11/24 08:21 05:54 WBC 12.9 H RBC 4.95 Hgb 12.4 L Hct 39.1 L MCV 78.9 L MCH 25.1 L MCHC 31.8 RDW 15.6 H Plt Count 197 Neut % (Auto) 81.6 H Lymph % (Auto) 8.1 L [place] % (Auto) 8.5 Eos % (Auto) 1.4 L Baso % (Auto) 0.4 Neut # (Auto) 42236 H Lymph # (Auto) 1000 L [place] # (Auto) 1100 H Eos # (Auto) 200 Baso # (Auto) 0 Sodium 143 Potassium 4.7 Chloride 121 H Carbon Dioxide 17 L BUN 37 H Creatinine 2.97 H Estimated GFR 22 L BUN/Creatinine Ratio 12.5 Glucose 129 H Calcium 9.2 PTH Intact 137 H Calcium (PTH Intact) 12.2 H PTH Intact Intraop Comment [facility] Medical History Occasional tremors Tinnitus Depression Anxiety Neuropathy De Quervain's tenosynovitis DJD (degenerative joint disease) HLD (hyperlipidemia) Septic arthritis (~03/2016) Herniated disc Surgical History History of total right knee replacement (05/25/19) Hx of appendectomy Hx of oral surgery (05/05/19) Hx of thumb surgery (~05/2017) History of ankle surgery Hx of arthroscopy of right knee (03/03/16) Social History household members: spouse and significant other Smoking Status: Never smoker alcohol intake: current Assessment & Plan Assessment & Plan narrative: 1. Acute metabolic encephalopathy, present on admission and active. 2. Volume depletion and acute kidney injury, present on admission and active. 3. Severe Hypernatremia, present on admission and active. 4. Hypercalcemia, present on admission 5. Bipolar with a history of lithium use, present on admission and active. Plan: -Now out of d5W in the hospital per pharmacy and nursing staff, with Na now improved to 148 will change to d5 1/2 NS fluids today. -continue calcitonin x4 doses, zometa x1 dose given 1/6. Calcium now down to 9.2 -PTH ordered and was elevated at 137. Though lithium can interfere and increase PTH levels. Vit D levels 31. [place] level was 1.2 on admit and 0.8 on repeat. Continue to hold lithium, psychiatry recommended stopping altogether. -consider discussion with nephrology and / or transfer depending on trend with electrolytes or if cr continuing to worsen tomorrow. If not able to correct furhter may need transfer for nephrology consultation. May need TPN if encephlalopathy continues any longer inhibiting his ability to swallow. -hold chronic medications until MARTY improves. -MRI brain to rule out interval stroke was negative -Discussed with psychiatrist Dr. Velarde available here at [place]. with his renal dysfunction he recommended stopping lithium. Until more alert recommended IM olanzapine 5 mg at bedtime and 2.5 mg daily for treatment of underlying bipolar disorder. If encephalopathy improving, will need updated recommendations for antipsychotics. -agitation well controlled with ativan but try to limit as much as possible with the above antipsychotics. - review of outside documentation previous baseline reported to be 1.8, though not entirely clear. Patient referenced today other providers trying to change his lithium in the past, though his history is not entirely reliable due to continue encephalopathy. Full code. is his proxy decision maker. Anticipate a 2 midnight hospital stay, the supports inpatient status. This is for treatment of MARTY, severe hypercalcemia, and metabolic encephalopathy. MAUREEN: Likely multiple more days in the hospital, possible transfer, likely SNF however depends on cognition and bipolar disorder Discussed with available psychiatrist as noted above. Patient does not have an outpatient psychiatrist. Time-Based Coding :: [TOTAL MINUTES] spent with patient and on the chart (including review of chart, obtaining history, exam, reviewing outside data, placing orders, documenting exam and treatment plan, and counseling patient) on [DATE].
[2024-06-11 16:00] VITALS: BP 118/80; PULSE 101; RESP 18; TEMP 36.7; O2SAT 100
--- NOTE | 2024-06-11 16:14 | SLP.IPNOTE ---
Clinical swallow evaluation attempted. Chart reviewed and RN consulted prior to entering room. Pt more alert today and was able to answer questions and follow simple directions earlier in day. Pt falling in and out of sleep when positioned fully upright in bed. He mumbled in response to STABLE HAND questions and did not follow 1-step directions. He would awake for a second or two then fall asleep. He did not respond to STABLE HAND placing ice and water on his lips in attempt to awaken him and initiate swallow reflex. Given minimal alertness today, recommend pt remain NPO. STABLE HAND to re-attempt CSE tomorrow pending progress with overall health status, though may discharge order if no improvements. MD and RN aware.
--- NOTE | 2024-06-11 18:49 | PC.NURSE ---
This RN noted new 1/2 dollar sized intact blister on R heel. Placed allevant dressing over blister and placed booties on both heels to alleviate pressure from heels. Patient unable to reliably follow commands and is often tossing and moving his legs in bed. He does not tolerate pillows under his legs, readjusted and replaced booties several times. Will continue to monitor.
[2024-06-11 20:00] VITALS: BP 120/80; PULSE 82; RESP 18; TEMP 36.6; O2SAT 96
[2024-06-11] MEDS: OLANZapine 10 MG VIAL 5 MG IM (20:42)
[2024-06-12] VITALS: BP 149/95; PULSE 112; RESP 22; TEMP 36.6; O2SAT 98
[2024-06-12] MEDS: DEXTROSE 5%-0.45% NS 1,000 ML 100 ML IV (03:36)
[2024-06-12 04:00] VITALS: BP 127/82; PULSE 89; RESP 18; TEMP 36.6; O2SAT 97
--- NOTE | 2024-06-12 07:46 | PM.PN.1 ---
Subjective Subjective Interval history: Summary: The patient recently underwent a right hip replacement and had a correction facility stay. He returned home about 2 days ago to [place]. Once there he was found to have altered mental status, impulsive behavior, gait instability, and poor oral intake. Ultimately he was found in the floor by his . He was admitted for acute kidney injury with a creatinine of 3.2 as well as altered mental status and debilitation. He does have history of erratic behavior related to his bipolar and does take chronic lithium. He goes by the name Candelario. S: He is mentally more clear. Still confused. No nausea. He is not oriented to place today. His speech is much more fluent. Exam Vital Signs (past 8 hours): - 06/12/24 00:00 06/12/24 04:00 Temperature 97.9 F 97.9 F Pulse Rate 112 H 89 Respiratory Rate 22 18 Blood Pressure 149/95 H 127/82 Pulse Oximetry 98 97 Oxygen Flow Rate 0 0 Oxygen Delivery Method Room Air Oxygen Flow Rate 0 Narrative Exam Narrative: NAD, alert and oriented to person. Fluent speech. He was still has tangential speech and thoughts. He was not a she was, he appears to be relatively calm. Lungs are clear, normal rate and effort. Heart is regular, no murmur gallop or rub. Abdomen is soft, non distended. Extremities are free of edema. Objective Labs 06/11/24 05:54 06/11/24 05:54 [facility] Medical History Occasional tremors Tinnitus Depression Anxiety Neuropathy De Quervain's tenosynovitis DJD (degenerative joint disease) HLD (hyperlipidemia) Septic arthritis (~03/2016) Herniated disc Surgical History History of total right knee replacement (05/25/19) Hx of appendectomy Hx of oral surgery (05/05/19) Hx of thumb surgery (~05/2017) History of ankle surgery Hx of arthroscopy of right knee (03/03/16) Social History household members: spouse and significant other Smoking Status: Never smoker alcohol intake: current Assessment & Plan Assessment & Plan narrative: 1. Acute metabolic encephalopathy, present on admission and improving. 2. Volume depletion and acute kidney injury, present on admission and resolved. 3. Severe Hypernatremia, present on admission and improve. 4. Hypercalcemia, present on improved 5. Bipolar with a history of lithium use, present on admission and active. 6. Probable component of lithium toxicity. Plan: -Now out of d5W in the hospital per pharmacy and nursing staff, with Na now improved to 148 will change to d5 1/2 NS fluids today. -was given calcitonin x4 doses, zometa x1 dose given 1/. Calcium now down to 9.2 -PTH ordered and was elevated at 137. Though lithium can interfere and increase PTH levels. Vit D levels 31. [place] level was 1.2 on admit and 0.8 on repeat. Continue to hold lithium, psychiatry recommended stopping altogether. -consider discussion with nephrology and / or transfer depending on trend with electrolytes or if cr continuing to worsen tomorrow. If not able to correct furhter may need transfer for nephrology consultation. May need TPN if encephlalopathy continues any longer inhibiting his ability to swallow. -hold chronic medications until MARTY improves. This includes lithium. -MRI brain to rule out interval stroke was negative -Discussed with psychiatrist Dr. Velarde available here at [place]. with his renal dysfunction he recommended stopping lithium. Until more alert recommended IM olanzapine 5 mg at bedtime and 2.5 mg daily for treatment of underlying bipolar disorder. If encephalopathy improving, will need updated recommendations for antipsychotics. -agitation well controlled with ativan but try to limit as much as possible with the above antipsychotics. - review of outside documentation previous baseline reported to be 1.8, though not entirely clear. Patient referenced today other providers trying to change his lithium in the past, though his history is not entirely reliable due to continue encephalopathy. Full code. is his proxy decision maker. He lives on [facility]. Anticipate a 2 midnight hospital stay, the supports inpatient status. This is for treatment of MARTY, severe hypercalcemia, and metabolic encephalopathy. MAUREEN: Likely June 15 to [facility] if his mental status continues to improve. Time-Based Coding :: [TOTAL MINUTES] spent with patient and on the chart (including review of chart, obtaining history, exam, reviewing outside data, placing orders, documenting exam and treatment plan, and counseling patient) on [DATE].
[2024-06-12 10:55] VITALS: PULSE 118; RESP 20; TEMP 36.8; O2SAT 96
--- NOTE | 2024-06-12 11:27 | ST.IPCSEOM ---
Visit Care Team Role Provider Type Joo Wilson DO Primary Care Provider Non-Staff Specialty: Family Practice Address: [address] [place] [address], [place], [address] Email: Lambert Gregory MD Admit Provider Physician Attending Provider Referring Provider Specialty: Internal Medicine Address: [address] [place] [address], [id number] Email: [email or web address] Current Diagnoses Acute kidney failure, unspecified (06/06/24) Past Medical History (Last Reviewed 06/12/24 @ 07:47 by Lambert Gregory MD) Anxiety (Medical) De Quervain's tenosynovitis (Medical) Depression (Medical) DJD (degenerative joint disease) (Medical) Herniated disc (Medical) HLD (hyperlipidemia) (Medical) Neuropathy (Medical) Occasional tremors (Medical) hands, states that he sometimes has 'twitching' in his 'whole body' Septic arthritis (Medical ~03/2016) Right knee Tinnitus (Medical) Speech-Language Pathology Swallow Evaluation SOLE POLISHER Clinical Swallow Evaluation Start: 06/12/24 10:50 Freq: Status: Active Protocol: Document 06/12/24 10:52 SS (Rec: 06/12/24 11:26 SS [id number]) Clinical Swallow Evaluation Session Time Visit Start Time 09:55 Visit Stop Time 10:30 Total Visit Minutes 35 Visit Information Visit Number [address] Lambert Gregory Reason for Referral NPO after failing nursing screen Setting Assessment Location Acute Care Visit Type Note Type Initial evaluation Next Note Type Next Note Type Treatment Note Patient Information Identification Type Name History Clay ?Candelario? Jose is 74 year-old male referred for a clinical swallow evaluation. Per H&P, ?The patient is a 74- year-old male with history of bipolar who was discharged from the hospital after a hip replacement on May 15. The patient was then at [facility] for rehabilitation at residential facility. He had difficulties over there with altered mental status and intermittent erratic behavior . Ultimately he discharged home several days ago to [place]. His discovered he was in a diaper there and had a very different mental baseline then before his surgery. She found that he would impulsive in erratic behaviors and altered sleep cycles and would get up and down frequently. He also had some difficulty eating on his own and was not clearly hydrating. She awoke this morning and found him lying on the floor and called the ambulance. He was brought to the emergency department on Saturday and there underwent evaluation revealing MARTY, volume depletion, and hypercalcemia. CT scans were obtained of the head, spine, chest, abdomen, and pelvis were all unremarkable for acute changes. He was transferred here for further evaluation. He was take lithium chronically. He denies missing medications but it was somewhat unkempt and disoriented mentally. He can really provide no further coherent history and all of the history above is obtained from his by telephone.? PMHx includes depression, anxiety, neuropathy, De Quervain's tenosynovitis, degenerative joint disease, and hyperlipidemia. Unable to obtain history re: prior swallowing function, GERD, weight loss, given pt?s current cognitive status, though none noted during chart review. Subjective Observations Pt more alert today and responsive to auditory stimuli . Able to answer simple questions with a yes or no (e. g., name, age, etc). Unable to provide case history or respond to more complex questions and unable to follow simple 1-step directions to complete OME despite max verbal, visual, and tactile cueing. Reported by Patient/Caregiver Other Symptoms Coughing,Difficulty swallowing liquids,Difficulty swallowing pills,Difficulty swallowing solids Current Diet NPO Baseline Feeding Method Dependent for feeding Results Per dietary note 06/11, Day 5 of inadequate oral intakes. Pt NPO day 2, but <25% recorded PO intakes when on diet order from 06/06-06/10. Pt did not attempt to feed self or lift cup to lips and required complete assistance from SOLE POLISHER. Additionally, self-feeding limited by impulsively and reduced awareness for safety with intake. The IDDSI Framework Protocol: IDDSI.1 Objective Assessment Mental Status Responsive,Confused,Impulsive Oral Integrity Thrush,Xerostomia/Dry mouth Dentition Within normal limits Lip Function Within normal limits Observation of Lips at Rest Symmetrical Tongue Function Within normal limits Observations of Tongue at Rest Within normal limits Jaw Function Within normal limits Observation of Jaw at Rest Within normal limits Jaw Opening Within normal limits Jaw Closing Within normal limits Nasality Within normal limits Respiratory Sufficiency Within normal limits Comment Unable to complete full OME given pt difficulty with following 1-step directions, though able to observe structures at rest and during PO intake. Lingual, labial, and jaw function appeared to be WNL, with ROM and strength adequate for functional eating and drinking. Dentition natural and in adequate condition for age. Oral care completed prior to intake Food and Liquid Trials Position During Assessment Upright (90 degrees) Liquids Trialed Ice chips,Thin (IDDSI 0) Solid Trials Purred (IDDSI 4),Minced & Moist (IDDSI 5) Administration Type Tea spoon,Cup single sip, Controlled cup sip,Dependent feeding Oral Impairment Within functional limits Oral Phase Comments Oral phase is WFL. Good containment; normal rotary mastication. AP transport and manipulation appeared mildly slowed and effortful. No abnormal oral residue observed . Pharyngeal Impairment Moderately impaired Pharyngeal Phase Comments Swallow trigger timing appeared slightly delayed. Present laryngeal elevation and anterior propulsion via palpation. Inconsistent overt s/sx of aspiration were observed with ice chips and thin liquids. During trials of ice chips he exhibited overt s/sx of aspiration re: coughing and throat clearing in 3/10 trials. During trials of thin liquid via tsp, he exhibited overt s/sx of aspiration re: coughing and throat clearing in 1/7 trials. Suspect this is a cough reflex due to having minimal to no po intake for at least 6 days resulting in swallow decompensation. No overt s/sx of aspiration noted as assessment progressed with controlled cups sips of thin liquid and puree and minced and moist textures via tsp. Cough strength was judged to be strong. Fatigue/Endurance Endurance WNL The IDDSI Framework Protocol: IDDSI.1 Findings Swallowing Function Oropharyngeal phase dysphagia Severity of Swallow Impairment Mildly-moderately impaired Contributing Factors to Swallow Reduced alertness or attention Impairment ,Difficulty following directions,Reduced oral strength/coordination/ sensation,Mastication inefficiency,Impaired oral- pharyngeal transport,Delayed swallow initiation,Impaired airway protection Prognosis Fair Based on Cognitive status,Comorbidities ,Duration of symptoms/severity Comment Pt presented with mild- moderate oropharyngeal dysphagia. Oral phase is characterized by slow bolus manipulation and appears disorganized. Pharyngeal phase cannot be objectively assessed at bedside though subjectively appeared effortful and pt required 2-3 swallows per bolus at times. Pt demonstrated inconsistent s /sx of aspiration with ice chips and thin liquids via tsp re: throat clearing and coughing, though no overt s/sx as PO intake continued with thin liquids via cup sip and puree and minced and moist textures. Based on current waxing and waning cognitive status, impaired safety awareness, and overall immune function, pt remains at a risk of pulmonary compromise associated with aspiration at this time. Given no overt s/sx of aspiration with SOLE POLISHER controlling sip and bite size, recommend initiation of PO diet of thin liquids via cup ( to minimize impulsiveness with ip size or use of sequential sips) and minced and moist diet with 1:1 supervision for all PO intake. Recommend continuation of BID oral care to promote oral hygiene. Pt will benefit from 1:1 assist for self-feeding at this time. Will continue to follow up. If pt unable to safely tolerate current diet or shows increased overt s/sx of aspiration with intake, recommend MBSS in house to further assess swallow pathophysiology, pending additional monitoring. RN and MD aware of assessment results and SOLE POLISHER recommendations. Impact on Safety and Functioning Risk for aspiration,Risk for inadequate nutrition/hydration Recommendations Instrumental Assessment Yes Swallowing Treatment Yes Frequency Once a day Recommended Solids Minced & Moist (IDDSI 5) Recommended Liquids Thin (IDDSI 0) Other Recommendations Thin liquids via controlled cup sips only. 1:1 supervision with all PO intake given cognitive status and safety concerns. Stop Po intake if increased overt s/sx of aspiration noted. Safety Precautions/Swallowing Supervision needed for all Recommendations meals,1 to 1 close supervision ,Feed only when alert,Reduce distractions,Remain upright ( 90 degrees) during all oral intake,Upright position at least 30 minutes after meals, Small bites and sips when eating,Slow rate; swallow between bites,No straw,1 to 1 feeding assistance,Strict oral care after intake Medication Recommendations Whole in Carrier,Crushed in Carrier,One at a Time Discharge Recommendations [facility] facility, Inpatient rehab facility Referrals Recommended Referrals Dietary Education Patient/Caregiver Education Described results of evaluation Goals Short-term Goals 1. Patient will tolerate IDDSI 6 (soft and bite-sized) with no clinical s/sx of aspiration in 100% of opportunities in order to consume least restrictive diet texture and meet nutrition needs. 2. Patient will tolerate thin liquids with no overt s/sx of aspiration in 100% of opportunities in order to order to meet primary hydration needs nd reduce risk of aspiration pneumonia. 3. Patient will complete MBSS to further evaluate swallowing pathophysiology and determine next steps in POC. Long-term Goals Patient will safely tolerate least restrictive diet consistency to allow for safe consumption of daily meals without s/sx of aspiration.
--- NOTE | 2024-06-12 12:05 | DIET.PN1 ---
Dietary Progress Note Assessment: Diet advanced per ST. Will f/u on PO intakes and order ONS as needed dependent on intakes noting renal function. Ht: 185.42 cm Wt: 79.379 kg BMI: 23 Last BM: () MNA: 13 Viet Score: 15 Diet: 06/12/24 Lunch Dysphagia Diet Diet Modifications: Controlled cup sips, 1:1 supervision and assist Food Texture: Level 5 - Minced & Moist Liquid Consistency: Level 0 - Thin Nutrition Percent Meal Consumed pt is NPO 06/11/24 18:00 Percent Meal Consumed pt is npo 06/10/24 18:00 Labs: RBC 4.95 X10^6/uL (4.5-5.9) 06/11/24 05:54 Hgb 12.4 g/dL (13.5-17.5) L 06/11/24 05:54 Hct 39.1 % (41-53) L 06/11/24 05:54 Creatinine 2.97 mg/dL (0.66-1.25) H 06/11/24 05:54 *corrected EER: 2000 kcals (25 kcals/kg) 50-55 g protein (renal function) Electronically Signed by: Gisela Blair 06/12/24 12:05 Clinical Dietitian [address] [address]
[2024-06-12 14:00] VITALS: BP 142/73; PULSE 112; RESP 17; TEMP 36.6; O2SAT 99
--- NOTE | 2024-06-12 15:19 | CM.DPNOTE ---
DCP Cont According to Meghana at , can likely accept patient back Saturday if patient is medically ready for DC. Dr Gergory anticipates MAUREEN 06/15, back to if mentation continues to improve. Plan: 06/15, coordinate with spouse. PASRR needed. FAREED
[2024-06-12] MEDS: OXYCODONE IR 5 MG TABLET PO (17:16)
[2024-06-12 18:00] VITALS: PULSE 112; RESP 16; O2SAT 97
[2024-06-12 20:00] VITALS: BP 112/75; PULSE 111; RESP 16; TEMP 36.6; O2SAT 100
[2024-06-12] MEDS: HEPARIN 5,000 UNIT/ML VIAL 5000 UNIT SUBCUT (20:10)
[2024-06-12] MEDS: OLANZapine 10 MG VIAL 5 MG IM (20:11)
[2024-06-13] VITALS: BP 131/101; PULSE 115; RESP 16; TEMP 36.6; O2SAT 100
[2024-06-13 04:00] VITALS: BP 138/102; PULSE 109; RESP 16; TEMP 36.5; O2SAT 100
[2024-06-13 05:22] LABS: Add Manual Diff / Slide Review NO; Basophils Absolute Auto 100 /uL (0-100); Basophils Percent Auto 0.4 % (0-2); Eosinophils Absolute Auto 0 /uL (0-450); Eosinophils Percent Auto 0.3 % (2-4); Hematocrit 44.2 % (41-53); Hemoglobin 14.1 g/dL (13.5-17.5); Lymphocytes Absolute Auto 1300 /uL (1100-4500); Lymphocytes Percent Auto 8.5 % (25-40); Mean Corpuscular HGB Conc 31.9 % (30-36); Mean Corpuscular Volume 78.4 fL (80-100); Monocytes Absolute Auto 1000 /uL (0-900); Monocytes Percent Auto 6.4 % (3-14); Neutrophils Absolute Auto 12800 /uL (1500-7000); Neutrophils Percent Auto 84.4 % (50-75); Platelet Count 276 X10^3/uL (150-400); Red Blood Cell Count 5.64 X10^6/uL (4.5-5.9); Red Cell Distribution Width 15.9 % (11.6-14.8); White Blood Cell Count 15.2 X10^3/uL (4.5-11.0)
[2024-06-13] MEDS: ACETAMINOPHEN 325 MG TABLET 650 MG PO (05:34)
[2024-06-13 05:35] LABS: BUN Creatinine Ratio 17.3 (6-22); Blood Urea Nitrogen 57 mg/dL (9-20); Calcium 9.7 mg/dL (8.4-10.2); Carbon Dioxide 15 mmol/L (22-32); Estimated Glomerular Filt Rate 19 mL/min (>60); Glucose 124 mg/dL (80-110); HEMOLYSIS 38 (0-50); Potassium 4.2 mmol/L (3.4-5.1)
[2024-06-13 06:02] LABS: Chloride 134 mmol/L (98-107); Sodium 160 mmol/L (137-145)
[2024-06-13] MEDS: DEXTROSE 5% WATER 1,000 ML 100 ML IV ×2 (06:55→15:52)
[2024-06-13 08:00] VITALS: BP 142/93; PULSE 104; RESP 12; TEMP 36.2
[2024-06-13] MEDS: LORazepam 2 MG/ML INJ 1 MG IV (10:45)
--- NOTE | 2024-06-13 11:59 | PM.PN.1 ---
Subjective Subjective Date Patient Seen: 06/13/24 Time Patient Seen: 08:33 Interval history: Summary: The patient recently underwent a right hip replacement and had a nursing home facility stay. He returned home about 2 days ago to [place]. Once there he was found to have altered mental status, impulsive behavior, gait instability, and poor oral intake. Ultimately he was found in the floor by his . He was admitted for acute kidney injury with a creatinine of 3.2 as well as altered mental status and debilitation. He does have history of erratic behavior related to his bipolar and does take chronic lithium. He goes by the name Candelario. S: The patient is sitting up drinking a supplemental calories during with nursing. He otherwise appears confused, weak and rambling. Exam Vital Signs (past 8 hours): - 06/13/24 04:00 06/13/24 07:00 06/13/24 08:00 Temperature 97.7 F 97.1 F L Pulse Rate 109 H 104 H Respiratory Rate 16 12 Blood Pressure 138/102 H 142/93 H Pulse Oximetry 100 Oxygen Delivery Method Room Air Oxygen Flow Rate 0 Oxygen Delivery Method Room Air Oxygen Flow Rate 0 Narrative Exam Narrative: NAD, alert and oriented to person. Fluent speech. He was still has tangential speech and thoughts, calm. Lungs are clear, normal rate and effort. Heart is regular, no murmur gallop or rub. Abdomen is soft, non distended. Extremities are free of edema. Objective Labs 06/13/24 04:38 06/13/24 13:50 Labs: Laboratory Results - last 24 hr 06/13/24 04:38 WBC 15.2 H RBC 5.64 Hgb 14.1 Hct 44.2 MCV 78.4 L MCH 25.0 L MCHC 31.9 RDW 15.9 H Plt Count 276 Neut % (Auto) 84.4 H Lymph % (Auto) 8.5 L [place] % (Auto) 6.4 Eos % (Auto) 0.3 L Baso % (Auto) 0.4 Neut # (Auto) 80079 H Lymph # (Auto) 1300 [place] # (Auto) 1000 H Eos # (Auto) 0 Baso # (Auto) 100 Sodium 160 H* D Potassium 4.2 Chloride 134 H* Carbon Dioxide 15 L BUN 57 H Creatinine 3.30 H Estimated GFR 19 L BUN/Creatinine Ratio 17.3 Glucose 124 H Calcium 9.7 PFSH Medical History Anxiety De Quervain's tenosynovitis Depression DJD (degenerative joint disease) Herniated disc HLD (hyperlipidemia) Neuropathy Occasional tremors Septic arthritis (~03/2016) Tinnitus Surgical History History of ankle surgery History of 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 Acute metabolic encephalopathy, present on admission and improving. 2. Volume depletion and acute kidney injury, present on admission and resolved. 3. Severe Hypernatremia, present on admission and worsened today. 4. Hypercalcemia, present on improved 5. Bipolar with a history of lithium use, present on admission and active. 6. Probable component of lithium toxicity. Plan: -elevated this morning but trending down on recheck. Continue D5W fluids today. -was given calcitonin x4 doses, zometa x1 dose given 1/. Calcium now down to 9.2 -PTH ordered and was elevated at 137. Though lithium can interfere and increase PTH levels. Vit D levels 31. [place] level was 1.2 on admit and 0.8 on repeat. Continue to hold lithium, psychiatry recommended stopping altogether. -hold chronic medications until MARTY improves. -MRI brain to rule out interval stroke was negative -Discussed with psychiatrist Dr. Velarde available here at [facility]. with his renal dysfunction he recommended stopping lithium. Until more alert recommended IM olanzapine 5 mg at bedtime and 2.5 mg daily for treatment of underlying bipolar disorder. If encephalopathy improving, will need updated recommendations for antipsychotics. -agitation well controlled with ativan but try to limit as much as possible with the above antipsychotics. - review of outside documentation previous baseline reported to be 1.8, though not entirely clear. Patient referenced today other providers trying to change his lithium in the past, though his history is not entirely reliable due to continue encephalopathy. Full code. is his proxy decision maker. He lives on [facility]. She will be visiting tomorrow. Anticipate a 2 midnight hospital stay, the supports inpatient status. This is for treatment of MARTY, severe hypercalcemia, and metabolic encephalopathy. MAUREEN: Likely June [address] [facility] nursing [facility] if his mental status continues to improve. PROFEE Charge codes Subsequent inpatient/observation care: 61667
[2024-06-13 12:00] VITALS: BP 123/81; PULSE 107; RESP 12; TEMP 36.3; O2SAT 96
[2024-06-13 14:08] LABS: BUN Creatinine Ratio 17.8 (6-22); Blood Urea Nitrogen 61 mg/dL (9-20); Calcium 9.2 mg/dL (8.4-10.2); Carbon Dioxide 16 mmol/L (22-32); Estimated Glomerular Filt Rate 18 mL/min (>60); Glucose 128 mg/dL (80-110); HEMOLYSIS < 15 (0-50); Potassium 4.1 mmol/L (3.4-5.1); Sodium 156 mmol/L (137-145)
[2024-06-13 14:19] LABS: Chloride 128 mmol/L (98-107)
--- NOTE | 2024-06-13 15:47 | CM.DPNOTE ---
DCP note EQUIPMENT INSTALLER reviewed EMR November from [facility] has tentative acceptance planned for Saturday, time pending. PASRR needed, complete closer to dc. Per Esequiel from [facility], no bed availability at this time. Per speech eval, rec 1:1 feeds, minced/moist. no PT/OT evals since admission due to pt not being appropriate enough to work with PT/OT. Pt currently needing mitts due to pulling out IVs. EQUIPMENT INSTALLER had lengthy conversation with spouse on phone. attempted to answer questions to best of ability. directed spouse to provider for medical questions re: kidney function, eating, and bipolar medication. spouse plans to look on medicare.gov website for alternatives to [facility]. spouse plans to visit pt in hospital tomorrow, [place] [address] from [place], here around 1400. Hopeful to meet with provider and SW in room. EQUIPMENT INSTALLER updated provider, in agreement to meet with pt spouse in room when she arrives. P: Medical POC continues. likely dc to SNF once pt is medically cleared, [facility] can accept Saturday. PASRR needed, add additional med changes as needed. likely will need PT/OT evals. CM team will continue to follow closely AMRITA Lowry
[2024-06-13 16:00] VITALS: BP 144/87; PULSE 83; RESP 18; TEMP 36.6; O2SAT 91
[2024-06-13 20:00] VITALS: BP 144/93; PULSE 103; RESP 14; TEMP 36.8; O2SAT 99
[2024-06-13] MEDS: HEPARIN 5,000 UNIT/ML VIAL 5000 UNIT SUBCUT (21:47)
[2024-06-13] MEDS: OLANZapine 10 MG VIAL 5 MG IM (21:47)
[2024-06-13] MEDS: SODIUM CHLORIDE 0.9% FLUSH 10 ML IV (21:48)
[2024-06-14] VITALS: BP 147/92; PULSE 104; RESP 14; TEMP 36.8; O2SAT 100
[2024-06-14 04:00] VITALS: BP 147/92; PULSE 108; RESP 16; TEMP 36.4; O2SAT 98
[2024-06-14] MEDS: HALOPERIDOL 5 MG/ML VIAL IM (05:39)
[2024-06-14 06:26] LABS: Add Manual Diff / Slide Review NO; Basophils Absolute Auto 100 /uL (0-100); Basophils Percent Auto 0.9 % (0-2); Eosinophils Absolute Auto 100 /uL (0-450); Hematocrit 40.4 % (41-53); Lymphocytes Absolute Auto 1200 /uL (1100-4500); Lymphocytes Percent Auto 9.4 % (25-40); Mean Corpuscular HGB Conc 32.3 % (30-36); Mean Corpuscular Hemoglobin 25.1 PG (26-34); Mean Corpuscular Volume 77.9 fL (80-100); Monocytes Absolute Auto 900 /uL (0-900); Monocytes Percent Auto 6.9 % (3-14); Neutrophils Absolute Auto 10500 /uL (1500-7000); Neutrophils Percent Auto 81.8 % (50-75); Platelet Count 251 X10^3/uL (150-400); Red Blood Cell Count 5.19 X10^6/uL (4.5-5.9); Red Cell Distribution Width 16.4 % (11.6-14.8); White Blood Cell Count 12.8 X10^3/uL (4.5-11.0)
[2024-06-14 06:42] LABS: BUN Creatinine Ratio 16.9 (6-22); Blood Urea Nitrogen 61 mg/dL (9-20); Calcium 9.5 mg/dL (8.4-10.2); Carbon Dioxide 16 mmol/L (22-32); Estimated Glomerular Filt Rate 17 mL/min (>60); Glucose 128 mg/dL (80-110); HEMOLYSIS < 15 (0-50); Potassium 4.2 mmol/L (3.4-5.1)
[2024-06-14 06:44] LABS: Chloride 132 mmol/L (98-107); Sodium 160 mmol/L (137-145)
[2024-06-14 08:00] VITALS: BP 127/97; PULSE 111; RESP 18; TEMP 36.4; O2SAT 99
[2024-06-14] MEDS: LORazepam 2 MG/ML INJ 1 MG IV ×4 (08:47→23:36)
--- NOTE | 2024-06-14 11:16 | PC.NURSE ---
Addendum entered by Elisa Low R.N. 06/14/24 18:25: Patient awake, pulling at his brief, iv, and flailing his arms all around, He was just given 1mg of iv ativan and this does seem to help calm him down. He is getting D5 ivf at 1500cc/hr as his sodium is 156. Allen cath in place and patient does have yellow urine in the bag. Addendum entered by Elisa Low R.N. 06/14/24 12:39: Patient given ativan this morning around 0830, helpful for a couple of hours. Patient now awake and pulling at brief, condom cath, and trying to pull at iv. He needs his ivf as his Sodium level is 160. He is running D5 at 150cc and tolerating this well. Original Note: Patient is alert but disoriented x3, given ativan this morning and patient was able to rest some. He was just incontinent of urine and had a bed change and was also given a bed bath earlier. He has a new ultrasound guided iv to left forearm. Hand Mitts are on and pateint is compliant at this time.
[2024-06-14] MEDS: DEXTROSE 5% WATER 1,000 ML 150 ML IV ×2 (11:52→18:50)
[2024-06-14 12:00] VITALS: BP 138/91; PULSE 84; RESP 20; TEMP 36.4; O2SAT 100
--- NOTE | 2024-06-14 13:22 | PM.PN.1 ---
Subjective Subjective Date Patient Seen: 06/14/24 Time Patient Seen: 08:10 Interval history: Summary: The patient recently underwent a right hip replacement and had a [facility] facility stay. He returned home about 2 days ago to [place]. Once there he was found to have altered mental status, impulsive behavior, gait instability, and poor oral intake. Ultimately he was found in the floor by his . He was admitted for acute kidney injury with a creatinine of 3.2 as well as altered mental status and debilitation. He does have history of erratic behavior related to his bipolar and does take chronic lithium. He goes by the name Candelario. S: The patient pulled out his IV overnight, and is sitting in bed, confused, rambling. Exam Vital Signs (past 8 hours): - 06/14/24 08:00 06/14/24 12:00 Temperature 97.5 F L 97.6 F Pulse Rate 111 H 84 Respiratory Rate 18 20 Blood Pressure 127/97 H 138/91 H Pulse Oximetry 99 100 Oxygen Flow Rate 0 0 Oxygen Delivery Method Room Air Oxygen Flow Rate 0 Narrative Exam Narrative: NAD, alert and oriented to person. Appears confused, rambling. Lungs are clear, normal rate and effort. Heart is regular, no murmur gallop or rub. Abdomen is soft, non distended. Extremities are free of edema. Objective Labs 06/14/24 06:10 06/14/24 06:10 Labs: Laboratory Results - last 24 hr 06/13/24 06/14/24 13:50 06:10 WBC 12.8 H RBC 5.19 Hgb 13.0 L Hct 40.4 L MCV 77.9 L MCH 25.1 L MCHC 32.3 RDW 16.4 H Plt Count 251 Neut % (Auto) 81.8 H Lymph % (Auto) 9.4 L [place] % (Auto) 6.9 Eos % (Auto) 1.0 L Baso % (Auto) 0.9 Neut # (Auto) 83079 H Lymph # (Auto) 1200 [place] # (Auto) 900 Eos # (Auto) 100 Baso # (Auto) 100 Sodium 156 H 160 H* Potassium 4.1 4.2 Chloride 128 H* 132 H* Carbon Dioxide 16 L 16 L BUN 61 H 61 H Creatinine 3.42 H 3.61 H Estimated GFR 18 L 17 L BUN/Creatinine Ratio 17.8 16.9 Glucose 128 H 128 H Calcium 9.2 9.5 PFSH Medical History Anxiety De Quervain's tenosynovitis Depression DJD (degenerative joint disease) Herniated disc HLD (hyperlipidemia) Neuropathy Occasional tremors Septic arthritis (~03/2016) Tinnitus Surgical History History of ankle surgery History of 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 Acute metabolic encephalopathy, present on admission and persistent. Likely metabolic. MRI brain to rule out interval stroke was negative 2. Volume depletion and acute kidney injury, present on admission and worsening. 3. Severe hypernatremia, present on admission and persistent despite D5 water and encouraging fluid intake. Consider diabetes insipidus due to lithium toxicity. Check serum and urine osmolality. Empiric trial of desmopressin for central DI. If not responding in 24 hours, may be nephrogenic and will start amiloride. 4. Hypercalcemia, present on improved after he was given calcitonin x4 doses, zometa x1 dose given 1/6. Calcium now down to 9.2. PTH ordered and was elevated at 137. Though lithium can interfere and increase PTH levels. Vit D levels 31. [place] level was 1.2 on admit and 0.8 on repeat. Continue to hold lithium, psychiatry recommended stopping altogether. 5. Bipolar with a history of lithium use, present on admission and active with probable toxicity. Discussed with psychiatrist Dr. Velarde available here at [facility]. with his renal dysfunction he recommended stopping lithium. Until more alert recommended IM olanzapine 5 mg at bedtime and 2.5 mg daily for treatment of underlying bipolar disorder. If encephalopathy improving, will need updated recommendations for antipsychotics. Plan: -serum and urine osmolality -empiric trial of desmopressin 2 mg IV x2 doses -consider treatment of nephrogenic DI with amiloride tomorrow if not improved -Continue D5W fluids -Monitor electrolytes closely -hold chronic medications until MARTY improves. Full code. is his proxy decision maker. He lives on [facility]. She will be visiting tomorrow. Anticipate a 2 midnight hospital stay, the supports inpatient status. This is for treatment of MARTY, severe hypercalcemia, and metabolic encephalopathy. MAUREEN: 06/16 if stable and improved to [facility] nursing facility. PROFEE Charge codes Subsequent inpatient/observation care: [id number]
[2024-06-14 13:36] LABS: BUN Creatinine Ratio 17.4 (6-22); Blood Urea Nitrogen 63 mg/dL (9-20); Calcium 9.5 mg/dL (8.4-10.2); Carbon Dioxide 16 mmol/L (22-32); Estimated Glomerular Filt Rate 17 mL/min (>60); Glucose 131 mg/dL (80-110); HEMOLYSIS < 15 (0-50); Potassium 4.2 mmol/L (3.4-5.1); Sodium 156 mmol/L (137-145)
[2024-06-14 13:39] LABS: Chloride 131 mmol/L (98-107)
[2024-06-14] MEDS: DESMOPRESSIN 4 MCG/ML AMPUL 2 MCG IV ×2 (13:45→23:36)
[2024-06-14 16:00] VITALS: BP 134/94; PULSE 90; RESP 18; TEMP 36.4; O2SAT 96
--- NOTE | 2024-06-14 16:31 | CM.DANOTE ---
Spoke with Yamileth at and she advised patient will need to be off Haldol and IM meds, behaviors controlled with PO meds, and out of mitts for a min of 48 hours before they will review again for admission. Patient spouse states she will now visit on Saturday to discuss options, though limited with current behavioral issues. Will need to follow closely for progress. Discharge Planning/Care Management CM Discharge Assessment Start: 06/08/24 13:59 Freq: Status: Active Protocol: Document 06/08/24 13:59 (Rec: 06/08/24 14:01 [id number]) Discharge Planning Assessment Assigned Smelter Liner AMRITA Fernandez DPOA/Assigned Designee Name Dai, spouse Contact Information [phone] Advance Directives? Yes Advance Directives on File No History Provided By Patient,Significant Other, Medical Record Prior Living Arrangements House Household Members spouse,significant other Type of transporation used prior to Relies on Others admit Independent with ADL's No Is patient alert and oriented? No Needs Assistance With Home Chores / Shopping DME Already Rented / Owned Elevated Toilet Seat,FWW / Walker,Cane Patient/Family Preference [facility] Discharge Plan [facility] Transportation Arrangement Facility Referrals Initiated [facility] SNF/HH Preference either 1) [facility] or 2) return to [facility] Review Status In Process Please Provide Date Initial DC 06/08/24 Assessment Was Performed Next Review Type Continued Stay Review
[2024-06-14 20:00] VITALS: BP 124/82; PULSE 99; RESP 18; TEMP 37.1; O2SAT 99
[2024-06-14] MEDS: OLANZapine 10 MG VIAL 5 MG IM (23:39)
[2024-06-15] VITALS (7 sets, daily range): BP systolic 110–135; BP diastolic 74–85; PULSE 60–96; RESP 12–18; TEMP 36.3–36.5; O2SAT 90–100
--- NOTE | 2024-06-15 | PC.NURSE ---
Addendum entered by Balbina Castellanos R.N. 06/15/24 05:28: 0520: Pt restless, trying to get out of bed. When asked how this RN could help him, pt mumbled. When asked to repeat himself, pt said It's dangerous in here and you need to get out. Pt continued to try to get out of bed despite redirection. Administered PRN 1mg Ativan IV. Pt still restless but resting more comfortably. Care continues. Original Note: 2330: Pt restless, A&Ox1, moving around in bed and pulling on side rails. Upon assessment, found pt had pulled off condom catheter. During application of new condom catheter, pt became combative, drawing up knees and punching hands out indiscriminately. Before and after, pt stated he was hungry and thirsty; when offered requested items, pt did not want to eat or drink. Administered PRN 1mg Ativan IV. Pt still restless but resting more comfortably. Care continues.
[2024-06-15] MEDS: DEXTROSE 5% WATER 1,000 ML 150 ML IV (01:24)
[2024-06-15] MEDS: LORazepam 2 MG/ML INJ 1 MG IV ×3 (05:28→14:00)
--- NOTE | 2024-06-15 08:30 | P.PN_ITS ---
Subjective Subjective Date Patient Seen: 06/15/24 Interval history: He is seen in his room here today to follow-up his encephalitis and bipolar condition. On my 1st visit he was not able to engage or be understood but the 2nd and 3rd time that I interacted with him he was able to listen to what I said, seem to comprehend it and then in a somewhat slurred speech manner respond appropriately. He has been sedated with olanzapine for the bipolar and with lorazepam for the anxiety. I also spoke with his and proposed a lumbar puncture procedure as a precaution to rule out HSV encephalitis. His sodium level has come down to 151 with an INR of 1.5 today. He is not on warfarin. He remains on D5W at 150 mL/hr. His gave a verbal telephone consent for the procedure as she lives [place] on [address] [place]. The lumbar puncture was successful at obtaining fluid for PCR testing. Exam Vital Signs (past 8 hours): - 06/15/24 04:00 Temperature 97.4 F L Pulse Rate 78 Respiratory Rate 18 Blood Pressure 125/83 Pulse Oximetry 95 Oxygen Flow Rate 0 Oxygen Delivery Method Room Air Oxygen Flow Rate 0 Narrative Exam Narrative: He is quite sedated but when awakened is alert enough to engage some of the time. He was cooperative with the lumbar puncture procedure while sedated. His gave a telephone consent to the procedure. No apparent distress Heart is regular rate and rhythm without murmur Lungs are clear to auscultation bilaterally Extremities have no ankle edema No lateralizing neurological deficits. The patient's encephalopathic delirium continues to come and go requiring as needed sedatives. Objective Labs 06/14/24 06:10 06/15/24 Unknown Labs: Laboratory Results - last 24 hr 06/14/24 13:15 Sodium 156 H Potassium 4.2 Chloride 131 H* Carbon Dioxide 16 L BUN 63 H Creatinine 3.63 H Estimated GFR 17 L BUN/Creatinine Ratio 17.4 Glucose 131 H Calcium 9.5 PFSH Medical History Anxiety De Quervain's tenosynovitis Depression DJD (degenerative joint disease) Herniated disc HLD (hyperlipidemia) Neuropathy Occasional tremors Septic arthritis (~03/2016) Tinnitus Surgical History History of ankle surgery History of 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 Acute metabolic encephalopathy, present on admission and persistent. Likely metabolic. MRI brain to rule out interval stroke was negative. CSF HSV testing added on 06/15/24. 2. Volume depletion, CKD 4 and MARTY, present on admission and worsening. Baseline Creatinine apparently 2.73 on 06/09/24. 3. Severe hypernatremia, present on admission and persistent despite D5 water and encouraging fluid intake. Consider diabetes insipidus due to lithium toxicity. Check serum and urine osmolality. Empiric trial of desmopressin for central DI. If not responding in 24 hours, may be nephrogenic and consider starting amiloride. Na 151 on 06/15/24. 4. Hypercalcemia, present on admission and improved after he was given calcitonin x4 doses, zometa x1 dose on 06/08. Calcium now down to 9.2. PTH ordered and was elevated at 137. [place] can interfere and increase PTH levels. Vit D level 31. [place] level was 1.2 on admit and 0.8 on repeat. Continue to hold lithium, psychiatry recommended stopping altogether. 5. Bipolar with a history of lithium use, present on admission and active with probable toxicity. Discussed with psychiatrist Dr. Velarde available here at [place]. with his renal dysfunction he recommended stopping lithium. Until more alert recommended IM olanzapine 5 mg at bedtime and 2.5 mg daily for treatment of underlying bipolar disorder. If encephalopathy improving, will need updated recommendations for antipsychotics. Plan: -serum and urine osmolality -empiric trial of desmopressin 2 mg IV x2 doses -Continue D5W fluids -Monitor electrolytes closely -hold chronic medications until MARTY improves. -CSF HSV PCR collected Full code. is his proxy decision maker. They live on [facility]. She gave telephone procedure consent. MAUREEN: 06/16 if stable and improved to [facility]. Time-Based Coding :: [TOTAL MINUTES] spent with patient and on the chart (including review of chart, obtaining history, exam, reviewing outside data, placing orders, documenting exam and treatment plan, and counseling patient) on [DATE].
[2024-06-15] MEDS: DEXTROSE 5% WATER 500 ML 150 ML IV ×5 (08:49→23:18)
--- NOTE | 2024-06-15 11:22 | DIET.PN1 ---
Dietary Progress Note Assessment: Spoke to nursing staff who report pt does well drinking Ensures, protein supplements, ice cream, orange juice, and some bites of food when awake. Report pt prefers vanilla flavor and does better with liquids. To get better assessment of pt's intake, started calorie count for next 3 meals. Will assess PO intakes based on calorie count and nursing staff report again tomorrow. Ordered higher calorie/higher protein Ensure supplement currently based on current low recorded PO intakes averaging <25% EER. Will adjust based on calorie count when able to get better idea of patient's actual intake d/t patient's renal function. Ht: 185.42 cm Wt: 79.379 kg BMI: 23 UBW: 82.554 kg on 05/12/24 Last BM: () MNA: 13 Viet Score: 12 Diet: 06/12/24 Lunch Dysphagia Diet Diet Modifications: Controlled cup sips, 1:1 supervision and assist Food Texture: Level 5 - Minced & Moist Liquid Consistency: Level 0 - Thin Nutrition Percent Meal Consumed 10% 06/15/24 08:00 Percent Meal Consumed 10 06/14/24 18:00 Percent Meal Consumed 50% 06/14/24 08:00 Percent Meal Consumed 25% 06/13/24 17:46 Labs: RBC 5.19 X10^6/uL (4.5-5.9) 06/14/24 06:10 Hgb 13.0 g/dL (13.5-17.5) L 06/14/24 06:10 Hct 40.4 % (41-53) L 06/14/24 06:10 Creatinine 3.63 mg/dL (0.66-1.25) H 06/14/24 13:15 Electronically Signed by: Gisela Blair 06/15/24 11:22 Clinical Dietitian [address] [address]
[2024-06-15 14:14] LABS: INR 1.5 (0.9-1.3); Prothrombin Time 16.6 SECONDS (9.4-12.5)
[2024-06-15 14:17] LABS: BUN Creatinine Ratio 16.8 (6-22); Blood Urea Nitrogen 55 mg/dL (9-20); Calcium 8.8 mg/dL (8.4-10.2); Carbon Dioxide 19 mmol/L (22-32); Estimated Glomerular Filt Rate 19 mL/min (>60); Glucose 149 mg/dL (80-110); HEMOLYSIS < 15 (0-50); Potassium 4.2 mmol/L (3.4-5.1); Sodium 151 mmol/L (137-145)
[2024-06-15 14:19] LABS: Chloride 123 mmol/L (98-107)
--- NOTE | 2024-06-15 14:35 | PM.PROC.1 ---
Procedures Date/Time Date of procedure: 06/15/24 Time of procedure: 14:35 General Procedure description: Lumbar Puncture Lumbar Puncture Pre-procedure diagnosis: Encephalitis Post-procedure diagnosis: same Time Out Performed: Yes Patient Position: right lateral decubitus Skin Prep: 0.5% Chlorhexidine/Alcohol Local anesthetic used: Lidocaine 1% Sedation: other (Lorazepam) Needle size: other Needle length: 3.5 Interspace: L3-L4 Number of attempts: 1 Fluid collected (mL): 4 Fluid description: initially bloody then clear Complications: No Patient tolerance: Good Comments: CSF HSV testing (Meningitis Panel)
[2024-06-15 15:00] LABS: Appearance CSF Clear (Clear); CSF Tube Number 3; CSF Tube Volume 0.75 mL; Color CSF Colorless (Colorless)
[2024-06-15 15:08] LABS: Glucose CSF 78 mg/dL (40-70); Total Protein CSF 126 mg/dL (12-60)
[2024-06-15 15:12] LABS: White Blood Cell CSF 1 MONO/uL (0-5)
[2024-06-15 15:15] LABS: Red Blood Cell CSF 160 RBC /uL
--- NOTE | 2024-06-15 16:20 | ST.IPDYTX ---
Visit Care Team Role Provider Type Joo Wilson DO Primary Care Provider Non-Staff Specialty: Family Practice Address: [address] [place] [address], [place], [address] Email: Lambert Gregory MD Admit Provider Physician Attending Provider Referring Provider Specialty: Internal Medicine Address: [facility] [address], [place], [address] Email: [email or web address] BOWLING BALL PATCHER Dysphagia Treatment BOWLING BALL PATCHER Dysphagia Treatment Start: 06/15/24 16:08 Freq: Status: Active Protocol: Document 06/15/24 16:09 CG (Rec: 06/15/24 16:20 CG [id number]) Dysphagia Treatment Session Time Visit Start Time 15:47 Visit Stop Time 16:04 Total Visit Minutes 16 Visit Information Visit Number 2 Setting Assessment Location Acute Care Patient Information Subjective Observations Pt extremely lethargic; not alert upon ST visit today. Pt was laying in bed, mimbling to self, attempting to pull off brief upon ST entry. Limited verbal response to BOWLING BALL PATCHER questions. Very limited eye opening. Tx limited due to CLOTILDE. Treatment Liquids Trialed Thin (IDDSI 0) Administration Type Tea Spoon Treatment Activities Repositioned pt. Various stimulation attempted to rouse pt (lights, positioning, verbal and tactile cues). PO trials of thin liquids via teaspoon. Used toothette sponge dipped in ice water to attempt to stimulate oral reflexes. Consulted with RN re pt status. The IDDSI Framework Protocol: IDDSI.1 Assessment Patient Response to Treatment Poor Assessment of Improvement Pt with poor participation today due to severely reduced CLOTILDE. During trials of thin liquids via tsp, pt presented with oral stasis, swishing bolus around in mouth before finally intiating pharyngeal swallow after about 10 seconds . Delayed initiation of pharyngeal swallow was observed across trials. Pt with limited oral acceptance of bolus via teaspoon. Limited to no attention to task. Pt extremely confusional, mumbling about building properties on a hill. Pt accepted oral swab with toothette around buccal cavities, but did not open jaw to allow for further assessment of/stimulation of oral cavity. Moderate oral residue observed during toothette sweep. Recommend oral care if safe to initiate with pt (pt does have hx of hitting, kicking). BOWLING BALL PATCHER recommendations at this time: 1. Thin liquids via TEASPOON ( no straw, no cup) as long as pt is swallowing within 2-3 seconds of presentation to oral cavity. 2. Withhold solids/purees until level of alertness improves. 3. Reposition upright 90 degrees for all PO intake. 4. Meds not recommended PO at this time unless CLOTILDE improves. 5. BOWLING BALL PATCHER to monitor overall status and adjust diet recommendations based on alertness/cognitive status. 6. Recommend oral care if safe to initiate with pt. Recommendations Recommendations Downgrade Diet Order Liquids Order Thin (IDDSI 0) Diet Order Pureed (IDDSI 4) Medication Recommendations Whole in Carrier,Crushed in Carrier,One at a Time Additional Dietary Needs 1:1 Supervision,1:1 Assistance Aspiration Precautions Recommended Precautions Upright at 90 Degrees,Liquids from Spoon Treatment Plan Placement Recommendation after Discharge Alf Facility Appropriate for Continued Therapy Yes
--- NOTE | 2024-06-15 16:20 | SLP.IPNOTE ---
FRAME TABLE OPERATOR recommendations as of 06/15/24 1620pm 1. Thin liquids via TEASPOON (no straw, no cup) as long as pt is swallowing within 2-3 seconds of presentation to oral cavity. 2. Withhold solids/purees until level of alertness improves. 3. Reposition upright 90 degrees for all PO intake. 4. Meds not recommended PO at this time unless CLOTILDE improves. Once alert, recommended via carrier of applesauce/pudding. 5. FRAME TABLE OPERATOR to monitor overall status and adjust diet recommendations based on alertness/cognitive status. 6. Recommend oral care if safe to initiate with pt (including removing and cleaning dentures if pt agreeable)
[2024-06-15 16:27] LABS: Cryptococcus neoformans/gattii Not Detected (Not Detect); Enterovirus Not Detected (Not Detect); Escherichia coli K1 Not Detected (Not Detect); Haemophilus influenzae Not Detected (Not Detect); Herpes simplex virus 1 Not Detected (Not Detect); Herpes simplex virus 2 Not Detected (Not Detect); Human herpesvirus 6 Not Detected (Not Detect); Human parechovirus Not Detected (Not Detect); Listeria monocytogenes Not Detected (Not Detect); Neisseria meningitidis Not Detected (Not Detect); Streptococcus agalactiae Not Detected (Not Detect); Streptococcus pneumoniae Not Detected (Not Detect); Varicella Zoster Virus Not Detected (Not Detecte)
[2024-06-15] MEDS: OLANZapine 10 MG VIAL 5 MG IM (23:22)
[2024-06-16] VITALS: BP 128/86; PULSE 103; RESP 18; TEMP 36.3; O2SAT 100
--- NOTE | 2024-06-16 00:29 | PC.NURSE ---
NOC: Pt A&Ox2, awake. Pt requested H2O and coffee, provided thickened H2O and coffee with cream and sugar and PCT Tariq assisted pt to drink slow sitting up at 90 degrees. Pt tolerated well. Pt attempted to chew on SpO2 monitor cord; was able to redirect.
[2024-06-16 04:00] VITALS: BP 122/89; PULSE 78; RESP 18; TEMP 36.5; O2SAT 100
[2024-06-16 06:16] LABS: BUN Creatinine Ratio 17.2 (6-22); Blood Urea Nitrogen 51 mg/dL (9-20); Calcium 8.7 mg/dL (8.4-10.2); Carbon Dioxide 17 mmol/L (22-32); Estimated Glomerular Filt Rate 22 mL/min (>60); Glucose 134 mg/dL (80-110); HEMOLYSIS < 15 (0-50); Potassium 3.8 mmol/L (3.4-5.1); Sodium 148 mmol/L (137-145)
[2024-06-16 06:17] LABS: Chloride 122 mmol/L (98-107)
[2024-06-16] MEDS: DEXTROSE 5% WATER 500 ML 150 ML IV (06:50)
[2024-06-16 08:00] VITALS: BP 119/92; PULSE 93; RESP 12; TEMP 36.2; O2SAT 100
--- NOTE | 2024-06-16 08:02 | P.PN_ITS ---
Subjective Subjective Date Patient Seen: 06/16/24 Interval history: He is seen in his room several times today to follow-up the hypernatremia, lithium related diabetes insipidus and delirium/altered mental status. His is visiting and has great concern that he might come home before he is able to be independent. He has apparently been in a half-way facility after his hip replacement recently. He had left before medically approved, according to her. He is definitely mentally improving today. His CSF testing is mostly normal. The creatinine has improved from 3.28 down to 2.97. The protein level was high at 126 but the glucose was normal at 78. The PCR was negative. We will change IV fluid to D5 0.2 normal saline at a lower infusion rate of 100 per hour today. Exam Vital Signs (past 8 hours): - 06/16/24 04:00 Temperature 97.7 F Pulse Rate 78 Respiratory Rate 18 Blood Pressure 122/89 Pulse Oximetry 100 Oxygen Flow Rate 0 Oxygen Delivery Method Room Air Oxygen Flow Rate 0 Narrative Exam Narrative: During my 1st exam he is sedated and does not wake up but when his is visiting he is alert and asking to be involved in the conversation. He initially engages appropriately and then becomes confused. No apparent distress. Heart is regular rate and rhythm without murmur Lungs are clear to auscultation bilaterally Extremities no ankle edema Objective Labs 06/14/24 06:10 06/16/24 05:20 Labs: Laboratory Results - last 24 hr 06/15/24 06/15/24 06/15/24 13:57 14:27 Unknown PT 16.6 H INR 1.5 H Sodium 151 H Potassium 4.2 Chloride 123 H* Carbon Dioxide 19 L BUN 55 H Creatinine 3.28 H Estimated GFR 19 L BUN/Creatinine Ratio 16.8 Glucose 149 H Calcium 8.8 CSF Tube Number 3 CSF Volume 0.75 ml CSF Appearance Clear CSF Color Colorless CSF WBC 1 CSF RBC 160 CSF Mononuclear WBCs TNP CSF Polynuclear WBCs TNP CSF Glucose 78 H CSF Total Protein 126 H CSF C.neoform/gat PCR Not detected CSF CMV DNA (PCR) Not detected CSF Enterovirus (PCR) Not detected CSF E. coli (PCR) Not detected CSF H. influenzae (PCR) Not detected CSF HSV I (PCR) Not detected CSF HSV II (PCR) Not detected CSF HHV 6 (PCR) Not detected CSF L.monocytogenes PCR Not detected CSF N. meningitidis PCR Not detected CSF Parechovirus (PCR) Not detected CSF S. agalactiae (PCR) Not detected CSF S. pneumoniae (PCR) Not detected CSF VZV (PCR) Not detected 06/16/24 05:20 PT INR Sodium 148 H Potassium 3.8 Chloride 122 H* Carbon Dioxide 17 L BUN 51 H Creatinine 2.97 H Estimated GFR 22 L BUN/Creatinine Ratio 17.2 Glucose 134 H Calcium 8.7 CSF Tube Number CSF Volume CSF Appearance CSF Color CSF WBC CSF RBC CSF Mononuclear WBCs CSF Polynuclear WBCs CSF Glucose CSF Total Protein CSF C.neoform/gat PCR CSF CMV DNA (PCR) CSF Enterovirus (PCR) CSF E. coli (PCR) CSF H. influenzae (PCR) CSF HSV I (PCR) CSF HSV II (PCR) CSF HHV 6 (PCR) CSF L.monocytogenes PCR CSF N. meningitidis PCR CSF Parechovirus (PCR) CSF S. agalactiae (PCR) CSF S. 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 Acute metabolic encephalopathy, present on admission and persistent. Likely metabolic. MRI brain to rule out interval stroke was negative. CSF HSV testing PCR negative. 2. Volume depletion, CKD 4 and MARTY, present on admission and worsening. Baseline Creatinine apparently 2.73 on 06/09/24. 3. Severe hypernatremia, present on admission and persistent despite D5 water and encouraging fluid intake. This is likely Diabetes insipidus due to chronic [place] use. Serum and urine osmolality. Empiric trial of desmopressin for central DI. If not responding in 24 hours, may be nephrogenic and consider starting amiloride. Na 148 on 06/16/24. 4. Hypercalcemia, present on admission and improved after he was given calcitonin x4 doses, zometa x1 dose on 06/08. Calcium now down to 9.2. PTH ordered and was elevated at 137. [place] can interfere and increase PTH levels. Vit D level 31. [place] level was 1.2 on admit and 0.8 on repeat. Continue to hold lithium, psychiatry recommended stopping altogether. 5. Bipolar with a history of lithium use, present on admission and active with probable toxicity. Discussed with psychiatrist Dr. Velarde, with his renal dysfunction he recommended stopping lithium. Until more alert recommended IM olanzapine 5 mg at bedtime and 2.5 mg daily for treatment of underlying bipolar disorder. If encephalopathy improving, will need updated recommendations for antipsychotics. Plan: -serum and urine osmolality were ordered but apparently not done? -Given empiric trial of desmopressin 2 mg IV x2 doses -Change to D5 .2NS on 06/16/24 -Monitor electrolytes closely -hold chronic medications until MARTY improves. -CSF HSV PCR negative Full code. is his proxy decision maker. They live on [facility]. MAUREEN: 06/18 if stable and improved to [facility] nursing facility. Time-Based Coding :: [TOTAL MINUTES] spent with patient and on the chart (including review of chart, obtaining history, exam, reviewing outside data, placing orders, documenting exam and treatment plan, and counseling patient) on [DATE].
[2024-06-16] MEDS: DEXTROSE IV (11:10)
[2024-06-16] MEDS: [UNRECOGNIZED DRUG - OTHER] IV (11:10)
[2024-06-16 12:00] VITALS: BP 110/65; PULSE 73; RESP 14; TEMP 36.4; O2SAT 97
--- NOTE | 2024-06-16 12:02 | SLP.IPNOTE ---
Treatment session attempted around noon. Pt not rousable and deep asleep. Per RN, minimally awake today. Will follow up later in day if pt is more appropriate. RN aware. Recommend continuation of recommendations from 06/15/24 as follows: 1. Thin liquids via TEASPOON (no straw, no cup) as long as pt is swallowing within 2-3 seconds of presentation to oral cavity. 2. Withhold solids/purees until level of alertness improves. 3. Reposition upright 90 degrees for all PO intake. 4. Meds not recommended PO at this time unless CLOTILDE improves. Once alert, recommended via carrier of applesauce/pudding. 5. HEALTH AND FITNESS INSTRUCTOR to monitor overall status and adjust diet recommendations based on alertness/cognitive status. 6. Recommend oral care if safe to initiate with pt (including removing and cleaning dentures if pt agreeable)
--- NOTE | 2024-06-16 12:27 | CM.DPC ---
DCP Cont. Reviewed EMR and team rounds for status updates. Pt continues to be very confused, is easily directed by staff. Plan is to continue to work towards improvement in cognition, no soft mitts, for stability over 48-hours before he can be admitted back to SNF.
--- NOTE | 2024-06-16 13:47 | DIET.PN1 ---
Dietary Progress Note Assessment: Reviewed results of calorie count and discussed intakes with nursing staff from yesterday and today. Pt drinking high calorie supplements when awake. Today pt ate 75% of eggs, milk, yogurt, applesauce for breakfast and drank all of high calorie supplement at lunch. Will continue to provide high calorie supplements with all meals and closely monitor estimated protein intake daily. Per nursing staff and recorded PO intakes, pt appears to tolerate these well when awake. Continues on D5w. F/u tomorrow. Ht: 185.42 cm Wt: 79.379 kg BMI: 23 Last BM: () MNA: 13 Viet Score: 17 Diet: 06/12/24 Lunch Dysphagia Diet Diet Modifications: Controlled cup sips, 1:1 supervision and assist Food Texture: Level 5 - Minced & Moist Liquid Consistency: Level 0 - Thin Nutrition Percent Meal Consumed 75% 06/16/24 08:00 Percent Meal Consumed 25% 06/15/24 18:00 Percent Meal Consumed 10% 06/15/24 08:00 Percent Meal Consumed 10 06/14/24 18:00 Labs: RBC 5.19 X10^6/uL (4.5-5.9) 06/14/24 06:10 Hgb 13.0 g/dL (13.5-17.5) L 06/14/24 06:10 Hct 40.4 % (41-53) L 06/14/24 06:10 Creatinine 2.97 mg/dL (0.66-1.25) H 06/16/24 05:20 Electronically Signed by: Gisela Blair 06/16/24 13:47 Clinical Dietitian [address] [address]
[2024-06-16 16:00] VITALS: BP 120/74; PULSE 88; RESP 15; TEMP 36.7; O2SAT 100
--- NOTE | 2024-06-16 18:56 | PC.NURSE ---
06/15/24 (put note on wrong patient last night): NOC: Pt much more cooperative with cares kalyn than last night, allowed this RN and PCT Tariq to fully change condom cath, brief, and bedsheets without resistance, was A&Ox3 and able to share stories about young adulthood and experiences in [place] and [place] and [place]. When this RN turned to leave bedside, pt stated I am going to touch your boobies and reached out to do so. Pt was gently verbally and physically redirected. Pt sleeping comfortably, care continues.
[2024-06-16 19:38] LABS: Osmolality Urine 281 mOsmol/kg (.)
[2024-06-16 20:00] VITALS: BP 124/83; PULSE 78; RESP 18; TEMP 36.5; O2SAT 100
[2024-06-16] MEDS: OLANZapine 10 MG VIAL 5 MG IM (22:05)
--- NOTE | 2024-06-16 23:48 | PC.NURSE ---
Addendum entered by Balbina Castellanos R.N. 06/17/24 06:58: [id number]: MD Venita almodovar'ed to leave out PIV for time being Addendum entered by Balbina Castellanos R.N. 06/17/24 06:40: Pt PIV site became compromised prompting removal of PIV. Applied coban+gauze to site. Informed MD Nathan re: lack of IV access at 0542 and again at 0645 but received no reply. Unable to draw morning labs d/t lack of PIV. Informed Coordinator Lanette Ferguson. Patient currently resting comfortably, care continues. Addendum entered by Balbina Castellanos R.N. 06/17/24 00:29: Pt pulled off condom catheter; replaced and changed bed linens with ZEYNEP Potter. Original Note: NOC: Several times on shift thus far pt has tried to pull self out of bed, and expressed desire to leave hospital and to go back to his house. Pt gently redirected. Care continues.
[2024-06-17] VITALS: BP 117/76; PULSE 81; RESP 18; TEMP 36.4; O2SAT 99
[2024-06-17 04:00] VITALS: BP 107/69; PULSE 91; RESP 18; TEMP 36.2; O2SAT 99
--- NOTE | 2024-06-17 07:43 | P.PN_ITS ---
Subjective Subjective Date Patient Seen: 06/17/24 Interval history: He is seen today to follow-up the hyponatremia and bipolar with altered mental status. He continues to stabilize/slowly improve, demonstrating ability to stand next to his bed today. A PT eval will be arranged. He is not interactive during my evaluation. He is receiving olanzapine 5 mg IM at HS. The sodium level is 150 with a creatinine of 2.76 and a chloride level of 125. His IV stopped working or he removed it overnight, accounting for the higher Na level. Exam Vital Signs (past 8 hours): - 06/17/24 00:00 06/17/24 04:00 Temperature 97.6 F 97.2 F L Pulse Rate 81 91 H Respiratory Rate 18 18 Blood Pressure 117/76 107/69 Pulse Oximetry 99 99 Oxygen Flow Rate 0 0 Oxygen Delivery Method Room Air Oxygen Flow Rate 0 Narrative Exam Narrative: He is intermittently interactive but during my visit has his mouth open and does not engage. No apparent distress. Heart is regular rate and rhythm with a 2/6 systolic ejection murmur. Lungs are clear to auscultation bilaterally Extremities have no ankle edema Objective Labs 06/14/24 06:10 06/17/24 10:25 Labs: Laboratory Results - last 24 hr 06/14/24 18:00 Urine Osmolality 281 PFSH Medical History Anxiety De Quervain's tenosynovitis Depression DJD (degenerative joint disease) Herniated disc HLD (hyperlipidemia) Neuropathy Occasional tremors Septic arthritis (~03/2016) Tinnitus Surgical History History of ankle surgery History of 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 Acute metabolic encephalopathy, present on admission and persistent. Likely metabolic. MRI brain to rule out interval stroke was negative. CSF HSV testing PCR negative. 2. Volume depletion, CKD 4 and MARTY, present on admission and worsening. Baseline Creatinine apparently 2.73 on 06/09/24. Creatinine 2.76 on 06/17/24. 3. Severe hypernatremia, present on admission and persistent despite D5 water and encouraging fluid intake. This is likely Diabetes insipidus due to chronic [place] use. Serum and urine osmolality were ordered but not done. Empiric trial of desmopressin for central DI without conclusive effect. Na 150, up from 148 on 06/17/24. 4. Hypercalcemia, present on admission and improved after he was given calcitonin x4 doses, zometa x1 dose on 06/08. Calcium now down to 9.2. PTH ordered and was elevated at 137. [place] can interfere and increase PTH levels. Vit D level 31. [place] level was 1.2 on admit and 0.8 on repeat. Continue to hold lithium, psychiatry recommended stopping altogether. 5. Bipolar with a history of lithium use, present on admission and active with probable toxicity. Discussed with psychiatrist Dr. Velarde, with his renal dysfunction he recommended stopping lithium. Until more alert recommended IM olanzapine 5 mg at bedtime and 2.5 mg daily for treatment of underlying bipolar disorder. If encephalopathy improving, will need updated recommendations for antipsychotics. Plan: -serum and urine osmolality were ordered but apparently not done? -Given empiric trial of desmopressin 2 mg IV x2 doses -Changed to D5 .2NS on 06/16/24, resume 06/17 after new IV access established -Monitor electrolytes closely -hold chronic medications until MARTY improves. -PT eval Full code. is his proxy decision maker. They live on [facility]. MAUREEN: 06/18 if stable and improved to [facility] nursing [facility]. Time-Based Coding :: [TOTAL MINUTES] spent with patient and on the chart (including review of chart, obtaining history, exam, reviewing outside data, placing orders, documenting exam and treatment plan, and counseling patient) on [DATE].
[2024-06-17 08:00] VITALS: BP 117/77; PULSE 89; RESP 18; TEMP 36.3; O2SAT 98
[2024-06-17] MEDS: HEPARIN 5,000 UNIT/ML VIAL 5000 UNIT SUBCUT ×2 (08:54→22:10)
[2024-06-17 10:48] LABS: BUN Creatinine Ratio 17.4 (6-22); Blood Urea Nitrogen 48 mg/dL (9-20); Carbon Dioxide 14 mmol/L (22-32); Estimated Glomerular Filt Rate 24 mL/min (>60); Glucose 150 mg/dL (80-110); HEMOLYSIS < 15 (0-50); Potassium 4.3 mmol/L (3.4-5.1); Sodium 150 mmol/L (137-145)
[2024-06-17 10:56] LABS: Chloride 125 mmol/L (98-107)
[2024-06-17 11:36] LABS: Osmolality, Serum 354 mOsmol/kg (280-301)
--- NOTE | 2024-06-17 11:55 | ST.IPDYTX ---
Visit Care Team Role Provider Type Joo Wilson DO Primary Care Provider Non-Staff Specialty: Family Practice Address: [address] [place] [address], [place], [address] Email: Lambert Gregory MD Admit Provider Physician Attending Provider Referring Provider Specialty: Internal Medicine Address: [address] [place] [address], [id number] Email: [email or web address] CARRIAGE FEEDER Dysphagia Treatment CARRIAGE FEEDER Dysphagia Treatment Start: 06/15/24 16:08 Freq: Status: Active Protocol: Document 06/17/24 11:34 SS (Rec: 06/17/24 11:54 SS [id number]) Dysphagia Treatment Session Time Visit Start Time 10:55 Visit Stop Time 11:20 Total Visit Minutes 25 Visit Information Visit Number 3 Setting Assessment Location Acute Care Visit Type Note Type Treatment Note Next Note Type Next Note Type Treatment Note Patient Information Identification Type Name Subjective Observations Pt alert upon ST visit today. Pt was laying reclined in bed, drinking from a cup upon ST entry. Increased verbal response to CARRIAGE FEEDER questions today, though some responses not making sense or appropriate within context. Pt oriented to self only, though increased alertness in comparison to prior sessions. He demonstrated continuos attempts to get out of bed throughout session, though able to re-direct him. Treatment Liquids Trialed Thin (IDDSI 0) Solids Trialed Purred (IDDSI 4),Minced & Moist (IDDSI 5) Administration Type Tea Spoon,Cup Single Sip,Cup Consecutive Sips,Straw, Dependent Feeding Oral Strategies Upright at 90 degrees Pharyngeal Strategies Sitting Upright (90 deg) Treatment Activities RN assisted with pt repositioning. PO trials of thin liquids via cup and straw as well as puree and minced and moist solids via tsp. Consulted with RN re: pt status. The IDDSI Framework Protocol: IDDSI.1 Assessment Patient Response to Treatment Good Rehab Potential Good Assessment of Improvement Pt with increased participation and engagement today. During trials of thin liquids via cup, pt unable to bring cup to lips and tilt it to take a sip given tremors and cognitive deficits. He was able to hold cup and take single and sequential sips via straw with more ease. Additionally, trials included puree and minced and mist solids via tsp, with pt benefiting from CARRIAGE FEEDER feeding, as he did not attempt to self- feed given max verbal, visual, and tactile cueing (placing spoon in hand). Oral phase appeared to be WFL. Good containment; normal, rotary mastication. AP transport and manipulation appeared WF. No abnormal oral residue observed . This is a significant change from two days ago when he presented with oral stasis and delayed initiation of pharyngeal swallow, which may vary given his alertness level and time of day. Pt with limited oral acceptance of bolus via teaspoon. Limited to no attention to task. Swallow trigger timing appeared to be WFL. No overt s /sx of penetration/aspiration were observed throughout the trials. Pt exhibited no coughing or changes to vocal quality. Recommend oral care if safe to initiate with pt. Per dietary note, pt with increased PO intake of high calorie supplements when awake and is eating about 75% of his meals. CARRIAGE FEEDER recommendations at this time: 1. Thin liquids via cup. 1:1 supervision if pt will only use straw (as he did in this session), and frequent reminders to take single sips given impulsive behavior. If alertness is limited, thin liquids via TEASPOON (no straw , no cup) as long as pt is swallowing within 2-3 seconds of presentation to oral cavity . 2. Continue minced and moist solids (MM5) with 1:1 supervision and assist for feeding. Withhold solids/ purees if pt not fully alert or awake. 3. Reposition upright 90 degrees for all PO intake. 4. Meds in puree carrier. 5. CARRIAGE FEEDER to monitor overall status and adjust diet recommendations based on alertness/cognitive status. 6. Recommend oral care if safe to initiate with pt. Recommendations Recommendations Upgrade Diet Order Liquids Order Thin (IDDSI 0) Diet Order Minced & Moist (IDDSI 5) Medication Recommendations Whole in Carrier,Crushed in Carrier,One at a Time Additional Dietary Needs 1:1 Supervision,1:1 Assistance ,Encourage to Self-Feed Aspiration Precautions Recommended Precautions Upright at 90 Degrees,Liquids from Spoon Treatment Plan Placement Recommendation after Discharge Senior Care Facility Appropriate for Continued Therapy Yes
[2024-06-17 14:00] VITALS: BP 119/83; PULSE 79; RESP 16; TEMP 36.4; O2SAT 98
--- NOTE | 2024-06-17 15:25 | PT.IIE ---
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) Hx of appendectomy Hx of arthroscopy of right knee (03/03/16) Hx of oral surgery (05/05/19) Hx of thumb surgery (~05/2017) Medical History (Last Reviewed 06/13/24 @ 17:03 by Otis Curiel MD) Anxiety De Quervain's tenosynovitis Depression DJD (degenerative joint disease) Herniated disc HLD (hyperlipidemia) Neuropathy Occasional tremors Septic arthritis (~03/2016) Tinnitus Physical Therapy Inpatient Evaluation/Re-Eval M1 PT/OT-IP Prior Functional Status Start: 06/07/24 08:41 Freq: NEEDED Status: Active Protocol: Document 06/17/24 15:25 AB (Rec: 06/17/24 17:36 AB [id number]) Medical Review Prior Functional Status Medical History Reviewed Yes Communication pt with confusion and inconsistent with answering questions and following directions Mobility and Gait PLOF and home set up obtained from last hospital admission may 2024: pt was modified independent with mobilities without AD prior to hip sx; just started using SPC 2 weeks prior to hip sx Social History Household Members spouse Living Arrangements House Number of Floors (Floors) Two Floors Number of Stairs To Enter/Railing? 1 step to enter 16 steps to 2nd floor bedroom/ bathroom Home Environment Standard Height Toilet,Walk in Shower Home Equipment Front Wheel Walker,Straight Cane,Bedside Commode,Shower Seat without Backrest,Hand Held Shower,Grab Bars In Shower M2 PT-IP Current Condition Start: 06/07/24 08:41 Freq: NEEDED Status: Active Protocol: Document 06/17/24 15:25 AB (Rec: 06/17/24 17:36 AB [id number]) Physical Therapy Current Condition Current Condition Evaluation Date 06/17/24 Treatment Diagnosis acute metabolic encephalopathy ; hypercalcemia; difficulty in walking Onset Date 06/06/24 M3 PT-IP Subjective Start: 06/07/24 08:41 Freq: NEEDED Status: Active Protocol: Document 06/17/24 15:25 AB (Rec: 06/17/24 17:36 AB [id number]) Subjective Physical Therapy Visit Type Type Initial Evaluation Visit Start Time 15:25 Visit Stop Time 16:05 Number of MANUFACTURING LABORER Visits 0 Physical Therapy Visit Comments Patient Comments agreeable to do PT M4 PT-IP Mobility and Gait Start: 06/07/24 08:41 Freq: NEEDED Status: Active Protocol: Document 06/17/24 15:25 AB (Rec: 06/17/24 17:36 AB [id number]) PT-Bed Mobility Assessment Supine to Sit Supine to Sit Maximum Assistance,1 Person Assistance,Head of Bed Elevated,Bedrails PT-Transfer Assessment Sit to and From Stand Sit to and from Stand Maximum Assistance,1 Person Assistance,2 Person Assistance ,Use of Upper Extremities Equipment Transfer Assistive Device Gait Belt,Front Wheeled Walker Orthotic/Prosthetic Devices or Brace: No Transfers Transfer Destination Chair Transfer Technique ambulated Transfer Ability Level of Assist Moderate Assistance,Maximum Assistance,1 Person Assistance ,Use of Upper Extremities Comments Mobility Comments pt supine in bed and agreeable to do PT. pt continues to have confusion but able to follow one step commands but inconsistently and needs repetitions. completed supine to sit max A and max cues with HOB elevated and use of bed rail. c/o R hip pain. pt able to sit on EOB min A and cues for safety. completed sit to stand max A x 1-2 and max cues. ambulated in room ~ 8 ft using FWW mod to max A and cues. pt sat back on chair . positioned pt on the chair. call light and table placed within reach. pt requires max cues with all tasks. Gait Assessment Gait Gait Assistance Required: Moderate Assistance,Maximum Assistance Distance (Feet) 8 Able to Maintain Weight Bearing Status Yes During Gait Assistive Devices Assistive Device Gait Belt,Front Wheeled Walker Orthotic/Prosthetic Devices or Brace: No Gait Deviations General Gait Pattern Antalgic,Decreased Stride Length,Decreased Feet Clearance,Narrow Based Gait, Step-to Gait Factors Limiting Gait Function Factors Limiting Gait Function Decreased Activity Tolerance, Decreased Strength,Difficulty Following Directions,Limited Range of Motion,Pain,Poor Balance,Poor Safety Awareness PT-Balance Assessment Sitting Balance and Reactions Static Sitting Balance Ability Fair Dynamic Sitting Balance Ability Fair Standing Balance and Reactions Static Standing Balance Ability Poor Dynamic Standing Balance Ability Poor Device Used FWW M5 PT-IP Objective Assessments Start: 06/07/24 08:41 Freq: NEEDED Status: Active Protocol: Document 06/17/24 15:25 AB (Rec: 06/17/24 17:36 AB [id number]) Orientation Orientation/Cognition Level of Alertness Confusional State Orientation Name Language Function Ability Hard of Hearing Safety Awareness Decreased Safety Awareness Memory Description Short Term Impaired,Custodial Impaired Gross Range of Motion Lower Extremity ROM Assessment Within Functional Limits Strength Lower Extremity Strength Assessment Right Impaired Hip 3-/5 Knee 4-/5 Coordination Assessment Gross Coordination Gross Coordination WNL Muscle Tone Muscle Tone WNL Yes M6 PT-IP Treatment Start: 06/07/24 08:41 Freq: NEEDED Status: Active Protocol: Document 06/17/24 15:25 AB (Rec: 06/17/24 17:36 AB [id number]) Physical Therapy Treatment Education Education Provided Safety M7 PT-IP Assessment and Plan Start: 06/07/24 08:41 Freq: NEEDED Status: Active Protocol: Document 06/17/24 15:25 AB (Rec: 06/17/24 17:36 AB [id number]) PT Summary Assessment and Plan Potential Rehabilitation Potential Fair Status of Condition at Evaluation Evolving Summary Impairments Pain,ROM,Strength,Balance, Coordination,Sensation,Tone, Cognition,Bed Mobility, Transfers,Gait,Activity Tolerance Assessment Summary pt is a 74 y/o M who is admitted for acute metabolic encephalopathy and hypercalcemia. pt with recent R anterior FARIDA last may 2024. pt requiring max A x 1-2 for sit to stand and mod to max A for ambulation using FWW. pt continues to have confusion and requires max cues with all tasks. pt will benefit from SNF rehab. Goals Bed Mobility Goal Minimal Assistance Transfer Goal Minimal Assistance,Front Wheeled Walker Gait Goal Minimal Assistance,Front Wheel Walker Gait Distance 50 Other Goals improve bed mobility, transfers and ambulation using FWW 100 ft SBA up/down 1 step using FWW SBA Days to Meet Goals 10 Frequency of Treatment Frequency Of Treatment Once a Day Treatment Plan Physical Therapy Treatment Plan Bed Mobility Training,Transfer Training,Gait Training, Therapeutic Exercise,Balance Retraining,Post Op Education, Discharge Planning,Hot or Cold Pack,Neuromuscular Re-ed, Coordination Retraining,Manual Therapy Precautions Anterior Hip Precautions No Hip Extension,No Hip External Rotation Weight Bearing Status Weight Bearing Status Weight Bear as Tolerated Allowed Weight Bearing Amount (enter % RLE WBAT or #) (%) Recommendations To Nursing Amount of Assist Needed 2 Person Assist Discharge Recommendations PT Discharge Recommendations SNF Rehab Transportation Needs at Discharge Wheelchair/Cabulance
[2024-06-17 20:00] VITALS: BP 136/84; PULSE 74; RESP 19; TEMP 37; O2SAT 96
[2024-06-17] MEDS: HYDROMORPHONE 1 MG INJ IV (22:11)
[2024-06-17] MEDS: SODIUM CHLORIDE 0.9% FLUSH 10 ML IV (22:11)
[2024-06-17] MEDS: OLANZapine 10 MG VIAL 5 MG IM (22:17)
[2024-06-18] MEDS: DEXTROSE IV (03:05)
[2024-06-18] MEDS: [UNRECOGNIZED DRUG - OTHER] IV (03:05)
[2024-06-18 06:00] VITALS: BP 146/86; PULSE 86; RESP 19; TEMP 36.5; O2SAT 96
--- NOTE | 2024-06-18 07:53 | P.PN_ITS ---
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 He continues to improve mentally each day. He is able to hold detailed conversations without too much tangentiality. The creatinine has stabilized at 2.77. The sodium is 149. The blood pressure is 146/86. The CBC is normal. We will be discussing a change to oral bipolar medicine with Psychiatry today. We will also be starting amiloride and stopping his IV fluid infusion. He continues to have a murmur 2/6 systolic so will need an Echo to be done. Exam Vital Signs (past 8 hours): - 06/18/24 06:00 Temperature 97.7 F Pulse Rate 86 Respiratory Rate 19 Blood Pressure 146/86 H Pulse Oximetry 96 Oxygen Flow Rate 0 Oxygen Delivery Method Room Air Oxygen Flow Rate 0 Narrative Exam Narrative: Alert and oriented to name and location today. No apparent distress. He complains of weakness with the sit-stand maneuver. He has a Raymundo catheter in place Heart is regular rate and rhythm with a 2/6 systolic ejection murmur Lungs are clear to auscultation bilaterally Abdomen is soft, bowel sounds positive, nontender, no organomegaly Extremities have no ankle edema Objective Labs 06/18/24 08:11 06/18/24 08:11 Labs: Laboratory Results - last 24 hr 06/14/24 06/17/24 13:15 10:25 Sodium 150 H Potassium 4.3 Chloride 125 H* Carbon Dioxide 14 L BUN 48 H Creatinine 2.76 H Estimated GFR 24 L BUN/Creatinine Ratio 17.4 Glucose 150 H Serum Osmolality 354 H Calcium 9.0 PFSH Medical History Anxiety De Quervain's tenosynovitis Depression DJD (degenerative joint disease) Herniated disc HLD (hyperlipidemia) Neuropathy Occasional tremors Septic arthritis (~03/2016) Tinnitus Surgical History History of ankle surgery 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 Acute metabolic encephalopathy. MRI brain was negative. CSF HSV testing PCR negative. 2. Volume depletion, CKD 4 and MARTY, present on admission and worsening. Baseline Creatinine apparently 2.73 on 06/09/24. Creatinine 2.76 on 06/17/24. 3. Severe hypernatremia, present on admission and persistent despite D5 water and encouraging fluid intake. This is nephrogenic Diabetes insipidus due to chronic [place] use. Serum and urine osmolality were ordered but not done. Empiric trial of desmopressin for central DI without conclusive effect. Na 149 on 06/18/24. Begin Amiloride and stop IVF infusion on 06/18/24. 4. Hypercalcemia, present on admission and improved after he was given calcitonin x4 doses, zometa x1 dose on 06/08. Calcium now down to 9.2. PTH ordered and was elevated at 137. [place] can interfere and increase PTH levels. Vit D level 31. [place] level was 1.2 on admit and 0.8 on repeat. Continue to hold lithium, psychiatry recommended stopping altogether. 5. Bipolar with a history of lithium use, present on admission and active with probable toxicity. Discussed with psychiatrist Dr. Velarde, with his renal dysfunction he recommended stopping lithium. Until more alert recommended IM olanzapine 5 mg at bedtime and 2.5 mg daily for treatment of underlying bipolar disorder. Pending call back from Psychiatry to discuss PO treatment options. 6. Heart Murmur. Echo ordered. Plan: -serum and urine osmolality were ordered but apparently not done? -Given empiric trial of desmopressin 2 mg IV x2 doses -stopping IVF -starting on Amiloride -Monitor electrolytes closely -hold chronic medications until MARTY improves. -PT eval -discuss Bipolar PO treatment options with Psychiatry. Left message. -Echo for new heart murmur Full code. is his proxy decision maker. They live on [address]. MAUREEN: 06/19 if stable and improved to [facility] nursing [facility]. Time-Based Coding :: [TOTAL MINUTES] spent with patient and on the chart (including review of chart, obtaining history, exam, reviewing outside data, placing orders, documenting exam and treatment plan, and counseling patient) on [DATE].
[2024-06-18 08:00] VITALS: BP 133/83; PULSE 80; RESP 15; TEMP 36.5; O2SAT 100
[2024-06-18 08:20] LABS: Add Manual Diff / Slide Review NO; Basophils Absolute Auto 100 /uL (0-100); Basophils Percent Auto 0.9 % (0-2); Eosinophils Absolute Auto 300 /uL (0-450); Eosinophils Percent Auto 2.8 % (2-4); Hematocrit 40.2 % (41-53); Hemoglobin 12.6 g/dL (13.5-17.5); Lymphocytes Absolute Auto 1400 /uL (1100-4500); Lymphocytes Percent Auto 14.1 % (25-40); Mean Corpuscular HGB Conc 31.4 % (30-36); Mean Corpuscular Hemoglobin 24.9 PG (26-34); Mean Corpuscular Volume 79.3 fL (80-100); Monocytes Absolute Auto 800 /uL (0-900); Monocytes Percent Auto 8.6 % (3-14); Neutrophils Absolute Auto 7300 /uL (1500-7000); Neutrophils Percent Auto 73.6 % (50-75); Platelet Count 219 X10^3/uL (150-400); Red Blood Cell Count 5.07 X10^6/uL (4.5-5.9); Red Cell Distribution Width 16.9 % (11.6-14.8); White Blood Cell Count 9.9 X10^3/uL (4.5-11.0)
[2024-06-18] MEDS: HEPARIN 5,000 UNIT/ML VIAL 5000 UNIT SUBCUT ×2 (08:37→21:16)
[2024-06-18] MEDS: SODIUM CHLORIDE 0.9% FLUSH 10 ML IV ×2 (08:38→21:17)
[2024-06-18 08:52] LABS: BUN Creatinine Ratio 15.9 (6-22); Blood Urea Nitrogen 44 mg/dL (9-20); Calcium 8.9 mg/dL (8.4-10.2); Carbon Dioxide 15 mmol/L (22-32); Estimated Glomerular Filt Rate 23 mL/min (>60); Glucose 117 mg/dL (80-110); HEMOLYSIS 17 (0-50); Potassium 4.3 mmol/L (3.4-5.1); Sodium 149 mmol/L (137-145)
[2024-06-18 09:22] LABS: Chloride 124 mmol/L (98-107)
[2024-06-18] MEDS: OXYCODONE IR 5 MG TABLET PO ×3 (11:34→22:47)
--- NOTE | 2024-06-18 11:49 | SLP.IPNOTE ---
ROLL CLEANER attempted tx at 11:45. Pt had just started working with PT and initiated toileting transfer. Will re-attempt tx later today as ROLL CLEANER schedule allows. ROLL CLEANER consulted briefly with care management for update on d/c plan. Current plan is d/c around Tuesday 06/20 if pt able to remain stable for 48 hours. D/c location is [facility] ([facility]).
--- NOTE | 2024-06-18 12:08 | PT.IPTN ---
Current Diagnoses Acute kidney failure, unspecified (06/06/24) Physical Therapy Treatment Note M2 PT-IP Current Condition Start: 06/07/24 08:41 Freq: NEEDED Status: Active Protocol: Document 06/17/24 15:25 AB (Rec: 06/17/24 17:36 AB [id number]) Physical Therapy Current Condition Current Condition Evaluation Date 06/17/24 Treatment Diagnosis acute metabolic encephalopathy ; hypercalcemia; difficulty in walking Onset Date 06/06/24 M3 PT-IP Subjective Start: 06/07/24 08:41 Freq: NEEDED Status: Active Protocol: Document 06/18/24 12:02 MB (Rec: 06/18/24 12:08 MB [id number]) Subjective Physical Therapy Visit Type Type Treatment Note Visit Start Time 11:32 Visit Stop Time 12:01 Number of GUEST EXPERIENCE SPECIALIST Visits 0 Physical Therapy Visit Comments Patient Comments Pt presents pleasantly confused. Reports concern about managing pain medications with need to have BM and so when PT offers assistance to try to get up to try BM, pt is agreeable. M4 PT-IP Mobility and Gait Start: 06/07/24 08:41 Freq: NEEDED Status: Active Protocol: Document 06/18/24 12:02 MB (Rec: 06/18/24 12:08 MB [id number]) PT-Bed Mobility Assessment Supine to Sit Supine to Sit Standby Assistance,1 Person Assistance,Head of Bed Elevated,Bedrails Scooting Scooting to Edge of Bed Standby Assistance PT-Transfer Assessment Sit to and From Stand Sit to and from Stand Minimal Assistance,1 Person Assistance,Use of Upper Extremities Equipment Transfer Assistive Device Gait Belt,Front Wheeled Walker Orthotic/Prosthetic Devices or Brace: No Transfers Transfer Destination Chair,Bedside Commode Transfer Technique Ambulation Transfer Ability Level of Assist Minimal Assistance,1 Person Assistance,Use of Upper Extremities Comments Mobility Comments Pt with confusion and when asked to roll on side, he rolls fully over on his stomach to EOB and PT must block to prevent possible unsafe bed exit. He then is able to use rail and sit up. Max A for hygiene after BM on commode, pt with confusion, confusion with hand placement for transfers and tactile assist Gait Assessment Gait Gait Assistance Required: Minimum Assistance,1 Person Assist Distance (Feet) 2 Able to Maintain Weight Bearing Status Yes During Gait Assistive Devices Assistive Device Gait Belt,Front Wheeled Walker Orthotic/Prosthetic Devices or Brace: No Gait Deviations General Gait Pattern Decreased Stride Length, Decreased Feet Clearance, Flexed Trunk,Step-to Gait,Wide Based Gait Factors Limiting Gait Function Factors Limiting Gait Function Decreased Activity Tolerance, Decreased Strength,Difficulty Following Directions,Pain,Poor Safety Awareness Comments Gait Comments 2'x2 PT-Balance Assessment Sitting Balance and Reactions Static Sitting Balance Ability Good Dynamic Sitting Balance Ability Fair Standing Balance and Reactions Static Standing Balance Ability Fair Dynamic Standing Balance Ability Fair Device Used RW M5 PT-IP Objective Assessments Start: 06/07/24 08:41 Freq: NEEDED Status: Active Protocol: Document 06/17/24 15:25 AB (Rec: 06/17/24 17:36 AB [id number]) Orientation Orientation/Cognition Level of Alertness Confusional State Orientation Name Language Function Ability Hard of Hearing Safety Awareness Decreased Safety Awareness Memory Description Short Term Impaired,Distillation Operator Helper Impaired Gross Range of Motion Lower Extremity ROM Assessment Within Functional Limits Strength Lower Extremity Strength Assessment Right Impaired Hip 3-/5 Knee 4-/5 Coordination Assessment Gross Coordination Gross Coordination WNL Muscle Tone Muscle Tone WNL Yes M6 PT-IP Treatment Start: 06/07/24 08:41 Freq: NEEDED Status: Active Protocol: Document 06/17/24 15:25 AB (Rec: 06/17/24 17:36 AB [id number]) Physical Therapy Treatment Education Education Provided Safety M7 PT-IP Assessment and Plan Start: 06/07/24 08:41 Freq: NEEDED Status: Active Protocol: Document 06/18/24 12:02 MB (Rec: 06/18/24 12:08 MB [id number]) PT Summary Assessment and Plan Potential Rehabilitation Potential Fair Status of Condition at Evaluation Evolving Summary Impairments Pain,ROM,Strength,Balance, Coordination,Sensation,Tone, Cognition,Bed Mobility, Transfers,Gait,Activity Tolerance Progress Towards Goals Progressing Toward Goals Assessment Summary Pt con't with confusion that is a barrier to skilled PT but he is pleasant and cooperative with therapy today . He has trouble following commands for rolling on side to get OOB and he rolls fully onto his stomach and PT blocks him from rolling off the bed. He requires tactile and simple verbal cues for safe transfers, gait and mobility today. Left up in chair with alarm on gown and nsg aware. Recommend SNF at d/c. Goals Bed Mobility Goal Independent Transfer Goal Standby Assistance Gait Goal Standby Assistance Gait Distance 50 Other Goals improve bed mobility, transfers and ambulation using FWW 100 ft SBA up/down 1 step using FWW SBA Days to Meet Goals 10 Frequency of Treatment Frequency Of Treatment Once a Day Treatment Plan Physical Therapy Treatment Plan Bed Mobility Training,Transfer Training,Gait Training, Therapeutic Exercise,Balance Retraining,Post Op Education, Discharge Planning,Hot or Cold Pack,Neuromuscular Re-ed, Coordination Retraining,Manual Therapy Precautions Anterior Hip Precautions No Hip Extension,No Hip External Rotation Weight Bearing Status Weight Bearing Status Weight Bear as Tolerated Allowed Weight Bearing Amount (enter % RLE WBAT or #) (%) Recommendations To Nursing Amount of Assist Needed 1 Person Assist Discharge Recommendations PT Discharge Recommendations SNF Rehab Transportation Needs at Discharge Wheelchair/Cabulance
[2024-06-18 14:00] VITALS: BP 104/75; PULSE 78; RESP 12; TEMP 36.7; O2SAT 100
--- NOTE | 2024-06-18 14:02 | DI.ECHO.S_ITS ---
[facility] : : [id number] : [place] : : [id number] : : Phone: [phone] Echocardiogram Report + + :Name: ARLENE BRODY Study Date: 06/18/2024 Height: 73 in : :Hospital ReadingLocation: Weight: 175 lb : : Gender: Male BSA: 2.0 m2 : :: 1950 Age: 74 yrs BP: 104/75 mmHg: :Reason For Study: SYSTOLIC MUMUR : :Ordering Physician: BELEN, : :GENI Cole Performed By: Glenis Silva : :Referring: GENI GLOVER : + + Interpretation Summary Technically difficult study patient was unable to stay still during exam and had difficulties following directions. The left ventricle is hyperdynamic. Diastolic parameters suggest probable normal left ventricular diastolic function and normal filling pressures. The right ventricle is normal in size and function. No valvular abnormalities. Pulmonary artery pressures cannot be estimated because of the lack of a measurable TR jet velocity but the IVC suggests a CVP of around 3 mmHg. Procedure: A two-dimensional transthoracic echocardiogram with color flow and Doppler was performed. The study quality was technically difficult. Comparison is made with the echocardiogram of 03/02/2016. The patient was in sinus rhythm with heart rates between 69-76 bpm during the exam. Left Ventricle: The left ventricle is normal in size. There is normal left ventricular wall thickness. An intracavitary gradient is suspected. The left ventricle is hyperdynamic. Diastolic parameters suggest probable normal left ventricular diastolic function and normal filling pressures. Right Ventricle: The right ventricle is normal in size and function. Atria: The left atrium grossly appears normal in size. Right atrial size is normal. There is no Doppler evidence for an interatrial shunt. Mitral Valve: The mitral valve leaflets appear to open well. There is no mitral regurgitation noted. Aortic Valve: The aortic valve is trileaflet. The aortic valve opens well. There is no aortic valve stenosis. No aortic regurgitation is present. Tricuspid Valve: The tricuspid valve leaflets are thin and pliable. There is trace tricuspid regurgitation. Pulmonary artery pressures cannot be estimated because of the lack of a measurable TR jet velocity but the IVC suggests a CVP of around 3 mmHg. Pulmonic Valve: The pulmonic valve is not well visualized. There is no pulmonic valvular regurgitation. Great Vessels: The aortic root is normal size. The dimensions of the ascending aorta are normal. The IVC is of normal diameter and collapses greater than 50% with a sniff. This suggests a low right atrial pressure of 3 mm Hg. Pericardium/ Pleura There is no pericardial effusion. There is no pleural effusion. MMode/2D Measurements & Calculations LVIDd: 4.1 cm LVOT diam: 2.0 cm LVIDs: 2.2 cm Ao root diam: 3.1 cm FS: 46.4 % asc Aorta Diam: 3.0 cm IVSd: 0.95 cm Ao Arch Diam (Prox Trans): 2.5 cm LVPWd: 0.87 cm LV moulton. diameter/BSA (cm/m^2): 2.0 LV sys. diameter/BSA (cm/m^2): 1.1 LA A2 area: 13.6 cm2 RA long axis: 4.3 cm LA A4 area: 16.5 cm2 RA area: 11.7 cm2 LA length (vol): 5.3 cm RA vol: 27.2 ml LA vol: 35.8 ml RA : 13.4 ml/m2 LA vol index: 17.6 ml/m2 IVC diam: 1.8 cm RVD1 (basal): 3.2 cm RVD2 (mid): 2.4 cm TAPSE: 1.8 cm Doppler Measurements & Calculations Ao V2 max: 219.5 cm/sec MV E max morris: 50.3 cm/sec Ao V2 mean: 158.0 cm/sec MV A max morris: 58.1 cm/sec Ao max P.9 mmHg MV E/A: 0.87 Ao mean P.4 mmHg Med Peak E' Morris: 7.7 cm/sec Ao V2 VTI: 33.1 cm E/E' med: 6.5 Lat Peak E' Morris: 11.0 cm/sec E/E' lat: 4.6 E/e' average: 5.5 MV dec time: 0.20 sec PA V2 max: 124.5 cm/sec PA V2 mean: 95.3 cm/sec PA mean P.8 mmHg Reading Physician:05:12 PM
--- NOTE | 2024-06-18 14:17 | ST.IPDYTX ---
Visit Care Team Role Provider Type Joo Wilson DO Primary Care Provider Non-Staff Specialty: Family Practice Address: [address] [place] [address], [place], [address] Email: Lambert Gregory MD Admit Provider Physician Attending Provider Referring Provider Specialty: Internal Medicine Address: [address] [place] [address], [address] Email: [email or web address] BUGGYMAN Dysphagia Treatment BUGGYMAN Dysphagia Treatment Start: 06/15/24 16:08 Freq: Status: Active Protocol: Document 06/18/24 14:03 SS (Rec: 06/18/24 14:16 SS [id number]) Dysphagia Treatment Session Time Visit Start Time 13:30 Visit Stop Time 14:00 Total Visit Minutes 30 Visit Information Visit Number 4 Setting Assessment Location Acute Care Visit Type Note Type Treatment Note Next Note Type Next Note Type Treatment Note Patient Information Identification Type Name Subjective Observations Pt alert upon ST visit today. He was sitting fully upright in chair upon ST entry drinking from cup. He was increasingly conversational today and able to discuss egocentric topics (e.g., going to [place] a kid, his spouse, his home,). However, continues with some responses not making sense or delusional in nature which is consistent with hx of bipolar. Pt oriented to self and date/time though appears to think he is part of a scientific experiment and perseverated on this topic the whole session. RN reported pt has been fully awake today and has been feeding himself. No difficulty reported with liquids, solids , or pills. Treatment Liquids Trialed Thin (IDDSI 0) Solids Trialed Purred (IDDSI 4),Soft & Bite- sized (IDDSI 6) Administration Type Tea Spoon,Cup Single Sip,Cup Consecutive Sips,Straw,Self- Feeding Oral Strategies Upright at 90 degrees Pharyngeal Strategies Sitting Upright (90 deg) Treatment Activities PO trials of thin liquids via cup and straw as well as puree and soft and bite-sized solids via tsp. Consulted with RN re: pt status. Pt's spouse called in the middle of session and BUGGYMAN provided education re: progress to date . The IDDSI Framework Protocol: IDDSI.1 Assessment Patient Response to Treatment Good Rehab Potential Good Assessment of Improvement Pt with increased participation and engagement today. He was drinking from flow-controlled cup upon BUGGYMAN entry, though this was causing him to tilt his head fully back, likely resulting in premature spillage, which caused him to cough. During trials of thin liquids via cup and straw, he was able to take single and sequential sips without overt s/sx of aspiration. Additionally, trials included puree and soft and bite-sized solids via tsp , with pt able to feed himself independently today. This is a significant improvement as he has required complete assistance with feeding previously. Oral phase appeared to be WFL. Good containment; normal, rotary mastication. AP transport and manipulation appeared WFL. No abnormal oral residue observed . Swallow trigger timing appeared to be WFL. No overt s /sx of penetration/aspiration were observed throughout the trials. Pt exhibited no coughing or changes to vocal quality. Recommend continuation of BID. Recommend diet advancement to soft and bite-sized. Pt may have thin liquids from cup or straw as long as he is fully upright and fully alert and awake. He will benefit from continued supervision during all PO intake given waxing and waning alertness as his medical status continues to change. RN and MD notified of pt progress and current recommendations. BUGGYMAN recommendations at this time: 1. Thin liquids via cup or straw with supervision. If alertness is limited, thin liquids via TEASPOON (no straw , no cup) as long as pt is swallowing within 2-3 seconds of presentation to oral cavity . 2. Advance to soft and bite- sized (SB6) with 1:1 supervision. Withhold solids if pt not fully alert or awake. 3. Reposition upright 90 degrees for all PO intake. 4. Meds in puree carrier. 5. BUGGYMAN to monitor overall status and adjust diet recommendations based on alertness/cognitive status. 6. Recommend continuation of BID oral care Recommendations Recommendations Upgrade Diet Order Liquids Order Thin (IDDSI 0) Diet Order Soft & Bite-sized (IDDSI 6) Medication Recommendations Whole in Carrier,One at a Time Additional Dietary Needs 1:1 Supervision,Encourage to Self-Feed Aspiration Precautions Recommended Precautions Upright at 90 Degrees Treatment Plan Placement Recommendation after Discharge [facility] Facility Appropriate for Continued Therapy Yes
[2024-06-18] MEDS: hydroCHLOROthiazide 25 MG TABLET 12.5 MG PO (15:17)
[2024-06-18] MEDS: BRIMONIDINE 0.2% OPHTH 5 ML 1 DROPS EYE-LEFT ×2 (15:18→21:16)
[2024-06-18] MEDS: OLANZapine 10 MG VIAL 5 MG IM (21:15)
[2024-06-18] MEDS: DIVALPROEX DR 250 MG TABLET PO (21:16)
[2024-06-18 22:00] VITALS: BP 111/76; PULSE 80; RESP 18; TEMP 36.4; O2SAT 99
[2024-06-18] MEDS: ACETAMINOPHEN 325 MG TABLET 650 MG PO (22:49)
[2024-06-19 06:00] VITALS: BP 130/82; PULSE 70; RESP 18; TEMP 36.4; O2SAT 99
[2024-06-19 06:58] LABS: BUN Creatinine Ratio 14.2 (6-22); Blood Urea Nitrogen 44 mg/dL (9-20); Calcium 8.9 mg/dL (8.4-10.2); Carbon Dioxide 22 mmol/L (22-32); Chloride 117 mmol/L (98-107); Estimated Glomerular Filt Rate 21 mL/min (>60); Glucose 92 mg/dL (80-110); HEMOLYSIS < 15 (0-50); Potassium 4.4 mmol/L (3.4-5.1); Sodium 146 mmol/L (137-145)
--- NOTE | 2024-06-19 07:53 | P.PN_ITS ---
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 He is making a lot more sense when he talks. It takes longer into the conversation before his mind begins to wander and he confabulates. Nursing staff noted that he was visually/auditory hallucinating this morning. The sodium is 146 with a creatinine of 3.09. I would consider him ?fluently confused?. I explained to him the new medications of Depakote and hydrochlorothiazide. He was discussed with Dr. Velarde from Psychiatry yesterday who recommended that he be started on Depakote 250 mg b.i.d. with eventual titration up to as high as 500 or 750 mg b.i.d. The hydrochlorothiazide is being used for the diabetes insipidus since amiloride is not available. The local fdc facility is not accepting him for admission so alternative plans will need to be worked on. He finishes the visit by graciously telling me ?you are welcome to come in and talk to me anytime?. Exam Vital Signs (past 8 hours): - 06/19/24 06:00 Temperature 97.6 F Pulse Rate 70 Respiratory Rate 18 Blood Pressure 130/82 Pulse Oximetry 99 Oxygen Flow Rate 0 Oxygen Delivery Method Room Air Oxygen Flow Rate 0 Narrative Exam Narrative: He is alert and oriented x3 but quickly confabulates and becomes confused in a very fluid manner. I did not observe the hallucinations. Heart is regular rate and rhythm without murmur Lungs are clear to auscultation bilaterally Extremities have no ankle edema Objective Labs 06/18/24 08:11 06/19/24 06:00 Labs: Laboratory Results - last 24 hr 06/18/24 06/19/24 08:11 06:00 WBC 9.9 RBC 5.07 Hgb 12.6 L Hct 40.2 L MCV 79.3 L MCH 24.9 L MCHC 31.4 RDW 16.9 H Plt Count 219 Neut % (Auto) 73.6 Lymph % (Auto) 14.1 L [place] % (Auto) 8.6 Eos % (Auto) 2.8 Baso % (Auto) 0.9 Neut # (Auto) 7300 H Lymph # (Auto) 1400 [place] # (Auto) 800 Eos # (Auto) 300 Baso # (Auto) 100 Sodium 149 H 146 H Potassium 4.3 4.4 Chloride 124 H* 117 H Carbon Dioxide 15 L 22 BUN 44 H 44 H Creatinine 2.77 H 3.09 H Estimated GFR 23 L 21 L BUN/Creatinine Ratio 15.9 14.2 Glucose 117 H 92 Calcium 8.9 8.9 PFSH Medical History Anxiety De Quervain's tenosynovitis Depression DJD (degenerative joint disease) Herniated disc HLD (hyperlipidemia) Neuropathy Occasional tremors Septic arthritis (~03/2016) Tinnitus Surgical History History of ankle surgery 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 Acute metabolic encephalopathy. Secondary to hypernatremia and acute kidney injury. MRI brain was negative. CSF HSV testing PCR negative. 2. Volume depletion, CKD 4 and MARTY, present on admission. Baseline Creatinine apparently 2.73 on 06/09/24. Creatinine 2.76 on 06/17/24. Creatinine 3.09 on 06/19/2024, likely related to stopping IV fluid yesterday. 3. Severe hypernatremia, present on admission. Treated with D5 water and encouraging fluid intake. This is nephrogenic Diabetes insipidus due to chronic Kirkpatrick use. Serum and urine osmolality were ordered but not done. Empiric trial of desmopressin for central DI without conclusive effect. Na 149 on 06/18/24. Begin Amiloride and stop IVF infusion on 06/18/24. Amiloride not available so hydrochlorothiazide was used instead. 4. Hypercalcemia, present on admission and improved after he was given calcitonin x4 doses, zometa x1 dose on 06/08. Calcium now down to 9.2. PTH ordered and was elevated at 137. Kirkpatrick can interfere and increase PTH levels. Vit D level 31. Kirkpatrick level was 1.2 on admit and 0.8 on repeat. Continue to hold lithium, psychiatry recommended stopping altogether. 5. Bipolar with a history of lithium use, present on admission and active with probable toxicity. Discussed with psychiatrist Dr. Velarde, with his renal dysfunction he recommended stopping lithium. Until more alert recommended IM olanzapine 5 mg at bedtime and 2.5 mg daily for treatment of underlying bipolar disorder. Discussed again with Dr. Velarde on 06/18 with recommendations for Depakote 250 mg b.i.d. with potential dose increase to 500 or 750 mg b.i.d. He insists that he has never had a psychiatrist that and that instead an biometric screener prescribed lithium for him years ago. 6. Heart Murmur. Echo without valvular abnormality seen. Plan: -serum and urine osmolality were ordered but apparently not done? -Given empiric trial of desmopressin 2 mg IV x2 doses -stopped IVF on 06/19/24 -started on HCTZ -Monitor electrolytes closely -PT and OT eval -discussed Bipolar PO treatment options with Psychiatry. Explained plan for Depakote to him. He insists that he has never had a psychiatrist that and that instead an biometric screener prescribed lithium for him years ago. -Echo without valvular abnormality Full code. is his proxy decision maker. They live on [facility]. MAUREEN: 06/20 if alternative fdc facility can be found. He was declined by [facility]. Time-Based Coding :: [TOTAL MINUTES] spent with patient and on the chart (including review of chart, obtaining history, exam, reviewing outside data, placing orders, documenting exam and treatment plan, and counseling patient) on [DATE].
[2024-06-19 08:00] VITALS: BP 115/64; PULSE 85; RESP 11; TEMP 36.5; O2SAT 99
[2024-06-19] MEDS: TIMOLOL 0.5% OPHTH 1 DROPS EYE-BOTH (09:01)
[2024-06-19] MEDS: DIVALPROEX DR 250 MG TABLET PO ×2 (09:02→20:42)
[2024-06-19] MEDS: HEPARIN 5,000 UNIT/ML VIAL 5000 UNIT SUBCUT ×2 (09:02→20:42)
[2024-06-19] MEDS: BRIMONIDINE 0.2% OPHTH 5 ML 1 DROPS EYE-LEFT ×2 (09:02→20:39)
[2024-06-19] MEDS: SODIUM CHLORIDE 0.9% FLUSH 10 ML IV ×2 (09:03→20:40)
[2024-06-19] MEDS: hydroCHLOROthiazide 25 MG TABLET 12.5 MG PO (09:30)
--- NOTE | 2024-06-19 12:15 | DIET.PN1 ---
Dietary Progress Note Assessment: Per REFINING STILL OPERATOR note yesterday, pt able to feed self independently. Variable PO intakes. Spoke to RN who reported pt ate most of breakfast this morning, continues to tolerate nutritional supplements and drink fluids. With increased PO intakes, changed ONS plus to ONS original d/t renal function and EER for protein. Will continue to monitor PO intakes and adjust ONS as needed. Ht: 185.42 cm Wt: 79.379 kg BMI: 23 Last BM: 06/18/24 (06/18/24 11:15) MNA: 13 Viet Score: 19 Diet: 06/18/24 Dinner Dysphagia Diet Diet Modifications: Continue 1:1 supervision. Food Texture: Level 6-Soft & Bite-sized Liquid Consistency: Level 0 - Thin Nutrition Percent Meal Consumed 25% 06/18/24 18:00 Percent Meal Consumed 25% 06/18/24 14:00 Percent Meal Consumed 100% 06/18/24 09:00 Percent Meal Consumed 75% 06/17/24 18:00 Labs: RBC 5.07 X10^6/uL (4.5-5.9) 06/18/24 08:11 Hgb 12.6 g/dL (13.5-17.5) L 06/18/24 08:11 Hct 40.2 % (41-53) L 06/18/24 08:11 Creatinine 3.09 mg/dL (0.66-1.25) H 06/19/24 06:00 Electronically Signed by: Gislea Blair 06/19/24 12:15 [address] [address]
--- NOTE | 2024-06-19 13:40 | PT.IPTN ---
Current Diagnoses Acute kidney failure, unspecified (06/06/24) Physical Therapy Treatment Note M2 PT-IP Current Condition Start: 06/07/24 08:41 Freq: NEEDED Status: Active Protocol: Document 06/17/24 15:25 AB (Rec: 06/17/24 17:36 AB [id number]) Physical Therapy Current Condition Current Condition Evaluation Date 06/17/24 Treatment Diagnosis acute metabolic encephalopathy ; hypercalcemia; difficulty in walking Onset Date 06/06/24 M3 PT-IP Subjective Start: 06/07/24 08:41 Freq: NEEDED Status: Active Protocol: Document 06/19/24 13:40 AB (Rec: 06/19/24 15:55 AB [id number]) Subjective Physical Therapy Visit Type Type Treatment Note Visit Start Time 13:40 Visit Stop Time 14:30 Number of BUSINESS SEGMENT MANAGER Visits 0 Physical Therapy Visit Comments Patient Comments agreeable to do PT M4 PT-IP Mobility and Gait Start: 06/07/24 08:41 Freq: NEEDED Status: Active Protocol: Document 06/19/24 13:40 AB (Rec: 06/19/24 15:55 AB [id number]) PT-Bed Mobility Assessment Supine to Sit Supine to Sit Moderate Assistance,1 Person Assistance,Head of Bed Elevated,Bedrails PT-Transfer Assessment Sit to and From Stand Sit to and from Stand Minimal Assistance,1 Person Assistance,Use of Upper Extremities Equipment Transfer Assistive Device Gait Belt,Front Wheeled Walker Orthotic/Prosthetic Devices or Brace: No Transfers Transfer Destination Chair Transfer Technique ambulated Transfer Ability Level of Assist Minimal Assistance,1 Person Assistance,Use of Upper Extremities Comments Mobility Comments pt supine in bed and agreeable to do PT. completed supine to sit mod A and max cues. HOB elevated and pt used bed rail to assist. able to sit on EOB SBA. completed sit to stand min A and cues and pt ambulated in room using FWW CGA and cues ~ 50 ft. presents with slow paced antalgic gait . pt agreed to sit up on the chair. positioned pt on the chair. call light and table placed within reach. Gait Assessment Gait Gait Assistance Required: Contact Guard Assist Distance (Feet) 50 Able to Maintain Weight Bearing Status Yes During Gait Assistive Devices Assistive Device Gait Belt,Front Wheeled Walker Orthotic/Prosthetic Devices or Brace: No Gait Deviations General Gait Pattern Decreased Stride Length, Decreased Feet Clearance Factors Limiting Gait Function Factors Limiting Gait Function Decreased Activity Tolerance, Decreased Strength,Difficulty Following Directions,Limited Range of Motion,Pain,Poor Balance,Poor Safety Awareness M5 PT-IP Objective Assessments Start: 06/07/24 08:41 Freq: NEEDED Status: Active Protocol: Document 06/17/24 15:25 AB (Rec: 06/17/24 17:36 AB [id number]) Orientation Orientation/Cognition Level of Alertness Confusional State Orientation Name Language Function Ability Hard of Hearing Safety Awareness Decreased Safety Awareness Memory Description Short Term Impaired,Cupboard Builder Impaired Gross Range of Motion Lower Extremity ROM Assessment Within Functional Limits Strength Lower Extremity Strength Assessment Right Impaired Hip 3-/5 Knee 4-/5 Coordination Assessment Gross Coordination Gross Coordination WNL Muscle Tone Muscle Tone WNL Yes M6 PT-IP Treatment Start: 06/07/24 08:41 Freq: NEEDED Status: Active Protocol: Document 06/19/24 13:40 AB (Rec: 06/19/24 15:55 AB [id number]) Physical Therapy Treatment Education Education Provided Safety M7 PT-IP Assessment and Plan Start: 06/07/24 08:41 Freq: NEEDED Status: Active Protocol: Document 06/19/24 13:40 AB (Rec: 06/19/24 15:55 AB [id number]) PT Summary Assessment and Plan Potential Rehabilitation Potential Good Summary Impairments Pain,ROM,Strength,Balance, Coordination,Sensation,Tone, Cognition,Bed Mobility, Transfers,Gait,Activity Tolerance Progress Towards Goals Slow Progress due to Medical Issues,Slow Progress due to Activity Tolerance Assessment Summary pt progressing slowly with PT and able to ambulate using FWW ~ 50 ft CGA and cues for safety. pt needs to be more independent to safely d/c home and will benefit from SNF rehab. will continue to assess progress. Goals Bed Mobility Goal Independent Transfer Goal Standby Assistance Gait Goal Standby Assistance Gait Distance 50 Other Goals improve bed mobility, transfers and ambulation using FWW 100 ft SBA up/down 1 step using FWW SBA Days to Meet Goals 10 Frequency of Treatment Frequency Of Treatment Once a Day Treatment Plan Physical Therapy Treatment Plan Bed Mobility Training,Transfer Training,Gait Training, Therapeutic Exercise,Balance Retraining,Post Op Education, Discharge Planning,Hot or Cold Pack,Neuromuscular Re-ed, Coordination Retraining,Manual Therapy Precautions Anterior Hip Precautions No Hip Extension,No Hip External Rotation Weight Bearing Status Weight Bearing Status Weight Bear as Tolerated Allowed Weight Bearing Amount (enter % RLE WBAT or #) (%) Recommendations To Nursing Amount of Assist Needed 1 Person Assist Discharge Recommendations PT Discharge Recommendations SNF Rehab Transportation Needs at Discharge Private Vehicle,Wheelchair/ Cabulance
--- NOTE | 2024-06-19 13:51 | ST.IPDYTX ---
Visit Care Team Role Provider Type Joo Wilson DO Primary Care Provider Non-Staff Specialty: Family Practice Address: [address] [place] [address], [place], [address] Email: Lambert Gregory MD Admit Provider Physician Attending Provider Referring Provider Specialty: Internal Medicine Address: [address] [place] [address], [address] Email: [email or web address] SALES ORDER PROCESSOR Dysphagia Treatment SALES ORDER PROCESSOR Dysphagia Treatment Start: 06/15/24 16:08 Freq: Status: Active Protocol: Document 06/19/24 13:38 SS (Rec: 06/19/24 13:51 SS [id number]) Dysphagia Treatment Session Time Visit Start Time 12:25 Visit Stop Time 12:50 Total Visit Minutes 25 Visit Information Visit Number 5 Setting Assessment Location Acute Care Visit Type Note Type Treatment Note Next Note Type Next Note Type Treatment Note Patient Information Identification Type Name Subjective Observations Pt continues to be alert, though disoriented and confused. RN reported ongoing good intake during meals and no overt s/sx of aspiration. Repositioned with assistance from RN in order to sit fully upright for PO intake. Treatment Liquids Trialed Thin (IDDSI 0) Solids Trialed Soft & Bite-sized (IDDSI 6) Administration Type Cup Consecutive Sips,Straw, Self-Feeding Oral Strategies Upright at 90 degrees Pharyngeal Strategies Sitting Upright (90 deg) Treatment Activities PO trials of thin liquids via cup and straw as well as soft and bite-sized solids from meal tray. Consulted with RN re: pt status. The IDDSI Framework Protocol: IDDSI.1 Assessment Patient Response to Treatment Good Rehab Potential Good Assessment of Improvement During trials of thin liquids via cup and straw, pt tended to take sequential sips without overt s/sx of aspiration. He continued to be able to feed himself independently. Oral phase appeared to be WFL. Good containment; normal, rotary mastication. AP transport and manipulation appeared WFL. Mild oral residue observed and pt benefited from intermittent cueing to use liquid wash to clear it. Swallow trigger timing appeared to be WFL. No overt s /sx of penetration/aspiration were observed throughout the trials. Pt exhibited no coughing or changes to vocal quality following all trials. He was occasionally impulsive with sip and bite size and benefited from cueing to not attempt to speak to SALES ORDER PROCESSOR before swallowing bolus. Recommend continuation of soft and bite- sized diet with distant supervision during meal times as well as assistance with repositioning to upright position with all intake. If pt continues with current level of alertness, consider diet advancement to to regular or easy to chew textures ( depending on pt preference) at current or next level of care as pt to d/c soon. Pt may have thin liquids from cup or straw as long as he is fully upright and alert and awake. He will benefit from distant supervision during all PO intake given impulsivity and not attempting to sit upright for intake without assistance. Overall, good improvement with ability to tolerate current diet level as alertness and cognitive level continue to increase. RN notified of pt progress and current recommendations. SALES ORDER PROCESSOR recommendations at this time: 1. Thin liquids via cup or straw with distant supervision . If alertness is limited, thin liquids via TEASPOON (no straw, no cup) as long as pt is swallowing within 2-3 seconds of presentation to oral cavity. 2. Soft and bite-sized (SB6) with distant supervision. 1:1 supervision if pt not fully alert or awake. 3. Reposition upright 90 degrees for all PO intake. 4. Meds in puree carrier or with liquid wash. 5. SALES ORDER PROCESSOR to monitor overall status and adjust diet recommendations based on alertness/cognitive status. Recommendations Recommendations Continue Current Diet Liquids Order Thin (IDDSI 0) Diet Order Soft & Bite-sized (IDDSI 6) Medication Recommendations Whole,Whole in Carrier,One at a Time Additional Dietary Needs 1:1 Supervision Aspiration Precautions Recommended Precautions Upright at 90 Degrees Treatment Plan Placement Recommendation after Discharge Long-Term Facility Appropriate for Continued Therapy Yes: 1-2 sessions to ensure tolerance of advanced diet ( regular or easy to chew)
[2024-06-19 14:00] VITALS: BP 132/61; PULSE 80; RESP 12; TEMP 36.4; O2SAT 96
--- NOTE | 2024-06-19 16:50 | OT.IP.EVAL ---
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) Hx of appendectomy Hx of arthroscopy of right knee (03/03/16) Hx of oral surgery (05/05/19) Hx of thumb surgery (~05/2017) Occupational Therapy Inpatient Evaluation/Re-Eval M1 PT/OT-IP Prior Functional Status Start: 06/07/24 08:41 Freq: NEEDED Status: Active Protocol: Document 06/19/24 16:39 [facility] (Rec: 06/19/24 17:06 [facility] [id number]) Medical Review Prior Functional Status Medical History Reviewed Yes Communication pt with confusion and inconsistent with answering questions and following directions Mobility and Gait PLOF and home set up obtained from last hospital admission may 2024: pt was modified independent with mobilities without AD prior to hip sx; just started using SPC 2 weeks prior to hip sx Activities of Daily Living and IADL's Prior to R FARIDA 05/2024, pt's assisting with shoes and socks. Social History Household Members spouse Living Arrangements House Number of Floors (Floors) Two Floors Number of Stairs To Enter/Railing? 1 step to enter 16 steps to 2nd floor bedroom/ bathroom Home Environment Standard Height Toilet,Walk in Shower Home Equipment Front Wheel Walker,Straight Cane,Bedside Commode,Shower Seat without Backrest,Hand Held Shower,Grab Bars In Shower M2 OT-IP Current Condition Start: 06/19/24 16:38 Freq: Status: Active Protocol: Document 06/19/24 16:39 [facility] (Rec: 06/19/24 17:06 [facility] [id number]) Occupational Therapy Current Condition Current Condition Evaluation Date 06/19/24 Treatment Diagnosis AMS, R FARIDA 05/2024 anterior approach Diagnosis Onset Date 06/06/24 Post Operative Precautions Other Precautions Pt had R FARIDA 05/2024 Anterior approach M3 OT- IP Subjective and Pain Start: 06/19/24 16:38 Freq: Status: Active Protocol: Document 06/19/24 16:39 [facility] (Rec: 06/19/24 17:06 [facility] [id number]) OT- Subjective Occupational Therapy Visit Type Type Initial Evaluation Visit Start Time 16:12 Visit Stop Time 16:40 Occupational Therapy Visit Comments Patient Comments Pt agreed to get up and wanting to urinate even though has an external catheter in place. Patient/Caregiver Goals TO go home, but then agrees best to go to skilled rehab. OT Pain Assessment Pain When Pain Assessed During Mobility Pain Present Pain Present Pain Reported Location Right Hip Pain Behaviors Facial Grimacing M4 OT- IP ADL's Start: 06/19/24 16:38 Freq: Status: Active Protocol: Document 06/19/24 16:39 [facility] (Rec: 06/19/24 17:06 [facility] [id number]) OT [id number] Comments OT Self-Feeding Comments Not at meal time. OT ADL-Grooming Comments OT Grooming Comments Pt states did earlier. OT ADL-Oral Care Comments Oral Care Comments Pt states did earlier. OT ADL-Dressing General Eval Lower Body Dressing Ability Maximum Assistance Areas Needing Assistance Socks OT ADL-Toileting General Evaluation Toileting Ability Total Assistance Areas Needing Assistance Empty Catheter or Colostomy Comments OT Toileting Comments External jean in place. Pt wanting to stand up so able to urinate while having the external catheter on. OT ADL-Bathing Comments OT Bathing Comments Pt will need assist for task and completeness. M5 OT- IP IADL's Start: 06/19/24 16:38 Freq: Status: Active Protocol: Document 06/19/24 16:39 [facility] (Rec: 06/19/24 17:06 [facility] [id number]) OT-Instrumental Activities of Daily Living Deficits IADL Deficits Identified Deficits Home Safety Awareness Awareness of Need for Assistance at Home Decreased Awareness Home Safety Comments Pt not thinking well at this time and at time seeming clear and other times not making sense. Medication Management Medication Management Comments Pt will need assist. Money Management Money Management Comments Pt will need assist. Meal Preparation Meal Preparation Comments Pt will need assist. Hot Tamale Man Hot Tamale Man Comments Pt will need assist. M6 OT- IP Functional Cognition Start: 06/19/24 16:38 Freq: Status: Active Protocol: Document 06/19/24 16:39 [facility] (Rec: 06/19/24 17:06 [facility] [id number]) Cognitive Factors Limiting Selfcare Function Cognitive Ability Level of Alertness Alert,Confusional State Patient Orientation Name,Place Attention Span Ability Capable of Focused Attention, Unable to Focus Ability to Follow Commands Able to Follow One Step Commands with Increased Time, Able to Follow One Step Commands with Repetition Memory Description Short Term Impaired,Sports Statistician Impaired Safety Awareness Underestimates Need for Assistance Problem Solving Ability Needs Assist to Identify Solutions Cognitive Tests SLUMS Pt not wanting to do SLUMS at this time but will greatly benefit from it. Pt does agree that he is not thinking well at this time. Cognitive Comments Cognitive Assessment Comments Pt at times not able to stay on topic and waffles between insistent that he can care for himself and next agreeing that he needs to go to rehab. Pt however is adamant that he want to do therapy to get his right hip better. Pt's recent having surgery and if going home best to be independent with his needs. OT- Vision and Hearing OT- Hearing Assessment OT- Hearing Assessment WFL OT- Vision Assessment Visual Attentiveness WFL Occular Pursuits WFL Vision Assessment Comments Glasses for distance. Pt not able to read the clock accurately. M7 OT- IP Mobility and Balance Start: 06/19/24 16:38 Freq: Status: Active Protocol: Document 06/19/24 16:39 [facility] (Rec: 06/19/24 17:06 [facility] [id number]) OT- Bed Mobility Assessment Sit to Supine Sit to Supine Assist Moderate Assistance OT-Transfer Assessment Sit to and From Stand Sit to and from Stand Minimal Assistance Transfers Transfer Ability Contact Guard Assistance, Minimal Assistance Technique Transfer Destination Bed,Chair Transfer Technique Stand Step Pivot Devices Transfer Assistive Devices Gait Belt,Front Wheeled Walker Comments Mobility Comments MODA to help move his RLE and get his trunk upright. ARSALAN to stand and CGA to ARSALAN with FWW to walk in the room. Pt still a bit unsteady on his RLE. OT- Balance Assessment Sitting Balance and Reactions Static Sitting Balance Ability Good Dynamic Sitting Balance Ability Good Standing Balance and Reactions Static Standing Balance Ability Good Dynamic Standing Balance Ability Fair M8 OT- IP Objective Assessments Start: 06/19/24 16:38 Freq: Status: Active Protocol: Document 06/19/24 16:39 [facility] (Rec: 06/19/24 17:06 [facility] [id number]) OT Gross Range of Motion Upper Extremity Range of Motion Assessment Within Functional Limits OT Strength Upper Extremity Strength Assessment Within Functional Limits OT- Coordination Assessment Upper Extremity Finger to Nose Test Within Functional Limits OT-Muscle Tone Assessment Muscle Tone WNL Yes M9 OT- IP Assessment and Plan Start: 06/19/24 16:38 Freq: Status: Active Protocol: Document 06/19/24 16:39 [facility] (Rec: 06/19/24 17:06 [facility] [id number]) OT Summary Assessment and Plan Potential Rehabilitation Potential Good Analytic Complexity at Evaluation Moderate Summary OT Impairments Pain,Strength,Balance, Functional Cognition, Functional Mobility,Grooming, Dressing,Toileting,Bathing, Toilet Transfers,Shower Transfers,Activity Tolerance Progress Towards Goals Progressing Toward Goals Assessment Summary Pt MOD complexity and main barriers are decreased dynamic balance, right hip pain, and having difficulty to follow commands at times. Pt will benefit from acute rehab as very motivated to get better versus skilled rehab. Pt still inconsistent with his thinking but appears to be clearing up and to do SLUMS. Goals Self-Feeding Goal Independent Grooming Goal Independent Dressing Goal Independent Toileting Goal Independent Bathing Goal Independent Toilet Transfer Goal Independent Shower Transfer Goal Independent Days to Meet Goals 15 Frequency of Treatment Other frequency 5x/week Treatment Plan OT Treatment Plan ADL Training,Functional Cognition Training,Functional Mobility,Patient/Family Education,Discharge Planning Other Treatment Recommendations and Next SLUMS Treatment Focus Discharge Recommendations OT Discharge Recommendations Acute Rehab,SNF vs Acute Rehab Transportation Needs at Discharge Private Vehicle,Wheelchair/ Cabulance
--- NOTE | 2024-06-19 17:21 | CM.DPNOTE ---
DCP Continued: Reviewed EMR and team rounds for pt?s medical status. Per hospitalist, pt mentation better and now on new bipolar medication (Depakote). Hospitalist still hoping for SNF rehab as discharge plan. Per [facility], per their review, pt is declined due to not meeting SNF Rehab criteria. New OT evaluation completed today and recommending SNF vs. Acute Rehab. PT still recommending SNF. ST recommending SNF. DCP sent referral via efax to [facility] (per pt previous preference list), [facility] and [facility] Re[facility]. Plan: Pending Rehab acceptance. CM Team will continue to follow for coordination of discharge plans. DEBBY ReynosoSW
[2024-06-19] MEDS: ACETAMINOPHEN 325 MG TABLET 650 MG PO (18:04)
[2024-06-19] MEDS: OXYCODONE IR 5 MG TABLET PO (18:04)
--- NOTE | 2024-06-19 19:03 | PC.NURSE ---
LOC/Mentation: Very disoriented this Am with auditory and sensory hallucinations. Asked where he was this am Patient -> I fell down from space and landed on a bird with my girlfriend, she was , and we landed in the [facility]. Thought he was in the [facility] this am. Did not know day or date, why he was in the hospital. Reports he has been having dreams and hearing words being spoken but he can't always understand what is being said. He denies visual hallucination or thoughts of self harm or harm to others. Spoke about being out in space several times and he could feel the cold and it gave him the chills. Sentences often don't make sense. Dr. Rodrigues made aware pt is having auditory and sensory hallucinations. Denies visual hallucinations. As the day continued on he slowly became more lucid and making much more sense when he spoke. By dinner time he was more oriented and did not appear to be hallucinating at all. Asked if he was having hallucinations? Patient -> No, they seem to be gone, I must have sounded crazy to you with the dream about being in space this morning. It seemed so real, I could feel it. Pt expressing his feelings, it's been a hard couple of months, he had surgery and so did his , then he's back for his kidneys. Knows he is in the hospital for now. Still sl off on date and day. Ortho: Dressing removed from rt hip. Incision is healed and dressing has no drainage on it, dressing was left off for now. Pt recalled having an appointment with ortho but can't recall the date. Ortho office called an information obtained. Given to pt. Patient -> Thats it, I knew the date was soon. Date placed on discharge sheet. Passed along in report.
[2024-06-19 20:00] VITALS: BP 106/70; PULSE 80; RESP 20; TEMP 37; O2SAT 96
[2024-06-20] VITALS: BP 100/61; PULSE 91; RESP 18; TEMP 36.6; O2SAT 98
[2024-06-20 06:00] VITALS: BP 129/83; PULSE 88; RESP 18; TEMP 36.9; O2SAT 99
--- NOTE | 2024-06-20 07:39 | PM.PN.1 ---
Subjective Subjective Date Patient Seen: 06/20/24 Interval history: He is seen today to follow-up his hypernatremia, bipolar and hip fracture rehab. The sodium level is still pending today. He now has a condom catheter which will be removed. He is confabulating and tangential today. He talks about property he owns and problems with various molecules. He is wide awake after not receiving the Zyprexa last night for the 1st time. We will increase the Depakote to 500 mg b.i.d. today. He mentions that he graduated from [employer] [facility]. Exam Vital Signs (past 8 hours): - 06/20/24 00:00 06/20/24 06:00 Temperature 98 F 98.4 F Pulse Rate 91 H 88 Respiratory Rate 18 18 Blood Pressure 100/61 129/83 Pulse Oximetry 98 99 Oxygen Flow Rate 0 0 Oxygen Delivery Method Room Air Oxygen Flow Rate 0 Narrative Exam Narrative: Alert and oriented to name. He is wide awake. Confabulating and tangential but denies hallucinations. Condom catheter with clear urine in the line. Heart is regular rate and rhythm without murmur Lungs are clear to auscultation bilaterally Extremities have no ankle edema Objective Labs 06/18/24 08:11 06/19/24 06:00 [facility] Medical History Anxiety De Quervain's tenosynovitis Depression DJD (degenerative joint disease) Herniated disc HLD (hyperlipidemia) Neuropathy Occasional tremors Septic arthritis (~03/2016) Tinnitus Surgical History History of ankle surgery 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 Acute metabolic encephalopathy. Secondary to hypernatremia and acute kidney injury. MRI brain was negative. CSF HSV testing PCR negative. 2. Volume depletion, CKD 4 and MARTY, present on admission. Baseline Creatinine apparently 2.73 on 06/09/24. Creatinine 2.76 on 06/17/24. Creatinine 3.09 on 06/19/2024, likely related to stopping IV fluid. 3. Severe hypernatremia, present on admission. Treated with D5 water and encouraging fluid intake. 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 Serum and urine osmolality were ordered but not done. Empiric trial of desmopressin for central DI without conclusive effect. Na 149 on 06/18/24. Begin Amiloride and stop IVF infusion on 06/18/24. Amiloride not available so hydrochlorothiazide was used instead. 4. Hypercalcemia, present on admission and improved after he was given calcitonin x4 doses, zometa x1 dose on 06/08. Calcium now down to 9.2. PTH ordered and was elevated at 137. Wildewood can interfere and increase PTH levels. Vit D level 31. Wildewood level was 1.2 on admit and 0.8 on repeat. Wildewood stopped per Psychiatry. 5. Bipolar with a history of lithium use, present on admission and active with probable toxicity. Discussed with psychiatrist Dr. Velarde, with his renal dysfunction he recommended stopping lithium. Until more alert recommended IM olanzapine 5 mg at bedtime and 2.5 mg daily for treatment of underlying bipolar disorder. Discussed again with Dr. Velarde on 06/18 with recommendations for Depakote 250 mg b.i.d. with potential dose increase to 500 or 750 mg b.i.d. The patient insists that he has never had a psychiatrist that and that instead an geographic information system surveyor prescribed lithium for him years ago. This unusual assertion could be part of his confabulation. 6. Heart Murmur. Echo without valvular abnormality seen. Plan: -serum and urine osmolality were ordered but apparently not done? -Given empiric trial of desmopressin 2 mg IV x2 doses -stopped IVF on 06/19/24 -started on HCTZ -Monitor electrolytes closely -PT and OT eval -discussed Bipolar PO treatment options with Psychiatry. Explained plan for Depakote to him. He insists that he has never had a psychiatrist that and that instead an geographic information system surveyor prescribed lithium for him years ago. -Echo without valvular abnormality Full code. is his proxy decision maker. They live on [address]. MAUREEN: 06/21 if alternative prison facility or inpatient rehab can be found. He was declined by [facility]. Time-Based Coding :: [TOTAL MINUTES] spent with patient and on the chart (including review of chart, obtaining history, exam, reviewing outside data, placing orders, documenting exam and treatment plan, and counseling patient) on [DATE].
[2024-06-20 08:00] VITALS: BP 113/82; PULSE 70; RESP 18; TEMP 36.5; O2SAT 98
[2024-06-20] MEDS: DIVALPROEX DR 250 MG TABLET 500 MG PO ×2 (09:18→20:32)
[2024-06-20] MEDS: HEPARIN 5,000 UNIT/ML VIAL 5000 UNIT SUBCUT ×2 (09:18→20:32)
[2024-06-20] MEDS: TIMOLOL 0.5% OPHTH 1 DROPS EYE-BOTH (09:19)
[2024-06-20] MEDS: SODIUM CHLORIDE 0.9% FLUSH 10 ML IV ×2 (09:20→20:33)
[2024-06-20] MEDS: BRIMONIDINE 0.2% OPHTH 5 ML 1 DROPS EYE-LEFT ×2 (09:20→20:32)
[2024-06-20] MEDS: OXYCODONE IR 5 MG TABLET PO ×3 (09:26→22:08)
[2024-06-20] MEDS: hydroCHLOROthiazide 25 MG TABLET 12.5 MG PO (10:00)
--- NOTE | 2024-06-20 14:25 | PT.IPTN ---
Current Diagnoses Acute kidney failure, unspecified (06/06/24) Physical Therapy Treatment Note M2 PT-IP Current Condition Start: 06/07/24 08:41 Freq: NEEDED Status: Active Protocol: Document 06/17/24 15:25 AB (Rec: 06/17/24 17:36 AB [id number]) Physical Therapy Current Condition Current Condition Evaluation Date 06/17/24 Treatment Diagnosis acute metabolic encephalopathy ; hypercalcemia; difficulty in walking Onset Date 06/06/24 M3 PT-IP Subjective Start: 06/07/24 08:41 Freq: NEEDED Status: Active Protocol: Document 06/20/24 13:35 AB (Rec: 06/20/24 16:05 AB [id number]) Subjective Physical Therapy Visit Type Type Treatment Note Visit Start Time 13:35 Visit Stop Time 14:15 Number of NURSE EXTERN Visits 0 M4 PT-IP Mobility and Gait Start: 06/07/24 08:41 Freq: NEEDED Status: Active Protocol: Document 06/20/24 13:35 [facility] (Rec: 06/20/24 16:05 AB [id number]) PT-Transfer Assessment Sit to and From Stand Sit to and from Stand Moderate Assistance,1 Person Assistance,Use of Upper Extremities Equipment Transfer Assistive Device Gait Belt,Front Wheeled Walker Orthotic/Prosthetic Devices or Brace: No Comments Mobility Comments Nurse and NAC in room with pt. nurse informed PT that pt wants to walk. pt stated that he wants to walk in the hallway but wants to brush his teeth first. pt completed sit to stand mod A and cues. pt agitated today and easily reasons out or snaps out when instructed for safety. pt ambulated to the sink using FWW min to mod A and cues. pt with stooped posture and instructed to stand upright for balance and safety. pt stated that he knows what to do and has been using a FWW for a long time and does not need anybody to tell him how to walk. pt moved FWW away from him and reached for counter for balance to step towards the sink despite PT's instruction to use FWW and not leave to the side. pt completed brushing his teeth by the sink mod A for standing balance. pt seems not too receptive and is argumentative today with PT. pt ambulated to EOB using FWW mod A with stooped posture despite cues to stand upright. pt asked PT what is needed for him to get a license and stated that PT does not have a license. redirected pt: Informed pt that he is receiving PT right now and will walk out to the hallway as he requested earlier on. pt agreed. sit to stand from EOB mod A. ambulated in the hallway ~ 75 ft using FWW min to mod A and cues. increase stooped posture and unsteadiness requiring to sit back on w/c. NAC followed with w/c for safety. assisted pt back to his room. ambulated from w/c to chair using FWW mod A and cues. positioned pt on chair. chair alarm on. call light and table within reach. NAC took over pt's care. informed child support case officer regarding pt's agitation today . Gait Assessment Gait Gait Assistance Required: Minimum Assistance,Moderate Assistance,1 Person Assist Distance (Feet) 75 Able to Maintain Weight Bearing Status Yes During Gait Assistive Devices Assistive Device Gait Belt,Front Wheeled Walker Orthotic/Prosthetic Devices or Brace: No Gait Deviations General Gait Pattern Ataxic,Decreased Stride Length ,Decreased Feet Clearance, Flexed Trunk Factors Limiting Gait Function Factors Limiting Gait Function Decreased Activity Tolerance, Decreased Strength,Difficulty Following Directions,Limited Range of Motion,Poor Balance, Poor Safety Awareness M5 PT-IP Objective Assessments Start: 06/07/24 08:41 Freq: NEEDED Status: Active Protocol: Document 06/17/24 15:25 AB (Rec: 06/17/24 17:36 AB [id number]) Orientation Orientation/Cognition Level of Alertness Confusional State Orientation Name Language Function Ability Hard of Hearing Safety Awareness Decreased Safety Awareness Memory Description Short Term Impaired,[employer] Specialist Impaired Gross Range of Motion Lower Extremity ROM Assessment Within Functional Limits Strength Lower Extremity Strength Assessment Right Impaired Hip 3-/5 Knee 4-/5 Coordination Assessment Gross Coordination Gross Coordination WNL Muscle Tone Muscle Tone WNL Yes M6 PT-IP Treatment Start: 06/07/24 08:41 Freq: NEEDED Status: Active Protocol: Document 06/20/24 13:35 AB (Rec: 06/20/24 16:05 AB [id number]) Physical Therapy Treatment Education Education Provided Safety M7 PT-IP Assessment and Plan Start: 06/07/24 08:41 Freq: NEEDED Status: Active Protocol: Document 06/20/24 13:35 AB (Rec: 06/20/24 16:05 AB [id number]) PT Summary Assessment and Plan Potential Rehabilitation Potential Fair Summary Impairments Pain,ROM,Strength,Balance, Coordination,Sensation,Tone, Cognition,Bed Mobility, Transfers,Gait,Activity Tolerance Progress Towards Goals Slow Progress due to Activity Tolerance,Slow Progress - Other Assessment Summary pt requiring mod A and max cues for mobility using FWW. pt with agitation and argumentative today and not too receptive with instructions and tends to direct him own care today. pt has decrease safety awareness . pt will require 24/7 assist and will benefit from SNF rehab. will continue to assess . Goals Bed Mobility Goal Independent Transfer Goal Standby Assistance Gait Goal Standby Assistance Gait Distance 50 Other Goals improve bed mobility, transfers and ambulation using FWW 100 ft SBA up/down 1 step using FWW SBA Days to Meet Goals 10 Frequency of Treatment Frequency Of Treatment Once a Day Treatment Plan Physical Therapy Treatment Plan Bed Mobility Training,Transfer Training,Gait Training, Therapeutic Exercise,Balance Retraining,Post Op Education, Discharge Planning,Hot or Cold Pack,Neuromuscular Re-ed, Coordination Retraining,Manual Therapy Precautions Anterior Hip Precautions No Hip Extension,No Hip External Rotation Weight Bearing Status Weight Bearing Status Weight Bear as Tolerated Allowed Weight Bearing Amount (enter % RLE WBAT or #) (%) Recommendations To Nursing Amount of Assist Needed 1 Person Assist Discharge Recommendations PT Discharge Recommendations SNF Rehab Transportation Needs at Discharge Private Vehicle,Wheelchair/ Cabulance
[2024-06-20 16:00] VITALS: BP 109/70; PULSE 66; RESP 19; TEMP 36.4; O2SAT 97
--- NOTE | 2024-06-20 16:12 | CM.DPNOTE ---
DCP Note OPERATIONS INTERN reviewed EMR. Provider thinks pt likely could be candidate for INPT acute rehab. referrals sent to multiple facilities today. search is as follows [facility]- referral sent, lvm, no response Saturday. [facility]- referral sent, lvm, no response Saturday [facility]- referral sent. no intake/admissions available this weekend for review. [facility] referrals sent. pending response. [facility] previously denied pt/no bed availability. Per RN, had emergency eye surgery yesterday after her retna detached. cannot drive. spouse also still is limited in ability to help due to broke arm from a few weeks ago. has repeatedly told this CM team she cannot safely care for pt in her current medical state. Per RN, pt's cognition is improved today from yesterday. OPERATIONS INTERN met with pt in room. pt very chatty, waxes and wanes in understanding. eager to dc home. reports that his can care for him. agreeable to dc to either INPT acute vs SNF. pt tangential and hyperverbal. fixated on legal concerns, unsure what pt considers legal concerns. P: pending placement. vs home if more stable and can meet his needs? Complete [facility] (new bipolar med, Depakote) closer to dc. AMRITA Lowry
[2024-06-20 16:29] LABS: BUN Creatinine Ratio 15.3 (6-22); Blood Urea Nitrogen 44 mg/dL (9-20); Calcium 9.1 mg/dL (8.4-10.2); Carbon Dioxide 20 mmol/L (22-32); Chloride 113 mmol/L (98-107); Estimated Glomerular Filt Rate 22 mL/min (>60); Glucose 129 mg/dL (80-110); HEMOLYSIS < 15 (0-50); Potassium 4.8 mmol/L (3.4-5.1); Sodium 141 mmol/L (137-145)
--- NOTE | 2024-06-20 19:53 | PC.NURSE ---
LOC/Mentation: More awake this am. Knew he was in the hospital. Thought it was fe but knew the year. Knows he is in [place], could recall who was president and who was president elect. Still rambles and likes to talk. Hard for this signwriter to extricate herself from conversation at times. Tends to jump from subject to subject. was called today and he found out she had been reading his chart and he didn't think that was right, he reports he spoke with Dr. Rodrigues about this. Still has some poor judgement at times. Asks to have his oxy left at the bedside so he could take it when he wanted to. At times he doesn't want to use his walker. Doesn't think he needs it any more. Also wanted to verify staff was licensed so he could be sure the hospital was able to care for him. Sometimes he gets frustrated when he is unable to communicate his needs in a way which is understood. He can get brusk and dismiss someone speaking to him, not because he is upset with them but he is upset with himself. Has made no verbal or acted out any kind of violence. He feels he can do this medication adjustment at home. Pt -> I'm bored, I don't really need to be here. I can take more pills at home if the doctor thinks I need to. Discussed with patient a doctors ability to evaluate his physical and mental health on a daily basis until the dose which is best for him is found. This is in his best interests. Pt -> I think thats a little much, you can't make me stay you know. Verified with pt he is correct in his observation, however the doctor thinks otherwise. Pt agreed maybe he should stay. And he has and has made no further comments. Did have mine engineering manager come and see pt about the various plans of care in place. He was satisfied with the information.
[2024-06-20 20:00] VITALS: BP 131/62; PULSE 74; RESP 22; TEMP 35.8; O2SAT 99
[2024-06-21] MEDS: OXYCODONE IR 5 MG TABLET PO ×3 (02:31→20:58)
[2024-06-21 02:34] VITALS: BP 142/84; PULSE 98; RESP 20; TEMP 36.3; O2SAT 99
--- NOTE | 2024-06-21 05:06 | PC.NURSE ---
Pt less confused tonight. He had a shower. Going to the bathroom with 1 assist and FWW, still not using the call light and needing the bed alarm. C/o of pain to right hip, oxycodone X 2 given. Pt questioning this nurse numerous time about what the plan is and what is going on. Pt knows his name but unaware of being in the hospital. He does remembered his and she was able to speak to her over the phone.
[2024-06-21 08:00] VITALS: BP 105/84; PULSE 93; RESP 18; TEMP 36.1; O2SAT 99
--- NOTE | 2024-06-21 08:00 | PM.PN.1 ---
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 His sodium level has dropped again from 146 down to 141. The creatinine has continued to improve at 2.88. Olanzapine will be added tonight as he continues to experience hypomania. He says that he slept well. 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 He says he has been thinking about an art project. His speech is pressured. At 1 point he says ?I am not a dictator. ? His thoughts are tangential but perhaps not as confabulating today. Exam Vital Signs (past 8 hours): - 06/21/24 02:34 Temperature 97.3 F L Pulse Rate 98 H Respiratory Rate 20 Blood Pressure 142/84 H Pulse Oximetry 99 Oxygen Flow Rate 0 Oxygen Delivery Method Room Air Oxygen Flow Rate 0 Narrative Exam Narrative: Alert and oriented x3. Speech is pressured. Affect is hypomanic. He continues to be tangential and confabulates at times. I am unable to confirm his claims about prior scientific and other achievements. Heart is regular rate and rhythm no murmur Lungs are clear to auscultation bilaterally Extremities have no ankle edema Objective Labs 06/18/24 08:11 06/20/24 16:08 Labs: Laboratory Results - last 24 hr 06/20/24 16:08 Sodium 141 Potassium 4.8 Chloride 113 H Carbon Dioxide 20 L BUN 44 H Creatinine 2.88 H Estimated GFR 22 L BUN/Creatinine Ratio 15.3 Glucose 129 H Calcium 9.1 PFSH Medical History Anxiety De Quervain's tenosynovitis Depression DJD (degenerative joint disease) Herniated disc HLD (hyperlipidemia) Neuropathy Occasional tremors Septic arthritis (~03/2016) Tinnitus Surgical History History of ankle surgery 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 Acute metabolic encephalopathy. Secondary to hypernatremia and acute kidney injury. MRI brain was negative. CSF HSV testing PCR negative. 2. Volume depletion, CKD 4 and MARTY, present on admission. Baseline Creatinine apparently 2.73 on 06/09/24. Creatinine 2.76 on 06/17/24. Creatinine 3.09 on 06/19/2024, likely related to stopping IV fluid. Creatinine 2.88 on 06/20. 3. Severe hypernatremia, present on admission. Treated with D5 water and encouraging fluid intake. This is nephrogenic Diabetes insipidus due to chronic [place] use. Serum and urine osmolality were ordered but not done. Empiric trial of desmopressin for central DI without conclusive effect. Na 149 on 06/18/24. Begin Amiloride and stop IVF infusion on 06/18/24. Amiloride not available so hydrochlorothiazide was used instead. 4. Hypercalcemia, present on admission and improved after he was given calcitonin x4 doses, zometa x1 dose on 06/08. Calcium now down to 9.2. PTH ordered and was elevated at 137. [place] can interfere and increase PTH levels. Vit D level 31. [place] level was 1.2 on admit and 0.8 on repeat. [place] stopped per Psychiatry. 5. Bipolar with a history of lithium use, present on admission and active with probable toxicity. Discussed with psychiatrist Dr. Velarde, with his renal dysfunction he recommended stopping lithium. Until more alert recommended IM olanzapine 5 mg at bedtime and 2.5 mg daily for treatment of underlying bipolar disorder. Discussed again with Dr. Velarde on 06/18 with recommendations for Depakote 250 mg b.i.d. with potential dose increase to 500 or 750 mg b.i.d. The patient insists that he has never had a psychiatrist that and that instead an pearl diver prescribed lithium for him years ago. This unusual assertion could be part of his confabulation. 6. Heart Murmur. Echo without valvular abnormality seen. Plan: -serum and urine osmolality were ordered but apparently not done? -Given empiric trial of desmopressin 2 mg IV x2 doses -stopped IVF on 06/19/24 -started on HCTZ -Monitor electrolytes closely -PT and OT eval -discussed Bipolar PO treatment options with Psychiatry. Explained plan for Depakote to him. He insists that he has never had a psychiatrist that and that instead an pearl diver prescribed lithium for him years ago. -Hypomania noted on 06/21/24. Add oral Olanzapine on 06/21. Plan to increase Depakote to 750 mg on 06/22. May need inpatient Psych if he becomes more manic while here. -Echo without valvular abnormality Full code. is his proxy decision maker. They live on [facility]. MAUREEN: 07/01 if alternative [place] [facility] facility or inpatient rehab can be found. He was declined by [facility] Time-Based Coding :: [TOTAL MINUTES] spent with patient and on the chart (including review of chart, obtaining history, exam, reviewing outside data, placing orders, documenting exam and treatment plan, and counseling patient) on [DATE].
[2024-06-21] MEDS: BRIMONIDINE 0.2% OPHTH 5 ML 1 DROPS EYE-LEFT ×2 (09:00→20:58)
[2024-06-21] MEDS: TIMOLOL 0.5% OPHTH 1 DROPS EYE-BOTH (09:00)
[2024-06-21] MEDS: DIVALPROEX DR 250 MG TABLET 500 MG PO ×2 (09:00→20:58)
[2024-06-21] MEDS: HEPARIN 5,000 UNIT/ML VIAL 5000 UNIT SUBCUT ×2 (09:00→20:59)
[2024-06-21] MEDS: hydroCHLOROthiazide 25 MG TABLET 12.5 MG PO (09:01)
[2024-06-21] MEDS: SODIUM CHLORIDE 0.9% FLUSH 10 ML IV ×2 (09:04→20:59)
--- NOTE | 2024-06-21 10:32 | PC.NURSE ---
Patient A&O x3 this am -birthday, name, and place. Was able to communicate and talk about medications and changes regarding his lithium. Requesting a spread sheet to be made regarding medication changes and what he has been given. Does not use the call light, chair alarm on and patient is visible sitting in the chair. Care continues
--- NOTE | 2024-06-21 11:18 | CM.DPNOTE ---
DCP Cont Patient discussed in multidisciplinary rounds. According to Dr Rodrigues, patient is in a acutely manic state. Consultation with Dr Velarde, psychiatrist, will continue to adjust patient's psychiatric meds and dosing. Patient's mood is labile, he is goes in/out of delusional state and is felt to be confabulating, or having memory error/false memory related to his mental illness. Patient would be a good candidate for inpatient psychiatric care if he was independent physically with no medical needs. Reviewed chart; current discharge planning efforts are towards SNF placement for rehab, however, patient is improving functionally and may run out of skilled therapy needs. Efforts will continue. Meanwhile, placed call to spouse Dai Elena to review DCP efforts. Explained that while Dr Rodrigues and Dr Velarde collaborate on patient's medication management, patient will continue to receive skilled therapies here and may eventually stabilize towards return home w/HH. Alternatively, spouse could consider paying privately for a short term [facility] for continued medication management and assist with higher ADLs. Spouse reports she will consider although would prefer to take patient home if acute vida, delusions and paranoia subside. HISTORY: Dai reports she and patient have been for 10 years, patient has been on [place] for 50 yrs. Patient has had manic episodes occasionally during which he does not sleep and becomes hyper-focused on completing a task for days. Patient has NO hx of suicide attempt, no hx of mental health treatment (patient has refused) and no past or current psychiatrist. Patient lived in [place], [place] for 20 years and was diagnosed, started on [place] while in [place]. Patient's current PCP dr Wilson, in [place], has kept patient on [place] and has been monitoring for toxicity. Patient has no children and no one other than Dai he considers a trusted contact. Dai has not accessed any support services on [facility], says if she takes patient home, he needs to be established with a psychiatrist. PLAN: SNF search continues. Spouse aware that there are known barriers to securing a SNF and prefers to take patient home w/ HH and mental health resources rather than [facility] privately paying. Spouse has numerous medical appt.s this week in [place], for her recent eye surgery and shoulder injury. Spouse [place] be at the afternoon of Saturday 06/[address] [place] and on schedule. CM team following clinical course closely. Updated PASRR needed if SNF is secured. FAREED
--- NOTE | 2024-06-21 12:14 | PT-IP ANOTE ---
Pt refused PT this AM due to lack of energy, observed pt ambulating to bathroom SBA w/ RN and FWW. Agrees to walk with nursing staff later.
[2024-06-21 19:00] VITALS: BP 139/100; PULSE 91; RESP 18; TEMP 37.2; O2SAT 99
[2024-06-21] MEDS: OLANZapine 2.5 MG TABLET 5 MG PO (20:58)
[2024-06-22] MEDS: OXYCODONE IR 5 MG TABLET PO ×3 (06:13→21:39)
--- NOTE | 2024-06-22 07:49 | PM.PN.1 ---
Subjective Subjective Date Patient Seen: 06/22/24 Interval history: He is seen today to follow-up his nephrogenic diabetes insipidus, hypernatremia, bipolar disorder and confusion. The valproic acid level and the sodium level will be rechecked tomorrow. He speaks today in platitudes with a verbosity that is quite impressive. He is tangential and pressured but less than he was yesterday. He tells me that his can not drive anymore and it turns out that she just recently had an eye procedure so really can not drive even though she was here visiting last week. He says he has had this heart murmur for 50 years and that there is no particular cause ever identified. That is consistent with the normal echo that we just did. His blood pressure is 139/100. His plan for discharge tomorrow seems to be moving along as he has been accepted to inpatient rehab at [facility]. The plan today is to increase the Depakote further to 750 mg b.i.d., per Psychiatry, and to continue the nighttime dose of oral olanzapine that was started last night. He is quite stable psychiatrically despite the moderately pressured speech and disorganization. I pressed him very hard on whether he understood what happened with his lithium. When I repeated for him the new diagnosis of nephrogenic diabetes insipidus/hypernatremia he insisted that he had not heard that before. I asked him to repeat the exact words so that they do sink in better than they apparently have been so far. Exam Vital Signs (past 8 hours): Oxygen Delivery Method Room Air Oxygen Flow Rate 0 Narrative Exam Narrative: He is alert and oriented x3. He is tangential and verbose. This is improved since yesterday. The pressured speech is somewhat less pressured. He is quite confused. Reorienting him is a challenge as he reverts to filling any perceived gaps in conversation/silence with platitudes and social niceties. No apparent distress Heart is regular rate and rhythm with a 2/6 systolic ejection murmur that has been evaluated with echocardiogram. No significant valvular abnormality was seen. Extremities have no ankle edema Objective Labs 06/18/24 08:11 06/20/24 16:08 [facility] Medical History Anxiety De Quervain's tenosynovitis Depression DJD (degenerative joint disease) Herniated disc HLD (hyperlipidemia) Neuropathy Occasional tremors Septic arthritis (~03/2016) Tinnitus Surgical History History of ankle surgery 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 Acute metabolic encephalopathy. Secondary to hypernatremia and acute kidney injury. MRI brain was negative. CSF HSV testing PCR negative. Resolving. 2. Volume depletion, CKD 4 and MARTY, present on admission. Baseline Creatinine apparently 2.73 on 06/09/24. Creatinine 2.76 on 06/17/24. Creatinine 3.09 on 06/19/2024, likely related to stopping IV fluid. Creatinine 2.88 on 06/20. Improving. 3. Severe hypernatremia, present on admission. Treated with D5 water and encouraging fluid intake. This is nephrogenic Diabetes insipidus due to chronic [place] use. Serum and urine osmolality were ordered but not done. Empiric trial of desmopressin for central DI without conclusive effect. Na 149 on 06/18/24. Begin Amiloride and stop IVF infusion on 06/18/24. Amiloride not available so hydrochlorothiazide was used instead. Resolved. 4. Hypercalcemia, present on admission and improved after he was given calcitonin x4 doses, zometa x1 dose on 06/08. Calcium now down to 9.2. PTH ordered and was elevated at 137. [place] can interfere and increase PTH levels. Vit D level 31. [place] level was 1.2 on admit and 0.8 on repeat. [place] stopped per Psychiatry. Resolved. 5. Bipolar with a history of lithium use, present on admission and active with probable toxicity. Discussed with psychiatrist Dr. Velarde, with his renal dysfunction he recommended stopping lithium. Until more alert recommended IM olanzapine 5 mg at bedtime and 2.5 mg daily for treatment of underlying bipolar disorder. Discussed again with Dr. Velarde on 06/18 with recommendations for Depakote 250 mg b.i.d. with potential dose increase to 500 or 750 mg b.i.d. The patient insists that he has never had a psychiatrist that and that instead an tester armature or fields prescribed lithium for him years ago. This unusual assertion could be part of his confabulation. -increase Depakote to 750 mg b.i.d. and increase HS olanzapine to 7.5 mg on 06/22 due to the pressured speech/hypomania. 6. Heart Murmur. Echo without valvular abnormality seen. 7. Right hip replacement 1 month ago, still needing rehab. Plan: -started on HCTZ -Monitor electrolytes closely -PT and OT eval, now apparently accepted for inpatient rehab at [facility]. -discussed Bipolar PO treatment options with Psychiatry. Explained plan for Depakote to him. He insists that he has never had a psychiatrist that and that instead an tester armature or fields prescribed lithium for him years ago. -Hypomania noted on 06/21/24. Added oral Olanzapine on 06/21. Plan to increase Depakote to 750 mg on 06/22. He appears to be stabilizing without need for inpatient psychiatric care. Increase Depakote to 750 mg b.i.d. and olanzapine to 7.5 mg HS today. Full code. is his proxy decision maker. They live on [facility]. MAUREEN: 06/23/2024 to [facility] inpatient rehab Time-Based Coding :: [TOTAL MINUTES] spent with patient and on the chart (including review of chart, obtaining history, exam, reviewing outside data, placing orders, documenting exam and treatment plan, and counseling patient) on [DATE].
[2024-06-22 08:10] VITALS: BP 120/77; PULSE 77; RESP 22; TEMP 36.3; O2SAT 99
--- NOTE | 2024-06-22 09:10 | ST.IPDYTX ---
Visit Care Team Role Provider Type Joo Wilson DO Primary Care Provider Non-Staff Specialty: Family Practice Address: [address] [place] [address], [place], [address] Email: Lambert Gregory MD Admit Provider Physician Attending Provider Referring Provider Specialty: Internal Medicine Address: [address] [place] [address], [id number] Email: [email or web address] BETTING MANAGER Dysphagia Treatment SPORTS BETTING MANAGER Dysphagia Treatment Start: 06/15/24 16:08 Freq: Status: Active Protocol: Document 06/22/24 09:04 SANDRA (Rec: 06/22/24 09:09 SANDRA [id number]) Dysphagia Treatment Session Time Visit Start Time 08:40 Visit Stop Time 09:03 Total Visit Minutes 23 Visit Information Visit Number 6 Setting Assessment Location Acute Care Visit Type Note Type Treatment Note Next Note Type Next Note Type Treatment Note Patient Information Identification Type Name Subjective Observations Pt continues to be alert, though disoriented and confused. RN reported ongoing good intake during meals and no overt s/sx of aspiration. RN reported Pt will occasionally spit pieces of his food out, which she states is a past behavior for him secondary to his mental health hx. Pt sitting upright upon ST entering room eating his breakfast. Treatment Liquids Trialed Thin (IDDSI 0) Solids Trialed Soft & Bite-sized (IDDSI 6) Administration Type Cup Consecutive Sips,Self- Feeding Oral Strategies Upright at 90 degrees Pharyngeal Strategies Sitting Upright (90 deg) Treatment Activities PO trials of thin liquids via cup and straw as well as soft and bite-sized solids from meal tray. Consulted with RN re: pt status. The IDDSI Framework Protocol: IDDSI.1 Assessment Patient Response to Treatment Good Rehab Potential Good Assessment of Improvement Pt consumed about 4 oz of coffee via cup and a few bites of pancake. During trials of thin liquids via cup, pt tended to take sequential sips without overt s/sx of aspiration. He continued to be able to feed himself independently. Oral phase appeared to be WFL. Good containment; normal, rotary mastication. AP transport and manipulation appeared WFL. Mild oral residue observed and pt benefited from intermittent cueing to use liquid wash to clear it. Swallow trigger timing appeared to be WFL. No overt s /sx of penetration/aspiration were observed throughout the trials. Pt exhibited no coughing or changes to vocal quality following all trials. He was occasionally impulsive with sip and bite size and benefited from cueing to not attempt to speak to SPORTS BETTING MANAGER before swallowing bolus. Recommend continuation of soft and bite- sized diet with distant supervision during meal times as well as assistance with repositioning to upright position with all intake. Pt may have thin liquids from cup or straw as long as he is fully upright and alert and awake. He will benefit from distant supervision during all PO intake given impulsivity and not attempting to sit upright for intake without assistance. Overall, good improvement with ability to tolerate current diet level as alertness and cognitive level continue to increase. RN notified of pt progress and current recommendations. SPORTS BETTING MANAGER recommendations at this time: 1. Thin liquids via cup or straw with distant supervision . If alertness is limited, thin liquids via [place] (no straw, no cup) as long as pt is swallowing within 2-3 seconds of presentation to oral cavity. 2. Soft and bite-sized (SB6) with distant supervision. 1:1 supervision if pt not fully alert or awake. 3. Reposition upright 90 degrees for all PO intake. 4. Meds in puree carrier or with liquid wash. ST to d/c Pt d/t Pt demonstrating safe swallow with current diet. ST recommends another referral placed for ST if changes in status occur. Recommendations Recommendations Continue Current Diet Liquids Order Thin (IDDSI 0) Diet Order Soft & Bite-sized (IDDSI 6) Medication Recommendations Whole,Whole in [place],One at a Time Additional Dietary Needs 1:1 Supervision Aspiration Precautions Recommended Precautions Upright at 90 Degrees Treatment Plan Placement Recommendation after Discharge Group Home Facility Appropriate for Continued Therapy No
[2024-06-22] MEDS: BRIMONIDINE 0.2% OPHTH 5 ML 1 DROPS EYE-LEFT ×2 (09:52→21:11)
[2024-06-22] MEDS: TIMOLOL 0.5% OPHTH 1 DROPS EYE-BOTH (09:52)
[2024-06-22] MEDS: DIVALPROEX DR 250 MG TABLET 500 MG PO (09:52)
[2024-06-22] MEDS: hydroCHLOROthiazide 25 MG TABLET 12.5 MG PO (09:53)
[2024-06-22] MEDS: SODIUM CHLORIDE 0.9% FLUSH 10 ML IV ×2 (09:53→21:11)
[2024-06-22] MEDS: HEPARIN 5,000 UNIT/ML VIAL 5000 UNIT SUBCUT ×2 (09:53→21:10)
--- NOTE | 2024-06-22 10:51 | OT.IP.TRT ---
Current Diagnoses Acute kidney failure, unspecified (06/06/24) Occupational Therapy Treatment Note M2 OT-IP Current Condition Start: 06/19/24 16:38 Freq: Status: Active Protocol: Document 06/19/24 16:39 [facility] (Rec: 06/19/24 17:06 [facility] [id number]) Occupational Therapy Current Condition Current Condition Evaluation Date 06/19/24 Treatment Diagnosis AMS, R FARIDA 05/2024 anterior approach Diagnosis Onset Date 06/06/24 Post Operative Precautions Other Precautions Pt had R FARIDA 05/2024 Anterior approach M3 OT- IP Subjective and Pain Start: 06/19/24 16:38 Freq: Status: Active Protocol: Document 06/22/24 10:54 [facility] (Rec: 06/22/24 11:14 [facility] [id number]) OT- Subjective Occupational Therapy Visit Type Type Treatment Note Visit Start Time 09:50 Visit Stop Time 10:51 Occupational Therapy Visit Comments Patient Comments Pt agreed tp get up. Pt not wanting to do cognitive test or shower at this time. Patient/Caregiver Goals TO go home. OT Pain Assessment Pain When Pain Assessed During Mobility Pain Present Pain Present Pain Reported Location Right Hip Pain Behaviors Facial Grimacing,Holding Area M4 OT- IP ADL's Start: 06/19/24 16:38 Freq: Status: Active Protocol: Document 06/22/24 10:54 [facility] (Rec: 06/22/24 11:14 [facility] [id number]) OT ADL-Grooming General Evaluation Grooming Ability Standby Assistance Comments OT Grooming Comments vc for completeness and orientation to items OT ADL-Oral Care General Eval Oral Care Ability Standby Assistance Areas of Assistance Retrieving/Set-Up of Items Comments Oral Care Comments vc for completeness OT ADL-Dressing General Eval Lower Body Dressing Ability Moderate Assistance Areas Needing Assistance Socks Comments OT Dressing Comments Pt needing assist for socks and education to use the cnc applications engineer so able to candelaria the RLE first for his brief. OT ADL-Toileting General Evaluation Toileting Ability Contact Guard Assistance Areas Needing Assistance Perform Perineal Hygiene Comments OT Toileting Comments Vc for safety awareness as pt tends to be insistent on his needs. Suggested pt hold the FWW while over the toilet. Pt insist on peeing from the side of the toilet while holding the FWW and grab bar on the back on the toilet. OT ADL-Bathing Comments OT Bathing Comments Pt refusing. M5 OT- IP IADL's Start: 06/19/24 16:38 Freq: Status: Active Protocol: Document 06/19/24 16:39 [facility] (Rec: 06/19/24 17:06 [facility] [id number]) OT-Instrumental Activities of Daily Living Deficits IADL Deficits Identified Deficits Home Safety Awareness Awareness of Need for Assistance at Home Decreased Awareness Home Safety Comments Pt not thinking well at this time and at time seeming clear and other times not making sense. Medication Management Medication Management Comments Pt will need assist. Money Management Money Management Comments Pt will need assist. Meal Preparation Meal Preparation Comments Pt will need assist. Retail Banker Retail Banker Comments Pt will need assist. M6 OT- IP Functional Cognition Start: 06/19/24 16:38 Freq: Status: Active Protocol: Document 06/22/24 10:54 [facility] (Rec: 06/22/24 11:14 [facility] [id number]) Cognitive Factors Limiting Selfcare Function Cognitive Ability Level of Alertness Alert,Confusional State Patient Orientation Name,Place,Situation Attention Span Ability Capable of Focused Attention, Unable to Sustain Attention Ability to Follow Commands Able to Follow One Step Commands with Increased Time, Able to Follow One Step Commands with Repetition Memory Description Short Term Impaired,Working Impaired Safety Awareness Underestimates Need for Assistance Problem Solving Ability Needs Assist to Identify Solutions Cognitive Tests SLUMS Pt not wanting to do SLUMS at this time but will greatly benefit from it. Cognitive Comments Cognitive Assessment Comments Pt doing better following commands with increased time. Pt still a bit insistent on how to proceed with his needs but open to suggestions. Pt is very forgetful and needing safety cues and reminders. Pt asked about follow up needs from his right hip surgery in May 2024 and able to write down phone number in which pt or will have to call regarding therapy for his right hip. M7 OT- IP Mobility and Balance Start: 06/19/24 16:38 Freq: Status: Active Protocol: Document 06/22/24 10:54 [facility] (Rec: 06/22/24 11:14 [facility] [id number]) OT- Bed Mobility Assessment Supine to Sit Supine to Sit Assist Standby Assistance,Bedrails OT-Transfer Assessment Sit to and From Stand Sit to and from Stand Standby Assistance Transfers Transfer Ability Standby Assistance Technique Transfer Destination Bed Transfer Technique Stand Step Pivot Devices Transfer Assistive Devices Gait Belt,Front Wheeled Walker Comments Mobility Comments Pt after encouragement and cues, able to get up from the bed on his own. Pt still has difficulty to move his RLE as times. Pt able to stand to yovani FWW with SBA and get to the sink. VC to stand up talker as pt tends to have a very flexed posture. Pt moving better today. OT- Balance Assessment Sitting Balance and Reactions Static Sitting Balance Ability Normal Dynamic Sitting Balance Ability Good Standing Balance and Reactions Static Standing Balance Ability Good Dynamic Standing Balance Ability Good M8 OT- IP Objective Assessments Start: 06/19/24 16:38 Freq: Status: Active Protocol: Document 06/19/24 16:39 [facility] (Rec: 06/19/24 17:06 [facility] [id number]) OT Gross Range of Motion Upper Extremity Range of Motion Assessment Within Functional Limits OT Strength Upper Extremity Strength Assessment Within Functional Limits OT- Coordination Assessment Upper Extremity Finger to Nose Test Within Functional Limits OT-Muscle Tone Assessment Muscle Tone WNL Yes M9 OT- IP Assessment and Plan Start: 06/19/24 16:38 Freq: Status: Active Protocol: Document 06/22/24 10:54 [facility] (Rec: 06/22/24 11:14 [facility] [id number]) OT Summary Assessment and Plan Potential Rehabilitation Potential Good Analytic Complexity at Evaluation Moderate Summary OT Impairments Pain,Strength,Balance, Functional Cognition, Functional Mobility,Grooming, Dressing,Toileting,Bathing, Toilet Transfers,Shower Transfers,Activity Tolerance Progress Towards Goals Progressing Toward Goals Assessment Summary Pt MOD complexity and overall mobility has improved and able to do bed mobility and walk in the room with the FWW with SBA mainly for safety awareness. Pt biggest barriers now are safety awareness, needing cues for completeness of task -assist for RLE dressing and will need assist for completeness for toileting and dressing. Pt at this time wanting to go home and will benefit from 24/12 assist mainly for safety awareness and assist for completeness of needs fro ADL's. Goals Self-Feeding Goal Independent Grooming Goal Independent Dressing Goal Standby Assistance,Security Developer Toileting Goal Independent Bathing Goal Standby Assistance Toilet Transfer Goal Standby Assistance Shower Transfer Goal Standby Assistance Days to Meet Goals 5 Frequency of Treatment Other frequency 5x/week Treatment Plan OT Treatment Plan ADL Training,Functional Cognition Training,Functional Mobility,Patient/Family Education,Discharge Planning Other Treatment Recommendations and Next SLUMS Treatment Focus Discharge Recommendations OT Discharge Recommendations Home with 24/7 Assist Available,Home Health Transportation Needs at Discharge Private Vehicle
--- NOTE | 2024-06-22 11:52 | OT.IP.TRT ---
Current Diagnoses Acute kidney failure, unspecified (06/06/24) Occupational Therapy Treatment Note M2 OT-IP Current Condition Start: 06/19/24 16:38 Freq: Status: Active Protocol: Document 06/19/24 16:39 [facility] (Rec: 06/19/24 17:06 [facility] [id number]) Occupational Therapy Current Condition Current Condition Evaluation Date 06/19/24 Treatment Diagnosis AMS, R FARIDA 05/2024 anterior approach Diagnosis Onset Date 06/06/24 Post Operative Precautions Other Precautions Pt had R FARIDA 05/2024 Anterior approach M3 OT- IP Subjective and Pain Start: 06/19/24 16:38 Freq: Status: Active Protocol: Document 06/22/24 10:54 [facility] (Rec: 06/22/24 11:14 [facility] [id number]) OT- Subjective Occupational Therapy Visit Type Type Treatment Note Visit Start Time 09:50 Visit Stop Time 10:51 Occupational Therapy Visit Comments Patient Comments Pt agreed tp get up. Pt not wanting to do cognitive test or shower at this time. Patient/Caregiver Goals TO go home. OT Pain Assessment Pain When Pain Assessed During Mobility Pain Present Pain Present Pain Reported Location Right Hip Pain Behaviors Facial Grimacing,Holding Area M4 OT- IP ADL's Start: 06/19/24 16:38 Freq: Status: Active Protocol: Document 06/22/24 10:54 [facility] (Rec: 06/22/24 11:14 [facility] [id number]) OT ADL-Grooming General Evaluation Grooming Ability Standby Assistance Comments OT Grooming Comments vc for completeness and orientation to items OT ADL-Oral Care General Eval Oral Care Ability Standby Assistance Areas of Assistance Retrieving/Set-Up of Items Comments Oral Care Comments vc for completeness OT ADL-Dressing General Eval Lower Body Dressing Ability Moderate Assistance Areas Needing Assistance Socks Comments OT Dressing Comments Pt needing assist for socks and education to use the mandrel press hand so able to candelaria the RLE first for his brief. OT ADL-Toileting General Evaluation Toileting Ability Contact Guard Assistance Areas Needing Assistance Perform Perineal Hygiene Comments OT Toileting Comments Vc for safety awareness as pt tends to be insistent on his needs. Suggested pt hold the FWW while over the toilet. Pt insists on peeing from the side of the toilet while holding the FWW and grab bar on the back on the toilet. OT ADL-Bathing Comments OT Bathing Comments Pt refusing. M5 OT- IP IADL's Start: 06/19/24 16:38 Freq: Status: Active Protocol: Document 06/19/24 16:39 [facility] (Rec: 06/19/24 17:06 [facility] [id number]) OT-Instrumental Activities of Daily Living Deficits IADL Deficits Identified Deficits Home Safety Awareness Awareness of Need for Assistance at Home Decreased Awareness Home Safety Comments Pt not thinking well at this time and at time seeming clear and other times not making sense. Medication Management Medication Management Comments Pt will need assist. Money Management Money Management Comments Pt will need assist. Meal Preparation Meal Preparation Comments Pt will need assist. Sales Assoc Sales Assoc Comments Pt will need assist. M6 OT- IP Functional Cognition Start: 06/19/24 16:38 Freq: Status: Active Protocol: Document 06/22/24 10:54 [facility] (Rec: 06/22/24 11:14 [facility] [id number]) Cognitive Factors Limiting Selfcare Function Cognitive Ability Level of Alertness Alert,Confusional State Patient Orientation Name,Place,Situation Attention Span Ability Capable of Focused Attention, Unable to Sustain Attention Ability to Follow Commands Able to Follow One Step Commands with Increased Time, Able to Follow One Step Commands with Repetition Memory Description Short Term Impaired,Working Impaired Safety Awareness Underestimates Need for Assistance Problem Solving Ability Needs Assist to Identify Solutions Cognitive Tests SLUMS Pt not wanting to do SLUMS at this time but will greatly benefit from it. Cognitive Comments Cognitive Assessment Comments Pt doing better following commands with increased time. Pt still a bit insistent on how to proceed with his needs but open to suggestions. Pt is very forgetful and needing safety cues and reminders. Pt asked about follow up needs from his right hip surgery in May 2024 and able to write down phone number in which pt or will have to call regarding therapy for his right hip. Pt is very motivated to get better- especially with his mobility. M7 OT- IP Mobility and Balance Start: 06/19/24 16:38 Freq: Status: Active Protocol: Document 06/22/24 10:54 [facility] (Rec: 06/22/24 11:14 [facility] [id number]) OT- Bed Mobility Assessment Supine to Sit Supine to Sit Assist Standby Assistance,Bedrails/ VC for techniques as needing time and momentum to get up. OT-Transfer Assessment Sit to and From Stand Sit to and from Stand Standby Assistance Transfers Transfer Ability Standby Assistance/CGA Technique Transfer Destination Bed Transfer Technique Stand Step Pivot Devices Transfer Assistive Devices Gait Belt,Front Wheeled Walker Comments Mobility Comments Pt after encouragement and cues, able to get up from the bed on his own. Pt still has difficulty to move his RLE as times. Pt able to stand to the FWW with SBA and get to the sink. VC to stand up taller as pt tends to have a very flexed posture. Pt moving better today. OT- Balance Assessment Sitting Balance and Reactions Static Sitting Balance Ability Normal Dynamic Sitting Balance Ability Good Standing Balance and Reactions Static Standing Balance Ability Good Dynamic Standing Balance Ability Good M8 OT- IP Objective Assessments Start: 06/19/24 16:38 Freq: Status: Active Protocol: Document 06/19/24 16:39 [facility] (Rec: 06/19/24 17:06 [facility] [id number]) OT Gross Range of Motion Upper Extremity Range of Motion Assessment Within Functional Limits OT Strength Upper Extremity Strength Assessment Within Functional Limits OT- Coordination Assessment Upper Extremity Finger to Nose Test Within Functional Limits OT-Muscle Tone Assessment Muscle Tone WNL Yes M9 OT- IP Assessment and Plan Start: 06/19/24 16:38 Freq: Status: Active Protocol: Document 06/22/24 10:54 [facility] (Rec: 06/22/24 11:14 [facility] [id number]) OT Summary Assessment and Plan Potential Rehabilitation Potential Good Analytic Complexity at Evaluation Moderate Summary OT Impairments Pain,Strength,Balance, Functional Cognition, Functional Mobility,Grooming, Dressing,Toileting,Bathing, Toilet Transfers,Shower Transfers,Activity Tolerance Progress Towards Goals Progressing Toward Goals Assessment Summary Pt MOD complexity and overall mobility has improved and able to do bed mobility and walk in the room with the FWW with SBA/CGA mainly for safety awareness. As pt tires needing CGA.Pt biggest barriers now are safety awareness, needing cues for completeness of task -assist for RLE dressing and will need assist for completeness for toileting and dressing. Pt will will benefit from 24/12 Available assist mainly for safety awareness and assist for completeness of needs for ADL's. Pt's is limited to physically assist at this time due to recent sx and pt may benefit from acute winnie versus skilled rehab. Goals Self-Feeding Goal Independent Grooming Goal Independent Dressing Goal Standby Assistance,Business Information Consultant Toileting Goal Independent Bathing Goal Standby Assistance Toilet Transfer Goal Standby Assistance Shower Transfer Goal Standby Assistance Days to Meet Goals 5 Frequency of Treatment Other frequency 5x/week Treatment Plan OT Treatment Plan ADL Training,Functional Cognition Training,Functional Mobility,Patient/Family Education,Discharge Planning Other Treatment Recommendations and Next SLUMS Treatment Focus Discharge Recommendations OT Discharge Recommendations Home with / Assist Available,Home Health, Acute rehab vs skilled rehab Transportation Needs at Discharge Private Vehicle
[2024-06-22 12:00] VITALS: BP 100/62; PULSE 86; RESP 20; TEMP 36.6; O2SAT 100
--- NOTE | 2024-06-22 12:17 | PT.IPTN ---
Current Diagnoses Acute kidney failure, unspecified (06/06/24) Physical Therapy Treatment Note M2 PT-IP Current Condition Start: 06/07/24 08:41 Freq: NEEDED Status: Active Protocol: Document 06/17/24 15:25 [facility] (Rec: 06/17/24 17:36 [facility] [id number]) Physical Therapy Current Condition Current Condition Evaluation Date 06/17/24 Treatment Diagnosis acute metabolic encephalopathy ; hypercalcemia; difficulty in walking Onset Date 06/06/24 M3 PT-IP Subjective Start: 06/07/24 08:41 Freq: NEEDED Status: Active Protocol: Document 06/22/24 11:29 [facility] (Rec: 06/22/24 12:17 [facility] [id number]) Subjective Physical Therapy Visit Type Type Treatment Note Visit Start Time 11:29 Visit Stop Time 12:03 Number of RESIDENCE LEASING AGENT Visits 0 Physical Therapy Visit Comments Patient Comments Pt reporting concerns about not having a schedule, not having had therapy for two weeks. PT has a hard time re- directing pt to task and pt con't similar complaints/ reports for 10 minutes before PT can redirect him to standing and gait training. M4 PT-IP Mobility and Gait Start: 06/07/24 08:41 Freq: NEEDED Status: Active Protocol: Document 06/22/24 11:29 [facility] (Rec: 06/22/24 12:17 [facility] [id number]) PT-Transfer Assessment Sit to and From Stand Sit to and from Stand Contact Guard Assistance,1 Person Assistance,Use of Upper Extremities Equipment Transfer Assistive Device Gait Belt,Front Wheeled Walker Orthotic/Prosthetic Devices or Brace: No Transfers Transfer Destination Chair Transfer Technique Ambulation Transfer Ability Level of Assist Contact Guard Assistance,1 Person Assistance,Use of Upper Extremities Comments Mobility Comments Constant cueing to stay on task and pt occ stating that PT and he are having a disagreement Gait Assessment Gait Gait Assistance Required: Contact Guard Assist,1 Person Assist Distance (Feet) 100 Able to Maintain Weight Bearing Status Yes During Gait Assistive Devices Assistive Device Gait Belt,Front Wheeled Walker Orthotic/Prosthetic Devices or Brace: No Gait Deviations General Gait Pattern Antalgic,Decreased Stride Length,Decreased Feet Clearance,Flexed Trunk,Step-to Gait Factors Limiting Gait Function Factors Limiting Gait Function Decreased Strength,Difficulty Following Directions,Pain,Poor Balance,Poor Safety Awareness Comments Gait Comments Pt with forward, flexed posture, greatest at head and neck and when cued to look up every now and then and to try to work on standing up taller, pt tells story about other people telling him this and he ran into a wall PT-Balance Assessment Sitting Balance and Reactions Static Sitting Balance Ability Good Dynamic Sitting Balance Ability Good Standing Balance and Reactions Static Standing Balance Ability Fair Dynamic Standing Balance Ability Fair Device Used RW M5 PT-IP Objective Assessments Start: 06/07/24 08:41 Freq: NEEDED Status: Active Protocol: Document 06/17/24 15:25 [facility] (Rec: 06/17/24 17:36 [facility] [id number]) Orientation Orientation/Cognition Level of Alertness Confusional State Orientation Name Language Function Ability Hard of Hearing Safety Awareness Decreased Safety Awareness Memory Description Short Term Impaired,Transformer Stock Clerk Impaired Gross Range of Motion Lower Extremity ROM Assessment Within Functional Limits Strength Lower Extremity Strength Assessment Right Impaired Hip 3-/5 Knee 4-/5 Coordination Assessment Gross Coordination Gross Coordination WNL Muscle Tone Muscle Tone WNL Yes M6 PT-IP Treatment Start: 06/07/24 08:41 Freq: NEEDED Status: Active Protocol: Document 06/22/24 11:29 [facility] (Rec: 06/22/24 12:17 [facility] [id number]) Physical Therapy Treatment Education Education Provided Safety Other Treatments Other Treatment Performed Ed in how acute care PT works, that therapist will check on him once a day and there is not a schedule of therapy and activities that he is asking for, ed in benefits of hip flexion and LAQs in sitting to help thigh pain and pt is not receptive to this, PT writes down name and that PT does not have a schedule and will check on patient once a day in the hospital as pt requests PT to write down something M7 PT-IP Assessment and Plan Start: 06/07/24 08:41 Freq: NEEDED Status: Active Protocol: Document 06/22/24 11:29 [facility] (Rec: 06/22/24 12:17 [facility] [id number]) PT Summary Assessment and Plan Potential Rehabilitation Potential Fair Status of Condition at Evaluation Evolving Summary Impairments Pain,ROM,Strength,Balance, Coordination,Sensation,Tone, Cognition,Bed Mobility, Transfers,Gait,Activity Tolerance Progress Towards Goals Slow Progress - Other Assessment Summary Pt con't with confusion today. He is on the phone with for a while when PT checks on him three times and then he hangs up to work with PT after asking PT to speak with who does not wish to speak with PT. Pt is animated and hyperverbal and talks for 10' about wishing to get PT started, knowing the importance of PT, wishing for a schedule, wishing for this PT to speak with a therapist in Saturday, reporting mild complaints of hospitalizations and he is difficult to redirect to task. PT attempts several times to communicate acute PT role and pt is unable to understand. Encouraged pt that SW will speak to him today about d/c plan (PT ed pt four times during treatment) and he is unable to understand/accept this. While participatory ( after long conversation and encouragement) with PT, pt's hyperfocus on same topics is a barrier to PT today. His posture is very flexed with gait, such that he has poor visual tracking. He is currently CGA and cues for 100 ' gait with RW. Goals Bed Mobility Goal Independent Transfer Goal Independent Gait Goal Independent Gait Distance 150 Other Goals up/down 1 step using FWW SBA Days to Meet Goals 5 Frequency of Treatment Frequency Of Treatment Once a Day Treatment Plan Physical Therapy Treatment Plan Bed Mobility Training,Transfer Training,Gait Training, Therapeutic Exercise,Balance Retraining,Post Op Education, Discharge Planning,Hot or Cold Pack,Neuromuscular Re-ed, Coordination Retraining,Manual Therapy Other Recommendations and Next Treatment Try step Focus Precautions Other Precautions No hyperextension right hip Weight Bearing Status Weight Bearing Status Weight Bear as Tolerated Allowed Weight Bearing Amount (enter % RLE WBAT or #) (%) Discharge Recommendations Other Discharge Recommendations 24 hour assist and PT at d/c Transportation Needs at Discharge Private Vehicle
--- NOTE | 2024-06-22 14:16 | CM.DPC ---
DCP SNF Planning: Per MD, pt on Depakote, Ativan, and Zyprexa per consultation with Psychiatrist recommendations and medically stable by tomorrow 06/23 to discharge to lower level of care if pt able to be stable overnight. SW called following facilities that referrals had been sent: [facility]- concerns about pt's behaviors. Faxed updated clinicals. [facility]- declines and beds are full [facility]- faxed updated clinicals and left vm. [facility]- not accepting new referrals at this time. [facility]- they reviewed and feel they can accept when pt stable for d/c [facility]- faxed updated clinicals and they reviewed and confirm they can accept tomorrow 06/23 with transport at 1045. SW called pt's spouse Dai and updated on above as pt continues to have some confusion and nonsensical discussions. Answered many of Dai's questions and she confirms that [facility] is too far and her preference is [facility] and that pt already has a bag packed in his room in anticipation of facility at d/c. Dai will plan to visit pt on Sat at [facility] when she comes off [place] for her appointments in [place]. SW met bedside with pt sitting in bedside chair and explained role and discussed plan of discharge tomorrow to [facility] and pt able to participate some in discussion and state his frustrations with having difficulty fully focusing on goal directed discussion but confirms he wants PT/OT and to improve with mobility and to be able to focus better. Pt requested to get back to bed to warm up, nap, and have coffee before discussing SNF discharge more. GAIL updated MD and spouse and RN. [facility] completed but needs MD signature for [facility] hospital exempted discharge. Plan: SW to follow closely for plan of discharge to [facility] tomorrow 06/23/24 via [facility] transport at 1045 before safe return home with spouse. AMRITA Liu
[2024-06-22] MEDS: ALPRAZolam 0.25 MG TABLET PO (15:03)
[2024-06-22] MEDS: CALCIUM CARBONATE 500 MG TAB 1000 MG PO (15:18)
[2024-06-22 20:00] VITALS: BP 135/78; PULSE 83; RESP 18; TEMP 35.8; O2SAT 97
[2024-06-22] MEDS: OLANZapine 2.5 MG TABLET 7.5 MG PO (21:11)
[2024-06-22] MEDS: DIVALPROEX DR 250 MG TABLET 750 MG PO (21:45)
[2024-06-23] MEDS: ALPRAZolam 0.25 MG TABLET PO ×2 (01:43→09:43)
[2024-06-23 05:29] LABS: Alanine Aminotransferase 44 IU/L (<50); Albumin 3.4 g/dL (3.5-5.0); Albumin Globulin Ratio 1.1 (1.0-2.8); Alkaline Phosphatase 141 U/L (38-126); Aspartate Aminotransferase 37 IU/L (17-59); BUN Creatinine Ratio 14.8 (6-22); Bilirubin Total 0.3 mg/dL (0.2-1.3); Blood Urea Nitrogen 43 mg/dL (9-20); Calcium 8.5 mg/dL (8.4-10.2); Carbon Dioxide 28 mmol/L (22-32); Chloride 107 mmol/L (98-107); Estimated Glomerular Filt Rate 22 mL/min (>60); Globulin 3.1 g/dL (1.7-4.1); Glucose 111 mg/dL (80-110); HEMOLYSIS < 15 (0-50); Potassium 4.1 mmol/L (3.4-5.1); Sodium 140 mmol/L (137-145); Total Protein 6.5 g/dL (6.3-8.2)
--- NOTE | 2024-06-23 06:02 | PC.NURSE ---
Patient is oriented to name, birthday, and age. Labile mood. Patient was agitated last evening and refused to take his Depakote. After much encouragement pt took 2 of 3 tabs of Depakote (500mg out of the 750mg ordered). Patient does not use the call light, tries to get OOB without assist, and is unsteady on his feet. Up with FWW and minimal assist of one. Patient likes to stand at the toilet to urinate, however he frequently misses the toilet and is incontinent at times. Bed alarm on. No falls. Oxycodone 5 mg given at HS for c/o hip pain, patient fell asleep after med given. Alprazolam 0.25mg given at 0143 for anxiety and increased restlessness, patient fell asleep after med. Patient appears to be asleep at this time.
[2024-06-23] MEDS: OXYCODONE IR 5 MG TABLET PO ×2 (06:31→09:44)
[2024-06-23 07:25] VITALS: BP 123/72; PULSE 62; RESP 18; TEMP 36.5; O2SAT 99
--- NOTE | 2024-06-23 07:51 | P.DS_ITS ---
History of Present Illness History of Present Illness Date Patient Seen: 06/23/24 Chief complaint: AMS,MARTY Narrative: The patient is a 74-year-old male with history of bipolar who was discharged from the hospital after a hip replacement on May 15. The patient was then at [facility] for rehabilitation at nursing home facility. He had difficulties over there with altered mental status and intermittent erratic behavior. Ultimately he discharged home several days ago to Saturday. His discovered he was in a diaper there and had a very different mental baseline then before his surgery. She found that he would impulsive in erratic behaviors and altered sleep cycles and would get up and down frequently. He also had some difficulty eating on his own and was not clearly hydrating. She awoke this morning and found him lying on the floor and called the ambulance. He was brought to the emergency department on Saturday and there underwent evaluation revealing MARTY, volume depletion, and hypercalcemia. CT scans were obtained of the head, spine, chest, abdomen, and pelvis were all unremarkable for acute changes. He was transferred here for further evaluation. He was take lithium chronically. He denies missing medications but it was somewhat unkempt and disoriented mentally. He can really provide no further coherent history and all of the history above is obtained from his by telephone. Discharge Providers Provider Date of admission: 06/06/24 13:26 Discharge Date: 06/23/24 Primary care physician: Joo Wilson DO Consults: 06/06/24 15:25 Consult to Occupational Therapy Evaluate & Treat Comment: Physician Instructions: Evaluate and treat Consult to Physical Therapy Evaluate & Treat Comment: Physician Instructions: Evaluate and Treat 06/10/24 10:18 Consult to Speech Therapy Evaluate & Treat Comment: Physician Instructions: Evaluate and treat 06/17/24 13:18 Consult to Physical Therapy Evaluate & Treat Comment: Physician Instructions: Evaluate and Treat 06/19/24 14:21 Consult to Occupational Therapy Evaluate & Treat Comment: Physician Instructions: Evaluate and treat Discharge provider: Leny Rodrigues MD Summary Hospital Course Discharge Diagnosis: 1. Acute metabolic encephalopathy. Secondary to hypernatremia and acute kidney injury. MRI brain was negative. CSF HSV testing PCR negative. Resolving. 2. Volume depletion, CKD 4 and MARTY, present on admission. Baseline Creatinine apparently 2.73 on 06/09/24. Creatinine 2.76 on 06/17/24. Creatinine 3.09 on 06/19/2024, likely related to stopping IV fluid. Creatinine 2.88 on 06/20. 3. Severe hypernatremia, present on admission. Treated with D5 water and encouraging fluid intake. 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 Serum and urine osmolality were ordered but not done. Empiric trial of desmopressin for central DI without conclusive effect. Na 149 on 06/18/24. Ordered Amiloride and stopped IVF infusion on 06/18/24. Amiloride not available so hydrochlorothiazide was used instead. Resolved. 4. Hypercalcemia, present on admission and improved after he was given calcitonin x4 doses, zometa x1 dose on 06/08. Calcium now down to 9.2. PTH ordered and was elevated at 137. [place] can interfere and increase PTH levels. Vit D level 31. [place] level was 1.2 on admit and 0.8 on repeat. [place] stopped per Psychiatry. Resolved. 5. Bipolar with a history of lithium use, present on admission and active with probable toxicity. Discussed with psychiatrist Dr. Velarde, with his renal dysfunction he recommended stopping lithium. Until more alert recommended IM olanzapine 5 mg at bedtime and 2.5 mg daily for treatment of underlying bipolar disorder. Discussed again with Dr. Velarde on 06/18 with recommendations for Depakote 250 mg b.i.d. with potential dose increase to 500 or 750 mg b.i.d. The patient insists that he has never had a psychiatrist and that instead an architectural engineering teacher prescribed lithium for him years ago. This unusual assertion could be part of his confabulation. -increase Depakote to 750 mg b.i.d. and increase HS olanzapine to 7.5 mg on 06/22 due to the pressured speech/hypomania. 6. Systolic Heart Murmur. Echo without valvular abnormality seen. 7. Right hip replacement 1 month ago, still needing rehab. Hospital Course: He was admitted about 2 weeks after a right hip replacement after becoming erratic, weak and falling down. His admission sodium level was 150, rising at times to 160 and finally dropping to 140 before discharge. He was diagnosed with lithium induced nephrogenic diabetes insipidus which was treated by stopping the lithium and beginning hydrochlorothiazide. He also had high calcium requiring calcitonin x4 and Zometa x1. The PTH was elevated at 137 which was attributed to the lithium although it should be rechecked now that he is off the lithium. His calcium has not been a problem since stopping the lithium. The creatinine is back at his recent baseline at 2.90 at the time of discharge. The bipolar was addressed initially with IM olanzapine. Once his mentation began improving and the sodium level stabilized he was changed to oral Depakote initially at 250 mg b.i.d., titrating up to 750 mg b.i.d.. Olanzapine by mouth was re added at 7.5 mg HS. He continues to be quite confused, tangential, anxious at times. His hypomania noted a few days ago has improved with the increasing dose of valproic acid. A valproic acid level is pending at the time of discharge. He needs rehab because of his continued gait ataxia related to the recent hip surgery. His was quite emphatic about that, despite his protestations that he wished to try going home again. The psychiatric treatment was coordinated with Dr. Velarde in several phone calls. The patient does not appear to have an outpatient psychiatrist? By the end of his hospital stay he had been accepted by inpatient rehab at [place] and by nursing home [facility]. He was hesitant but ultimately was persuaded that he would benefit from more rehab. He will need close monitoring of his sodium level, creatinine, psychiatric treatment and may need Neurology consultation if the cognitive dysfunction is prolonged. Status at Discharge Cognitive/behavioral status at discharge: confused Functional status at discharge: uses cane/walker Overall status at discharge: patient is progressing back to baseline Time Spent with Patient Time spent: Greater than 30 minutes Exam Vital Signs (past 8 hours): Oxygen Delivery Method Room Air Oxygen Flow Rate 0 Narrative Exam Narrative: He talks about random issues during our conversation including ?timeframes, who was in fall, data?. His speech and his brain function appears to be slowed. He says he had a good night last night. His valproic acid level is pending. The sodium is 140. The alk-phos is 141 and the creatinine is 2.90. He continues to have a heart murmur that on echocardiogram was benign. Heart is regular rate and rhythm with a 2/6 systolic ejection murmur Lungs are clear to auscultation bilaterally Extremities have no ankle edema Objective Labs 06/18/24 08:11 06/23/24 04:50 Labs: Laboratory Results - last 24 hr 06/23/24 04:50 Sodium 140 Potassium 4.1 Chloride 107 Carbon Dioxide 28 BUN 43 H Creatinine 2.90 H Estimated GFR 22 L BUN/Creatinine Ratio 14.8 Glucose 111 H Calcium 8.5 Total Bilirubin 0.3 AST 37 ALT 44 Alkaline Phosphatase 141 H Total Protein 6.5 Albumin 3.4 L Globulin 3.1 Albumin/Globulin Ratio 1.1 PFSH Medical History Anxiety De Quervain's tenosynovitis Depression DJD (degenerative joint disease) Herniated disc HLD (hyperlipidemia) Neuropathy Occasional tremors Septic arthritis (~03/2016) Tinnitus Surgical History History of ankle surgery History of total right knee replacement (05/25/19) Hx of appendectomy Hx of arthroscopy of right knee (03/03/16) Hx of oral surgery (05/05/19) Hx of thumb surgery (~05/2017) Social History household members: spouse Smoking Status: Never smoker alcohol intake: current Discharge Plan Discharge Plan Patient Disposition: SNF Transfer to: [facility] Under care of provider: Dr. Gilliland Nursing Discharge Comment: Follow up appointment 06/24/24 at 1:30 pm. in the [place] office with Dr. Harp. Expect to be there a couple of hours. Discharge orders & Medications Prescriptions: New divalproex [Depakote] 250 mg Tablet,Delayed Release (Dr/Ec) 750 mg PO BID Qty: 180 0RF olanzapine 2.5 mg Tablet 7.5 mg PO BEDTIME Qty: 90 0RF alprazolam 0.25 mg Tablet 0.25 mg PO Q6H PRN (Reason: Anxiety) Qty: 30 0RF calcium carbonate 200 mg calcium (500 mg) Tablet,Chewable 1,000 mg PO TID PRN (Reason: heartburn) Qty: 30 0RF hydrochlorothiazide 25 mg Tablet 12.5 mg PO DAILY Qty: 30 0RF oxycodone 5 mg Tablet 5 mg PO Q6-8H PRN (Reason: Pain, Moderate (4-6)) Qty: 20 0RF Continued allopurinol 100 MG tablet 300 mg PO QDAY Qty: 30 cyclobenzaprine 10 MG tablet 10 mg PO TIDP PRN (Reason: Muscle Spasm) Qty: 0 Patient Comments: states that he takes one every 3 days timolol maleate 0.5 % drops 1 drp EYE-BOTH QAM Qty: 5 rosuvastatin 20 mg Tablet 20 mg PO BEDTIME brimonidine 0.2 % Drops 1 drp EYE-LEFT BID trazodone 50 mg tablet 25 mg PO ONCE PM PRN (Reason: Sleep) acetaminophen [Tylenol Extra Strength] 500 mg Tablet 1,000 mg PO Q8H PRN (Reason: knee pain) Salonpas Deep Relieving 3.1-15-10 % Gel 1 ea TOPICAL BID PRN (Reason: Pain (Scale Score 1-3)) aspirin 81 mg Tablet,Delayed Release (Dr/Ec) 81 mg PO BID Qty: 90 0RF docusate sodium 100 mg Capsule 100 mg PO BID Qty: 30 0RF trazodone 50 mg tablet 50 mg PO BEDTIME PRN (Reason: insomnia) Qty: 14 0RF Discontinued lithium carbonate 150 mg capsule 300 mg PO TID Qty: 0 diazepam 10 mg Tablet 10 mg PO DAILY Patient Comments: States that he takes it a couple times/month oxycodone 5 mg Tablet 5 mg PO Q4-6H PRN (Reason: Pain, Moderate (4-6)) Qty: 30 0RF Follow up/Referrals: Joo Wilson DO [Primary Care Provider] - Diet/Activity/Treatments Diet: Regular Liquid consistency: Normal/Thin Food texture: Regular [facility] Reason for rehabilitation: Post-operative therapy Rehab type: Physical therapy and Occupational therapy Visit Report/Discharge Packet Instructions: DI for Kidney Failure, DI for Hip Replacement, DI for Encephalopathy Stand Alone Forms: Patient Portal/API Discharge Data Primary Care Provider: Joo Wilson
--- NOTE | 2024-06-23 09:27 | CM.DPC ---
DCP Cont. Reviewed EMR and team rounds for status updates. Met with pt and explained that Shameka Larsen will be picking him up at 10:45am to go to SNF rehab. Dr. Rodrigues also went in and discussed this with him, as he initially told this COOPERATIVE EDUCATION DIRECTOR that I'm not leaving. Called his and left her a message about the d/c plan. D/C clinicals have been faxed, no further CM needs indicated at this time.
[2024-06-23] MEDS: DIVALPROEX DR 250 MG TABLET 750 MG PO (09:41)
[2024-06-23] MEDS: HEPARIN 5,000 UNIT/ML VIAL 5000 UNIT SUBCUT (09:43)
[2024-06-23] MEDS: hydroCHLOROthiazide 25 MG TABLET 12.5 MG PO (09:45)
[2024-06-23] MEDS: SODIUM CHLORIDE 0.9% FLUSH 10 ML IV (09:45)
[2024-06-23] MEDS: BRIMONIDINE 0.2% OPHTH 5 ML 1 DROPS EYE-LEFT (09:46)
[2024-06-23] MEDS: TIMOLOL 0.5% OPHTH 1 DROPS EYE-BOTH (09:46)
--- NOTE | 2024-06-23 15:10 | PC.NURSE ---
Transfer: Pt was transfered to [facility]. Report given to Zena admitting nurse at [facility]. Reviewed hospital course, Medication adjustments, Had been on Barrett and is now on depakote and zyprexa. Mood has been good per pt. He is more oriented than he was on admission. Spouse knows pt is going to facility. He has had a hip fracture with ant precautions previously. His incision is well healed. His follow up is tomorrow. She reports they will need to change that and wonders if it could be done at [facility] since it is so much closer. Didn't think there would be a problem but she was told to call office to be sure. Her questions were answered. She was given this ext if she needed further questions answered.
[2024-06-24 03:35] LABS: Valproic Acid (Depakene) Total 39 ug/mL (50-100)
== END 2024-06-23 10:45 | DRG 698 ==
PROVIDERS: Family Medicine; Internal Medicine; Admitting Provider Hospitalist; PCP Family Medicine; Referring Provider Hospitalist; Visit Provider Hospitalist
DX: N25.1 Nephrogenic diabetes insipidus (principal); G93.41 Metabolic encephalopathy; N17.9 Acute kidney failure, unspecified; N18.4 Chronic kidney disease, stage 4 (severe); E86.9 Volume depletion, unspecified; T43.595A Adverse effect of other antipsychotics and neuroleptics, initial encounter; E83.52 Hypercalcemia; F31.9 Bipolar disorder, unspecified; R47.81 Slurred speech; R01.1 Cardiac murmur, unspecified; F41.9 Anxiety disorder, unspecified; R27.0 Ataxia, unspecified; E78.5 Hyperlipidemia, unspecified; G62.9 Polyneuropathy, unspecified; Z96.641 Presence of right artificial hip joint; Z79.899 Other long term (current) drug therapy
CPT/HCPCS: 36415; 70551; 76770; 80048; 80053; 80164; 80178; 81001; 82306; 82310; 82945; 83930; 83935; 83970; 84157; 85025; 85027; 85610; 87070; 87205; 87798; 89051; 92526; 92610; 93306; 97116; 97162; 97166; 97530; 97535; J0630; J1171; J1630; J1644; J2060; J2359; J3489